=== PATIENT | female | born 1990 | race Caucasian/White ===

== ENCOUNTER 2023-09-14 11:05 | Inpatient (IN) | payer BC, SELFPAY ==
[2023-09-14] VITALS (47 sets, daily range): BP systolic 91–131; BP diastolic 56–86; PULSE 60–108; TEMP 36.6–36.9
[2023-09-14 11:46] LABS: Bilirubin Urine NEGATIVE (NEGATIVE); Blood Urine SMALL (NEGATIVE); Clarity Urine CLEAR (CLEAR); Color Urine LT. YELLOW (YELLOW); Glucose Urine UA NEGATIVE (NEGATIVE); Ketones Urine NEGATIVE (NEGATIVE); Leukocyte Esterase Urine SMALL (NEGATIVE); Nitrite Urine NEGATIVE (NEGATIVE); Protein Urine NEGATIVE (NEG/TRACE); Specific Gravity Urine <=1.005 (1.005-1.025); Urobilinogen Urine 0.2 EU/dL (0.2-1.0); pH Urine 6.5 (5.0-9.0)
[2023-09-14 11:54] LABS: Urine Microscopic Indicated YES
[2023-09-14 12:01] LABS: Amnisure POSITIVE (NEGATIVE)
[2023-09-14 12:13] LABS: Bacteria Urine TRACE #/HPF (NONE SEEN); Cast Seen? NONE SEEN #/LPF (NONE SEEN); Crystals Seen? None Seen #/HPF (None Seen); Mucus Urine NONE SEEN (NONE SEEN); RBC Urine 0-2 #/HPF (0-2); Squamous Epithelial Cell Urine MODERATE #/LPF (NONE/RARE); Urine Culture Indicated YES
[2023-09-14] MEDS: LACTATED RINGER'S SOLUTION 1,000 ML 125 ML IV (13:02)
[2023-09-14] MEDS: CLINDAMYCIN PHOSPHATE/D5W 900 MG/50 ML PIGGYBACK 100 MG IV ×2 (13:04→18:19)
[2023-09-14 13:10] LABS: Hematocrit 35.5 % (36.0-48.0); Hemoglobin 12.1 g/dL (12.0-16.0); Mean Corpuscular HGB Conc 34.1 g/dL (29.9-35.2); Mean Corpuscular Hemoglobin 29.2 pg (26.7-34.0); Mean Corpuscular Volume 85.7 fL (81.0-99.0); Mean Platelet Volume 10.4 fL (9.5-13.5); Platelet Count 302 10^3/uL (150-450); Red Blood Count 4.14 10^6/uL (4.20-5.40); Red Cell Distribution Width 13.9 % (11.0-15.0); White Blood Count 10.4 10^3/uL (4.0-11.0)
[2023-09-14 13:28] LABS: Amphetamine Screen Urine NEGATIVE (NEGATIVE); Barbiturates Screen Urine NEGATIVE (NEGATIVE); Benzodiazepines Screen Urine NEGATIVE (NEGATIVE); Buprenorphine Screen Urine NEGATIVE (NEGATIVE); Cannabinoid Screen Urine NEGATIVE (NEGATIVE); Cocaine Screen Urine NEGATIVE (NEGATIVE); Methadone Screen Urine NEGATIVE (NEGATIVE); Methamphetamines Screen Urine NEGATIVE (NEGATIVE); Opiate Screen Urine NEGATIVE (NEGATIVE); Oxycodone Screen Urine NEGATIVE (NEGATIVE); Phencyclidine Screen Urine NEGATIVE (NEGATIVE); Tricyclic Antidepressant Urine NEGATIVE (NEGATIVE)
[2023-09-14] MEDS: OXYTOCIN/0.9 % SODIUM CHLORIDE 10 UNITS/500 ML PLAST..BAG 6 UNIT IV (14:12)
--- NOTE | 2023-09-14 18:15 | PM.OBHP ---
OB - H&P: HPI History of Present Illness Chief complaint: LAB : 3 Para: 2 Gestational age based on last menstrual period: 39.5 Comments: history of Factor V History of Present Dating criteria: LMP confirmed by 1st trimester US care: good care Ultrasounds: normal 1st trimester US and normal mid trimester US complications comment: factor V Medical complications OB: none Labs Blood type: B (+) positive Rubella: immune RPR/VDLR: nonreactive GBS status: positive Narrative: allergy to PCN, treatment for GBS clindamycin Review of Systems ROS Status of ROS: 10 or more systems reviewed and unremarkable except as noted in history and below Meds Home Medications and Allergies Allergies Allergy/AdvReac Type Severity Reaction Status Date / Time PCN Allergy Mild Rash Uncoded 09/14/23 12:21 Exam Constitutional Vital Signs, click to edit/add: Last Vital Signs Temp 97.8 F 09/14/23 16:00 Pulse 72 09/14/23 18:13 Resp 16 09/14/23 16:00 BP 111/64 09/14/23 18:13 O2 Del Method Room Air 09/14/23 13:40 Documenting provider has reviewed patient's vital signs: yes Common normals: no apparent distress and oriented x3 General appearance: cooperative and comfortable Orientation/consciousness: Yes awake, Yes oriented to person, Yes oriented to place and Yes oriented to time HENMT Common normals: normocephalic Eye Common normals: EOMs intact bilaterally Neck & C-Spine Common normals: full ROM Lymph Lymphatic: no lymphadenopathy noted Chest Common normals: inspection of chest normal Respiratory Common normals: normal respiratory effort Effort & inspection: able to speak in complete sentences Auscultation: clear to auscultation bilaterally Cardio Common normals: regular rate and regular rhythm Rate: regular rate Rhythm: regular rhythm GI Common normals: Normal to inspection, nondistended, normoactive bowel sounds present Inspection: normal to inspection Auscultation: normoactive bowel sounds Palpation: soft Percussion: normal to percussion Common normals: no CVA tenderness Back & Pelvis Common normals: no CVA tenderness Extremity Common normals: normal to inspection and full ROM Neuro Common normals: oriented x3 Sensorium/orientation: awake, alert, oriented to person, oriented to place and oriented to time Psych Common normals: mental status grossly normal, thought process normal and cooperative Attitude: calm Speech: normal speech Thought process: normal thought process Results Labs Labs: Short CBC 09/14/23 Range/Units 12:50 WBC 10.4 (4.0-11.0) 10^3/uL Hgb 12.1 (12.0-16.0) g/dL Hct 35.5 L (36.0-48.0) % Plt Count 302 (150-450) 10^3/uL Urine 09/14/23 Range/Units 11:30 Urine Color Lt. yellow (YELLOW) Urine Clarity Clear (CLEAR) Urine pH 6.5 (5.0-9.0) Ur Specific [place] <=1.005 A (1.005-1.025) Urine Protein Negative (NEG/TRACE) mg/dL Urine Glucose (UA) Negative (NEGATIVE) mg/dL OB - A/P Assessment and Plan (1) Term : Urinary Catheter Management Urinary Catheter Management Urethral: Cath placed during this visit: no Urethral indwelling: Yes Reason for continuing: prolonged immobilization
[2023-09-14] MEDS: ROPIVACAINE HCL/PF 400 MG/200 ML PREMIX 6 MG EPIDURAL (18:18)
[2023-09-14] MEDS: OXYTOCIN/0.9 % SODIUM CHLORIDE 20 UNITS/1,000 ML PLAST..BAG 125 UNIT IV (20:19)
--- NOTE | 2023-09-14 21:00 | PM.OBPRCVD ---
Procedure Induction method: none Delivery augmentation: pitocin Delivery monitor: external FHT and external uterine Route of delivery: Episiotomy Description: none L&D Laceration Description: perineal - 1st degree and vaginal - 1st degree Delivery repair: Vicryl Estimated blood loss (mL): 300 Anesthesia type: Epidural Disposition: same day Infant Delivery date: 09/14/23 Gender: female presentation: vertex Placental delivery description: Spontaneous cord description: 3 Vessels heart rate - 1 minute: 100 bpm or Greater respiratory effort - 1 minute: Spontaneous/Strong Cry muscle tone - 1 minute: Active Movement reflex response - 1 minute: Prompt Response color - 1 minute: Bluish Hands or Feet total score - 1 minute: 9 heart rate - 5 minute: 100 bpm or Greater respiratory effort - 5 minute: Spontaneous/Strong Cry muscle tone - 5 minute: Active Movement reflex response - 5 minute: Prompt Response color - 5 minute: Bluish Hands or Feet total score - 5 minute: 9
[2023-09-14] MEDS: IBUPROFEN 400 MG TABLET 800 MG PO (21:15)
[2023-09-15 05:33] LABS: Basophils Percent Auto 0.3 % (0.2-2.0); Eosinophils Percent Auto 0.3 % (0.9-7.0); Hematocrit 31.9 % (36.0-48.0); Hemoglobin 10.8 g/dL (12.0-16.0); Immature Granulocytes Abs Auto 0.05 10^3/uL (0.00-0.03); Immature Granulocytes Pct Auto 0.4 % (0.0-0.5); Lymphocytes Absolute Auto 2.2 10^3/uL (1.2-3.8); Lymphocytes Percent Auto 17.1 % (20.5-60.0); Mean Corpuscular HGB Conc 33.9 g/dL (29.9-35.2); Mean Corpuscular Hemoglobin 29.5 pg (26.7-34.0); Mean Corpuscular Volume 87.2 fL (81.0-99.0); Monocytes Absolute Auto 0.9 10^3/uL (0.3-0.8); Neutrophils Absolute Auto 9.7 10^3/uL (1.4-6.5); Neutrophils Percent Auto 74.9 % (43.0-75.0); Platelet Count 219 10^3/uL (150-450); Red Blood Count 3.66 10^6/uL (4.20-5.40); Red Cell Distribution Width 13.9 % (11.0-15.0); White Blood Count 12.9 10^3/uL (4.0-11.0)
--- NOTE | 2023-09-15 07:48 | P.OBPN_ITS ---
OB - PN: Subj Subjective Patient comments: no complaints and pain well controlled status: doing well Exam Constitutional Vital Signs, click to edit/add: Last Vital Signs Temp 98.0 F 09/14/23 21:00 Pulse 65 09/14/23 22:30 Resp 16 09/14/23 22:30 BP 112/66 09/14/23 22:30 O2 Del Method Room Air 09/14/23 22:30 Documenting provider has reviewed patient's vital signs: yes Common normals: no apparent distress Respiratory Common normals: normal respiratory effort and clear to auscultation bilaterally Cardio Common normals: regular rate and regular rhythm GI Common normals: Normal to inspection, nondistended, normoactive bowel sounds present Extremity Common normals: no clubbing, cyanosis or edema and no calf tenderness Results Labs Labs: Short CBC 09/14/23 09/15/23 Range/Units 12:50 05:25 WBC 10.4 12.9 H (4.0-11.0) 10^3/uL Hgb 12.1 10.8 L (12.0-16.0) g/dL Hct 35.5 L 31.9 L (36.0-48.0) % Plt Count 302 219 (150-450) 10^3/uL Urine 09/14/23 Range/Units 11:30 Urine Color Lt. yellow (YELLOW) Urine Clarity Clear (CLEAR) Urine pH 6.5 (5.0-9.0) Ur Specific [place] <=1.005 A (1.005-1.025) Urine Protein Negative (NEG/TRACE) mg/dL Urine Glucose (UA) Negative (NEGATIVE) mg/dL Urinary Catheter Management Urinary Catheter Management Urethral: Cath placed during this visit: no Urethral indwelling: Yes OB - PN: A/P Assessment and Plan (1) Term : Plan - Vaginal Delivery day: 1 Plan: routine care, discharge home and follow up 6 weeks Time Spent with Patient Time: Total time spent is greater than 50% in coordination of care (as documented) at patient's floor/unit and/or counseling patient: Total time spent with greater than 50% in coordination of care (as documented) at patient's floor/unit and/or counseling patient: less than 15 minutes
[2023-09-15 08:12] VITALS: BP 109/71; PULSE 75
[2023-09-15] MEDS: ENOXAPARIN SODIUM 40 MG/0.4 ML SYRINGE SUBQ (08:17)
[2023-09-15] MEDS: DOCUSATE SODIUM 100 MG CAPSULE PO ×2 (08:17→21:40)
--- NOTE | 2023-09-15 08:20 | PC.NURSE ---
0820 Pt given demonstration and education on lovenox administration.
[2023-09-15] MEDS: IBUPROFEN 400 MG TABLET 800 MG PO ×3 (08:37→21:36)
[2023-09-15 16:30] VITALS: PULSE 71; TEMP 36.4
[2023-09-15 16:38] VITALS: BP 118/78; PULSE 71
[2023-09-15 21:43] VITALS: BP 110/65; PULSE 67
[2023-09-15 21:44] VITALS: TEMP 36.1
== END 2023-09-15 22:05 | disposition home or self-care (01) | DRG 806 ==
LOC: HEMC 11:12 → FBC 11:22
PROVIDERS: Admitting Provider Midwife; PCP Family Medicine; Visit Provider Midwife
DX: O99.12 Other diseases of the blood and blood-forming organs and certain disorders involving the immune mechanism complicating childbirth (principal); D68.2 Hereditary deficiency of other clotting factors; Z37.0 Single live birth; O99.824 Streptococcus B carrier state complicating childbirth; O70.0 First degree perineal laceration during delivery; Z3A.39 39 weeks gestation of pregnancy; Z86.16 Personal history of COVID-19; Z85.820 Personal history of malignant melanoma of skin
CPT/HCPCS: 36415; 51702; 59025; 59050; 59410; 80307; 81001; 84112; 85025; 85027; 86850; 86900; 86901; 87086; 87150; 87186; 96365; 96366; 96367; 96372; 96376

== ENCOUNTER 2023-09-16 08:37 | Outpatient (OUT) | payer BC, SELFPAY ==
[2023-09-16 13:58] VITALS: BP 114/79; PULSE 80; TEMP 36.6; O2SAT 98
== END 2023-09-16 14:11 | disposition home or self-care (01) ==
LOC: FBCO 08:38
PROVIDERS: PCP Family Medicine; Visit Provider Midwife
DX: Z39.2 Encounter for routine postpartum follow-up (principal)

== ENCOUNTER 2024-08-31 14:20 | Outpatient (OUT) | payer BC, SELFPAY ==
--- NOTE | 2024-08-31 14:54 | P.GSHP_ITS ---
History of Present Illness History of Present Illness Chief complaint: IUD Migration Narrative: Patient presents for presurgical testing. The patient states she had an IUD placed in November 2023. She states she was never able to locate the strings and felt that the IUD was not in place. She states she has had intermittent abdominal pain. She denies nausea, vomiting, fever, or any other complaints. Review of Systems ROS Narrative REVIEW OF SYSTEMS: Negative except as stated in HPI, ten or more systems reviewed. Constitutional: No fever, chills, weakness ENT: No sore throat or epistaxis Cardiovascular: No edema, chest pain, palpitations, or activity intolerance Respiratory: No shortness of breath, cough, or wheezing Musculoskeletal: No joint pain or swelling Gastrointestinal: No constipation, diarrhea, or vomiting Genitourinary: No dysuria or hematuria Neurological: No numbness, tingling, weakness, or headache Psychiatric: No mood changes PFSH PFS Medical History (Updated 08/31/24 @ 14:39 by Viry Chavez NP) Melanoma ?C43.9 - Malignant melanoma of skin, unspecified (ICD-10) Anxiety ?F41.9 - Anxiety disorder, unspecified (ICD-10) Migraine ?G43.909 - Migraine, unspecified, not intractable, without status migrainosus (ICD-10) IUD migration ?T83.32XA - Displacement of intrauterine contraceptive device, initial encounter (ICD-10) hypertension ?O16.5 - Unspecified maternal hypertension, complicating the puerperium (ICD- 10) 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 (ICD-10) Surgical History (Updated 08/31/24 @ 14:39 by Viry Chavez NP) H/O local excision of skin lesion ?Z98.890 - Other specified postprocedural states (ICD-10) History of wisdom tooth extraction ?K08.409 - Partial loss of teeth, unspecified cause, unspecified class (ICD- 10) Family History (Updated 08/31/24 @ 14:39 by Viry Chavez NP) Other Factor V deficiency Family history of breast cancer Family history of cancer Family history of diabetes mellitus Family history of hypertension Family history of myocardial infarction Family history of stroke Social History (Updated 08/31/24 @ 14:32 by Viry Chavez NP) Within the past year, how often did you have a drink containing alcohol: 2-3 times a week Smoking status: Never smoker Non-prescribed substance use: denies use 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 Highest level of school completed/degree received: Bachelor's degree Meds Home Medications and Allergies Home Medications ?Medication ?Instructions ?Recorded ?Confirmed ?Type escitalopram oxalate 10 mg tablet 10 mg PO DAILY 08/31/24 08/31/24 History Allergies Allergy/AdvReac Type Severity Reaction Status Date / Time Penicillins Allergy Unknown Verified 08/31/24 14:30 Exam Narrative Exam Narrative: Constitutional: Awake, alert, comfortable, well-appearing, nontoxic, interactive, vital signs as charted Head: Normocephalic, atraumatic Neck: Supple, normal appearance, normal range of motion, no meningeal signs, no lymphadenopathy Respiratory: No respiratory distress, breath sounds clear Cardiovascular: Regular rate and rhythm, strong and regular heart tones Abdomen: Nontender, normal bowel sounds, soft, no CVA tenderness Musculoskeletal: Normal gait, no swelling or edema Skin: No rashes or induration, no lesions, only visible skin inspected Neuro: No neurological deficits, normal sensation Psychiatric: Oriented ?3, normal affect Assessment and Plan Assessment and Plan (1) IUD migration: Plan Diagnostic laparoscopy, possible MARIYA, possible FOE, possible BSO, D&C, hysteroscopy, possible MyoSure scheduled with Dr. Gibson September 01, 2024.
== END 2024-08-31 14:21 | disposition home or self-care (01) ==
LOC: PST 14:21
PROVIDERS: PCP Family Medicine; Visit Provider Obstetrics & Gynecology
DX: Z01.818 Encounter for other preprocedural examination (principal); T83.32XA Displacement of intrauterine contraceptive device, initial encounter
CPT/HCPCS: G0463

== ENCOUNTER 2024-09-01 09:52 | Day surgery (SDC) | payer BC, SELFPAY ==
[2024-08-31 14:52] VITALS: BP 128/84; PULSE 75; TEMP 36.4; O2SAT 100; BMI 23.0
[2024-09-01] VITALS (11 sets, daily range): BP systolic 111–128; BP diastolic 74–84; PULSE 69–102; TEMP 36.2–36.8; O2SAT 93–100; BMI 23.0
--- OUTSIDE RECORDS SUMMARY | 2024-09-01 09:59 | XMS_ITS | CCD ---
Author Organization [facility] Inform ion [facility] Care Team Providers Care [employer] Name Role Phone DARRYL DE LA ROSA Unavailable Unavailable RENZO SHIN Attending Unavailable RENZO SHIN Admitting Unavailable LOVE QUINTERO Consulting Unavailable RENZO SHIN Consulting Unavailable RENZO SHIN Consulting Unavailable RENZO SHIN Attending Unavailable RENZO SHIN [facility]available RENZO SHIN Consulting Unavailable RENZO SHIN Attending Unavailable RENZO SHIN Admitting Unavailable RENZO SHIN Admitting Unavailable RENZO SHIN Attending Unavailable FELICITAS MARTINES V Consulting Unavailable [facility]ZO SHIN [facility] Admitting Unavailable RENZO SHIN Consulting Unavailable RENZO SHIN Attending Unavailable RENZO SHIN Admitting Unavailable RENZO SHIN Attending Unavailable RENZO SHIN [facility]ZO SHIN Attending Unavailable RENZO SHIN Consulting Unavailable RENZO SHIN Admitting Unavailable CAMRON [facility] Care Unavailable RENZO SHIN Admitting Unavailable RENZO SHIN Attending Unavailable RENZO SHIN Consulting Unavailable [facility] Primary Care Unavailable RENZO SHIN Consulting Unavailable RENZO SHIN Attending Unavailable RENZO SHIN Ad[facility] Un[facility] SHIN DAVISON Referring Unavailable DEMI DANIELS Primary Care Unavailable Delmsi Lorenzo MD Primary Care Provider Delmis Lorenzo MD Unavailable SHIN DAVISON Attending Unavailable SHIN DAVISON Attending Unavailable SHIN DAVISON Attending Unavailable SHIN DAVISON Attending Unavailable SHIN DAVISON Attending Unavailable DELMIS LORENZO Attending Unavailable SHIN DAVISON Attending Unavailable SHIN DAVISON Attending Unavailable SHIN DAVISON L Attending Unavailable CHARLA, SHIN L Attending Unavailable CHARLA, SHIN L Attending Unavailable CHARLA, SHIN L Attending Unavailable GONZALES DELMIS F Attending Unavailable GONZALES, DELMIS F Attending Unavailable GONZALES, DELMIS F Attending Unavailable GONZALES, DELMIS Nieto Attending Unavailable Allergies Allergy Classification Reported Allergen(s) Allergy Type Date of Onset Reaction(s) Facility (1 source) Penicillin Drug Allergy [facility] Repository (9 sources) Penicillins; Translations: [PENICILLINS] Propensity to adverse reactions to drug (disorder) 8 Rash [facility] Repository Medications Current Medications Medication Drug Class(es) Dates Sig (Normalized) Sig (Original) onabotulinumtoxina 100 unt injection (2 sources) Acetylcholine Release Inhibitor Start: End: onabotulinumtoxinA (Botox) injection 34 Units Start: 08-17-2024 End: 08-17-2024 34 Units, Intradermal, Once, On Norah 08/17/24 at 1715, For 1 dose, Charging context for this clinic-administered medication: Fee-Editable/Self Pay escitalopram 10 mg oral tablet (7 sources) Serotonin Reuptake Inhibitor Start: 05-31-2024 End: 11-27-2024 take 1 tablet by mouth once daily escitalopram (Lexapro) 10 MG tablet Indications: Mood changes TAKE 1 TABLET (10 MG) BY MOUTH DAILY. 90 tablet 1 05/31/2024 11/27/2024 Active Start: 01-31-2024 End: 04-30-2024 take 1 tablet by mouth once daily escitalopram (Lexapro) 10 MG tablet Indications: Mood changes Take 1 tablet (10 mg) by mouth Daily 30 tablet 5 01/31/2024 04/30/2024 Active levonorgestrel 0.780672 mg/hr intrauterine system (8 sources) Progestin, Progestin-containing Intrauterine Device Levonorgestrel (Keysha tta, 52 MG,) 20.1 MCG/DAY intrauterine device by Intrauterine route Active Problems Active Problems Problem Classification Problem Date Documented Date Episodic/Chronic Contraceptive and procreative management (2 sources) Intrauterine contraceptive device in situ; Translations: [Encounter for routine checking of intrauterine contraceptive device] 08-30-2024 Episodic Diabetes mellitus without complication (4 sources) Other abnormal glucose; Translations: [OTHER ABNORMAL GLUCOSE] Onset: 05-07-2020 Episodic Immunizations and screening for infectious disease (4 sources) Contact with and (suspected) exposure to other viral communicable diseases; Translations: [Encounter for screening for infections with a predominantly sexual mode of transmission] Onset: 02-17-2020 Episodic Menstrual disorders (4 sources) Secondary amenorrhea; Translations: [SECONDARY AMENORRHEA] Onset: 01-15-2020 Chronic Mood disorders (2 sources) Disturbance in mood; Translations: [Emotional lability] 01-31-2024 Episodic Other complications of (1 source) Supervision of high risk , unspecified, unspecified trimester; Translations: [Supervision of high risk , unspecified, unspecified trimester] Onset: 06-08-2023 Episodic Other and delivery including normal (8 sources) Encounter for supervision of normal , unspecified, second trimester; Translations: [Encounter for supervision of normal , unspecified, third trimester] Onset: 03-25-2020 Episodic Other screening for suspected conditions (not mental disorders or infectious disease) (5 sources) Encounter for screening for malignant neoplasm of cervix; Translations: [Encounter for other screening follow-up] Onset: 02-12-2020 Episodic Other screening for suspected conditions (not mental disorders or infectious disease) (1 source) Encounter for screening for Streptococcus B; Translations: [ENC SCR STREPTOCOCCUS B] Onset: 07-05-2020 Other skin disorders (2 sources) Rhytide of forehead; Translations: [Other specified disorders of the skin and subcutaneous tissue] 04-06-2024 Episodic Residual codes; unclassified (4 sources) 23 weeks gestation of ; Translations: [23 WEEKS GESTATION OF ] Onset: 05-01-2020 Residual codes; unclassified (1 source) 20 weeks gestation of ; Translations: [20 WEEKS GESTATION OF ] Onset: 03-28-2020 Unclassified (1 source) BX / BX() Onset: 02-22-2018 Unclassified (1 source) COVID-19; Translations: [COVID-19] Onset: 04-21-2020 Unclassified (7 sources) Patient on antidepressant monitoring plan Onset: 01-31-2024 01-31-2024 Unclassified (7 sources) Baseline PHQ-9 Onset: 01-31-2024 01-31-2024 Past or Other Problems Problem Classification Problem Date Documented Da te Episodic/Chronic Other ear and sense organ disorders (8 sources) Sudden idiopathic hearing loss; Translations: [Sudden idiopathic hearing loss, left ear] Onset: 06-04-2023 06-04-2023 Episodic Unclassified (1 source) BX; Translations: [BX] Onset: 02-22-2018 Results Test Name Value Interpretation Reference Range Facility CHLAMYDIA/GONOCOCCUS LING ( AB/URINE/PAPon 07-06-2020 Chlamydia trachomatis, LING Negative Normal Negative [facility] Comment on above: Performed By: #### Celina EUBANKS #### [facility] [address] [place] [id number] Rory Tosha Neisseria gonorrhoeae, LING Negative Normal Negative [facility] Comment on above: Performed By: #### Celina EUBANKS #### [facility] [address] [place], [place] [id number] Rory Tosha GROUP B STREP CULTUREon 06-17 S. agalactiae Ag Ql (Unsp spec) Culture Observations: Negative for Group B Streptococcus Normal [facility] Comment on above: Performed By: #### G BSCX #### [facility] [address] [place] [address] Rory Tosha GTT 3 HR PREGon 05-07-2020 Glucose [Mass/Vol] 138 mg/dL Normal [facility] Comment on above: Performed By: #### C BC #### [facility] [address] [place] [address] Rory Tosha Glucose [Mass/Vol] 102 mg/dL Normal [facility] Comment on above: Performed By: #### C BC #### [facility] [address] [place] [address] Rory Tosha Glucose [Mass/Vol] 80 mg/dL Normal 74-106 [facility] Comment on above: Performed By: #### C BC #### [facility] [address] [place] [address] Rory Tosha Glucose [Mass/Vol] 132 mg/dL Normal [facility] Comment on above: Performed By: #### C BC #### [facility] [address] [place] [address] Rory Tosha CBC AUTO DIFFon 05-01-2020 Basophils (Bld) [#/Vol] 0.0 103/ul Normal 0.0-0.1 [facility] Comment on above: Performed By: #### C BC #### [facility] [address] [place] [address] Rory Tosha Basophils/100 WBC (Bld) 0.4 % Normal 0.2-2.0 [facility] Comment on above: Performed By: #### C BC #### [facility] [address] [place] [address] Rory Tosha Eosinophils (Bld) [#/Vol] 0.1 103/ul Normal 0.0-0.7 [facility] Comment on above: Performed By: #### C BC #### [facility] [address] [place] [address] Rory Tosha Eosinophils/100 WBC (Bld) 0.6 % Critically low 0.9-7.0 [facility] Comment on above: Performed By: #### C BC #### [facility] [address] [place] [address] Rory Tosha Erythrocyte distribution width (RBC) [Ratio] 13.2 % Normal 11.0-15.0 [facility] Comment on above: Performed By: #### C BC #### [facility] [address] [place] [address] Rory Tosha Hematocrit (Bld) [Volume fraction] 35.7 % Critically low 36.0-48.0 [facility] Comment on above: Performed By: #### C BC #### [facility] [address] [place] [address] Rory Tosha Hemoglobin (Bld) [Mass/Vol] 12.2 g/dL Normal 12.0-16.0 [facility] Comment on above: Performed By: #### C BC #### [facility] [address] [place] [address] Rory Tosha IG # 0.06 10e3/ul Critically high 0.00-0.03 [facility] Comment on above: Performed By: #### C BC #### [facility] [address] [id number] Rory Tosha IG % 0.7 % Critically high 0.0-0.5 [facility] Comment on above: Performed By: #### C BC #### [facility] [address] [place], [place] [id number] Rory Tosha Lymphocytes (Bld) [#/Vol] 1.6 103/ul Normal 1.2-3.8 [facility] Comment on above: Performed By: #### C BC #### [facility] [address] [place], [place] [id number] Rory Tosha Lymphocytes/100 WBC (Bld) 19.5 % Critically low 20.5-60.0 [facility] Comment on above: Performed By: #### C BC #### [facility] [address] [place], [place] [id number] Rory Tosha MANUAL DIFF REQ NO Normal [facility] Comment on above: Performed By: #### C BC #### [facility] [address] [place], [place] [id number] Rory Tosha MCH (RBC) [Entitic mass] 30.1 pg Normal 26.7-34.0 [facility] Comment on above: Performed By: #### C BC #### [facility] [address] [place], [place] [id number] Rory Tosha MCHC (RBC) [Mass/Vol] 34.2 g/dL Normal 29.9-35.2 [facility] Comment on above: Performed By: #### C BC #### [facility] [address] [place], [place] [id number] Rory Tosha MCV (RBC) [Entitic vol] 88.1 fL Normal 81.0-99.0 [facility] Comment on above: Performed By: #### C BC #### [facility] [address] [place], [place] [id number] Rory Tosha Monocytes (Bld) [#/Vol] 0.4 103/ul Normal 0.3-0.8 [facility] Comment on above: Performed By: #### C BC #### [facility] [address] [place], [place] [address] Rory Tosha Monocytes/100 WBC (Bld) 4.8 % Normal 1.7-12.0 [facility] Comment on above: Performed By: #### C BC #### [facility] [address] [place], [place] [address] Rory Tosha Neutrophils (Bld) [#/Vol] 6.1 103/ul Normal 1.4-6.5 [facility] Comment on above: Performed By: #### C BC #### [facility] [address] [place] [address] Rory Tosha Neutrophils/100 WBC (Bld) 74.0 % Normal 43.0-75.0 [facility] Comment on above: Performed By: #### C BC #### [facility] [address] [place] [address] Rory Tosha Platelet mean volume (Bld) [Entitic vol] 9.2 fL Critically low 9.5-13.5 [facility] Comment on above: Performed By: #### C BC #### [facility] [address] [place] [address] Rory Tosha Platelets (Bld) [#/Vol] 285 103/ul Normal 150-450 [facility] Comment on above: Performed By: #### C BC #### [facility] [address] [place] [address] Rory Tosha RBC (Bld) [#/Vol] 4.05 106/ul Critically low 4.20-5.40 [facility] Comment on above: Performed By: #### C BC #### [facility] [address] [place] [address] Rory Tosha WBC (Bld) [#/Vol] 8.2 103/ul Normal 4.0-11.0 [facility] Comment on above: Performed By: #### C BC #### [facility] [address] [place] [address] Rory Tosha GLUCOSE - 1HRon 05-01-2020 Glucose [Mass/Vol] 158 mg/dL Critically high 74-106 [facility] Comment on above: Performed By: #### G LU1HR #### [facility] [address] [id number] Rory Givens Covid-19 PCR ([facility])on 03-19 Covid-19 DETECTED NOT DETECTED [facility] Comment on above: Result Comment: This test is not yet approved or cleared by the [place] FDA. When there are no FDA-approved or cleared tests available, and other criteria are met, FDA can make tests available under an emergency access mechanism called an Emergency Use Authorization (EUA). The EUA for this test is supported by the [place] of Health and Human Service's (HHS's) declaration that circumstances exist to justify the emergency use of in vitro diagnostics for the detection and/or diagnosis of the virus that causes COVID-19. This EUA will remain in effect (meaning this test can be used) for the duration of the COVID-19 declaration justifying emergency of IVDs, unless it is terminated or revoked by FDA (after which the test may no longer be used). This test is not yet approved or cleared by the [place] FDA. When there are no FDA-approved or cleared tests available, and other criteria are met, FDA can make tests available under an emergency access mechanism called an Emergency Use Authorization (EUA). The EUA for this test is supported by the [place] of Health and Human Service's (HHS's) declaration that circumstances exist to justify the emergency use of in vitro diagnostics for the detection and/or diagnosis of the virus that causes COVID-19. This EUA will remain in effect (meaning this test can be used) for the duration of the COVID-19 declaration justifying emergency of IVDs, unless it is terminated or revoked by FDA (after which the test may no longer be used). Previously reported as: NOT DETECTED On 04/16/2020 00:20 By LBS Performed By: #### V CHA #### [facility] [address] [id number] Rory Givens EUA Statement SEE BELOW Normal [facility] Comment on above: Result Comment: This test is not yet approved or cleared by the [place] FDA. When there are no FDA-approved or cleared tests available, and other criteria are met, FDA can make tests available under an emergency access mechanism called an Emergency Use Authorization (EUA). The EUA for this test is supported by the [employer] of Health and Human Service?s (HHS?s) declaration that circumstances exist to justify the emergency use of in vitro diagnostics for the detection and/or diagnosis of the virus that causes COVID-19. This EUA will remain in effect (meaning this test can be used) for the duration of the COVID-19 declaration justifying emergency of IVDs, unless it is terminated or revoked by FDA (after which the test may no longer be used). When diagnostic testing is negative, the possibility of a false negative should be considered in the context of a patients recent exposures and the presence of clinical signs and symptoms consistent with SARS-CoV-2. Performed By: #### V CHA #### [facility] [address] [place] [address] Roryolivier Nealen US PREG ANATOMY SINGLEon US PREG ANATOMY SINGLE EXAMINATION: US PREG ANATOMY SINGLE HISTORY: Gestation period, 20 weeks COMPARISON: No relevant comparison available. TECHNIQUE: Transabdominal sonographic examination was performed for obstetrical and evaluation. FINDINGS: Number: 1 Heart Rate: 150.1 bpm H.B. /min Amniotic Fluid Volume: Subjectively normal Placental Location: Posterior, no previa Cervix Length: 4 cm , closed ANATOMY: Normal Structures -cerebellum, choroid plexus, cisterna magna, lateral cerebral ventricles, orbits, midline falx, hard palate, four-chamber heart, RVOT, LVOT, stomach, kidneys, bladder, umbilical cord insertion into abdomen, three-vessel cord, cervical spine, thoracic spine, lumbar spine, sacral spine, right upper extremity, left upper extremity, right lower extremity, left lower extremity. SUBOPTIMALLY SEEN: None ABNORMALITIES: None BIOMETRY: BPD: 4.5 cm 19 weeks 5 days HC: 18.0 cm 20 weeks 3 days AC: 15.8 cm 20 weeks 6 days FL: 3.4 cm 20 weeks 4 days EFW:369.8 grams (43rd percentile) FL/AC: 21.4 FL/BPD: 74.6 HC/AC: 1.1 GESTATIONAL AGE: Age by EDC: 20 weeks 5 days JOON by EDC: 08/07/2020 Age by current US: 20 weeks 3 days JOON by current US: 08/09/2020 IMPRESSION: 1. Single live intrauterine with growth detailed above. *Reference: [facility] Practice Guideline for the performance of Obstetric Ultrasound Examinations, February 14, 2007. Electronically authenticated by: LOVE QUINTERO Date: 2020-03-26 07:17 Normal [facility] AFP TETRA PROFILE (MATERNAL) on 02-22-2020 AFP MoM 0.53 Normal [facility] Comment on above: Performed By: #### A FPTET #### [facility] [address] [id number] Rory Tosha AFP Value 18.7 ng/mL Normal [facility] Comment on above: Performed By: #### A FPTET #### [facility] [address] [address] Rory Tosha Comment Comment Normal [facility] Comment on above: Result Comment: Fidelia Cornell, Ph.D., [facility] Director . References: Available Upon Request. . Multiples Of Median Cutoffs Abbreviation Definitions For AFP Elevations IDD- Insulin Dep Diabetes Gunn 2.5 Black 2.8 OSBR- Open Spina Bifida IDD 2.0 Twins 4.5 Risk DSR Cutoff 1:270 DSR- Down Syndrome Risk T18 Cutoff 1:100 T18- Trisomy 18 . Down Syndrome and Trisomy 18 screening are considered Investigational . For further inquiries contact [employer] at [phone]. Performed By: #### A FPTET #### [facility] [address] [id number] Rory Tosha MARTHA MoM 0.72 Normal [facility] Comment on above: Performed By: #### A FPTET #### [facility] [address] [id number] Rory Tosha MARTHA Value 133.56 pg/mL Normal [facility] Comment on above: Performed By: #### A FPTET #### [facility] [address] [id number] Rory Tosha DSR (By Age) 1 IN 656 Normal [facility] Comment on above: Performed By: #### A FPTET #### [facility] [address] [id number] Rory Tosha DSR (Second Trimester) 1 [place] [address] Normal [facility] Comment on above: Performed By: #### A FPTET #### [facility] [address] [place] [address] Rory Givens Gest. Age on Collection Date 15.7 WEEKS Normal [facility] Comment on above: Performed By: #### A FPTET #### [facility] [address] [place] [address] Rory Givens Gestat. Age Based On LMP Normal [facility] Comment on above: Performed By: #### A FPTET #### [facility] [address] [place] [address] Rory Givens hCG MoM 0.44 Normal [facility] Comment on above: Performed By: #### A FPTET #### [facility] [address] [place] [address] [place] [address] m[IU]/mL Normal [facility] Comment on above: Performed By: #### A FPTET #### [facility] [address] [place] [address] Rory Givens Insulin Dep Diabetes No Normal [facility] Comment on above: Performed By: #### A FPTET #### [facility] [address] [place] [address] Rory Givens Interpretation Comment Normal [facility] Comment on above: Result Comment: Inte rpretation: Screen Negative This result is screen negative for OSB, Down Syndrome and Trisomy 18. The AFP MoM and patient specific risks calculated are based on the gestational age and the clinical information provided. This test can identify up to 80% of open neural tube defects. Closed neural tube defects and some open defects may not be detected by this test. The combination of maternal age, AFP, hCG, uE3, and MARTHA identifies 75-80% of Down Syndrome. The combination of maternal age, AFP, hCG and uE3 identifies 60% of Trisomy 18 pregnancies. The [employer] recommends amniocentesis be offered to women age 35 and older. Recalculations are not recommended when gestational dating by LMP and ultrasound are within 10 days. Performed By: #### A FPTET #### [facility] [address] [address] Rory Tosha [age] Normal [facility] Comment on above: Performed By: #### A FPTET #### [facility] [address] [address] Rory Tosha Multiple Gestation No Normal [facility] Comment on above: Performed By: #### A FPTET #### [facility] [address] [address] Rory T[place]ha OSBR [place] 1 [place] [address] Normal [facility] Comment on above: Performed By: #### A FPTET #### [facility] [address] [address] Rory Tosha PDF . Normal [facility] Comment on above: Performed By: #### A FPTET #### [facility] [address] [place] [address] Rory Tosha Race Normal [facility] Comment on above: Performed By: #### A FPTET #### [facility] [address] [place] [address] Rory Tosha Results Report Normal [facility] Comment on above: Performed By: #### A FPTET #### [facility] [address] [place] [address] Rory Tosha T18 (By Age) 1:2556 Normal [facility] Comment on above: Performed By: #### A FPTET #### [facility] [address] [address] Rory Tosha T18 Risk Not increased Normal [facility] Comment on above: Performed By: #### A FPTET #### [facility] [address] [place] [address] Rory Tosha Test Results: Negative [facility] Comment on above: Performed By: #### A FPTET #### [facility] [address] [place] [address] Rory Tosha uE3 MoM 0.86 Normal [facility] Comment on above: Performed By: #### A FPTET #### [facility] [address] [place] [address] Rory Givens uE3 Value 0.81 ng/mL Normal [facility] Comment on above: Performed By: #### A FPTET #### [facility] [address] [place] [address] Rory Givens PAP W CT/NG,HR HPV RFX 16 AN D 18on 02-15-2020 Chlamydia, Nuc. Acid Amp Negative Normal Negative [facility] Comment on above: Result Comment: Perf ormed at: =G Performed By: #### P APHR4 #### [facility] [address] [place] [address] Rory Givens DIAGNOSIS: Comment Normal [facility] Comment on above: Result Comment: NEGA TIVE FOR INTRAEPITHELIAL LESION OR MALIGNANCY. Performed at: WB Performed By: #### P APHR4 #### [facility] [address] [place] [address] Rory Givens Gonococcus, Nuc. Acid Amp Negative Normal Negative [facility] Comment on above: Result Comment: Perf ormed at: =G Performed By: #### P APHR4 #### [facility] [address] [place] [address] Rory Givens HPV, high-risk Negative Normal Negative [facility] Comment on above: Result Comment: This nucleic acid amplification high-risk HPV test detects thirteen high-risk types (16,18,31,33,35,39,45,51,52,56,58,59,68) without differentiation. Performed at: =G Performed By: #### P APHR4 #### [facility] [address] [place] [address] Rory Givens Methodology: Comment Normal [facility] Comment on above: Result Comment: This liquid based ThinPrep(R) pap test was screened with the use of an image guided system. Performed at: WB Performed By: #### P APHR4 #### [facility] [address] [place] [address] Rory Givens Note: Comment Normal [facility] Comment on above: Result Comment: The Pap smear is a screening test designed to aid in the detection of premalignant and malignant conditions of the uterine cervix. It is not a diagnostic procedure and should not be used as the sole means of detecting cervical cancer. Both false-positive and false-negative reports do occur. . Performed at: WB Performed By: #### P APHR4 #### [facility] [address] [address] Rory Tosha Performed by: Comment Normal [facility] Comment on above: Result Comment: Melisa Currie, Eyeglass Assembler (ASCP) Performed at: WB Performed By: #### P APHR4 #### [facility] [address] [address] Roryolivier Givens Specimen adequacy: Comment Normal [facility] Comment on above: Result Comment: Sati sfactory for evaluation. No endocervical component is identified. Performed at: WB Performed By: #### P APHR4 #### [facility] [address] [place] [address] Rory Tosha . . Normal [facility] Comment on above: Result Comment: Perf ormed at: WB Performed By: #### P APHR4 #### [facility] [address] [place] [address] Rory Tosha US PREG <14 WKSon 01-15-2020 US PREG <14 WKS EXAMINATION: US PREG <14 WKS HISTORY: Secondary physiologic amenorrhea COMPARISON: No relevant comparison available. FINDINGS: Transabdominal images GA GSD: 5.26 cm, 11 weeks 0 days GA MSD: 4.74 cm, 10 weeks 3 days GA CRL: 4.6 cm, 11 weeks 4 days Yolk sac: 0.325 cm Heart rate: 162 BPM Cervix: Closed, 3.7 cm Gestational age: 10 weeks 5 days Gestational JOON: 08/07/2020 Ultrasound age: 11 weeks 4 days Ultrasound JOON: 08/01/2020 IMPRESSION: Viable intrauterine gestation of 11 weeks 4 days Electronically authenticated by: FELICITAS MARTINES Date: 2020-01-15 10:05 Normal [facility] HEP B SURFACE ANTIGEN SCREEN on 01-10-2020 HBsAg Screen Negative Normal Negative [facility] Comment on above: Performed By: #### H BSANS #### [facility] [address] [place] [address] Rory Givens HEPATITIS C VIRUS AB W/ REFL EX QUANTon 01-10-2020 HCV AB <0.1 Normal 0.0-0.9 [facility] Comment on above: Performed By: #### Celina EUBANKS #### [facility] [address] [place] [address] Rory Givens Interpretation: Comment Normal [facility] Comment on above: Result Comment: Nega tive Not infected with HCV, unless recent infection is suspected or other evidence exists to indicate HCV infection. Performed By: #### Celina EUBANKS #### [facility] [address] [place] [address] Roryolivier Nealen HGB(ELECTP) FRACTION PROFILE on 01-10-2020 Hemoglobin (Bld) [Mass/Vol] 97.8 % Normal 96.4-98.8 [facility] Comment on above: Performed By: #### H MARIKA #### [facility] [address] [place] [address] Rory Tosha Hgb A2 2.2 % Normal 1.8-3.2 [facility] Comment on above: Performed By: #### H GBELE #### [facility] [address] [place] [address] Rory Tosha Hgb C 0.0 % Normal 0.0 [facility] Comment on above: Performed By: #### H GBELE #### [facility] [address] [place] [address] Rory Tosha Hgb F 0.0 % Normal 0.0-2.0 [facility] Comment on above: Performed By: #### H GBELE #### [facility] [address] [place] [address] Rory Tosha Hgb S 0.0 % Normal 0.0 [facility] Comment on above: Performed By: #### H GBELE #### [facility] [address] [place] [address] Rory Tosha Hgb Solubility Negative Normal Negative [facility] Comment on above: Performed By: #### H GBELE #### [facility] [address] [place] [address] Rory Givens Hgb Variant Normal [facility] Comment on above: Performed By: #### H MARIKA #### [facility] [address] [place] [address] Rory Givens Interpretation Comment Normal [facility] Comment on above: Result Comment: Norm al adult hemoglobin present. Performed By: #### H GBPATRICE #### [facility] [address] [place] [address] Rory Givens HIV 1 AND 2 WITH REFLEXon HIV Screen 4th Generation wRfx Non Reactive Normal Non Reactive [facility] Comment on above: Performed By: #### H IV12 #### [facility] [address] [place] [address] Rory Givens RPR QUANTon 01-10-2020 Rapid Plasma Reagin, Quant Non Reactive Normal NonRea<1:1 [facility] Comment on above: Performed By: #### Celina EUBANKS #### [facility] [address] [place] [address] Rory Givens RUBELLA AB IGGon 01-10-2020 Rubella Antibodies, IgG 1.49 index Normal Immune >0.99 [facility] Comment on above: Result Comment: Non- immune <0.90 Equivocal 0.90 - 0.99 Immune >0.99 Performed By: #### Celina EUBANKS #### [facility] [address] [place] [address] Rory Givens VARICELLA IGG ABon 0 Varicella Zoster IgG 816 index Normal Immune >165 [facility] Comment on above: Result Comment: Nega tive <135 Equivocal 135 - 165 Positive >165 A positive result generally indicates exposure to the pathogen or administration of specific immunoglobulins, but it is not indication of active infection or stage of disease. Performed By: #### Celina EUBANKS #### [facility] [address] [place] [address] Rory Givens CBC AUTO DIFFon 2020 Basophils (Bld) [#/Vol] 0.1 103/ul Normal 0.0-0.1 [facility] Comment on above: Performed By: #### C BC #### [facility] [address] [id number] Rory Tosha Basophils/100 WBC (Bld) 0.5 % Normal 0.2-2.0 [facility] Comment on above: Performed By: #### C BC #### [facility] [address] [place], [place] [id number] Rory Tosha Eosinophils (Bld) [#/Vol] 0.1 103/ul Normal 0.0-0.7 [facility] Comment on above: Performed By: #### C BC #### [facility] [address] [place], [place] [id number] Rory Tosha Eosinophils/100 WBC (Bld) 0.7 % Critically low 0.9-7.0 [facility] Comment on above: Performed By: #### C BC #### [facility] [address] [place] [address] Rory Tosha Erythrocyte distribution width (RBC) [Ratio] 12.1 % Normal 11.0-15.0 [facility] Comment on above: Performed By: #### C BC #### [facility] [address] [place] [address] Rory Tosha Hematocrit (Bld) [Volume fraction] 36.2 % Normal 36.0-48.0 [facility] Comment on above: Performed By: #### C BC #### [facility] [address] [place], [place] [id number] Rory Tosha Hemoglobin (Bld) [Mass/Vol] 12.9 g/dL Normal 12.0-16.0 [facility] Comment on above: Performed By: #### C BC #### [facility] [address] [place] [address] Rory Tosha IG # 0.03 10e3/ul Normal 0.00-0.03 [facility] Comment on above: Performed By: #### C BC #### [facility] [address] [place], [place] [id number] Rory Tosha IG % 0.3 % Normal 0.0-0.5 [facility] Comment on above: Performed By: #### C BC #### [facility] [address] [id number] Rory Tosha Lymphocytes (Bld) [#/Vol] 2.4 103/ul Normal 1.2-3.8 [facility] Comment on above: Performed By: #### C BC #### [facility] [address] [place], [place] [id number] Rory Tosha Lymphocytes/100 WBC (Bld) 23.1 % Normal 20.5-60.0 [facility] Comment on above: Performed By: #### C BC #### [facility] [address] [place], [place] [id number] Rory Tosha MANUAL DIFF REQ NO Normal [facility] Comment on above: Performed By: #### C BC #### [facility] [address] [place], [place] [phone] Rory Tosha MCH (RBC) [Entitic mass] 30.0 pg Normal 26.7-34.0 [facility] Comment on above: Performed By: #### C BC #### [facility] [address] [place] [address] Rory Tosha MCHC (RBC) [Mass/Vol] 35.6 g/dL Critically high 29.9-35.2 [facility] Comment on above: Performed By: #### C BC #### [facility] [address] [place], [place] [id number] Rory Tosha MCV (RBC) [Entitic vol] 84.2 fL Normal 81.0-99.0 [facility] Comment on above: Performed By: #### C BC #### [facility] [address] [place], [place] [id number] Rory Tosha Monocytes (Bld) [#/Vol] 0.5 103/ul Normal 0.3-0.8 [facility] Comment on above: Performed By: #### C BC #### [facility] [address] [place], [place] [id number] Rory Tosha Monocytes/100 WBC (Bld) 4.9 % Normal 1.7-12.0 [facility] Comment on above: Performed By: #### C BC #### [facility] [address] [place], [place] [address] Rory Tosha Neutrophils (Bld) [#/Vol] 7.4 103/ul Critically high 1.4-6.5 [facility] Comment on above: Performed By: #### C BC #### [facility] [address] [place] [address] Rory Tosha Neutrophils/100 WBC (Bld) 70.5 % Normal 43.0-75.0 [facility] Comment on above: Performed By: #### C BC #### [facility] [address] [place] [address] Rory Tosha Platelet mean volume (Bld) [Entitic vol] 9.3 fL Critically low 9.5-13.5 [facility] Comment on above: Performed By: #### C BC #### [facility] [address] [place] [address] Rory Tohsa Platelets (Bld) [#/Vol] 367 103/ul Normal 150-450 [facility] Comment on above: Performed By: #### C BC #### [facility] [address] [place] [address] Rory Tosha RBC (Bld) [#/Vol] 4.30 106/ul Normal 4.20-5.40 [facility] Comment on above: Performed By: #### C BC #### [facility] [address] [place] [address] Rory Tosha WBC (Bld) [#/Vol] 10.4 103/ul Normal 4.0-11.0 [facility] Comment on above: Performed By: #### C BC #### [facility] [address] [place] [address] Rory Tosha CULTURE URINEon 2020 CULTURE URINE Culture Observations : NO GROWTH Normal [facility] Comment on above: Performed By: #### Celina EUBANKS #### [facility] [address] [place] [address] Rory Tosha DRUG SCREEN RAPID (URINE)on 2020 AMP Negative Normal NEGATIVE [facility] Comment on above: Performed By: #### C BC #### [facility] [address] [place] [address] Rory Tosha BAR Negative Normal NEGATIVE [facility] Comment on above: Performed By: #### C BC #### [facility] [address] [place] [address] Rory Tosha BUP Negative Normal NEGATIVE [facility] Comment on above: Performed By: #### C BC #### [facility] [address] [place] [address] Rory Tosha BZO Negative Normal NEGATIVE [facility] Comment on above: Performed By: #### C BC #### [facility] [address] [place] [address] Rory Tosha SIM Negative Normal NEGATIVE [facility] Comment on above: Performed By: #### C BC #### [facility] [address] [place] [address] Rory Tosha CUT-OFFS SEE BELOW Normal [facility] Comment on above: Result Comment: AMP (Amphetamine): 500ng/mL, BAR (Barbituates): 200 ng/mL, BZO (Benzodiazepines): 150 ng/mL, BUP (Buprenorphine): 10 ng/mL, SIM (Cocaine): 150 ng/mL, mAMP (Methamphetamine): 500 ng/mL, MTD (Methadone): 200 ng/mL, OPI (Opiates): 100 ng/mL or 2000 ng/mL, OXY (Oxycodone): 100 ng/mL, PCP (Phencyclidine): 25 ng/mL, PPX (Propoxyphene): 300 ng/mL, THC (Cannabinoids): 50 ng/mL, TCA (Trycyclic Antidepressants): 300 ng/mL Performed By: #### C BC #### [facility] [address] [place] [address] Rory Tosha DRUG CUT HEADER DRUG CLASS TEST SYST EM CUT-OFF CONCENTRATIONS ARE FOLLOWS: Normal [facility] Comment on above: Performed By: #### C BC #### [facility] [address] [place] [address] Rory Tosha mAMP Negative Normal NEGATIVE [facility] Comment on above: Performed By: #### C BC #### [facility] [address] [address] Rory Tosha MTD Negative Normal NEGATIVE [facility] Comment on above: Performed By: #### C BC #### [facility] [address] [address] Rory Tosha OPI Negative Normal NEGATIVE [facility] Comment on above: Performed By: #### C BC #### [facility] [address] [place] [address] Rory Tosha OXY Negative Normal NEGATIVE [facility] Comment on above: Performed By: #### C BC #### [facility] [address] [place] [address] Rory Tosha PCP Negative Normal NEGATIVE [facility] Comment on above: Performed By: #### C BC #### [facility] [address] [place] [address] Rory Tosha PPX Negative Normal NEGATIVE [facility] Comment on above: Performed By: #### C BC #### [facility] [address] [place] [address] Rory Tosha TCA Negative Normal NEGATIVE [facility] Comment on above: Performed By: #### C BC #### [facility] [address] [place] [address] Rory Tosha THC Negative Normal NEGATIVE [facility] Comment on above: Performed By: #### C BC #### [facility] [address] [place] [address] Rory Tosha GLYCOHEMOGLOBIN A1Con 2019 Glucose [Mass/Vol] 94 mg/dL Normal [facility] Comment on above: Performed By: #### V CHA #### [facility] [address] [place] [address] Royr Tosha HbA1c (Bld) [Mass fraction] 4.9 % Normal <=6.0 [facility] Comment on above: Performed By: #### V ANNEL #### [facility] [address] [place] [address] Rory Tosha PREG QUANT HCGon 2020 HCG QUANT 10718.00 mIU/mL Normal [facility] Comment on above: Performed By: #### C BC #### [facility] [address] [place], [place] [phone] Rory Tosha HCG RANGE SEE BELOW Normal [facility] Comment on above: Result Comment: 5-50 0-1 WEEK 40-300 1-2 WEEKS 100-1,000 2-3 WEEKS 500-6,000 3-4 WEEKS 5,000-200,000 1-2 MONTHS 10,000-100,000 2-3 MONTHS 3,000-50,000 2ND TRIMESTER 1,000-50,000 3RD TRIMESTER Performed By: #### C BC #### [facility] [address] [place] [address] Rory Tosha TYPE AND SCREENon 2020 TYPE AND SCREEN Negative Normal [facility] Comment on above: Performed By: #### V CHA #### [facility] [address] [place] [address] Rory Tosha UA RANDOM W/MICROSCOPICon Bacteria LM.HPF (Urine sed) [#/Area] TRACE Normal NONE SEEN [facility] Comment on above: Performed By: #### C BC #### [facility] [address] [place] [address] Rory Tosha Bilirubin [Mass/Vol] Negative Normal NEGATIVE [facility] Comment on above: Performed By: #### C BC #### [facility] [address] [place] [address] Rory Tosha BLOOD Negative Normal NEGATIVE [facility] Comment on above: Performed By: #### C BC #### [facility] [address] [place] [address] Rory Tosha CAST NONE SEEN Normal NONE SEEN [facility] Comment on above: Performed By: #### C BC #### [facility] [address] [place], [place] [phone] Rory Tosha Clarity (U) CLEAR Normal [facility] Comment on above: Performed By: #### C BC #### [facility] [address] [place] [address] Rory Tosha Color (U) LT. YELLOW Normal YELLOW [facility] Comment on above: Performed By: #### C BC #### [facility] [address] [place], [place] [phone] Rory Tosha Crystals LM Nom (Urine sed) NONE SEEN Normal NONE SEEN [facility] Comment on above: Performed By: #### C BC #### [facility] [address] [place], [place] [phone] Rory Tosha Epithelial cells LM.HPF (Urine sed) [#/Area] RARE Normal [facility] Comment on above: Performed By: #### C BC #### [facility] [address] [place], [place] [phone] Rory Tosha Glucose [Mass/Vol] 100 mg/dl Normal NEGATIVE [facility] Comment on above: Performed By: #### C BC #### [facility] [address] [place], [place] [address] Rory Tosha Ketones Ql (U) Negative Normal NEGATIVE [facility] Comment on above: Performed By: #### C BC #### [facility] [address] [place], [place] [address] Rory Tosha MUCOUS NONE SEEN Normal NONE SEEN [facility] Comment on above: Performed By: #### C BC #### [facility] [address] [place], [place] [address] Rory Tosha Nitrite Ql (U) Negative Normal NEGATIVE [facility] Comment on above: Performed By: #### C BC #### [facility] [address] [place], [place] [address] Rory Tosha pH (Bld) 6.5 Normal 5-9 [facility] Comment on above: Performed By: #### C BC #### [facility] [address] [place] [address] Rory Tosha Protein [Mass/Vol] Negative Normal [facility] Comment on above: Performed By: #### C BC #### [facility] [address] [place], [place] [id number] Rory Tosha RBC (Bld) [#/Vol] 0-2 Normal 0-2 [facility] Comment on above: Performed By: #### C BC #### [facility] [address] [place], [place] [phone] Rory Tosha SPEC GRAVITY 1.015 Normal 1.005-<=1.025 [facility] Comment on above: Performed By: #### C BC #### [facility] [address] [place], [place] [address] Rory Givens Urobilinogen Qn (U) 0.2 EU/dl Normal [facility] Comment on above: Performed By: #### C BC #### [facility] [address] [place], [place] [address] Rory Givens WBC (Bld) [#/Vol] 0-2 Normal NONE SEEN [facility] Comment on above: Performed By: #### C BC #### [facility] [address] [place], [place] [address] Rory Givens WBC (Bld) [#/Vol] Negative Normal NEGATIVE [facility] Comment on above: Performed By: #### C BC #### [facility] [address] [place] [address] Rory Givens Surgical Pathologyon 018 Surgical Pathology (NOTE)[id number] Y LABORATORIESCONSULTING PATHOLOGISTS CORPORATIONANATOMIC [id number] [place] [phone] Fax: SURGICAL PATHOLOGY CONSULTATIONPatient Name: Daryl BROTHERS Rec: [id number] Number: [id number]: 02/21/2018Received: 02/22/2018Reported: 02/23/2018 15:49-- Diagnosis --SKIN, RIGHT SUPERIOR UPPER BACK, EXCISION: - 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 - MARGINS APPEAR NEGATIVE FOR INVOLVEMENT.Timbo Acosta M.D.Electronically Signed [employer]/02/23/2018Michelle wang InformationPre-op Diagnosis: COMPOUND NEVUS WITH SPITZ AND CAROL ANN, HX MELANOMAJUNE 2018, [facility], [id number], DX: COMPOUND NEVUSWITH FEATURES OF SPITZ AND CAROL ANN ( SPARK NEVUS), NOT EXCISED. MYRIADMYPATH MELANOMA SCORE: -8.8, BENIGN.Operative Findings: RIGHT SUPERIOR UPPER BACK STITCH AT 12:00Operation Performed: EXCISIONSource of Specimen1: JAR #1- RIGHT SUPERIOR UPPER BACK- STITCH AT 12:00Gross Description TANIA BOWSER, RIGHT SUPERIOR UPPER BACK, STITCH AT 12 O'CLOCK A 4.2x 2.5 x 1.0 (depth) cm oriented triangular portion of simpson skin with asuture at one tip designating 12 o'clock. The 3 o'clock half is inkedblue and 9 o'clock half black. On the skin surface is a 2.6 x 1.4 cmmottled brown-simpson lesion that is 0.4 cm from the nearest 3 o'clockmargin. At the periphery of the lesion there is a 0.5 cm simpson-whitescar. Sectioning reveals grossly unremarkable cut surfaces. Cassettesummary: A-G specimen entirely serially submitted from 12-6 with the6 o'clock margin en face. asMicroscopic DescriptionSkin to the subcutaneous fat shows a scar and healing wound withlymphocytic inflammation and increased single melanocytes along thebasal layer with areas of nest formation and recurrent nevus changes. Adjacent to the scar there are residual nests of melanocytes at thedermal epidermal junction and increased single melanocytes along thebasal layer. Focal nests are present in the dermis and showmaturation. The junctional nests extend well beyond the dermalcomponent as a shoulder, but peripheral and deep margins appear freeof involvement. Normal [facility] Comment on above: Performed By: #### P PPVDP ####[id number] [place], [place] [id number] Vital Signs Date Time Vital Sign Value Performing Clinician Facility 08-30-2024 14:05-0400 Body mass index (BMI) [Ratio] 23.17 kg/m2 [facility] Work Phone: [facility] 08-30-2024 14:05-0400 Body weight 61.24 kg Shin [facility] Work Phone: [facility] 08-30-2024 14:05-0400 Diastolic blood pressure 80 mm[Hg] [facility] Work Phone: [facility] 08-30-2024 14:05-0400 Systolic blood pressure 118 mm[Hg] Shin Floro CNM Work Phone: [facility] 01-31-2024 13:[id number] Body height 162.6 cm Delmis Lorenzo MD Work Phone: [facility] 01-31-2024 13:22-0400 Body mass index (BMI) [Ratio] 23.72 kg/m2 Delmis Lorenzo MD Work Phone: [facility] 01-31-2024 [id number] Body weight 62.69 kg Delmis Lorenzo MD Work Phone: [facility] 01-31-2024 13:22-0400 Diastolic blood pressure 70 mm[Hg] Delmis Lorenzo MD Work Phone: [facility] 01-31-2024 13:22-0400 Heart rate 87 /min Delmis Lorenzo MD Work Phone: [facility] 01-31-2024 13:22-0400 Respiratory rate 18 /min Delmis Lorenzo MD Work Phone: [facility] 01-31-2024 13:22-0400 SaO2% (BldA) [Mass fraction] 100 % Delmis Lorenzo MD Work Phone: [facility] 01-31-2024 13:22-0400 Systolic blood pressure 110 mm[Hg] Delmis Lorenzo MD Work Phone: [facility] 02-22-2020 03:06-0400 Body weight 58.968 kg RENZO SHIN [facility] Comment on above: Performed By: #### AFPTET #### [facility] [address] [place] [address] Rory Givens Encounters Encounter Date Encounter Type Care Provider Facility Start: 08-30-2024 End: 08-30-2024 Bamboo flowsheet Shin Davison CNM Work Phone: [facility] Start: 08-30-2024 End: 08-30-2024 Bamboo flowsheet Shin Davison CNM Work Phone: [facility] Start: 08-30-2024 End: 08-30-2024 Office outpatient visit 15 minutes Shin L Floro CNM Work Phone: [facility] Comment on above: IUD check up Start: 08-17-2024 End: 08-17-2024 ambulatory DELMIS LORENZO Not Available Start: 08-17-2024 End: 08-17-2024 Patient encounter procedure Delmis Lorenzo MD Work Phone: [facility] Comment on above: Forehead wrinkles (P rimary Dx) Start: 04-06-2024 End: 04-06-2024 Postop follow up visit related to original px Delmis Lorenzo MD Work Phone: [facility] Comment on above: Forehead wrinkles (P rimary Dx) Start: 04-06-2024 End: 04-06-2024 ambulatory DELMIS LORENZO Not Available Start: 01-31-2024 End: 01-31-2024 Bamboo flowsheet Delmis Lorenzo MD Work Phone: [facility] Start: 01-31-2024 End: 01-31-2024 Bamboo flowsheet Delmis Lorenzo MD Work Phone: [facility] Start: 01-31-2024 End: 01-31-2024 Initial preventive medicine new pt age 18-39yrs Delmis Lorenzo MD Work Phone: [facility] Comment on above: Routine general medi silvia examination at a health care facility (Primary Dx); Mood changes Start: 01-31-2024 End: 01-31-2024 Patient encounter status Delmis Lorenzo MD Work Phone: [facility] Work Phone: Start: 01-31-2024 End: 01-31-2024 ambulatory DELMIS LORENZO Not Available Start: 12-29-2023 End: 12-29-2023 ambulatory DELMIS LORENZO Not Available Start: 12-27-2023 End: 12-27-2023 ambulatory SHIN L FLORO Not Available Start: 11-15-2023 End: 11-15-2023 ambulatory SHIN L FLORO Not Available Start: 10-27-2023 End: 10-27-2023 ambulatory SHIN L FLORO Not Available Start: 10-20-2023 End: 10-20-2023 ambulatory SHIN L FLORO Not Available Start: 10-13-2023 End: 10-13-2023 ambulatory SHIN L FLORO Not Available Start: 10-04-2023 End: 10-04-2023 ambulatory SHIN L FLORO Not Available Start: 09-28-2023 End: 09-28-2023 ambulatory DELMIS LORENZO Not Available Start: 09-27-2023 End: 09-27-2023 ambulatory SHIN L FLORO Not Available Start: 09-14-2023 End: 09-14-2023 ambulatory SHIN L FLORO Not Available Start: 09-08-2023 End: 09-08-2023 ambulatory SHIN L FLORO Not Available Start: 09-01-2023 End: 09-01-2023 ambulatory SHIN L FLORO Not Available Start: 08-25-2023 End: 08-25-2023 ambulatory SHIN L FLORO Not Available Start: 06-08-2023 End: 06-09-2023 ambulatory SHIN FLORO [facility] Start: 07-04-2020 End: 07-04-2020 Patient encounter procedure RENZO SHIN Facility:[facility] Start: 05-07-2020 End: 05-08-2020 Patient encounter procedure RENZO SHIN Facility:[facility] Start: 05-01-2020 End: 05-02-2020 Patient encounter procedure RENZO SHIN Facility:[facility] Start: 04-15-2020 End: 04-16-2020 Patient encounter procedure RENZO SHIN Facility:[facility] Start: 03-25-2020 End: 03-26-2020 Patient encounter procedure RENZO SHIN Facility:[facility] Start: 02-19-2020 End: 02-20-2020 Patient encounter procedure RENZO SHIN Facility:[facility] Start: 02-12-2020 End: 02-12-2020 Patient encounter procedure RENZO SHIN Facility:[facility] Start: 01-15-2020 End: 01-16-2020 Patient encounter procedure RENZO SHIN Facility:[facility] Start: 2020 End: 01-10-2020 Patient encounter procedure ANTONIETA LYON Facility:[facility] Start: 02-22-2018 End: 02-22-2018 Patient encounter DARRYL DE LA ROSA [facility] Plan of Treatment Date Care Activity Detail Author Start: 01-15-2025 Influenza vaccination Influenz a Vaccine (Season Ended) [facility] Start: 08-30-2024 End: 08-30-2024 Professional / ancillary services management 08/30/2024 3:30 PM EDT Ancillary Procedure [facility] [address] [place] [address] IUD check up [facility] Comment on above: IUD check up Start: 08-30-2024 End: 08-30-2024 Patient encounter procedure [facility] Comment on above: Arrived Start: 08-30-2024 End: 08-30-2025 US Pelvis transvaginal US pelvis transvaginal Imaging Routine IUD check up Expected: 08/30/2024, Expires: 08/30/2025 [facility] Work Phone: Comment on above: Expected: 08/30/2024 , Expires: 08/30/2025 Start: 03-17-2024 Influenza vaccination Influenza Vacc ine (#1) [facility] Comment on above: Postponed from 01/15 (Patient Refused) Start: 01-31-2024 End: 01-30-2025 CBC W Auto Differential panel - Blood CBC and differential Lab Routine Mood changes Expected: 01/31/2024 (Approximate), Expires: 01/30/2025 [facility] Comment on above: Expected: 01/31/2024 (Approximate), Expires: 01/30/2025 Start: 01-31-2024 End: 01-30-2025 Comprehensive metabolic 2000 panel - Serum or Plasma Comprehensive metabolic panel Lab Routine Mood changes Expected: 01/31/2024, Expires: 01/30/2025 [facility] Comment on above: Expected: 01/31/2024 , Expires: 01/30/2025 Start: 01-31-2024 End: 01-30-2025 TSH W/REFLEX TO FT4 TSH W/REFLEX TO FT4 Lab Routine Mood changes Expected: 01/31/2024 (Approximate), Expires: 01/30/2025 [facility] Work Phone: Comment on above: Expected: 01/31/2024 (Approximate), Expires: 01/30/2025 Start: 01-31-2024 End: 01-31-2024 Patient encounter procedure 01/31/2024 1:20 PM EDT Office Visit [facility] [address] [place] [address] Delmis Lorenzo MD [address] [place], [place] [id number] Arrived [facility] Comment on above: Arrived Start: 01-16-2024 Influenza vaccination Influenza Vacc ine (#1) [facility] Start: 01-10-2020 Screening for malign ant neoplasm of cervix [facility] Start: 2011 Screening for malign ant neoplasm of cervix Pap Smear [facility] Immunizations Immunization Date Immunization Notes Care Provider Fa cility 07-19-2023 tetanus toxoid, redu norma diphtheria toxoid, and acellular pertussis vaccine, adsorbed Delmis Lorenzo MD Work Phone: [facility] 05-14-2023 influenza, injectabl e, quadrivalent, preservative free Delmis Lorenzo MD Work Phone: [facility] 05-14-2023 influenza virus vacc ine, unspecified formulation Delmis Lorenzo MD Work Phone: [facility] Payers Date Payer Category Payer [facility] [id number] 2021 Unknown BCBS BCBS [id number] 2021-Present [phone] [place] [address] [id number] 2021 Unknown [id number] Private Health Insurance [id number] 1990 Unknown [id number] 2.16.840.1.964856.3.579.2. 175 1990 Unknown [id number] 2.16.840.1.447839.3.579.2. 593 1990 Unknown [id number] 2.16.840.1.903944.3.579.2. 593 1990 Unknown [id number] 2.16.840.1.450408.3.579.2. 593 1990 Unknown [id number] 2.16.840.1.171334.3.579.2. 593 1990 Unknown [id number] 2.16.840.1.458914.3.579.2. 593 1990 Unknown [id number] 2.16.840.1.191643.3.579.2. 593 1990 Unknown [id number] 2.16.840.1.064943.3.579.2. 593 1990 Unknown [id number] 2.16.840.1.362905.3.579.2. 593 1990 Unknown [id number] 2.16.840.1.543256.3.579.2. 593 1990 Unknown [id number] 2.16.840.1.620218.3.579.2. 1286 1990 Unknown [id number] 2.16.840.1.589437.3.579.2. 1259 1990 Unknown [id number] 2.16.840.1.387431.3.579.2. 1259 1990 Unknown [id number] 2.16.840.1.706843.3.579.2. 1259 1990 Unknown [id number] 2.16.840.1.460668.3.579.2. 9 1990 Unknown [id number] 2.16.840.1.304144.3.579.2. 1259 1990 Unknown [id number] 2.16.840.1.836058.3.579.2. 1259 1990 Unknown [id number] 2.16.840.1.778669.3.579.2. 1258 1990 Unknown [id number] 2.16.840.1.592185.3.579.2. 1258 1990 Unknown [id number] 2.16.840.1.367468.3.579.2. 1258 1990 Unknown [id number] 2.16.840.1.221729.3.579.2. 1258 1990 Unknown [id number] 2.16.840.1.830066.3.579.2. 1258 1990 Unknown [id number] 2.16.840.1.234612.3.579.2. 1258 1990 Unknown [id number] 2.16.840.1.780106.3.579.2. 1258 1990 Unknown [id number] 2.16.840.1.734600.3.579.2. 1258 1990 Unknown [id number] 2.16.840.1.231358.3.579.2. 1258 1990 Unknown [id number] 2.16.840.1.636397.3.579.2. 9 1959 Unknown [id number] Social History Date Type Detail Facility Start: 02-15-2023 Tobacco smoking status [facility] Never sm oked tobacco [facility] Start: 02-15-2023 Tobacco use and exposure Smoke less tobacco non-user [facility] Start: 04-06-2024 End: 08-30-2024 Alcoholic beverage intake Ex-drinker (finding) [facility] Start: 11-22-2022 End: 12-24-2023 History of Social function [facility] Start: 11-22-2022 End: 12-24-2023 Humiliation, Afraid, Rape, and Kick questionnaire [HARK] [facility] Within the last year , have you been afraid of your partner or ex-partner? No [facility] Are you now , , , , never or living with a partner? [facility] How often to you hav e a drink containing alcohol? 2-3 time sa week [facility] How many standard dr inks containing alcohol do you have on a typical day? 3 or 4 [facility] How often do you hav e 6 or more drinks on 1 occasion? Monthly [facility] How hard is it for y ou to pay for the very basics like food, housing, medical care, and heating Not hard at all [facility] Do you feel stress - tense, restless, nervous, or anxious, or unable to sleep at night because your mind is troubled all the time - these days [OSQ] Rather much [facility] (I/We) worried wheth er (my/our) food would run out before (I/we) got money to buy more. Never true [facility] The thought of miky rosenberg myself has occurred to me Never [facility] Start: 01-26-2023 Alcohol Comment Alcohol: 3 or 4 drinks on a typical day / 2 to 4 times a month. Caffeine: 1-2 cups/day [facility] Start: 1990 Sex assigned at Not on file [facility] Goals Date Patient Goal Desired Activity /State Personal health goal History of Present illness Narrative 08-30-2024 Shin Davison CNM - 08/30/2024 2:00 PM EDT Note Date & Type Note Facility 08-30-2024 History of Presen t illness Narrative PROBLEM VISIT Tania Brothers is 34 y.o. a patient of [facility] Here for to make sure IUD is in the Last pap: 12/27/23 Last mammogram: No LMP recorded. History: Past Medical History: Diagnosis Date Congenital nevus COVID-19 Factor V deficiency (CMS/HCC) Fracture 1994 st wrist/hand level-left Fracture of parietal bone (CMS/HCC) 1990 GERD (gastroesophageal reflux disease) History of depression HL (hearing loss) 05/24/2023 Malignant melanoma of leg (CMS/HCC) Oral contraceptive pill surveillance Preeclampsia in period 08/19/2020 Past Surgical History: Procedure Laterality Date PAP SMEAR 2020 SKIN CANCER EXCISION 10/2017 melanoma excision, leg, [place] Family History Problem Relation Name Age of Onset Asthma Mother Shanelle Wen Depression Mother Shanelle Wen Stroke Mother Shanelle Wen Hyperlipidemia Father Star Wen Hypertension Father Star Wen No Known Problems Sister 2 sisters, healthy No Known Problems Brother Cancer Maternal Grandfather Blood and bone cancer Asthma Paternal Grandfather Faisal Wen Prostate cancer Paternal Grandfather Faisal Wen Hearing loss Paternal Grandfather Faisal Wen No Known Problems Daughter Cancer Maternal Grandmother Avril Orta Melanoma Neg Hx @[email or web address]@ Allergies: Allergies Allergen Reactions Penicillins Rash Unknown as child Medications: Current Outpatient Medications on File Prior to Visit Medication Sig Dispense Refill escitalopram (Lexapro) 10 MG tablet TAKE 1 TABLET (10 MG) BY MOUTH DAILY. 90 tablet 1 Levonorgestrel (Liletta, 52 MG,) 20.1 MCG/DAY intrauterine device by Intrauterine route No current facility-administered medications on file prior to visit. There were no vitals filed for this visit. HPI: Pt states that she got the liletta put in November of 2023. She states that she was hoping it would make her periods better but they have been really heavy lasting 6-7 days. She states that she her periods are regular and come every month. She states that she changes her pad/tampon about every 2-3 hours. She would like to make sure her IUD is in the correct position. ROS: Review of Systems Physical exam: Physical Exam Genitourinary: Comments: Speculum exam performed, large amount of thick, cervical mucous noted. IUD strings not visualized Assessment and Plan: There are no diagnoses linked to this encounter. IUD strings not visualized, US ordered to assess for placement. Patient states her periods are very heavy like normal. 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 No follow-ups on file. There are no Patient Instructions on file for this visit. Talia Morton MA,08/30/2024 2:10 PM documented in this encounter [facility] History of Present illness Narrative 08-17-2024 Delmis Lorenzo MD - 08/17/2024 11:40 AM EDT Note Date & Type Note Facility 08-17-2024 History of Presen t illness Narrative Images from the original note were not included. Tania Brothers is a 34 y.o. female presents with chief complaint of HPI: HPI Botox for wrinkle forehead and crows feet Good results after last visit SUBJECTIVE: MEDICATIONS: Current Outpatient Medications Medication Instructions escitalopram (LEXAPRO) 10 mg, Oral, Daily Levonorgestrel (Liletta, 52 MG,) 20.1 MCG/DAY intrauterine device Intrauterine I have reviewed and reconciled the history and medication list with the patient today. REVIEW OF SYMPTOMS: Review of Systems OBJECTIVE: Visit Vitals OB Status Having periods Smoking Status Never Physical Exam 18 forehead and 16 total to crows feet ASSESSMENT AND PLAN: Assessment/Plan Problem List Items Addressed This Visit None Problem List Items Addressed This Visit None Visit Diagnoses Forehead wrinkles - Primary Total 34 units as above documented in this encounter [facility] History of Present illness Narrative 04-06-2024 Delmis Lorenzo MD - 04/06/2024 1:20 PM EST Note Date & Type Note Facility 04-06-2024 History of Presen t illness Narrative Images from the original note were not included. Tania Brothers is a 34 y.o. female presents with chief complaint of HPI: HPI Botox for wrinkle forehead and crows feet Good results after last visit SUBJECTIVE: MEDICATIONS: Current Outpatient Medications Medication Instructions escitalopram (LEXAPRO) 10 mg, Oral, Daily Levonorgestrel (Liletta, 52 MG,) 20.1 MCG/DAY intrauterine device Intrauterine I have reviewed and reconciled the history and medication list with the patient today. REVIEW OF SYMPTOMS: Review of Systems OBJECTIVE: Visit Vitals OB Status Having periods Smoking Status Never Physical Exam 18 forehead and 16 total to crows feet ASSESSMENT AND PLAN: Assessment/Plan Problem List Items Addressed This Visit None Visit Diagnoses Forehead wrinkles - Primary Problem List Items Addressed This Visit None Total 34 units as above documented in this encounter [facility] History of Present illness Narrative 01-31-2024 Delmis Lorenzo MD - 01/31/2024 1:20 PM EDT Note Date & Type Note Facility 01-31-2024 History of Presen t illness Narrative Tania Brothers is a 34 y.o. female presents with chief complaint of Annual Exam HPI: HPI Having more axiety recently Feeling more anxious and stressed. Worried that it could be related to hormone [address] Works parttime from home SUBJECTIVE: MEDICATIONS: Current Outpatient Medications Medication Instructions Levonorgestrel (Liletta, 52 MG,) 20.1 MCG/DAY intrauterine device Intrauterine ALLERGIES: Allergies Allergen Reactions Penicillins Rash Unknown as child SURGICAL HISTORY: Past Surgical History: Procedure Laterality Date PAP SMEAR 2020 SKIN CANCER EXCISION 10/2017 melanoma excision, leg, [place] FAMILY HISTORY: Family History Problem Relation Name Age of Onset Asthma Mother Shanelle Wen Depression Mother Shanelle Wen Stroke Mother Shanelle Wen Hyperlipidemia Father Star Wen Hypertension Father Star Wen No Known Problems Sister 2 sisters, healthy No Known Problems Brother Cancer Maternal Grandfather Blood and bone cancer Asthma Paternal Grandfather Faisal Wen Prostate cancer Paternal Grandfather Faisal Wen Hearing loss Paternal Grandfather Faisal Wen No Known Problems Daughter Cancer Maternal Grandmother Avril Orta Melanoma Neg Hx SOCIAL HISTORY: Social History Tobacco Use Smoking status: Never Smokeless tobacco: Never Vaping Use Vaping status: Never Used Substance Use Topics Alcohol use: Not Currently Comment: Alcohol: 3 or 4 drinks on a typical day / 2 to 4 times a month. Caffeine: 1-2 cups/day Drug use: Never Depression: Not at risk (01/31/2024) PHQ-2 PHQ-2 Score: 0 REVIEW OF SYMPTOMS: Review of Systems Respiratory: Negative. Cardiovascular: Negative. OBJECTIVE: Visit Vitals BP 110/70 (BP Location: Left arm, Patient Position: Sitting, BP Cuff Size: Adult) Pulse 87 Resp 18 Ht 5' 4 Wt 138 lb 3.2 oz SpO2 100% BMI 23.72 kg/m OB Status Having periods Smoking Status Never BSA 1.68 m Physical Exam Constitutional: Appearance: Normal appearance. She is normal weight. Musculoskeletal: Cervical back: Normal range of motion and neck supple. Skin: General: Skin is warm and dry. Neurological: General: No focal deficit present. Mental Status: She is alert and oriented to person, place, and time. Mental status is at baseline. Psychiatric: Mood and Affect: Mood normal. Behavior: Behavior normal. Thought Content: Thought content normal. Judgment: Judgment normal. ASSESSMENT AND PLAN: Assessment/Plan Problem List Items Addressed This Visit None Visit Diagnoses Routine general medical examination at a health care facility - Primary Mood changes Relevant Medications escitalopram (Lexapro) 10 MG tablet Other Relevant Orders TSH W/REFLEX TO FT4 Comprehensive metabolic panel CBC and differential Discussed healthy diet and regular exercise, reviewed stress management Discussed consideration of counseling documented in this encounter [facility] Evaluation note Note Date & Type Note Facility Evaluation note Diagnosis Forehead wrinkles- Primary Other specified hypertrophic and atrophic condition of skin documented in this encounter [facility] Evaluation note Note Date & Type Note Facility Evaluation note Diagnosis Routine general medical examination at a health care facility- Primary Mood changes Unspecified episodic mood disorder documented in this encounter [facility] Evaluation note Note Date & Type Note Facility Evaluation note Diagnosis Forehead wrinkles- Primary Other specified hypertrophic and atrophic condition of skin documented in this encounter [facility] Evaluation note Note Date & Type Note Facility Evaluation note Diagnosis IUD check up IUD check up documented in this encounter [facility] Summary Purpose Family History No Family History Records FoundNo Family History Records FoundNo Family History Records FoundNo Family History Records Found Advance Directives No Advanced Directives Records FoundNo Advanced Directives Records FoundNo Advanced Directives Records FoundNo Advanced Directives Records Found Additional Source Comments INFORMATION SOURCE (unrecogn ized section and content) DATE CREATED AUTHOR 03/22/2018 [facility] DATE CREATED AUTHOR AUTHOR'S ORGANIZ ATION 07/08/2020 [facility] DATE CREATED AUTHOR AUTHOR'S ORGANIZ ATION 06/11/[address] [facility] DATE CREATED AUTHOR AUTHOR'S ORGANIZ ATION 08/20/2024 [facility] EPIC Care Teams (unrecognized sec tion and content) [employer] Relationship Specialty Start Date End Date Delmis Lorenzo MD [address] [place] [address] PCP - General Family Medicine 11/21/22 Delmis Lorenzo MD [address] [place] [address] PCP - [employer] 07/16/23 [employer] Relationship Specialty Start Date End Date Delmis Lorenzo MD [address] [place] [address] PCP - General Family Medicine 11/21/22 Delmis Lorenzo MD [address] [facility] [place] [address] PCP - [employer] 07/16/23 [employer] Relationship Specialty Start Date End Date Delmis Lorenzo MD [address] [facility] [place] [address] PCP - General Family Medicine 11/21/22 Delmis Lorenzo MD [address] [facility] [place] [address] PCP - [employer] 07/16/23 [employer] Relationship Specialty Start Date End Date Delmis Lorenzo MD [address] [facility] [place] [address] PCP - General Family Medicine 11/21/22 Delmis Lorenzo MD [address] [facility] [place] [address] PCP - [employer] 07/16/23 [employer] Relationship Specialty Start Date End Date Delmis Lorenzo MD [address] [facility] [place] [address] PCP - General Family Medicine 11/21/22 Delmis Lorenzo MD [address] [facility] [place] [address] VENKATA Hahn 07/16/23 Reason for Visit (unrecogniz ed section and content) Reason Comments Annual Exam Reason Comments Menstrual Problem FOR RECORDS PERTAINING TO PATIENTS WHO ARE OR HAVE BEEN ENROLLED IN A CHEMICAL DEPENDENCY/SUBSTANCEABUSE PROGRAM, SOME INFORMATION MAY BE OMITTED. This clinical summary was aggregated from multiple sources. Caution should be exercised in using it in the provision of clinical care. This summary normalizes information from multiple sources, and as a consequence, information in this document may materially change the coding, format and clinical context of patient data. In addition, data may be omitted in some cases. CLINICAL DECISIONS SHOULD BE BASED ON THE PRIMARY CLINICAL RECORDS. [facility] [employer] [facility]. provides no warranty or guarantee of the accuracy or completeness of information in this document.
[2024-09-01 10:02] LABS: Basophils Absolute Auto 0.1 10^3/uL (0.0-0.1); Basophils Percent Auto 0.8 % (0.2-2.0); Eosinophils Percent Auto 0.7 % (0.9-7.0); Hematocrit 38.6 % (36.0-48.0); Hemoglobin 13.2 g/dL (12.0-16.0); Immature Granulocytes Abs Auto 0.01 10^3/uL (0.00-0.03); Immature Granulocytes Pct Auto 0.2 % (0.0-0.5); Lymphocytes Absolute Auto 3.6 10^3/uL (1.2-3.8); Lymphocytes Percent Auto 59.8 % (20.5-60.0); Mean Corpuscular HGB Conc 34.2 g/dL (29.9-35.2); Mean Corpuscular Hemoglobin 29.3 pg (26.7-34.0); Mean Corpuscular Volume 85.6 fL (81.0-99.0); Mean Platelet Volume 8.5 fL (9.5-13.5); Monocytes Absolute Auto 0.5 10^3/uL (0.3-0.8); Monocytes Percent Auto 8.3 % (1.7-12.0); Neutrophils Absolute Auto 1.8 10^3/uL (1.4-6.5); Neutrophils Percent Auto 30.2 % (43.0-75.0); Platelet Count 298 10^3/uL (150-450); Red Blood Count 4.51 10^6/uL (4.20-5.40); Red Cell Distribution Width 13.8 % (11.0-15.0)
[2024-09-01 10:27] LABS: HCG Quantitative <1 mIU/mL
[2024-09-01] MEDS: LACTATED RINGER'S SOLUTION 1,000 ML 50 ML IV ×2 (10:45→13:06)
--- NOTE | 2024-09-01 13:19 | PM.ONB ---
Brief Operative Note Date of procedure: 09/01/24 Pre-op diagnosis general: migrated iud Post-op diagnosis: same as pre-op Procedure: NAME OF PROCEDURE: [ D&c hysteroscopy, diagnostic laparoscopy with removal of iud] PROCEDURE: The patient was taken back to the Operating Room where she was prepped and draped in normal sterile fashion after being placed under general anesthesia without difficulty. She was also placed in the dorsal lithotomy position. A weighted speculum was placed in the patient?s vagina. The anterior lip of the cervix was identified and grasped with a single tooth tenaculum. The patient?s uterus was then sounded roughly to [? 8] cm. The patient was then gently dilated using Hegar dilators. The hysteroscope was passed through the patient?s cervix into the uterus. Both ostia were identified. fluffy appearing endometrium. No gross evidence of malignancy, no gross evidence of polyps or fibroids. Iud was not seen The hysteroscope was then removed from the uterus. The single tooth tenaculum was then removed from the patient's anterior lip of the cervix where excellent hemostasis was noted. All instruments were removed from the patient?s vagina. A sponge stick was placed into the patient's vagina. Attention was turned to the patient's abdomen, where a small umbilical incision was made. The fascia was tented using Georgina clamps and the fascia was entered sharply. Confirmation of intraabdominal placement of the 10 mm port was confirmed under direct visualization using a laparoscope. The patient's abdomen was then insufflated using CO2 gas with approximately 4 liters. A second port was placed left laterally, this was done under direct visualization with a 5 mm port. Survey of the patient's abdomen demonstrated normal liver and gallbladder. Survey of the patient's pelvic anatomy demonstrated normal appearing rt and lt ovary and tubes as well as normal appearing uterus. No endometrial implants could be noted, no evidence of any pelvic disease was seen, normal appearing pelvic cavity. The iud was seen imbedded within the omentum and was removed using the grasper. All instruments were removed from the patient's abdomen. The patient's abdomen was deinsufflated of CO2 gas. The patient tolerated the procedure well. Sponge stick was removed from the patient's vagina. The patient's infraumbilical fascia was closed using #0 Vicryl on a GI needle. The patient's skin was closed laterally and infraumbilically using 4-0 Vicryl. The patient tolerated the procedure well. Sponge, lap and needle counts were correct x 2. The patient was taken to Recovery Room in stable condition. Anesthesia: JL Surgeon: Akhil Gibson Hairspring Adjuster: Talia Call Estimated blood loss (mL): 5 Pathology: none sent Condition: stable Disposition: PACU Urinary Catheter Management Urinary Catheter Management Urethral: Cath placed during this visit: no
[2024-09-01] MEDS: HYDROCODONE/ACET 5-325 MG TABLET 1 TAB PO (13:47)
== END 2024-09-01 15:00 | disposition home or self-care (01) ==
PROVIDERS: PCP Family Medicine; Visit Provider Obstetrics & Gynecology
PROC: (CPT 00840; principal; 2024-09-01 11:10)
DX: T83.32XA Displacement of intrauterine contraceptive device, initial encounter (principal); R10.9 Unspecified abdominal pain
CPT/HCPCS: 00840; 00952; 49329; 58558; 36415; 84702; 85025; J1100; J1885; J2250; J2405; J2704; J3010

== ENCOUNTER 2025-01-30 10:19 | Outpatient (OUT) | payer BC, SELFPAY ==
--- OUTSIDE RECORDS SUMMARY | 2025-01-30 10:28 | XMS_ITS | CCD ---
Author Organization [facility] CliniSys[facility] Care Team Providers Care Board Worker Name Role Phone DARRYL DE LA ROSA Unavailable Unavailable RENZO SHIN Attending Unavailable RENZO SHIN Admitting Unavailable LOVE QUINTERO Consulting Unavailable RENZO SHIN Consulting Unavailable RENZO SHIN Consulting Unavailable RENZO SHIN Attending Unavailable RENZO SHIN Ad[facility]IN Consulting Unavailable RENZO SHIN Attending Unavailable RENZO SHIN Admitting Unavailable RENZO SHIN Admitting Unavailable RENZO SHIN Attending Unavailable FELICITAS MARTINES V Consulting Unavailable RENZO SHIN Consulting [facility] Unavailable RENZO SHIN Admitting Unavailable RENZO SHIN Consulting Unavailable RENZO SHIN Attending Unavailable RENZO SHIN Admitting Unavailable RENZO SHIN Attending Unavailable RENZO SHIN Consulting [facility] Unavailable RENZO SHIN Attending Unavailable RENZO SHIN Consulting Unavailable RENZO SHIN Admitting [facility]available [facility] Unavailable RENZO SHIN Admitting Unavailable RENZO SHIN Attending Unavailable RENZO SHIN Consulting [facility] RENZO SHIN Consulting Unavailable RENZO SHIN Attending Unavailable RENZO SHIN Admitting Unavailable [facility] Unavailable SHIN DAVISON Referring Unavailable DEMI DANIELS Primary Care Unavailable Delmis Lorenzo MD Primary Care Provider Delmis Lorenzo MD Unavailable DELMIS LORENZO Attending Unavailable SHIN DAVISON Attending Unavailable SHIN DAVISON Referring Unavailable SHIN DAVISON Referring Unavailable GLO OROPEZA Attending Unavailable SHIN DAVISON Attending Unavailable DELMIS LORENZO Attending Unavailable DELMIS LORENZO Attending Unavailable DELMIS LORENZO Attending Unavailable Allergies Allergy Classification Reported Allergen(s) Allergy Type Date of Onset Reaction(s) Facility (1 source) Penicillin Drug Allergy [facility] Repository (16 sources) Penicillins; Translations: [PENICILLINS] Propensity to adverse reactions to drug (disorder) 8 Rash [facility] Repository Medications Current Medications Medication Drug Class(es) Dates Sig (Normalized) Sig (Original) onabotulinumtoxina 100 unt injection (5 sources) Acetylcholine Release Inhibitor Start: onabotulinumtoxinA (Botox) injection 34 Units Start: 08-17-2024 End: 08-17-2024 onabotulinumtoxinA (Botox) i njection 34 Units Start: 08-17-2024 End: 08-17-2024 34 Units, Intradermal, Once, On Norah 08/17/24 at 1715, For 1 dose, Charging context for this clinic-administered medication: Fee-Editable/Self Pay escitalopram 10 mg oral tablet (14 sources) Serotonin Reuptake Inhibitor Start: 05-31-2024 End: 11-27-2024 take 1 tablet by mouth once daily escitalopram (Lexapro) 10 MG tablet Indications: Mood changes TAKE 1 TABLET (10 MG) BY MOUTH DAILY. 90 tablet 1 11/27/2024 Active Start: 01-31-2024 End: 04-30-2024 take 1 tablet by mouth once daily escitalopram (Lexapro) 10 MG tablet Indications: Mood changes Take 1 tablet (10 mg) by mouth Daily 30 tablet 5 01/31/2024 04/30/2024 Active Completed/Discontinued Medications Medication Drug Class(es) Dates Sig (Normalized) Sig (Original) levonorgestrel 0.965499 mg/hr intrauterine system (12 sources) Progestin, Progestin-containi ng Intrauterine Device End: 09-11-2024 Levonorgestrel (Liletta, 52 MG,) 20.1 MCG/DAY intrauterine device by Intrauterine route 09/11/2024 Discontinued Problems Active Problems Problem Classification Problem Date [...] of transmission] Onset: 02-17-2020 Episodic Menstrual disorders (6 sources) Secondary amenorrhea; Translations: [Menorrhagia] Onset: 01-15-2020 01-30-2025 Chronic Mood disorders (2 sources) Disturbance in mood; Translations: [Emotional lability] 01-31-2024 Episodic Other aftercare (2 sources) Surgical follow-up; Translations: [Encounter for follow-up examination after completed treatment for conditions other than malignant neoplasm] 09-11-2024 Episodic Other complications of (1 source) Supervision of high risk , unspecified, unspecified trimester; Translations: [Supervision of high risk , unspecified, unspecified trimester] Onset: 06-08-2023 Episodic Other endocrine disorders (2 sources) Polycystic ovary syndrome; Translations: [Polycystic ovarian syndrome] 01-30-2025 Chronic Other and delivery including normal (8 sources) [...] source) COVID-19; Translations: [COVID-19] Onset: 04-21-2020 Unclassified (14 sources) Patient on antidepressant monitoring plan Onset: 01-31-2024 01-31-2024 Unclassified (14 sources) Baseline PHQ-9 Onset: 01-31-2024 01-31-2024 Past or Other Problems Problem Classification Problem Date Documented Da te Episodic/Chronic Other ear and sense organ disorders (15 sources) Sudden idiopathic hearing loss; Translations: [Sudden idiopathic hearing loss, left ear] Onset: 06-04-2023 06-04-2023 Episodic Unclassified (1 source) BX; Translations: [BX] Onset: 02-22-2018 Results Test Name Value Interpretation Reference Range Facility Urinalysis macro (dipstick) panel (U)on 09-11-2024 Bilirubin, UA Negative Negative - 4(70) +++ mg/dL [facility] Blood, UA Negative Negative - 50 Rudy/mcL [facility] Clarity, UA Clear [facility] Color, UA Yellow [facility] Glucose, UA Negative Negative - 2000(110) ++++ mg/dL [facility] Interpretation and review of laboratory results Normal [facility] Ketones, UA Negative Negative - 160(16) ++++ mg/dL [facility] Leukocytes, UA Negative Negative - 500+++ Juan/mcL [facility] Nitrite, UA Negative Negative - Positive [facility] pH, UA 7 5 - 9 [facility] Protein, UA Negative Negative - 2000(20) ++++ mg/dL [facility] Spec Grav, UA 1.015 1 - 1.03 [facility] Urobilinogen, UA 0.2 0.2 - 12 mg/dL [facility] ALL CBC WITH AUTO DIFFon BASOPHILS ABSOLUTE AUTO 0.1 [facility] Basophils/100 WBC (Bld) 0.8 % 0.2 - 2.0 % [facility] Eosinophils/100 WBC (Bld) 0.7 % Low 0.9 - 7.0 % [facility] Erythrocyte distribution width (RBC) [Ratio] 13.8 % 11.0 - 15.0 % [facility] Hematocrit (Bld) [Volume fraction] 38.6 % 36.0 - 48.0 % [facility] Hemoglobin (Bld) [Mass/Vol] 13.2 g/dL 12.0 - 16.0 g/dL [facility] IMMATURE GRANULOCYTES ABS AUTO 0.01 [facility] Immature granulocytes/100 WBC (Bld) 0.2 % 0.0 - 0.5 % [facility] Interpretation and review of laboratory results Abnormal [facility] LYMPHOCYTES ABSOLUTE AUTO 3.6 [facility] Lymphocytes/100 WBC (Bld) 59.8 % 20.5 - 60.0 % [facility] MCH (RBC) [Entitic mass] 29.3 pg 26.7 - 34.0 pg [facility] MCHC (RBC) [Mass/Vol] 34.2 g/dL 29.9 - 35.2 g/dL [facility] MCV (RBC) [Entitic vol] 85.6 fL 81.0 - 99.0 fL [facility] MONOCYTES ABSOLUTE AUTO 0.5 [facility] Monocytes/100 WBC (Bld) 8.3 % 1.7 - 12.0 % [facility] NEUTROPHILS ABSOLUTE AUTO 1.8 [facility] Neutrophils/100 WBC (Bld) 30.2 % Low 43.0 - 75.0 % [facility] Platelet mean volume (Bld) [Entitic vol] 8.5 fL Low 9.5 - 13.5 fL [facility] 0 [facility] TB PLT 298 [facility] RBC 4.51 [facility] WBC 6 [facility] US PELVIS TRANSVAGINALon US PELVIS TRANSVAGINAL TITLE OF EXAM: US PELVIS TRANSVAGINAL REASON FOR EXAM: IUD check TECHNIQUE: Grayscale, color, and spectral Doppler ultrasound evaluation of the pelvis. COMPARISON: Pelvic radiographs 08/30/2024 FINDINGS: Measurements: Uterus: 9.1 x 6.0 x 4.2 cm Endometrial thickness: 1.2 cm Right ovary: 3.2 x 2.5 x 2.0 cm Left ovary: 4.8 x 3.2 x 2.2 cm The uterus is anteverted. There are no fibroids. The endometrial stripe is normal in thickness for secretory phase. There are a couple of tiny hyperechoic lesions along the outer margins of the endometrium measuring 0.4 cm and 0.6 cm. No intrauterine contraceptive device. The right ovary demonstrates physiologic follicles and normal low resistance arterial inflow and present venous flow on color and pulsed Doppler. The left ovary demonstrates physiologic follicles and normal low resistance arterial inflow and present venous flow on color and pulsed Doppler. Mixed cystic and solid lesion measures 2.8 x 2.8 x 1.7 cm with solid components fairly hypoechoic. No appreciable free fluid in the pelvis. No concerning adnexal mass visualized. IMPRESSION: 1. No intrauterine contraceptive device. 2. There are a couple of hyperechoic lesions along the outer margins of the endometrium, possibly blood products or focal endometrial hyperplasia. 3. Mixed cystic and solid left ovarian lesion, 2.8 cm, possibly an involuting follicle or complex cyst, though cystic ovarian neoplasm is not excluded. Recommend follow-up ultrasound in approximately 3 months at a different phase of the patient's menstrual cycle. DICTATED ON: 08/30/2024 2:23 PM This report has been electronically signed and approved by the interpreting radiologist. Normal Not Available XR PELVIS 1-2 VIEWSon 2024 XR PELVIS 1-2 VIEWS TITLE OF EXAM: XR PE LVIS 1-2 VIEWS REASON FOR EXAM: IUD placement, unable to visualize IUD on US. TECHNIQUE: Single radiograph of the pelvis COMPARISONS: Pelvic ultrasound 08/30/2024 FINDINGS: There is an IUD type contraceptive device inverted, projecting at the upper pelvis overlying the sacrum, not a typical radiographic position. Suspected to be external to the uterus. No fracture. Anatomic alignment of the femoroacetabular joints, sacroiliac joints, and symphysis pubis. No abnormal bowel dilation. IMPRESSION: ID type contraceptive device as described, in a typical radiographic position. Suspected to be external to the uterus. DICTATED ON: 08/30/2024 2:21 PM This report has been electronically signed and approved by the interpreting radiologist. Normal Not Available Comment on above: Order Comment: Unabl e to visualize strings on IUD and US tech unable to determine if the image contains the IUD difficult scan CHLAMYDIA/GONOCOCCUS LING ( AB/URINE/PAPon 07-06-2020 Chlamydia trachomatis, LING Negative Normal Negative [facility] Comment on above: Performed By: #### V CHA #### [facility] [address] [place], [place] [address] Rory Givens Neisseria gonorrhoeae, LING Negative Normal Negative [facility] Comment on above: Performed By: #### V CHA #### [facility] [address] [place], [place] [address] Rory Tosha GROUP B STREP CULTUREon 06-17 S. agalactiae Ag Ql (Unsp spec) Culture Observations: Negative for Group B Streptococcus Normal [facility] Comment on above: Performed By: #### G BSCX #### [facility] [address] [place] [address] Rory Tosha GTT 3 HR PREGon 05-07-2020 Glucose [Mass/Vol] 138 mg/dL Normal [facility] Comment on above: Performed By: #### C BC #### [facility] [address] [place] [address] Rory Tosha Glucose [Mass/Vol] 102 mg/dL Normal [facility] Comment on above: Performed By: #### C BC #### [facility] [address] [place] [address] Rory Tosha Glucose [Mass/Vol] 80 mg/dL Normal 74-106 [facility] Comment on above: Performed By: #### C BC #### [facility] [address] [place] [address] Rory Tosha Glucose [Mass/Vol] 132 mg/dL Normal [facility] Comment on above: Performed By: #### C BC #### [facility] [address] [place] [address] Rory Tosha CBC AUTO DIFFon 05-01-2020 Basophils (Bld) [#/Vol] 0.0 103/ul Normal 0.0-0.1 [facility] Comment on above: Performed By: #### C BC #### [facility] [address] [place] [address] Rory Tosha Basophils/100 WBC (Bld) 0.4 % Normal 0.2-2.0 [facility] Comment on above: Performed By: #### C BC #### [facility] [address] [place], [place] [id number] Rory Tosha Eosinophils (Bld) [#/Vol] 0.1 103/ul Normal 0.0-0.7 [facility] Comment on above: Performed By: #### C BC #### [facility] [address] [id number] Rory Tosha Eosinophils/100 WBC (Bld) 0.6 % Critically low 0.9-7.0 [facility] Comment on above: Performed By: #### C BC #### [facility] [address] [place], [place] [id number] Rory Tosha Erythrocyte distribution width (RBC) [Ratio] 13.2 % Normal 11.0-15.0 [facility] Comment on above: Performed By: #### C BC #### [facility] [address] [place], [place] [id number] Rory Tosha Hematocrit (Bld) [Volume fraction] 35.7 % Critically low 36.0-48.0 [facility] Comment on above: Performed By: #### C BC #### [facility] [address] [place], [place] [id number] Rory Tosha Hemoglobin (Bld) [Mass/Vol] 12.2 g/dL Normal 12.0-16.0 [facility] Comment on above: Performed By: #### C BC #### [facility] [address] [place], [place] [address] Rory Tosha IG # 0.06 10e3/ul Critically high 0.00-0.03 [facility] Comment on above: Performed By: #### C BC #### [facility] [address] [place], [place] [id number] Rory Tosha IG % 0.7 % Critically high 0.0-0.5 [facility] Comment on above: Performed By: #### C BC #### [facility] [address] [place], [place] [id number] Rory Tosha Lymphocytes (Bld) [#/Vol] 1.6 103/ul Normal 1.2-3.8 [facility] Comment on above: Performed By: #### C BC #### [facility] [address] [place], [place] [address] Rory Tosha Lymphocytes/100 WBC (Bld) 19.5 % Critically low 20.5-60.0 [facility] Comment on above: Performed By: #### C BC #### [facility] [address] [id number] Rory Givens MANUAL DIFF REQ NO Normal [facility] Comment on above: Performed By: #### C BC #### [facility] [address] [id number] Roryolivier Givens MCH (RBC) [Entitic mass] 30.1 pg Normal 26.7-34.0 [facility] Comment on above: Performed By: #### C BC #### [facility] [address] [id number] Roryolivier Givens MCHC (RBC) [Mass/Vol] 34.2 g/dL Normal 29.9-35.2 [facility] Comment on above: Performed By: #### C BC #### [facility] [address] [place], [place] [id number] Roryolivier Givens MCV (RBC) [Entitic vol] 88.1 fL Normal 81.0-99.0 [facility] Comment on above: Performed By: #### C BC #### [facility] [address] [place], [place] [address] Rory Tosha Monocytes (Bld) [#/Vol] 0.4 103/ul Normal 0.3-0.8 [facility] Comment on above: Performed By: #### C BC #### [facility] [address] [place], [place] [address] Rory Tosha Monocytes/100 WBC (Bld) 4.8 % Normal 1.7-12.0 [facility] Comment on above: Performed By: #### C BC #### [facility] [address] [place], [place] [address] Rory Tosha Neutrophils (Bld) [#/Vol] 6.1 103/ul Normal 1.4-6.5 [facility] Comment on above: Performed By: #### C BC #### [facility] [address] [place], [place] [address] Rory Tosha Neutrophils/100 WBC (Bld) 74.0 % Normal 43.0-75.0 [facility] Comment on above: Performed By: #### C BC #### [facility] [address] [place], [place] [address] Rory Givens Platelet mean volume (Bld) [Entitic vol] 9.2 fL Critically low 9.5-13.5 [facility] Comment on above: Performed By: #### C BC #### [facility] [address] [place], [place] [address] Rory Givens Platelets (Bld) [#/Vol] 285 103/ul Normal 150-450 [facility] Comment on above: Performed By: #### C BC #### [facility] [address] [place] [address] Rory Givens RBC (Bld) [#/Vol] 4.05 106/ul Critically low 4.20-5.40 [facility] Comment on above: Performed By: #### C BC #### [facility] [address] [place] [address] Rory Givens WBC (Bld) [#/Vol] 8.2 103/ul Normal 4.0-11.0 [facility] Comment on above: Performed By: #### C BC #### [facility] [address] [place], [place] [address] Rory Givens GLUCOSE - 1HRon 05-01-2020 Glucose [Mass/Vol] 158 mg/dL Critically high 74-106 [facility] Comment on above: Performed By: #### G LU1HR #### [facility] [address] [place] [address] Rory Givens [facility] 03-19 Covid-19 DETECTED NOT DETECTED [facility] Comment on above: Result Comment: This test is not yet approved or cleared by the [place] FDA. When there are no FDA-approved or cleared tests available, and other criteria are met, FDA can make tests available under an emergency access mechanism called an Emergency Use Authorization (EUA). The EUA for this test is supported by the [place] of Health and Human Service's (HHS's) declaration [...] for this test is supported by the [place] of Health and Human Service's (HHS's) declaration [...] 04/16/2020 00:20 By LBS Performed By: #### Celina EUBANKS #### [facility] [address] [place] [address] Rory Givens EUA Statement SEE BELOW Normal [facility] Comment on above: Result Comment: This test is not yet approved or cleared by the [place] FDA. When there are no FDA-approved or cleared tests available, and other criteria are met, FDA can make tests available under an emergency access mechanism called an Emergency Use Authorization (EUA). The EUA for this test is supported by the [place] of Health and Human Service?s (HHS?s) declaration [...] symptoms consistent with SARS-CoV-2. Performed By: #### Celina EUBANKS #### [facility] [address] [place] [address] Rory Givens PREG ANATOMY SINGLEon US PREG ANATOMY SINGLE [...] LOVE QUINTERO Date: 2020-03-26 07:17 Normal [facility] AFP TETRA PROFILE (MATERNAL) on 02-22-2020 AFP MoM 0.53 Normal [facility] Comment on above: Performed By: #### A FPTET #### [facility] [address] [place] [address] Rory Givens AFP Value 18.7 ng/mL Normal [facility] Comment on above: Performed By: #### A FPTET #### [facility] [address] [place] [address] Rory Givens Comment Comment Normal [facility] Comment on above: Result Comment: Fidelia Cornell, Ph.D., [facility] Director . References: Available Upon Request. . Multiples Of Median Cutoffs Abbreviation Definitions For AFP Elevations IDD- Insulin Dep Diabetes Gunn 2.5 Black 2.8 OSBR- Open Spina Bifida IDD 2.0 Twins 4.5 Risk DSR Cutoff 1:270 DSR- Down Syndrome Risk T18 Cutoff 1:100 T18- Trisomy 18 . Down Syndrome and Trisomy 18 screening are considered Investigational . For further inquiries contact [employer] at [phone]. Performed By: #### A FPTET #### [facility] [address] [place] [address] Rory Tosha MARTHA MoM 0.72 Normal [facility] Comment on above: Performed By: #### A FPTET #### [facility] [address] [place] [address] Rory Tosha MARTHA Value 133.56 pg/mL Normal [facility] Comment on above: Performed By: #### A FPTET #### [facility] [address] [place] [address] Rory Tosha DSR (By Age) 1 [place] 656 Normal [facility] Comment on above: Performed By: #### A FPTET #### [facility] [address] [place] [address] Rory Tosha DSR (Second Trimester) 1 [place] [address] Normal [facility] Comment on above: Performed By: #### A FPTET #### [facility] [address] [place] [address] Rory Tosha Gest. Age on Collection Date 15.7 WEEKS Normal [facility] Comment on above: Performed By: #### A FPTET #### [facility] [address] [place] [address] Rory Tosha Gestat. Age Based On LMP [facility] Comment on above: Performed By: #### A FPTET #### [facility] [address] [place] [address] Rory Tosha hCG MoM 0.44 Normal [facility] Comment on above: Performed By: #### A FPTET #### [facility] [address] [place] [address] [place] [address] m[IU]/mL Normal [facility] Comment on above: Performed By: #### A FPTET #### [facility] [address] [place] [address] Rory Givens Insulin Dep Diabetes No Normal [facility] Comment on above: Performed By: #### A FPTET #### [facility] [address] [place] [address] Rory Tosha Interpretation Comment Normal [facility] Comment on above: Result Comment: Inte rpretation: [...] identifies 60% of Trisomy 18 pregnancies. The [employer] recommends amniocentesis be offered to women age 35 and older. Recalculations are not recommended when gestational dating by LMP and ultrasound are within 10 days. Performed By: #### A FPTET #### [facility] [address] [place] [address] Rory Givens [age] Normal [facility] Comment on above: Performed By: #### A FPTET #### [facility] [address] [place] [address] Rory Givens Multiple Gestation No Normal [facility] Comment on above: Performed By: #### A FPTET #### [facility] [address] [place] [address] Roryolivier Givens OS[place] 1 [place] [address] Normal [facility] Comment on above: Performed By: #### A FPTET #### [facility] [address] [place] [address] Roryolivier Givens PDF . Normal [facility] Comment on above: Performed By: #### A FPTET #### [facility] [address] [place] [address] Rory Tosha Race Normal [facility] Comment on above: Performed By: #### A FPTET #### [facility] [address] [place] [address] Roryolivier Givens Results Report Normal [facility] Comment on above: Performed By: #### A FPTET #### [facility] [address] [place] [address] Roryolivier Nealen T18 (By Age) 1:2556 Normal [facility] Comment on above: Performed By: #### A FPTET #### [facility] [address] [place] [address] Roryolivier Givens T18 Risk Not increased Normal [facility] Comment on above: Performed By: #### A FPTET #### [facility] [address] [place] [address] Roryolivier Givens Test Results: Negative Normal [facility] Comment on above: Performed By: #### A FPTET #### [facility] [address] [place] [address] Roryolivier Nealen uE3 MoM 0.86 Normal [facility] Comment on above: Performed By: #### A FPTET #### [facility] [address] [place] [address] Rory Tosha uE3 Value 0.81 ng/mL Normal [facility] Comment on above: Performed By: #### A FPTET #### [facility] [address] [place] [address] [address]ory Tos[address] W CT/NG,HR HPV RFX 16 AN D 18on 02-15-2020 Chlamydia, Nuc. Acid Amp Negative Normal Negative [facility] Comment on above: Result Comment: Perf ormed at: =G Performed By: #### P APHR4 #### [facility] [address] [place] [address] Rory Givens DIAGNOSIS: Comment Normal [facility] Comment on above: Result Comment: NEGA TIVE FOR INTRAEPITHELIAL LESION OR MALIGNANCY. Performed at: WB Performed By: #### P APHR4 #### [facility] [address] [address] Rory Givens Gonococcus, Nuc. Acid Amp Negative Normal Negative [facility] Comment on above: Result Comment: Perf ormed at: =G Performed By: #### P APHR4 #### [facility] [address] [address] Rory Givens HPV, high-risk Negative Normal Negative [facility] Comment on above: Result Comment: This nucleic acid amplification high-risk HPV test detects thirteen high-risk types (16,18,31,33,35,39,45,51,52,56,58,59,68) without differentiation. Performed at: =G Performed By: #### P APHR4 #### [facility] [address] [address] Rory Givens Methodology: Comment Normal [facility] Comment on above: Result Comment: This liquid based ThinPrep(R) pap test was screened with the use of an image guided system. Performed at: WB Performed By: #### P APHR4 #### [facility] [address] [place] [address] Rory Givens Note: Comment Normal [facility] Comment on above: Result Comment: The Pap smear is a screening test designed to aid in the detection of premalignant and malignant conditions of the uterine cervix. It is not a diagnostic procedure and should not be used as the sole means of detecting cervical cancer. Both false-positive and false-negative reports do occur. . Performed at: WB Performed By: #### P APHR4 #### [facility] [address] [address] Rory Givens Performed by: Comment Normal [facility] Comment on above: Result Comment: Melisa Currie, Housekeeping Associate (ASCP) Performed at: WB Performed By: #### P APHR4 #### [facility] [address] [address] Rory Givens Specimen adequacy: Comment Normal [facility] Comment on above: Result Comment: Sati sfactory for evaluation. No endocervical component is identified. Performed at: WB Performed By: #### P APHR4 #### [facility] [address] [place] [address] Rory Givens . . Normal [facility] Comment on above: Result Comment: Perf ormed at: WB Performed By: #### P APHR4 #### [facility] [address] [place] [address] Rory Givens US PREG <14 WKSon 01-15-2020 US PREG [...] by: FELICITAS MARTINES Date: 2020-01-15 10:05 Normal [facility] HEP B SURFACE ANTIGEN SCREEN on 01-10-2020 HBsAg Screen Negative Normal Negative [facility] Comment on above: Performed By: #### H BSANS #### [facility] [address] [place] [address] Rory Givens HEPATITIS C VIRUS AB W/ REFL EX QUANTon 01-10-2020 HCV AB <0.1 Normal 0.0-0.9 [facility] Comment on above: Performed By: #### V CHA #### [facility] [address] [place] [address] Rory Givens Interpretation: Comment Normal [facility] Comment on above: Result Comment: Nega tive Not infected with HCV, unless recent infection is suspected or other evidence exists to indicate HCV infection. Performed By: #### V CHA #### [facility] [address] [place] [address] Rory Givens HGB(ELECTP) FRACTION PROFILE on 01-10-2020 Hemoglobin (Bld) [Mass/Vol] 97.8 % Normal 96.4-98.8 [facility] Comment on above: Performed By: #### H GBELE #### [facility] [address] [place] [address] Roryolivier Givens Hgb A2 2.2 % Normal 1.8-3.2 [facility] Comment on above: Performed By: #### H GBELE #### [facility] [address] [place] [address] Rory Tosha Hgb C 0.0 % Normal 0.0 [facility] Comment on above: Performed By: #### H GBELE #### [facility] [address] [place] [address] Rory Tosha Hgb F 0.0 % Normal 0.0-2.0 [facility] Comment on above: Performed By: #### H GBELE #### [facility] [address] [place] [address] Roryolivier Givens Hgb S 0.0 % Normal 0.0 [facility] Comment on above: Performed By: #### H GBELE #### [facility] [address] [place] [address] Rory Tosha Hgb Solubility Negative Normal Negative [facility] Comment on above: Performed By: #### H GBELE #### [facility] [address] [place] [address] Roryolivier Givens Hgb Variant Normal [facility] Comment on above: Performed By: #### H GBELE #### [facility] [address] [place] [address] Rory Tosha Interpretation Comment Normal [facility] Comment on above: Result Comment: Norm al adult hemoglobin present. Performed By: #### H GBELE #### [facility] [address] [place] [address] Rory Tosha HIV 1 AND 2 WITH REFLEXon HIV Screen 4th Generation wRfx Non Reactive Normal Non Reactive [facility] Comment on above: Performed By: #### H IV12 #### [facility] [address] [place] [address] Rory Givens RPR QUANTon 01-10-2020 Rapid Plasma Reagin, Quant Non Reactive Normal NonRea<1:1 [facility] Comment on above: Performed By: #### Celina EUBANKS #### [facility] [address] [place], [place] [id number] Rory Givens RUBELLA AB IGGon 01-10-2020 Rubella Antibodies, IgG 1.49 index Normal Immune >0.99 [facility] Comment on above: Result Comment: Non- immune <0.90 Equivocal 0.90 - 0.99 Immune >0.99 Performed By: #### Celina EUBANKS #### [facility] [address] [place] [address] Rory Givens VARICELLA IGG ABon 0 Varicella Zoster IgG 816 index Normal Immune >165 [facility] Comment on above: Result Comment: Nega tive <135 Equivocal 135 - 165 Positive >165 A positive result generally indicates exposure to the pathogen or administration of specific immunoglobulins, but it is not indication of active infection or stage of disease. Performed By: #### Celina EUBANKS #### [facility] [address] [place] [address] Rory Givens CBC AUTO DIFFon 2020 Basophils (Bld) [#/Vol] 0.1 103/ul Normal 0.0-0.1 [facility] Comment on above: Performed By: #### C BC #### [facility] [address] [place] [address] Rory Tosha Basophils/100 WBC (Bld) 0.5 % Normal 0.2-2.0 [facility] Comment on above: Performed By: #### C BC #### [facility] [address] [place] [address] Rory Tosha Eosinophils (Bld) [#/Vol] 0.1 103/ul Normal 0.0-0.7 [facility] Comment on above: Performed By: #### C BC #### [facility] [address] [place], [place] [address] Rory Tosha Eosinophils/100 WBC (Bld) 0.7 % Critically low 0.9-7.0 [facility] Comment on above: Performed By: #### C BC #### [facility] [address] [place] [address] Rory Tosha Erythrocyte distribution width (RBC) [Ratio] 12.1 % Normal 11.0-15.0 [facility] Comment on above: Performed By: #### C BC #### [facility] [address] [place], [place] [address] Rory Tosha Hematocrit (Bld) [Volume fraction] 36.2 % Normal 36.0-48.0 [facility] Comment on above: Performed By: #### C BC #### [facility] [address] [place] [address] Rory Tosha Hemoglobin (Bld) [Mass/Vol] 12.9 g/dL Normal 12.0-16.0 [facility] Comment on above: Performed By: #### C BC #### [facility] [address] [place] [address] Rory Tosha IG # 0.03 10e3/ul Normal 0.00-0.03 [facility] Comment on above: Performed By: #### C BC #### [facility] [address] [place] [address] Rory Tosha IG % 0.3 % Normal 0.0-0.5 [facility] Comment on above: Performed By: #### C BC #### [facility] [address] [place] [address] Rory Tosha Lymphocytes (Bld) [#/Vol] 2.4 103/ul Normal 1.2-3.8 [facility] Comment on above: Performed By: #### C BC #### [facility] [address] [place], [place] [address] Rory Tosha Lymphocytes/100 WBC (Bld) 23.1 % Normal 20.5-60.0 [facility] Comment on above: Performed By: #### C BC #### [facility] [address] [place], [place] [address] Rory Tosha MANUAL DIFF REQ NO Normal [facility] Comment on above: Performed By: #### C BC #### [facility] [address] [place], [place] [address] Roryolivier Nealen MCH (RBC) [Entitic mass] 30.0 pg Normal 26.7-34.0 [facility] Comment on above: Performed By: #### C BC #### [facility] [address] [place] [address] Roryolivier Givens MCHC (RBC) [Mass/Vol] 35.6 g/dL Critically high 29.9-35.2 [facility] Comment on above: Performed By: #### C BC #### [facility] [address] [place] [address] Rory Tosha MCV (RBC) [Entitic vol] 84.2 fL Normal 81.0-99.0 [facility] Comment on above: Performed By: #### C BC #### [facility] [address] [place], [place] [address] Rory Tosha Monocytes (Bld) [#/Vol] 0.5 103/ul Normal 0.3-0.8 [facility] Comment on above: Performed By: #### C BC #### [facility] [address] [place] [address] Rory Tosha Monocytes/100 WBC (Bld) 4.9 % Normal 1.7-12.0 [facility] Comment on above: Performed By: #### C BC #### [facility] [address] [place] [address] Rory Tosha Neutrophils (Bld) [#/Vol] 7.4 103/ul Critically high 1.4-6.5 [facility] Comment on above: Performed By: #### C BC #### [facility] [address] [place] [address] Rory Tosha Neutrophils/100 WBC (Bld) 70.5 % Normal 43.0-75.0 [facility] Comment on above: Performed By: #### C BC #### [facility] [address] [place] [address] Rory Tosha Platelet mean volume (Bld) [Entitic vol] 9.3 fL Critically low 9.5-13.5 [facility] Comment on above: Performed By: #### C BC #### [facility] [address] [place], [place] [address] Rroy Tosha Platelets (Bld) [#/Vol] 367 103/ul Normal 150-450 [facility] Comment on above: Performed By: #### C BC #### [facility] [address] [place] [address] Rory Tosha RBC (Bld) [#/Vol] 4.30 106/ul Normal 4.20-5.40 [facility] Comment on above: Performed By: #### C BC #### [facility] [address] [place] [address] Rory Tosha WBC (Bld) [#/Vol] 10.4 103/ul Normal 4.0-11.0 [facility] Comment on above: Performed By: #### C BC #### [facility] [address] [place], [place] [address] Rory Tosha CULTURE URINEon 2020 CULTURE URINE Culture Observations : NO GROWTH Normal [facility] Comment on above: Performed By: #### V CHA #### [facility] [address] [place], [place] [address] Rory Tosha DRUG SCREEN RAPID (URINE)on 2020 AMP Negative Normal NEGATIVE [facility] Comment on above: Performed By: #### C BC #### [facility] [address] [place] [address] Rory Tosha BAR Negative Normal NEGATIVE [facility] Comment on above: Performed By: #### C BC #### [facility] [address] [place] [address] Rory Tosha BUP Negative Normal NEGATIVE [facility] Comment on above: Performed By: #### C BC #### [facility] [address] [place] [address] Rory Tosha BZO Negative Normal NEGATIVE [facility] Comment on above: Performed By: #### C BC #### [facility] [address] [place] [address] Rory Tosha SIM Negative Normal NEGATIVE [facility] Comment on above: Performed By: #### C BC #### [facility] [address] [place] [address] Rory Tosha CUT-OFFS SEE BELOW Normal [facility] Comment on above: Result Comment: [...] ng/mL Performed By: #### C BC #### [facility] [address] [place] [address] DRUG CUT HEADER DRUG CLASS TEST SYST EM CUT-OFF CONCENTRATIONS ARE FOLLOWS: Normal [facility] Comment on above: Performed By: #### C BC #### [facility] [address] [place] [address] Rory Tosha mAMP Negative Normal NEGATIVE [facility] Comment on above: Performed By: #### C BC #### [facility] [address] [place] [address] Rory Tosha MTD Negative Normal NEGATIVE [facility] Comment on above: Performed By: #### C BC #### [facility] [address] [place] [address] Rory Tosha OPI Negative Normal NEGATIVE [facility] Comment on above: Performed By: #### C BC #### [facility] [address] [place] [address] Rory Tosha OXY Negative Normal NEGATIVE [facility] Comment on above: Performed By: #### C BC #### [facility] [address] [place] [address] Rory Tosha PCP Negative Normal NEGATIVE [facility] Comment on above: Performed By: #### C BC #### [facility] [address] [place] [address] Rory Givens PPX Negative Normal NEGATIVE [facility] Comment on above: Performed By: #### C BC #### [facility] [address] [place], [place] [address] Rory Tosha TCA Negative Normal NEGATIVE [facility] Comment on above: Performed By: #### C BC #### [facility] [address] [place] [address] Rory Tosha THC Negative Normal NEGATIVE [facility] Comment on above: Performed By: #### C BC #### [facility] [address] [place] [address] Roryolivier Givens GLYCOHEMOGLOBIN A1Con 2019 Glucose [Mass/Vol] 94 mg/dL Normal [facility] Comment on above: Performed By: #### V CHA #### [facility] [address] [place] [address] Roryolivier Givens HbA1c (Bld) [Mass fraction] 4.9 % Normal <=6.0 [facility] Comment on above: Performed By: #### V CHA #### [facility] [address] [place] [address] Roryolivier Nealen PREG QUANT HCGon 2020 HCG QUANT 98832.00 mIU/mL Normal [facility] Comment on above: Performed By: #### C BC #### [facility] [address] [place] [address] Roryolivier Givens HCG RANGE SEE BELOW Normal [facility] Comment on above: Result Comment: 5-50 0-1 WEEK 40-300 1-2 WEEKS 100-1,000 2-3 WEEKS 500-6,000 3-4 WEEKS 5,000-200,000 1-2 MONTHS 10,000-100,000 2-3 MONTHS 3,000-50,000 2ND TRIMESTER 1,000-50,000 3RD TRIMESTER Performed By: #### C BC #### [facility] [address] [place] [address] Rory Tosha TYPE AND SCREENon 2020 TYPE AND SCREEN Negative Normal [facility] Comment on above: Performed By: #### V CHA #### [facility] [address] [place] [address] Rory Tosha UA RANDOM W/MICROSCOPICon Bacteria LM.HPF (Urine sed) [#/Area] TRACE Normal NONE SEEN [facility] Comment on above: Performed By: #### C BC #### [facility] [address] [place] [address] Rory Tosha Bilirubin [Mass/Vol] Negative Normal NEGATIVE [facility] Comment on above: Performed By: #### C BC #### [facility] [address] [place] [address] Rory Tosha BLOOD Negative Normal NEGATIVE [facility] Comment on above: Performed By: #### C BC #### [facility] [address] [place] [address] Rory Tosha CAST NONE SEEN Normal NONE SEEN [facility] Comment on above: Performed By: #### C BC #### [facility] [address] [place] [address] Rory Tosha Clarity (U) CLEAR Normal [facility] Comment on above: Performed By: #### C BC #### [facility] [address] [place] [address] Rory Tosha Color (U) LT. YELLOW Normal YELLOW [facility] Comment on above: Performed By: #### C BC #### [facility] [address] [place] [address] Rory Tosha Crystals LM Nom (Urine sed) NONE SEEN Normal NONE SEEN [facility] Comment on above: Performed By: #### C BC #### [facility] [address] [place] [address] Rory Tosha Epithelial cells LM.HPF (Urine sed) [#/Area] RARE Normal [facility] Comment on above: Performed By: #### C BC #### [facility] [address] [place] [address] Rory Tosha Glucose [Mass/Vol] 100 mg/dl Normal NEGATIVE [facility] Comment on above: Performed By: #### C BC #### [facility] [address] [place], [place] [address] Rory Tosha Ketones Ql (U) Negative Normal NEGATIVE [facility] Comment on above: Performed By: #### C BC #### [facility] [address] [place] [address] Rory Tosha MUCOUS NONE SEEN Normal NONE SEEN [facility] Comment on above: Performed By: #### C BC #### [facility] [address] [place], [place] [address] Rory Tosha Nitrite Ql (U) Negative Normal NEGATIVE [facility] Comment on above: Performed By: #### C BC #### [facility] [address] [place], [place] [address] Rory Tosha pH (Bld) 6.5 Normal 5-9 [facility] Comment on above: Performed By: #### C BC #### [facility] [address] [place], [place] [address] Rory Tosha Protein [Mass/Vol] Negative Normal [facility] Comment on above: Performed By: #### C BC #### [facility] [address] [place], [place] [address] Rory Tosha RBC (Bld) [#/Vol] 0-2 Normal 0-2 [facility] Comment on above: Performed By: #### C BC #### [facility] [address] [place], [place] [address] Rory Tosha SPEC GRAVITY 1.015 Normal 1.005-<=1.02 5 [facility] Comment on above: Performed By: #### C BC #### [facility] [address] [place], [place] [address] Rory Tosha Urobilinogen Qn (U) 0.2 EU/dl Normal [facility] Comment on above: Performed By: #### C BC #### [facility] [address] [place], [place] [address] Rory Tosha WBC (Bld) [#/Vol] 0-2 Normal NONE SEEN [facility] Comment on above: Performed By: #### C BC #### [facility] [address] [place], [place] [address] Rory Tosha WBC (Bld) [#/Vol] Negative Normal NEGATIVE [facility] Comment on above: Performed By: #### C #### [facility] [address] [place], [place] [address] Rory Givens Surgical Pathologyon 018 Surgical Pathology (NOTE)[id number] Y LABORATORIESCONSULTING PATHOLOGISTS CORPORATIONANATOMIC [id number] [place] [address]. 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 - MARGINS APPEAR NEGATIVE FOR INVOLVEMENT.Timbo Acosta M.D.Electronically Signed [employer]/02/23/2018Clinic al InformationPre-op Diagnosis: COMPOUND NEVUS WITH SPITZ AND CAROL ANN, HX MELANOMAJUNE 2018, [facility], [id number], DX: COMPOUND NEVUSWITH FEATURES OF SPITZ AND [...] Cassettesummary: A-G specimen entirely serially submitted from 04-21 with the6 o'clock margin en face. asMicroscopic [...] and deep margins appear freeof involvement. Normal [facility] Comment on above: Performed By: #### P PPVDP ####[facility] [id number] [place], [place] [id number] Vital Signs Date Time Vital Sign Value Performing Clinician Facility 01-30-2025 09:14-0400 Body mass index (BMI) [Ratio] 23.34 kg/m2 Akhil Arthur DO Work Phone: [facility] 01-30-2025 09:14-0400 Body weight 61.69 kg Akhil Arthur DO Work Phone: [facility] 01-30-2025 09:14-0400 Diastolic blood pressure 70 mm[Hg] Akhil Arthur DO Work Phone: [facility] 01-30-2025 09:14-0400 Systolic blood pressure 110 mm[Hg] Akhil Arthur DO Work Phone: [facility] 09-11-2024 14:04-0400 Body mass index (BMI) [Ratio] 22.9 kg/m2 Glo Oropeza [facility] [employer] Work Phone: [facility] 09-11-2024 14:04-0400 Body weight 60.51 kg Glo Oropeza [facility] [employer] Work Phone: [facility] 09-11-2024 14:04-0400 Diastolic blood pressure 70 mm[Hg] Glo Oropeza [facility] [employer] WORK[employer] Work Phone: [facility] 09-11-2024 14:04-0400 Systolic blood pressure 120 mm[Hg] Glo Johnna [facility] SOC[employer] WORKER Work Phone: [facility] 08-30-2024 14:05-0400 Body mass index (BMI) [Ratio] 23.17 kg/m2 Shin Davison CNM Work Phone: [facility] 08-30-2024 14:05-0400 Body weight 61.24 kg Shin Davison CNM Work Phone: [facility] 08-30-2024 14:05-0400 Diastolic blood pressure 80 mm[Hg] Shin Davison CNM Work Phone: [facility] 08-30-2024 14:05-0400 Systolic blood pressure 118 mm[Hg] Shin Davison CNM Work Phone: [facility] 01-31-2024 13:22-0400 Body height 162.6 cm Delmis Lorenzo MD Work Phone: [facility] 01-31-2024 13:22-0400 Body mass index (BMI) [Ratio] 23.72 kg/m2 Delmis Lorenzo MD Work Phone: [facility] 01-31-2024 13:22-0400 Body weight 62.69 kg Delmis Lorenzo MD Work Phone: [facility] 01-31-2024 13:22-0400 Diastolic blood pressure 70 mm[Hg] Delmis Lorenzo MD Work Phone: [facility] 01-31-2024 13:22-0400 Heart rate 87 /min Delmis Lorenzo MD Work Phone: [facility] 01-31-2024 13:22-0400 Respiratory rate 18 /min Delmis Lorenzo MD Work Phone: [facility] 01-31-2024 13:22-0400 SaO2% (BldA) [Mass fraction] 100 % Delmis Lorenzo MD Work Phone: [facility] 01-31-2024 13:22-0400 Systolic blood pressure 110 mm[Hg] Delmis Lorenzo MD Work Phone: [facility] 02-22-2020 03:06-0400 Body weight 58.968 kg RENZO KIP [facility] Comment on above: Performed By: #### AFPTET #### [facility] [address] [place], [place] [address] Rory Givens Encounters Encounter Date Encounter Type Care Provider Facility Start: 01-30-2025 End: 01-30-2025 Bamboo flowsheet Akhil Arthur DO Work Phone: [facility] Start: 01-30-2025 End: 01-30-2025 Bamboo flowsheet Akhil Arthur DO Work Phone: [facility] Start: 01-30-2025 End: 01-30-2025 Office outpatient visit 15 minutes Akhil Arthur DO Work Phone: [facility] Comment on above: Menorrhagia with reg ular cycle; PCOS (polycystic ovarian syndrome) Start: 09-11-2024 End: 09-11-2024 Bamboo flowsheet Glo Oropeza HOSPITAL SOCIAL WORKER Work Phone: [facility] Start: 09-11-2024 End: 09-11-2024 Bamboo flowsheet Glo Johnna HOSPITAL SOCIAL WORKER Work Phone: [facility] Start: 09-11-2024 End: 09-11-2024 Postop follow up visit related to original px Glo Oropeza HOSPITAL SOCIAL WORKER Work Phone: [facility] Comment on above: Postoperative examin ation Start: 09-11-2024 End: 09-11-2024 ambulatory GLO JOHNNA Not Available Start: 09-01-2024 End: 09-01-2024 Clinisync Result Encounter Generic External Data Provider [facility] Unsolicited Start: 09-01-2024 End: 09-01-2024 Clinisync Result Encounter Generic External Data Provider [facility] External Department Unsolicited Start: 08-30-2024 End: 08-30-2024 ambulatory SHIN L CHARLA Not Available Start: 08-30-2024 End: 08-30-2024 Bamboo flowsheet Shin L Glendao CNM Work Phone: [facility] Start: 08-30-2024 End: 08-30-2024 Bamboo flowsheet Shin Davison CNM Work Phone: [facility] Start: 08-30-2024 End: 08-30-2024 Office outpatient visit 15 minutes Shin Davison CNM Work Phone: [facility] Comment on above: IUD check up Start: 08-30-2024 End: 08-30-2024 ambulatory SHIN DAVISON Not Available Start: 08-17-2024 End: 08-17-2024 ambulatory DELMIS LORENZO [...] Available Start: 12-27-2023 End: 12-27-2023 ambulatory SHIN DAVISON Not Available Start: 06-08-2023 End: 06-09-2023 ambulatory SHIN DAVISON [facility] Start: 07-04-2020 End: 07-04-2020 Patient encounter procedure [...] 2020 End: 01-10-2020 Patient encounter procedure ANTONIETA CAMRON Facility:[facility] Start: 02-22-2018 End: 02-22-2018 Patient encounter DARRYL DE LA ROSA [facility] Procedures Date Procedure Procedure Detail Performing Clinician Start: 09-11-2024 Urnls dip stick/tabl et rgnt non-auto w/o micrscp Glo Oropeza NP Work Phone: Start: 09-01-2024 ALL CBC WITH AUTO DIFF Akhil Gibson DO Work Phone: Plan of Treatment Date Care Activity Detail Author Start: 01-30-2025 End: 01-30-2026 DHEA DHEA Lab Routine Menorrhagia with regular cycle PCOS (polycystic ovarian syndrome) Expected: 01/30/2025 (Approximate), Expires: 01/30/2026 [facility] Comment on above: Expected: 01/30/2025 (Approximate), Expires: 01/30/2026 Start: 01-30-2025 End: 01-30-2025 Patient encounter procedure 01/30/2025 9:10 AM EDT Office Visit [facility] [address] [place] [id number] Akhil Gibson DO [address] [place], [facility] Arrived [facility] Comment on above: Arrived Start: 01-15-2025 Influenza vaccination [facility] Start: 09-11-2024 End: 09-11-2024 Patient encounter procedure 09/11/2024 1:50 PM EDT Office Visit [facility] [address] [place] [address] Glo Oropeza, HOSPITAL SOCIAL WORKER [address] [place] [address] Arrived [facility] Comment on above: Arrived Start: 08-30-2024 End: 08-30-2024 Professional / ancillary services management 08/30/2024 3:30 PM EDT Ancillary Procedure [facility] [address] [facility] [address] [place] [address] IUD check up [facility] Comment on above: IUD check up Start: 08-30-2024 End: 08-30-2024 Patient encounter procedure [facility] Comment on above: Arrived Start: 08-30-2024 End: 08-30-2025 US Pelvis transvaginal US pelvis transvaginal Imaging Routine IUD check up Expected: 08/30/2024, Expires: 08/30/2025 [facility] Work Phone: Comment on above: Expected: 08/30/2024 , Expires: 08/30/2025 Start: 03-17-2024 Influenza vaccination Influenza Vacc ine (#1) [facility] Comment on above: Postponed from 01/15 (Patient Refused) Start: 01-31-2024 End: 01-30-2025 CBC W Auto Differential panel - Blood CBC and differential Lab Routine Mood changes Expected: 01/31/2024 (Approximate), Expires: 01/30/2025 [facility] Comment on above: Expected: 01/31/2024 (Approximate), Expires: 01/30/2025 Start: 01-31-2024 End: 01-30-2025 Comprehensive metabolic 2000 panel - Serum or Plasma Comprehensive metabolic panel Lab Routine Mood changes Expected: 01/31/2024, Expires: 01/30/2025 [facility] Comment on above: Expected: 01/31/2024 , Expires: 01/30/2025 Start: 01-31-2024 End: 01-30-2025 TSH W/REFLEX TO FT4 TSH W/REFLEX TO FT4 Lab Routine Mood changes Expected: 01/31/2024 (Approximate), Expires: 01/30/2025 [facility] Work Phone: Comment on above: Expected: 01/31/2024 (Approximate), Expires: 01/30/2025 Start: 01-31-2024 End: 01-31-2024 Patient encounter procedure 01/31/2024 1:20 PM EDT Office Visit [facility] [address] [place] [address] Delmis Lorenzo MD [address] [place], [place] [id number] [facility] Start: 01-16-2024 Influenza vaccination Influenza Vacc ine (#1) [facility] Start: 01-10-2020 Screening for malign ant neoplasm of cervix [facility] Start: 2011 Screening for malign ant neoplasm of cervix Pap Smear [facility] Start: 1991 Skin Cancer Screening Skin Cancer Sc reening [facility] CBC W Auto Different ial panel - Blood CBC and differential Lab Routine Menorrhagia with regular cycle PCOS (polycystic ovarian syndrome) Ordered: 01/30/2025 [facility] Comment on above: Ordered: 01/30/2025 DHEA-sulfate DHEA-sulfate Lab Routine Menorrhagia with regular cycle PCOS (polycystic ovarian syndrome) Ordered: 01/30/2025 [facility] Comment on above: Ordered: 01/30/2025 Follicle stimulating hormone Follicle stimulating hormone Lab Routine Menorrhagia with regular cycle PCOS (polycystic ovarian syndrome) Ordered: 01/30/2025 [facility] Comment on above: Ordered: 01/30/2025 hCG, quantitative, hCG, quantitative, Lab Routine Menorrhagia with regular cycle PCOS (polycystic ovarian syndrome) Ordered: 01/30/2025 [facility] Work Phone: Comment on above: Ordered: 01/30/2025 Hemoglobin A1c/Hemoglobin.total in Blood Hemoglobin A1c Lab Routine Menorrhagia with regular cycle Ordered: 01/30/2025 [facility] Comment on above: Ordered: 01/30/2025 Luteinizing hormone Luteinizing hormone Lab Routine Menorrhagia with regular cycle PCOS (polycystic ovarian syndrome) Ordered: 01/30/2025 [facility] Comment on above: Ordered: 01/30/2025 Thyrotropin [Units/volume] in Serum or Plasma TSH Lab Routine Menorrhagia with regular cycle PCOS (polycystic ovarian syndrome) Ordered: 01/30/2025 [facility] Comment on above: Ordered: 01/30/2025 Thyroxine (T4) free [Mass/volume] in Serum or Plasma T4, free Lab Routine Menorrhagia with regular cycle PCOS (polycystic ovarian syndrome) Ordered: 01/30/2025 [facility] Comment on above: Ordered: 01/30/2025 Immunizations Immunization Date Immunization Notes Care Provider Fa cili 07-19-2023 tetanus toxoid, redu norma diphtheria toxoid, and acellular pertussis vaccine, adsorbed Delmis Lorenzo MD Work Phone: [facility] 05-14-2023 influenza, injectabl e, quadrivalent, preservative free Delmis Lorenzo MD Work Phone: [facility] 05-14-2023 influenza virus vacc ine, unspecified formulation Delmis Lorenzo MD Work Phone: [facility] Payers Date Payer Category Payer [facility] [id number] 2021 Unknown BCBS BCBS xxxxxx [id number] 2021-Present [phone] [address] [place] [address] [id number] 2021 Unknown [id number] 2014 Private Health Insurance [id number] 1990 Unknown [id number] 2.16.840.1.330009.3.579.2. 175 1990 Unknown [id number] 2.16.840.1.522054.3.579.2. 593 1990 Unknown [id number] 2.16.840.1.129556.3.579.2. 593 1990 Unknown [id number] 2.16.840.1.548158.3.579.2. 593 1990 Unknown [id number] 2.16.840.1.474077.3.579.2. 593 1990 Unknown [id number] 2.16.840.1.917400.3.579.2. 593 1990 Unknown [id number] 2.16.840.1.847073.3.579.2. 593 1990 Unknown [id number] 2.16.840.1.529784.3.579.2. 593 1990 Unknown [id number] 2.16.840.1.331467.3.579.2. 593 1990 Unknown [id number] 2.16.840.1.970656.3.579.2. 593 1990 Unknown [id number] 2.16.840.1.210537.3.579.2. 1286 1990 Unknown [id number] 2.16.840.1.639546.3.579.2. 1259 1990 Unknown [id number] 2.16.840.1.257043.3.579.2. 1259 1990 Unknown [id number] 2.16.840.1.441773.3.579.2. 9 1990 Unknown [id number] 2.16.840.1.648055.3.579.2. 1258 1990 Unknown [id number] 2.16.840.1.473482.3.579.2. 1258 1990 Unknown [id number] 2.16.840.1.758719.3.579.2. 1258 1990 Unknown [id number] 2.16.840.1.978738.3.579.2. 1258 1990 Unknown [id number] 2.16.840.1.684527.3.579.2. 1258 1990 Unknown [id number] 2.16.840.1.256086.3.579.2. 1259 1959 Unknown [id number] Social History Date Type Detail Facility Start: 02-15-2023 Tobacco smoking status [facility] Never sm oked tobacco [facility] Start: 02-15-2023 Tobacco use and exposure Smoke less tobacco non-user [facility] Start: 04-06-2024 End: 01-30-2025 Alcoholic beverage intake Ex-drinker (finding) [facility] [...] Goal Desired Activity /State Personal health goal Clinical Notes 01-31-2024 to 01-30-2025 Tosha Mcdonough LPN - 01/30/2025 9:10 AM EDTGlo Oropeza NP - 09/11/2024 1:50 PM EDTShin Davison CNM - 08/30/2024 2:00 PM EDMariia Lorenzo MD - 08/17/2024 11:40 AM EDT Note Date & Type Note Facility 01-30-2025 History of Presen t illness Narrative Reason for Appointment: Patient ID: Tania Brothers is a 35 y.o. female who presents for Menorrhagia Patient presents today for Acute Visit. and Consult appointment. 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 06/04/2023 Resolved Ambulatory Problems Diagnosis Date Noted No Resolved Ambulatory Problems Past Medical History: Diagnosis Date Congenital nevus COVID-19 Factor V deficiency ([facility]) Fracture 1994 Fracture of parietal bone ([facility]) 1990 GERD (gastroesophageal reflux disease) History of depression HL (hearing loss) 05/24/2023 Malignant melanoma of leg ([facility]) Oral contraceptive pill surveillance Preeclampsia in period ([facility]) 08/19/2020 HISTORY PAST MEDICAL HISTORY SOCIAL HISTORY Past Medical History: Diagnosis Date Congenital nevus COVID-19 Factor V deficiency (HCC) Fracture 1994 st wrist/hand level-left Fracture of parietal bone ([facility]) 1990 GERD (gastroesophageal reflux disease) History of depression HL (hearing loss) 05/24/2023 Malignant melanoma of leg ([facility]) Oral contraceptive pill surveillance Preeclampsia in period ([facility]) 08/19/2020 Social History Tobacco Use Smoking status: Never Smokeless tobacco: Never Vaping Use Vaping status: Never Used Substance Use Topics Alcohol use: Not Currently Comment: Alcohol: 3 or 4 drinks on a typical day / 2 to 4 times a month. Caffeine: 1-2 cups/day Drug use: Never FAMILY HISTORY Family History Problem Relation Name Age of [...] Maternal Grandmother Avril Orta Melanoma Neg Hx SURGICAL HISTORY Past Surgical History: Procedure Laterality Date DILATION AND CURETTAGE OF UTERUS 09/01/2024 HYSTEROSCOPY 09/01/2024 LAPAROSCOPY DIAGNOSTIC / BIOPSY / ASPIRATION / LYSIS 09/01/2024 with IUD removal PAP SMEAR 2020 SKIN CANCER EXCISION 10/2017 melanoma excision, leg, [facility] REVIEW OF SYSTEMS Review of Systems: Review of Systems Constitutional: Negative. HENT: Negative. Eyes: Negative. Respiratory: Negative. Cardiovascular: Negative. Gastrointestinal: Negative. Genitourinary: Positive for menstrual problem. Musculoskeletal: Negative. Skin: Negative. Neurological: Negative. All other systems reviewed and are negative. Hematological: Negative. Endocrine: Negative. Allergic/Immunologic: Negative. OBJECTIVE Objective: Physical Exam Constitutional: Appearance: Normal appearance. She is well-developed. Cardiovascular: Rate and Rhythm: Normal rate and regular rhythm. Pulmonary: Effort: Pulmonary effort is normal. Breath sounds: Normal breath sounds. Abdominal: General: Bowel sounds are normal. There is no distension. Palpations: Abdomen is soft. Tenderness: There is no abdominal tenderness. There is no guarding or rebound. Musculoskeletal: General: No swelling. Normal range of motion. Right lower leg: No edema. Left lower leg: No edema. Neurological: Mental Status: She is alert and oriented to person, place, and time. Skin: General: Skin is warm and dry. Psychiatric: Mood and Affect: Mood normal. Behavior: Behavior normal. Vitals and nursing note reviewed. Exam conducted with a jack machine operator present. Vitals: Estimated body mass index is 23.34 kg/m as calculated from the following: Height as of 24: 5' 4 . Weight as of this encounter: 136 lb. BP: 110/70 Patient's last menstrual period was 01/20/2025. ASSESSMENT & PLAN ICD-10-CM 1. Menorrhagia with regular cycle N92.0 Pt presents to discuss endometrial ablation. Pt having 5-7 day heavy periods. Pt given labs to have obtinaed., Pt partner having vasectomy. Pt to be scheduled for endometrial ablation. Pt to return for preop/embx and another appt for annual. Documented by Tosha Mcdonough LPN on behalf of: Akhil Gibson DO documented in this encounter [facility] 09-11-2024 History of Presen t illness Narrative Reason for Appointment: Patient ID: Tania Brothers is a 34 y.o. female who presents for Post-op Visit Patient presents today for 1 Week Post Op Follow Up appointment. 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 06/04/2023 Resolved Ambulatory Problems Diagnosis Date Noted No Resolved Ambulatory Problems Past Medical History: Diagnosis Date Congenital nevus COVID-19 Factor V deficiency (CMS/HCC) Fracture 1994 Fracture of parietal bone (CMS/HCC) 1990 GERD (gastroesophageal reflux disease) History of depression HL (hearing loss) 05/24/2023 Malignant melanoma of leg (CMS/HCC) Oral contraceptive pill surveillance Preeclampsia in period 08/19/2020 HISTORY PAST MEDICAL HISTORY SOCIAL HISTORY Past Medical History: Diagnosis Date Congenital nevus COVID-19 Factor V deficiency (CMS/HCC) Fracture 1994 st wrist/hand level-left Fracture of parietal bone (CMS/HCC) 1990 GERD (gastroesophageal reflux disease) History of depression HL (hearing loss) 05/24/2023 Malignant melanoma of leg (CMS/HCC) Oral contraceptive pill surveillance Preeclampsia in period 08/19/2020 Social History Tobacco Use Smoking status: Never Smokeless tobacco: Never Vaping Use Vaping status: Never Used Substance Use Topics Alcohol use: Not Currently Comment: Alcohol: 3 or 4 drinks on a typical day / 2 to 4 times a month. Caffeine: 1-2 cups/day Drug use: Never FAMILY HISTORY Family History Problem Relation Name Age of [...] Maternal Grandmother Avril Orta Melanoma Neg Hx SURGICAL HISTORY Past Surgical History: Procedure Laterality Date DILATION AND CURETTAGE OF UTERUS 09/01/2024 HYSTEROSCOPY 09/01/2024 LAPAROSCOPY DIAGNOSTIC / BIOPSY / ASPIRATION / LYSIS 09/01/2024 with IUD removal PAP SMEAR 2020 SKIN CANCER EXCISION 10/2017 [facility] REVIEW OF SYSTEMS Review of Systems: Review of Systems Constitutional: Negative. HENT: Negative. Eyes: Negative. Respiratory: Negative. Cardiovascular: Negative. Gastrointestinal: Negative. Genitourinary: Negative. Musculoskeletal: Negative. Skin: Negative. Neurological: Negative. All other systems reviewed and are negative. Hematological: Negative. Endocrine: Negative. Allergic/Immunologic: Negative. OBJECTIVE Objective: Physical Exam Constitutional: Appearance: Normal appearance. She is well-developed. Cardiovascular: Rate and Rhythm: Normal rate and regular rhythm. Pulmonary: Effort: Pulmonary effort is normal. Breath sounds: Normal breath sounds. Abdominal: General: Bowel sounds are normal. There is no distension. Palpations: Abdomen is soft. Tenderness: There is no abdominal tenderness. There is no guarding or rebound. Musculoskeletal: General: No swelling. Normal range of motion. Right lower leg: No edema. Left lower leg: No edema. Neurological: Mental Status: She is alert and oriented to person, place, and time. Skin: General: Skin is warm and dry. Psychiatric: Mood and Affect: Mood normal. Behavior: Behavior normal. Vitals and nursing note reviewed. Exam conducted with a jack machine operator present. Vitals: Estimated body mass index is 22.9 kg/m as calculated from the following: Height as of 01/31/24: 5' 4 . Weight as of this encounter: 133 lb 6.4 oz. BP: 120/70 Patient's last menstrual period was 09/01/2024. ASSESSMENT & PLAN ICD-10-CM 1. Postoperative examination Z09 POCT urinalysis dipstick manually resulted Patient present postop D&C hysteroscopy, diagnostic lab and IUD removal. She reports no significant complaints of pain. She desires endometrial ablation in the near future and is going to discuss this with her further. Incisional site has healed with mild ecchymosis no drainage or discharge and no surrounding erythema. She will schedule when ready to move forward with endometrial ablation Documented by Glo Oropeza NP on behalf of: Glo Oropeza NP documented in this encounter [facility] 08-30-2024 History of Presen t illness Narrative PROBLEM VISIT Tania Brothers is 34 y.o. a patient of [facility] Here for to make sure IUD is in the Last pap: 12/27/23 Last mammogram: No LMP recorded. History: Past Medical History: Diagnosis Date Congenital nevus COVID-19 Factor V deficiency ([facility]/HCC) Fracture 1994 st wrist/hand level-left Fracture of parietal bone ([facility]) 1990 GERD (gastroesophageal reflux disease) History of depression HL (hearing loss) 05/24/2023 Malignant melanoma of leg ([facility]/HCC) Oral contraceptive pill surveillance Preeclampsia in period 08/19/2020 Past Surgical History: Procedure Laterality Date PAP SMEAR 2020 SKIN CANCER EXCISION 10/2017 [facility] Family History Problem Relation Name Age of Onset Asthma Mother Shanelle Wne Depression Mother Shanelle Laurenkins Stroke Mother Shanelle Laurenkins Hyperlipidemia Father Star Behzad Hypertension Father Star Wen No Known Problems [...] 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 No follow-ups on file. There are no Patient Instructions on file for this visit. Talia Morton MA,08/30/2024 2:10 PM documented in this encounter [facility] 08-17-2024 History of Presen t illness Narrative [...] units as above documented in this encounter [facility] 04-06-2024 History of Presen t illness Narrative [...] units as above documented in this encounter [facility] 01-31-2024 History of Presen t illness Narrative [...] consideration of counseling documented in this encounter [facility] Evaluation note Diagnosis Forehead wrinkles- Primary Other specified hypertrophic and atrophic condition of skin [facility] Diagnosis Routine general medical examination at a health care facility- Primary Mood changes Unspecified episodic mood disorder [facility] Diagnosis Forehead wrinkles- Primary Other specified hypertrophic and atrophic condition of skin [facility] Diagnosis IUD check up IUD check up documented [facility] Diagnosis Postoperative examination Follow-up examination, following unspecified surgery [facility] Diagnosis Menorrhagia with regular cycle PCOS (polycystic ovarian syndrome) Polycystic ovaries documented in this encounter [facility] Summary Purpose Family History No Family History Records FoundNo Family History Records FoundNo Family History Records FoundNo Family History Records Found Advance Directives No Advanced Directives Records FoundNo Advanced Directives Records FoundNo Advanced Directives Records FoundNo Advanced Directives Records Found Additional Source Comments INFORMATION SOURCE (unrecogn ized section and content) DATE CREATED AUTHOR 03/22/[address] [facility] DATE CREATED AUTHOR AUTHOR'S ORGANIZ ATION 07/08/2020 [facility] DATE CREATED AUTHOR AUTHOR'S ORGANIZ ATION 06/11/2023 [facility] DATE CREATED AUTHOR AUTHOR'S ORGANIZ ATION 12/23/2024 [facility] dical Specialists EPIC Care Teams (unrecognized sec tion and content) Board Worker Relationship Specialty Start Date End Date Delmis Lorenzo MD [address] [place] [address] PCP - General Family Medicine 11/21/22 Delmis Lorenzo MD [address] [facility] [place] [address] PCP - [place] [employer] 07/16/23 Board Worker Relationship Specialty Start Date End Date Delmis Lorenzo MD [address] [facility] [place] [address] PCP - General Family Medicine 11/21/22 Delmis Lorenzo MD [address] [facility] [place] [address] PCP - [place] [employer] 07/16/23 Board Worker Relationship Specialty Start Date End Date Delmis Lorenzo MD [address] [place] [address] PCP - General Family Medicine 11/21/22 Delmis Lorenzo MD [address] [place] [address] PCP - [place] [employer] 07/16/23 Board Worker Relationship Specialty Start Date End Date Delmis Lorenzo MD [address] [place] [address] PCP - General Family Medicine 11/21/22 Delmis Lorenzo MD [address] [place] [address] PCP - [place] [employer] 07/16/23 Board Worker Relationship Specialty Start Date End Date Delmis Lorenzo MD [address] [place] [address] PCP - General Family Medicine 11/21/22 Delmis Lorenzo MD [address] [place] [address] PCP - [place] [employer] 07/16/23 Board Worker Relationship Specialty Start Date End Date Delmis Lorenzo MD [address] [place] [address] PCP - General Family Medicine 11/21/22 Delmis Lorenzo MD [address] [place] [address] PCP - [place] [employer] 07/16/23 Board Worker Relationship Specialty Start Date End Date Delmis Lorenzo MD [address] [facility] [place], [place] [id number] PCP - General Family Medicine 11/21/22 Delmis Lorenzo MD [address] [facility] [place], [place] [id number] PCP - [place] [employer] 07/16/23 Board Worker Relationship Specialty Start Date End Date Delmis Lorenzo MD [address] [facility] [place], [place] [id number] PCP - General Family Medicine 11/21/22 Delmis Lorenzo MD [address] [facility] [place], [place] [id number] PCP - [place] [employer] 07/16/23 Reason for Visit (unrecogniz ed section and content) Reason Comments Annual Exam Reason Comments Menstrual Problem Reason Comments Post-op Visit Reason Comments Menorrhagia FOR RECORDS PERTAINING TO PATIENTS WHO ARE [...] BE BASED ON THE PRIMARY CLINICAL RECORDS. [employer] [facility]. provides no warranty or guarantee of the accuracy or completeness of information in this document.
[2025-01-30 10:49] LABS: Hematocrit 37.8 % (36.0-48.0); Hemoglobin 12.9 g/dL (12.0-16.0); Immature Granulocytes Abs Auto 0.01 10^3/uL (0.00-0.03); Immature Granulocytes Pct Auto 0.2 % (0.0-0.5); Lymphocytes Absolute Auto 2.1 10^3/uL (1.2-3.8); Mean Corpuscular HGB Conc 34.1 g/dL (29.9-35.2); Mean Corpuscular Hemoglobin 29.5 pg (26.7-34.0); Mean Corpuscular Volume 86.3 fL (81.0-99.0); Platelet Count 302 10^3/uL (150-450); Red Blood Count 4.38 10^6/uL (4.20-5.40); White Blood Count 5.7 10^3/uL (4.0-11.0)
[2025-01-30 11:36] LABS: Thyroid Stimulating Hormone 1.672 uIU/mL (0.358-3.740)
[2025-01-31 04:07] LABS: FSH 3.5 mIU/mL (.)
[2025-02-04 13:07] LABS: DHEA, Serum 132 ng/dL (31-701)
== END 2025-01-30 10:20 | disposition home or self-care (01) ==
PROVIDERS: PCP Family Medicine; Visit Provider Obstetrics & Gynecology
DX: N92.0 Excessive and frequent menstruation with regular cycle (principal); E28.2 Polycystic ovarian syndrome
CPT/HCPCS: 36415; 82626; 82627; 83001; 83002; 83036; 84439; 84443; 84702; 85025

== ENCOUNTER 2025-02-27 13:38 | Outpatient (REF) | payer BC, SELFPAY ==
--- OUTSIDE RECORDS SUMMARY | 2025-03-02 13:41 | XMS_ITS | CCD ---
Author Organization [facility] CliniSynm Care Team Providers Care [place] Member Name Role Phone DARRYL DE LA ROSA Unavailable Unavailable RENZO SHIN Attending Unavailable RENZO SHIN Admitting Unavailable LOVE QUINTERO Consulting Unavailable RENZO SHIN Consulting Unavailable RENZO SHIN Consulting Unavailable RENZO SHIN Attending Unavailable RENZO SHIN Admitting [facility] Consulting Unavailable RENZO SHIN Attending Unavailable RENZO SHIN Admitting Unavailable RENZO SHIN Admitting Unavailable RENZO SHIN Attending Unavailable FELICITAS MARTINES V Consulting Unavailable RENZO SHIN Consulting [facility] Un[facility]IN Admitting Unavailable RENZO SHIN Consulting Unavailable RENZO SHIN Attending Unavailable RENZO SHIN Admitting Unavailable RENZO SHIN Attending Unavailable RENZO SHIN Consulting [facility]available [facility] Unavailable RENZO SHIN Attending Unavailable RENZO SHIN Consulting Unavailable RENZO SHIN Admitting Unavailable [facility] R[facility]ZO SHIN Admitting Unavailable RENZO SHIN Attending Unavailable RENZO SHIN Consulting Unavailable [facility] RENZO SHIN Consulting Unavailable RENZO SHIN Attending Unavailable RENZO SHIN Admitting Unavailable [facility] Un[facility] SHIN DAVISON Referring Unavailable DEMI DANIELS Primary Care Unavailable Delmis Lorenzo MD Primary Care Provider [phone] Delmis Lorenzo MD Unavailable DELMIS LORENZO Attending Unavailable SHIN DAVISON Attending Unavailable SHIN DAVISON Referring Unavailable SHIN DAVISON Referring Unavailable GLO OROPEZA Attending Unavailable WINNIE GIBSON Attending Unavailable DELMIS LORENZO Attending Unavailable WINNIE GIBSON Attending Unavailable Winnie Gibson DO Attending Provider Allergies Allergy Classification Reported Allergen(s) Allergy Type Date of Onset Reaction(s) Facility (1 source) Penicillin Drug Allergy [facility] Repository (18 sources) Penicillins; Translations: [PENICILLINS] Propensity to adverse reactions to drug (disorder) 8 Rash [facility] Repository Medications Current Medications Medication Drug Class(es) Dates Sig (Normalized) Sig (Original) acetaminophen 325 mg / HYDROcodone bitartrate 5 mg oral tablet (1 source) Opioid Agonist Start: 8 take 2 tablets by mouth every four to six hours as needed for pain onabotulinumtoxina 100 unt injection (7 sources) Acetylcholine Release Inhibitor Start: onabotulinumtoxinA (Botox) injection 34 Units Start: 08-17-2024 End: 08-17-2024 onabotulinumtoxinA (Botox) i njection 34 Units Start: 08-17-2024 End: 08-17-2024 34 Units, Intradermal, Once, On [facility] 08/17/24 at 1715, For 1 dose, Charging context for this clinic-administered medication: Fee-Editable/Self Pay escitalopram 10 mg oral tablet (16 sources) Serotonin Reuptake Inhibitor Start: 05-31-2024 End: [...] Class(es) Dates Sig (Normalized) Sig (Original) levonorgestrel 0.078673 mg/hr intrauterine system (12 sources) Progestin, Progestin-containi [...] of transmission] Onset: 02-17-2020 Episodic Menstrual disorders (7 sources) Secondary amenorrhea; Translations: [Menorrhagia] Onset: 01-15-2020 [...] Translations: [Polycystic ovarian syndrome] 01-30-2025 Chronic Other female genital disorders (1 source) Abnormal uterine bleeding; Translations: [Abnormal uterine and vaginal bleeding, unspecified] 02-27-2025 Chronic Other female genital disorders (1 source) Pain in female pelvis; Translations: [Pelvic pain in female] 02-27-2025 Episodic Other and delivery including normal (8 [...] source) COVID-19; Translations: [COVID-19] Onset: 04-21-2020 Unclassified (16 sources) Patient on antidepressant monitoring plan Onset: 01-31-2024 01-31-2024 Unclassified (16 sources) Baseline PHQ-9 Onset: 01-31-2024 01-31-2024 Past or Other Problems Problem Classification Problem Date Documented Da te Episodic/Chronic Other ear and sense organ disorders (17 sources) Sudden idiopathic hearing loss; Translations: [Sudden idiopathic hearing loss, left ear] Onset: 06-04-2023 06-04-2023 Episodic Unclassified (1 source) BX; Translations: [BX] Onset: 02-22-2018 Results Test Name Value Interpretation Reference Range Facility HCG ( test) Ql (U)o n 02-27-2025 Interpretation and review of laboratory results Abnormal [facility] Preg Test, Ur Negative Negative [facility] ALL CBC WITH AUTO DIFFon BASOPHILS ABSOLUTE AUTO 0 [facility] Basophils/100 WBC (Bld) 0.7 % 0.2 - 2.0 % [facility] Eosinophils/100 WBC (Bld) 1.2 % 0.9 - 7.0 % [facility] Erythrocyte distribution width (RBC) [Ratio] 12.2 % 11.0 - 15.0 % [facility] Hematocrit (Bld) [Volume fraction] 37.8 % 36.0 - 48.0 % [facility] Hemoglobin (Bld) [Mass/Vol] 12.9 g/dL 12.0 - 16.0 g/dL [facility] IMMATURE GRANULOCYTES ABS AUTO 0.01 [facility] Immature granulocytes/100 WBC (Bld) 0.2 % 0.0 - 0.5 % [facility] Interpretation and review of laboratory results Abnormal [facility] LYMPHOCYTES ABSOLUTE AUTO 2.1 [facility] Lymphocytes/100 WBC (Bld) 36.7 % 20.5 - 60.0 % [facility] MCH (RBC) [Entitic mass] 29.5 pg 26.7 - 34.0 pg [facility] MCHC (RBC) [Mass/Vol] 34.1 g/dL 29.9 - 35.2 g/dL [facility] MCV (RBC) [Entitic vol] 86.3 fL 81.0 - 99.0 fL [facility] MONOCYTES ABSOLUTE AUTO 0.4 [facility] Monocytes/100 WBC (Bld) 6.3 % 1.7 - 12.0 % [facility] NEUTROPHILS ABSOLUTE AUTO 3.1 [facility] Neutrophils/100 WBC (Bld) 54.9 % 43.0 - 75.0 % [facility] Platelet mean volume (Bld) [Entitic vol] 9.2 fL Low 9.5 - 13.5 fL [facility] TBH EO # 0.1 [facility] PLT 302 [facility] RBC 4.38 [facility] WBC 5.7 [facility] Urinalysis macro (dipstick) panel (U)on 09-11-2024 Bilirubin, UA Negative Negative - 4(70) +++ mg/dL [facility] Blood, UA Negative Negative - 50 Rudy/mcL [facility] Clarity, UA Clear [facility] Color, UA Yellow [facility] Glucose, UA Negative Negative - 2000(110) ++++ mg/dL [facility] Interpretation and review of laboratory results Normal [facility] Ketones, UA Negative Negative - 160(16) ++++ mg/dL [facility] Leukocytes, UA Negative Negative - 500+++ Juan/mcL [facility] Nitrite, UA Negative Negative - Positive [facility] pH, UA 7 5 - 9 [facility] Protein, UA Negative Negative - 2000(20) ++++ mg/dL [facility] Spec Grav, UA 1.015 1 - 1.03 [facility] Urobilinogen, UA 0.2 0.2 - 12 mg/dL [facility] ALL CBC WITH AUTO DIFFon BASOPHILS ABSOLUTE AUTO 0.1 [facility] Basophils/100 WBC (Bld) 0.8 % 0.2 - 2.0 % [facility] Eosinophils/100 WBC (Bld) 0.7 % Low 0.9 - 7.0 % [facility] Erythrocyte distribution width (RBC) [Ratio] 13.8 % 11.0 - 15.0 % [facility] Hematocrit (Bld) [Volume fraction] 38.6 % 36.0 - 48.0 % [facility] Hemoglobin (Bld) [Mass/Vol] 13.2 g/dL 12.0 - 16.0 g/dL [facility] IMMATURE GRANULOCYTES ABS AUTO 0.01 [facility] Immature granulocytes/100 WBC (Bld) 0.2 % 0.0 - 0.5 % [facility] Interpretation and review of laboratory results Abnormal [facility] LYMPHOCYTES ABSOLUTE AUTO 3.6 [facility] Lymphocytes/100 WBC (Bld) 59.8 % 20.5 - 60.0 % [facility] MCH (RBC) [Entitic mass] 29.3 pg 26.7 - 34.0 pg [facility] MCHC (RBC) [Mass/Vol] 34.2 g/dL 29.9 - 35.2 g/dL [facility] MCV (RBC) [Entitic vol] 85.6 fL 81.0 - 99.0 fL [facility] MONOCYTES ABSOLUTE AUTO 0.5 [facility] Monocytes/100 WBC (Bld) 8.3 % 1.7 - 12.0 % [facility] NEUTROPHILS ABSOLUTE AUTO 1.8 [facility] Neutrophils/100 WBC (Bld) 30.2 % Low 43.0 - 75.0 % [facility] Platelet mean volume (Bld) [Entitic vol] 8.5 fL Low 9.5 - 13.5 [facility] TB PLT 298 [facility] RBC 4.51 [facility] WBC 6 [facility] US PELVIS TRANSVAGINALon US PELVIS TRANSVAGINAL TITLE [...] contains the IUD difficult scan CHLAMYDIA/GONOCOCCUS LING (SW AB/URINE/PAPon 07-06-2020 Chlamydia trachomatis, LING Negative Normal Negative [facility] Comment on above: Performed By: #### V ARCEL #### [facility] [address] [place] [address] Rory Tosha Neisseria gonorrhoeae, LING Negative Normal Negative [facility] Comment on above: Performed By: #### Celina EUBANKS #### [facility] [address] [place], [place] [id number] Rory Tosha GROUP B STREP CULTUREon 06-17 S. agalactiae Ag Ql (Unsp spec) Culture Observations: Negative for Group B Streptococcus Normal [facility] Comment on above: Performed By: #### G BSCX #### [facility] [address] [place] [address] Rory Tosha GTT 3 HR PREGon 05-07-2020 Glucose [Mass/Vol] 138 mg/dL Normal [facility] Comment on above: Performed By: #### C BC #### [facility] [address] [place] [address] Rory Tosha Glucose [Mass/Vol] 102 mg/dL Normal [facility] Comment on above: Performed By: #### C BC #### [facility] [address] [place] [address] Rory Tosha Glucose [Mass/Vol] 80 mg/dL Normal 74-106 [facility] Comment on above: Performed By: #### C BC #### [facility] [address] [place] [address] Rory Tosha Glucose [Mass/Vol] 132 mg/dL Normal [facility] Comment on above: Performed By: #### C BC #### [facility] [address] [place] [address] Rory Tosha CBC AUTO DIFFon 05-01-2020 Basophils (Bld) [#/Vol] 0.0 103/ul Normal 0.0-0.[address] [facility] Comment on above: Performed By: #### C BC #### [facility] [address] [place], [place] [id number] Rory Tosha Basophils/100 WBC (Bld) 0.4 % Normal 0.2-2.[address] [facility] Comment on above: Performed By: #### C BC #### [facility] [address], [place] [address] Rory Tosha Eosinophils (Bld) [#/Vol] 0.1 103/ul Normal 0.0-0.7 [facility] Comment on above: Performed By: #### C BC #### [facility] [address], [place] [address] Rory Tosha Eosinophils/100 WBC (Bld) 0.6 % Critically low 0.9-7.[address] [facility] Comment on above: Performed By: #### C BC #### [facility] [address] [place] [id number] Rory Tosha Erythrocyte distribution width (RBC) [Ratio] 13.2 % Normal 11.0-15.[address] [facility] Comment on above: Performed By: #### C BC #### [facility] [address] [place], [place] [id number] Rory Tosha Hematocrit (Bld) [Volume fraction] 35.7 % Critically low 36.0-48.[address] [facility] Comment on above: Performed By: #### C BC #### [facility] [address] [id number] Rory Tosha Hemoglobin (Bld) [Mass/Vol] 12.2 g/dL Normal 12.0-16.[address] [facility] Comment on above: Performed By: #### C BC #### [facility] [address] [place], [place] [id number] Rory Tosha IG # 0.06 10e3/ul Critically high 0.00-0.03 [facility] Comment on above: Performed By: #### C BC #### [facility] [address] [id number] Rory Tosha IG % 0.7 % Critically high 0.0-0.5 [facility] Comment on above: Performed By: #### C BC #### [facility] [address] [id number] Rory Tosha Lymphocytes (Bld) [#/Vol] 1.6 103/ul Normal 1.2-3.8 [facility] Comment on above: Performed By: #### C BC #### [facility] [address], [place] [address] Rory Tosha Lymphocytes/100 WBC (Bld) 19.5 % Critically low 20.5-60.[address] [facility] Comment on above: Performed By: #### C BC #### [facility] [address] [place] [address] Rory Tosha MANUAL DIFF REQ NO Normal [facility] Comment on above: Performed By: #### C BC #### [facility] [address], [place] [address] Rory Tosha MCH (RBC) [Entitic mass] 30.1 pg Normal 26.7-34.0 [facility] Comment on above: Performed By: #### C BC #### [facility] [address] [place] [address] Rory Tosha MCHC (RBC) [Mass/Vol] 34.2 g/dL Normal 29.9-35.2 [facility] Comment on above: Performed By: #### C BC #### [facility] [address] [place] [address] Rory Tosha MCV (RBC) [Entitic vol] 88.1 fL Normal 81.0-99.[address] [facility] Comment on above: Performed By: #### C BC #### [facility] [address] [place] [address] Rory Tosha Monocytes (Bld) [#/Vol] 0.4 103/ul Normal 0.3-0.8 [facility] Comment on above: Performed By: #### C BC #### [facility] [address] [place] [address] Rory Tosha Monocytes/100 WBC (Bld) 4.8 % Normal 1.7-12.0 [facility] Comment on above: Performed By: #### C BC #### [facility] [address] [place] [address] Rory Tosha Neutrophils (Bld) [#/Vol] 6.1 103/ul Normal 1.4-6.5 [facility] Comment on above: Performed By: #### C BC #### [facility] [address], [place] [address] Rory Givens Neutrophils/100 WBC (Bld) 74.0 % Normal 43.0-75.[address] [facility] Comment on above: Performed By: #### C BC #### [facility] [address], [place] [address] Rory Givens Platelet mean volume (Bld) [Entitic vol] 9.2 fL Critically low 9.5-13.[address] [facility] Comment on above: Performed By: #### C BC #### [facility] [address], [place] [address] Rory Givens Platelets (Bld) [#/Vol] 285 103/ul Normal 150-[address] [facility] Comment on above: Performed By: #### C BC #### [facility] [address] [place], [place] [address] Rory Givens RBC (Bld) [#/Vol] 4.05 106/ul Critically low 4.20-5.40 [facility] Comment on above: Performed By: #### C BC #### [facility] [address] [place] [address] Rory Givens WBC (Bld) [#/Vol] 8.2 103/ul Normal 4.0-11.0 [facility] Comment on above: Performed By: #### C BC #### [facility] [address] [place], [place] [address] Rory Givens GLUCOSE - 1HRon 05-01-2020 Glucose [Mass/Vol] 158 mg/dL Critically high 74-106 [facility] Comment on above: Performed By: #### G LU1HR #### [facility] [address] [place] [address] Rory Givens Covid-19 PCR (CVDTBH)on 03-19 Covid-19 DETECTED NOT DETECTED [facility] Comment on above: Result Comment: This test is not yet approved or cleared by the [place] FDA. When there are no FDA-approved or cleared tests available, and other criteria are met, FDA can make tests available under an emergency access mechanism called an Emergency Use Authorization (EUA). The EUA for this test is supported by the [place] of Health and Human Service's (HHS's) declaration [...] for this test is supported by the [employer] of Health and Human Service's (HHS's) declaration [...] LBS Performed By: #### V CHA #### [facility] [address] [place] [address] Rory Givens EUA Statement SEE BELOW Normal [facility] Comment on above: Result Comment: This test is not yet approved or cleared by the [place] FDA. When there are no FDA-approved or cleared tests available, and other criteria are met, FDA can make tests available under an emergency access mechanism called an Emergency Use Authorization (EUA). The EUA for this test is supported by the [place] of Health and Human Service?s (HHS?s) declaration [...] SARS-CoV-2. Performed By: #### V CHA #### [facility] [address], [place] [address] Rory Givens US PREG ANATOMY SINGLEon US PREG ANATOMY [...] LOVE QUINTERO Date: 2020-03-26 07:17 Normal [facility] AFP TETRA PROFILE (MATERNAL) on 02-22-2020 AFP MoM 0.53 Normal [facility] Comment on above: Performed By: #### A FPTET #### [facility] [address] [place] [address] Rory Tosha AFP Value 18.7 ng/mL Normal [facility] Comment on above: Performed By: #### A FPTET #### [facility] [address] [place] [phone] Rory Tosha Comment Comment Normal [facility] Comment on above: Result Comment: Fidelia Cornell, Ph.D., [facility] Director . References: Available Upon Request. . Multiples Of Median Cutoffs Abbreviation Definitions For AFP Elevations IDD- Insulin Dep Diabetes Gunn 2.5 Black 2.8 OSBR- Open Spina Bifida IDD 2.0 Twins 4.5 Risk DSR Cutoff 1:270 DSR- Down Syndrome Risk T18 Cutoff 1:100 T18- Trisomy 18 . Down Syndrome and Trisomy 18 screening are considered Investigational . For further inquiries contact [employer] [facility] at [phone]. Performed By: #### A FPTET #### [facility] [address] [place] [address] Rory Tosha MARTHA MoM 0.72 [facility] Comment on above: Performed By: #### A FPTET #### [facility] [address] [place] [address] Rory Tosha MARTHA Value 133.56 pg/mL Normal [facility] Comment on above: Performed By: #### A FPTET #### [facility] [address] [place], [place] [id number] Rory Tosha DSR (By Age) 1 IN 656 Normal [facility] Comment on above: Performed By: #### A FPTET #### [facility] [address] [place], [place] [address] Rory Tosha DSR (Second Trimester) 1 [place] [address] [facility] Comment on above: Performed By: #### A FPTET #### [facility] [address] [place], [place] [address] Rory Tosha Gest. Age on Collection Date 15.7 WEEKS Normal [facility] Comment on above: Performed By: #### A FPTET #### [facility] [address] [place], [place] [address] Rory Tosha Gestat. Age Based On LMP Normal [facility] Comment on above: Performed By: #### A FPTET #### [facility] [address] [place] [address] Rory Givens hCG MoM 0.[address] [facility] Comment on above: Performed By: #### A FPTET #### [facility] [address] [place] [address] [place] [address] m[IU]/mL Normal [facility] Comment on above: Performed By: #### A FPTET #### [facility] [address] [place] [address] Rory Givens Insulin Dep Diabetes No Normal [facility] Comment on above: Performed By: #### A FPTET #### [facility] [address] [place] [address] Rory Givens Interpretation Comment Normal [facility] Comment on above: Result Comment: Inte rpretation: [...] identifies 60% of Trisomy 18 pregnancies. The [employer] recommends amniocentesis be offered to women age 35 and older. Recalculations are not recommended when gestational dating by LMP and ultrasound are within 10 days. Performed By: #### A FPTET #### [facility] [address] [phone] Rory Givens [age] Normal [facility] Comment on above: Performed By: #### A FPTET #### [facility] [address] [id number] Rory Givens Multiple Gestation No Normal [facility] Comment on above: Performed By: #### A FPTET #### [facility] [address] [place] [address] Roryolivier Givens OSBR [place] 1 [place] [address] Normal [facility] Comment on above: Performed By: #### A FPTET #### [facility] [address] [phone] Rory Tosha PDF . Normal [facility] Comment on above: Performed By: #### A FPTET #### [facility] [address] [place] [address] Rory Tosha Race Normal [facility] Comment on above: Performed By: #### A FPTET #### [facility] [address] [place] [address] Roryolivier Givens Results Report [facility] Comment on above: Performed By: #### A FPTET #### [facility] [address] [place] [address] Rory Tosha T18 (By Age) 1:[address] [facility] Comment on above: Performed By: #### A FPTET #### [facility] [address] [place] [address] Rory Tosha T18 Risk Not increased Normal [facility] Comment on above: Performed By: #### A FPTET #### [facility] [address] [place] [address] Roryolivier Givens Test Results: Negative [facility] Comment on above: Performed By: #### A FPTET #### [facility] [address] [place] [address] Rory Tosha uE3 MoM 0.[address] [facility] Comment on above: Performed By: #### A FPTET #### [facility] [address] [place] [address] Rory Tosha uE3 Value 0.81 ng/mL Normal [facility] Comment on above: Performed By: #### A FPTET #### [facility] [address] [place] [address] [address]ory Tosha [address] W CT/NG,HR HPV RFX 16 AN D 18on 02-15-2020 Chlamydia, Nuc. Acid Amp Negative Normal Negative [facility] Comment on above: Result Comment: Perf ormed at: =G Performed By: #### P APHR4 #### [facility] [address] [place] [address] Rory Nealen DIAGNOSIS: Comment Normal [facility] Comment on above: Result Comment: NEGA TIVE FOR INTRAEPITHELIAL LESION OR MALIGNANCY. Performed at: WB Performed By: #### P APHR4 #### [facility] [address] [place] [address] Rory Givens Gonococcus, Nuc. Acid Amp Negative Normal Negative [facility] Comment on above: Result Comment: Perf ormed at: =G Performed By: #### P APHR4 #### [facility] [address] [place] [address] Rory Givens HPV, high-risk Negative Normal Negative [facility] Comment on above: Result Comment: This nucleic acid amplification high-risk HPV test detects thirteen high-risk types (16,18,31,33,35,39,45,51,52,56,58,59,68) without differentiation. Performed at: =G Performed By: #### P APHR4 #### [facility] [address] [place] [address] Rory Givens Methodology: Comment Normal [facility] Comment on above: Result Comment: This liquid based ThinPrep(R) pap test was screened with the use of an image guided system. Performed at: WB Performed By: #### P APHR4 #### [facility] [address] [place] [address] Rory Givens Note: Comment Normal [facility] Comment on above: Result Comment: The [...] WB Performed By: #### P APHR4 #### [facility] [address] [place] [address] Rory Givens Performed by: Comment Normal [facility] Comment on above: Result Comment: Melisa Currie, Cement Mason (ASCP) Performed at: WB Performed By: #### P APHR4 #### [facility] [address] [place] [address] Rory Givens Specimen adequacy: Comment Normal [facility] Comment on above: Result Comment: Sati sfactory for evaluation. No endocervical component is identified. Performed at: WB Performed By: #### P APHR4 #### [facility] [address] [place] [address] Rory Givens . . Normal [facility] Comment on above: Result Comment: Perf ormed at: WB Performed By: #### P APHR4 #### [facility] [address] [place] [address] Rory Givens US PREG <14 WKSon 01-15-2020 [...] by: FELICITAS MARTINES Date: 2020-01-15 10:[address] [facility] HEP B SURFACE ANTIGEN SCREEN on 01-10-2020 HBsAg Screen Negative Normal Negative [facility] Comment on above: Performed By: #### H BSANS #### [facility] [address] [place] [address] Rory Givens HEPATITIS C VIRUS AB W/ REFL EX QUANTon 01-10-2020 HCV AB <0.1 Normal 0.0-0.[address] [facility] Comment on above: Performed By: #### V ARCEL #### [facility] [address] [place] [address] Rory Givens Interpretation: Comment Normal [facility] Comment on above: Result Comment: Nega tive Not infected with HCV, unless recent infection is suspected or other evidence exists to indicate HCV infection. Performed By: #### V CHA #### [facility] [address] [place] [address] Rory Tosha HGB(ELECTP) FRACTION PROFILE on 01-10-2020 Hemoglobin (Bld) [Mass/Vol] 97.8 % Normal 96.4-98.[address] [facility] Comment on above: Performed By: #### H GBELE #### [facility] [address] [place] [address] Rory Tosha Hgb A2 2.2 % Normal 1.8-3.[address] [facility] Comment on above: Performed By: #### H GBELE #### [facility] [address] [place] [address] Rory Tosha Hgb C 0.0 % Normal 0.[address] [facility] Comment on above: Performed By: #### H GBELE #### [facility] [address] [place] [address] Rory Tosha Hgb F 0.0 % Normal 0.0-2.0 [facility] Comment on above: Performed By: #### H GBELE #### [facility] [address] [place] [address] Rory Tosha Hgb S 0.0 % Normal 0.[address] [facility] Comment on above: Performed By: #### H GBELE #### [facility] [address] [place] [address] Rory Tosha Hgb Solubility Negative Normal Negative [facility] Comment on above: Performed By: #### H GBELE #### [facility] [address] [place] [address] Rory Tosha Hgb Variant Normal [facility] Comment on above: Performed By: #### H GBELE #### [facility] [address] [place] [address] Rory Tosha Interpretation Comment Normal [facility] Comment on above: Result Comment: Norm al adult hemoglobin present. Performed By: #### H GBELE #### [facility] [address] [place] [address] Rory Givens HIV 1 AND 2 WITH REFLEXon HIV Screen 4th Generation wRfx Non Reactive Normal Non Reactive [facility] Comment on above: Performed By: #### H IV12 #### [facility] [address] [place] [address] Rory Givens RPR QUANTon 01-10-2020 Rapid Plasma Reagin, Quant Non Reactive Normal NonRea<1:1 [facility] Comment on above: Performed By: #### Celina EUBANKS #### [facility] [address] [place], [place] [id number] Rory Givens RUBELLA AB IGGon 01-10-2020 Rubella Antibodies, IgG 1.49 index Normal Immune >0.[address] [facility] Comment on above: Result Comment: Non- immune <0.90 Equivocal 0.90 - 0.99 Immune >0.99 Performed By: #### Celina EUBANKS #### [facility] [address] [place], [place] [id number] Rory Givens VARICELLA IGG ABon 0 Varicella Zoster IgG 816 index Normal Immune >165 [facility] Comment on above: Result Comment: Nega tive <135 Equivocal 135 - 165 Positive >165 A positive result generally indicates exposure to the pathogen or administration of specific immunoglobulins, but it is not indication of active infection or stage of disease. Performed By: #### Celina EUBANKS #### [facility] [address] [place], [place] [id number] Rory Givens CBC AUTO DIFFon 2020 Basophils (Bld) [#/Vol] 0.1 103/ul Normal 0.0-0.[address] [facility] Comment on above: Performed By: #### C BC #### [facility] [address] [place], [place] [id number] Rory Givens Basophils/100 WBC (Bld) 0.5 % Normal 0.2-2.[address] [facility] Comment on above: Performed By: #### C BC #### [facility] [address] [place], [place] [id number] Rory Tosha Eosinophils (Bld) [#/Vol] 0.1 103/ul Normal 0.0-0.[address] [facility] Comment on above: Performed By: #### C BC #### [facility] [address] [place], [place] [id number] Rory Tosha Eosinophils/100 WBC (Bld) 0.7 % Critically low 0.9-7.[address] [facility] Comment on above: Performed By: #### C BC #### [facility] [address] [place], [place] [id number] Rory Tosha Erythrocyte distribution width (RBC) [Ratio] 12.1 % Normal 11.0-15.[address] [facility] Comment on above: Performed By: #### C BC #### [facility] [address] [place] [address] Rory Tosha Hematocrit (Bld) [Volume fraction] 36.2 % Normal 36.0-48.[address] [facility] Comment on above: Performed By: #### C BC #### [facility] [address] [place] [address] Rory Tosha Hemoglobin (Bld) [Mass/Vol] 12.9 g/dL Normal 12.0-16.0 [facility] Comment on above: Performed By: #### C BC #### [facility] [address] [place], [place] [id number] Rory Tosha IG # 0.03 10e3/ul Normal 0.00-0.[address] [facility] Comment on above: Performed By: #### C BC #### [facility] [address] [place] [address] Rory Tosha IG % 0.3 % Normal 0.0-0.[address] [facility] Comment on above: Performed By: #### C BC #### [facility] [address] [place], [place] [id number] Rory Tosha Lymphocytes (Bld) [#/Vol] 2.4 103/ul Normal 1.2-3.8 [facility] Comment on above: Performed By: #### C BC #### [facility] [address] [place], [place] [address] Rory Tosha Lymphocytes/100 WBC (Bld) 23.1 % Normal 20.5-60.0 [facility] Comment on above: Performed By: #### C BC #### [facility] [address], [place] [address] Rory Tosha MANUAL DIFF REQ NO Normal [facility] Comment on above: Performed By: #### C BC #### [facility] [address], [place] [address] Rory Tosha MCH (RBC) [Entitic mass] 30.0 pg Normal 26.7-34.[address] [facility] Comment on above: Performed By: #### C BC #### [facility] [address], [place] [address] Rory Tosha MCHC (RBC) [Mass/Vol] 35.6 g/dL Critically high 29.9-35.[address] [facility] Comment on above: Performed By: #### C BC #### [facility] [address] [place], [place] [id number] Rory Tosha MCV (RBC) [Entitic vol] 84.2 fL Normal 81.0-99.[address] [facility] Comment on above: Performed By: #### C BC #### [facility] [address] [place], [place] [address] Rory Tosha Monocytes (Bld) [#/Vol] 0.5 103/ul Normal 0.3-0.[address] [facility] Comment on above: Performed By: #### C BC #### [facility] [address] [place], [place] [address] Rory Tosha Monocytes/100 WBC (Bld) 4.9 % Normal 1.7-12.[address] [facility] Comment on above: Performed By: #### C BC #### [facility] [address], [place] [address] Rory Tosha Neutrophils (Bld) [#/Vol] 7.4 103/ul Critically high 1.4-6.[address] [facility] Comment on above: Performed By: #### C BC #### [facility] [address] [place] [id number] Rory Tosha Neutrophils/100 WBC (Bld) 70.5 % Normal 43.0-75.[address] [facility] Comment on above: Performed By: #### C BC #### [facility] [address] [place], [place] [address] Rory Givens Platelet mean volume (Bld) [Entitic vol] 9.3 fL Critically low 9.5-13.[address] [facility] Comment on above: Performed By: #### C BC #### [facility] [address] [place], [place] [address] Roryolivier Givens Platelets (Bld) [#/Vol] 367 103/ul Normal 150-450 [facility] Comment on above: Performed By: #### C BC #### [facility] [address] [place] [address] Roryolivier Nealen RBC (Bld) [#/Vol] 4.30 106/ul Normal 4.20-5.40 [facility] Comment on above: Performed By: #### C BC #### [facility] [address] [place] [address] Roryolivier Givens WBC (Bld) [#/Vol] 10.4 103/ul Normal 4.0-11.0 [facility] Comment on above: Performed By: #### C BC #### [facility] [address] [place], [place] [address] Rory Givens CULTURE URINEon 2020 CULTURE URINE Culture Observations : NO GROWTH Normal [facility] Comment on above: Performed By: #### V CHA #### [facility] [address] [place], [place] [id number] Rory Givens DRUG SCREEN RAPID (URINE)on 2020 AMP Negative Normal NEGATIVE [facility] Comment on above: Performed By: #### C BC #### [facility] [address] [place], [place] [address] Orry Tosha BAR Negative Normal NEGATIVE [facility] Comment on above: Performed By: #### C BC #### [facility] [address] [place] [address] Rory Tosha BUP Negative Normal NEGATIVE [facility] Comment on above: Performed By: #### C BC #### [facility] [address] [place] [address] Rory Tosha BZO Negative Normal NEGATIVE [facility] Comment on above: Performed By: #### C BC #### [facility] [address] [place] [address] Rory Tosha SIM Negative Normal NEGATIVE [facility] Comment on above: Performed By: #### C BC #### [facility] [address] [place] [address] Rory Tosha CUT-OFFS SEE BELOW Normal [facility] Comment on above: Result Comment: AMP (Amphetamine): [...] ng/mL Performed By: #### C BC #### [facility] [address] [place] [address] Rory Tosha DRUG CUT HEADER DRUG CLASS TEST SYST EM CUT-OFF CONCENTRATIONS ARE FOLLOWS: Normal [facility] Comment on above: Performed By: #### C BC #### [facility] [address] [place] [address] Rory Tosha mAMP Negative Normal NEGATIVE [facility] Comment on above: Performed By: #### C BC #### [facility] [address] [place] [address] Rory Tosha MTD Negative Normal NEGATIVE [facility] Comment on above: Performed By: #### C BC #### [facility] [address] [place] [address] Rory Tosha OPI Negative Normal NEGATIVE [facility] Comment on above: Performed By: #### C BC #### [facility] [address] [place] [address] Rory Tosha OXY Negative Normal NEGATIVE [facility] Comment on above: Performed By: #### C BC #### [facility] [address] [place] [address] Rory Givens PCP Negative Normal NEGATIVE [facility] Comment on above: Performed By: #### C BC #### [facility] [address] [place] [address] Rory Givens PPX Negative Normal NEGATIVE [facility] Comment on above: Performed By: #### C BC #### [facility] [address] [place] [address] Rory Givens TCA Negative Normal NEGATIVE [facility] Comment on above: Performed By: #### C BC #### [facility] [address] [place] [address] Rory Givens THC Negative Normal NEGATIVE [facility] Comment on above: Performed By: #### C BC #### [facility] [address] [place] [address] Rory Givens GLYCOHEMOGLOBIN A1Con 2019 Glucose [Mass/Vol] 94 mg/dL Normal [facility] Comment on above: Performed By: #### V CHA #### [facility] [address] [place] [address] Rory Givens HbA1c (Bld) [Mass fraction] 4.9 % Normal <=6.[address] [facility] Comment on above: Performed By: #### Celina EUBANKS #### [facility] [address] [place] [address] Rory Givens PREG QUANT HCGon 2020 HCG QUANT 12300.00 mIU/mL Normal [facility] Comment on above: Performed By: #### C BC #### [facility] [address] [place] [address] Rory Givens HCG RANGE SEE BELOW Normal [facility] Comment on above: Result Comment: 5-50 0-1 WEEK 40-300 1-2 WEEKS 100-1,000 2-3 WEEKS 500-6,000 3-4 WEEKS 5,000-200,000 1-2 MONTHS 10,000-100,000 2-3 MONTHS 3,000-50,000 2ND TRIMESTER 1,000-50,000 3RD TRIMESTER Performed By: #### C BC #### [facility] [address] [place] [address] Rory Tosha TYPE AND SCREENon 2020 TYPE AND SCREEN Negative Normal [facility] Comment on above: Performed By: #### V CHA #### [facility] [address] [place], [place] [address] Rory Tosha UA RANDOM W/MICROSCOPICon Bacteria LM.HPF (Urine sed) [#/Area] TRACE Normal NONE SEEN [facility] Comment on above: Performed By: #### C BC #### [facility] [address] [place] [address] Rory Tosha Bilirubin [Mass/Vol] Negative Normal NEGATIVE [facility] Comment on above: Performed By: #### C BC #### [facility] [address] [place] [address] Rory Tosha BLOOD Negative Normal NEGATIVE [facility] Comment on above: Performed By: #### C BC #### [facility] [address] [place] [address] Rory Tosha CAST NONE SEEN Normal NONE SEEN [facility] Comment on above: Performed By: #### C BC #### [facility] [address] [place] [address] Rory Tosha Clarity (U) CLEAR Normal [facility] Comment on above: Performed By: #### C BC #### [facility] [address] [place] [address] Rory Tosha Color (U) LT. YELLOW Normal YELLOW [facility] Comment on above: Performed By: #### C BC #### [facility] [address] [place] [address] Rory Tosha Crystals LM Nom (Urine sed) NONE SEEN Normal NONE SEEN [facility] Comment on above: Performed By: #### C BC #### [facility] [address] [place] [address] Rory Tosha Epithelial cells LM.HPF (Urine sed) [#/Area] RARE Normal [facility] Comment on above: Performed By: #### C BC #### [facility] [address] [place] [id number] Rory Tosha Glucose [Mass/Vol] 100 mg/dl Normal NEGATIVE [facility] Comment on above: Performed By: #### C BC #### [facility] [address] [place], [place] [address] Rory Tosha Ketones Ql (U) Negative Normal NEGATIVE [facility] Comment on above: Performed By: #### C BC #### [facility] [address] [place], [place] [address] Rory Tosha MUCOUS NONE SEEN Normal NONE SEEN [facility] Comment on above: Performed By: #### C BC #### [facility] [address] [place], [place] [address] Rory Tosha Nitrite Ql (U) Negative Normal NEGATIVE [facility] Comment on above: Performed By: #### C BC #### [facility] [address] [place] [address] Rory Tosha pH (Bld) 6.5 Normal 5-[address] [facility] Comment on above: Performed By: #### C BC #### [facility] [address] [place], [place] [address] Rory Tosha Protein [Mass/Vol] Negative Normal [facility] Comment on above: Performed By: #### C BC #### [facility] [address] [place], [place] [address] Rory Tosha RBC (Bld) [#/Vol] 0-2 Normal 0-2 [facility] Comment on above: Performed By: #### C BC #### [facility] [address] [place], [place] [address] Rory Tosha SPEC GRAVITY 1.015 Normal 1.005-<=1.[address] [facility] Comment on above: Performed By: #### C BC #### [facility] [address] [place], [place] [address] Rory Tosha Urobilinogen Qn (U) 0.2 EU/dl Normal [facility] Comment on above: Performed By: #### C BC #### [facility] [address], [place] [address] Rory Givens WBC (Bld) [#/Vol] 0-2 Normal NONE SEEN [facility] Comment on above: Performed By: #### C BC #### [facility] [address], [place] [address] Rory Givens WBC (Bld) [#/Vol] Negative Normal NEGATIVE [facility] Comment on above: Performed By: #### C BC #### [facility] [address], [place] [address] Rory Givens Surgical Pathologyon 018 Surgical Pathology (NOTE)[id number] Y LABORATORIESCONSULTING PATHOLOGISTS [facility] [id number] [place] [address] [phone] Fax: SURGICAL PATHOLOGY CONSULTATIONPatient Name: Daryl BROTHERS Rec: [id number] Number: [id number]: 02/21/2018Received: 02/22/2018Reported: 02/23/2018 15:49-- Diagnosis --SKIN, RIGHT SUPERIOR UPPER BACK, EXCISION: - 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 - MARGINS APPEAR NEGATIVE FOR INVOLVEMENT.Timbo Acosta M.D.Electronically Signed Out02/23/2018Clinic al InformationPre-op Diagnosis: COMPOUND NEVUS WITH SPITZ AND CAROL ANN, HX MELANOMAJUNE 2018, [facility], [id number], DX: COMPOUND NEVUSWITH FEATURES OF SPITZ AND [...] and deep margins appear freeof involvement. Normal [facility] Comment on above: Performed By: #### P PPVDP ####[place] [place], [place] [id number] Vital Signs Date Time Vital Sign Value Performing Clinician Facility 02-27-2025 10:53-0400 Body mass index (BMI) [Ratio] 23.17 kg/m2 [facility] Work Phone: [facility] 02-27-2025 10:53-0400 Body weight 61.24 kg [facility] Work Phone: [facility] 02-27-2025 10:53-0400 Diastolic blood pressure 72 mm[Hg] LetsCram DO Work Phone: [facility] 02-27-2025 10:53-0400 Systolic blood pressure 112 mm[Hg] [facility] Work Phone: [facility] 01-30-2025 09:14-0400 Body mass index (BMI) [Ratio] 23.34 kg/m2 [facility] Work Phone: [facility] 01-30-2025 09:14-0400 Body weight 61.69 kg [facility] Work Phone: [facility] 01-30-2025 09:14-0400 Diastolic blood pressure 70 mm[Hg] Winnie Arthur DO Work Phone: [facility] 01-30-2025 09:14-0400 Systolic blood pressure 110 mm[Hg] Winnie Arthur DO Work Phone: [facility] 09-11-2024 14:04-0400 Body mass index (BMI) [Ratio] 22.9 kg/m2 Glo Johnna [employer] Work Phone: [facility] 09-11-2024 14:04-0400 Body weight 60.51 kg Glo Johnna [employer] Work Phone: [facility] 09-11-2024 14:04-0400 Diastolic blood pressure 70 mm[Hg] Glo Johnna READING INSTRUCTOR Work Phone: [facility] 09-11-2024 14:04-0400 Systolic blood pressure 120 mm[Hg] Glo Johnna READING INSTRU[employer] Work Phone: [facility] 08-30-2024 14:05-0400 Body mass index (BMI) [Ratio] 23.17 kg/m2 Shin Glendao CNM Work Phone: [facility] 08-30-2024 14:05-0400 Body weight 61.24 kg Shin Floro CNM Work Phone: [facility] 08-30-2024 14:05-0400 Diastolic blood pressure 80 mm[Hg] Shin Floro CNM Work Phone: [facility] 08-30-2024 14:05-0400 Systolic blood pressure 118 mm[Hg] Shin Floro CNM Work Phone: [facility] 01-31-2024 13:22-0400 Body height 162.6 cm Delmis Lorenzo MD Work Phone: [facility] 01-31-2024 13:22-0400 Body mass index (BMI) [Ratio] 23.72 kg/m2 Delmis Lorenzo MD Work Phone: [facility] 01-31-2024 [id number] Body weight 62.69 kg Delmis Lorenzo MD Work Phone: [facility] 01-31-2024 13:22-0400 Diastolic blood pressure 70 mm[Hg] Delmis Lorenzo MD Work Phone: [facility] 01-31-2024 13:22-0400 Heart rate 87 /min Delmis Lorenzo MD Work Phone: [facility] 01-31-2024 13:22-0400 Respiratory rate 18 /min Delmis Lorenzo MD Work Phone: [facility] 01-31-2024 13:22-0400 SaO2% (BldA) [Mass fraction] 100 % Delmis Lroenzo MD Work Phone: [facility] 01-31-2024 13:22-0400 Systolic blood pressure 110 mm[Hg] Delmis Lorenzo MD Work Phone: [facility] 02-22-2020 03:06-0400 Body weight 58.968 kg RENZO SHIN [facility] Comment on above: Performed By: #### AFPTET #### [facility] [address] [place] [address] Rory Nealen Encounters Encounter Date Encounter Type Care Provider Facility Start: 02-27-2025 End: 02-27-2025 Departed Referred Winnie Gibson -Lab [facility] Work Phone: Start: 02-27-2025 End: 02-27-2025 Patient encounter procedure Winnie Arthur DO Work Phone: [facility] Comment on above: Pre-op examination; Menorrhagia with regular cycle; Abnormal uterine bleeding (AUB); Pelvic pain in female Start: 02-27-2025 End: 02-27-2025 Preprocedural examination done Winnie Dysono DO Work Phone: [facility] Start: 02-27-2025 End: 02-27-2025 ambulatory WINNIE ARTHUR Not Available Start: 01-30-2025 End: 01-30-2025 Bamboo flowsheet Winnie Arthur DO Work Phone: [facility] Start: 01-30-2025 End: 01-30-2025 Bamboo flowsheet Winnie Arthur DO Work Phone: [facility] Start: 01-30-2025 End: 01-30-2025 Clinisync Result Encounter Generic External Data Provider [facility] Unsolicited Start: 01-30-2025 End: 01-30-2025 Office outpatient visit 15 minutes Winnie Arthur DO Work Phone: [facility] Comment on above: Menorrhagia with reg ular cycle; PCOS (polycystic ovarian syndrome) Start: 01-30-2025 End: 01-30-2025 ambulatory WINNIE ARTHUR Not Available Start: 09-11-2024 End: 09-11-2024 Bamboo flowsheet Glo Johnna READING INSTRUCTOR Work Phone: [facility] Start: 09-11-2024 End: 09-11-2024 Bamboo flowsheet Glo Johnna READING INSTRUCTOR Work Phone: [facility] Start: 09-11-2024 End: 09-11-2024 Postop follow up visit related to original px Glo Johnna READING INSTRUCTOR Work Phone: [facility] Comment on above: Postoperative examin ation Start: 09-11-2024 End: 09-11-2024 ambulatory GLO JOHNNA Not Available Start: 09-01-2024 End: 09-01-2024 Clinisync Result Encounter Generic External Data Provider [facility] Unsolicited Start: 09-01-2024 End: 09-01-2024 Clinisync Result Encounter Generic External Data Provider [facility] Unsolicited Start: 08-30-2024 End: 08-30-2024 ambulatory SHIN L FLORO Not Available Start: 08-30-2024 End: 08-30-2024 Bamboo flowsheet Shin L Floro CNM Work Phone: [facility] Start: [...] Work Phone: [facility] Work Phone: Start: 06-08-2023 End: 06-09-2023 [facility] Start: 07-04-2020 End: 07-04-2020 Patient encounter procedure [...] 02-22-2018 Patient encounter DARRYL DE LA ROSA [facility] Procedures Date Procedure Procedure Detail Performing Clinician Start: 02-27-2025 Urine test visual color cmprsn meths Winnie Arthur DO Work Phone: Start: 01-30-2025 ALL CBC WITH AUTO DIFF Winnie Arthur DO Work Phone: Start: 09-11-2024 Urnls dip stick/tabl et rgnt non-auto w/o micrscp Glo Oropeza READING INSTRUCTOR Work Phone: Start: 09-01-2024 ALL CBC WITH AUTO DIFF Winnie Arthur DO Work Phone: Start: 12-27-2023 Microscopic observat ion [Identifier] in Cervix by Cyto stain Winnie Arthur DO Work Phone: Plan of Treatment Date Care Activity Detail Author Start: 12-26-2026 Screening for malign ant neoplasm of cervix [facility] Start: 03-05-2025 End: 03-05-2025 Patient encounter procedure 03/05/2025 1:50 PM EDT Procedure Visit SALINA HERNANDEZ [address] [place] [phone] Winnie Gibson, DO [address] [place], [place] [id number] [facility] Start: 02-27-2025 End: 02-27-2025 Patient encounter procedure 02/27/2025 10:30 AM EDT Procedure Visit SALINA HERNANDEZ [address] [place] [phone] Winnie Gibson, DO [address] [place] [address] [facility] Start: 01-30-2025 End: 01-30-2026 DHEA DHEA Lab Routine Menorrhagia with regular cycle PCOS (polycystic ovarian syndrome) Expected: 01/30/2025 (Approximate), Expires: 01/30/2026 [facility] Comment on above: Expected: 01/30/2025 (Approximate), Expires: 01/30/2026 Start: 01-30-2025 End: 01-30-2025 Patient encounter procedure 01/30/2025 9:10 AM EDT Office Visit SALINA HERNANDEZ [address] [place] [address] Winnie Gibson, DO [address] [place] [address] Arrived [facility] Comment on above: Arrived Start: 01-15-2025 Influenza vaccination [facility] Start: 09-11-2024 End: 09-11-2024 Patient encounter procedure 09/11/2024 1:50 PM EDT Office Visit [facility] [address] [facility] [place] [phone] Glo Oropeza, READING INSTRUCTOR [address] [place] [phone] Arrived [facility] Comment on above: Arrived Start: 08-30-2024 End: 08-30-2024 Professional / ancillary services management 08/30/2024 3:30 PM EDT Ancillary Procedure [facility] [address] [place] [address] IUD check up [facility] Comment on above: IUD check up Start: 08-30-2024 End: 08-30-2024 Patient encounter procedure [facility] Comment on above: Arrived Start: 08-30-2024 End: 08-30-2025 US Pelvis transvaginal US pelvis transvaginal Imaging Routine IUD check up Expected: 08/30/2024, Expires: 08/30/2025 [facility] Work Phone: Comment on above: Expected: 08/30/2024 , Expires: 08/30/2025 Start: 03-17-2024 Influenza vaccination Influenza Vacc ine (#1) [facility] Comment on above: Postponed from 01/15 (Patient Refused) Start: 01-31-2024 End: 01-30-2025 CBC W Auto Differential panel - Blood CBC and differential Lab Routine Mood changes Expected: 01/31/2024 (Approximate), Expires: 01/30/2025 [facility] Comment on above: Expected: 01/31/2024 (Approximate), Expires: 01/30/2025 Start: 01-31-2024 End: 01-30-2025 Comprehensive metabolic 2000 panel - Serum or Plasma Comprehensive metabolic panel Lab Routine Mood changes Expected: 01/31/2024, Expires: 01/30/2025 [facility] Comment on above: Expected: 01/31/2024 , Expires: 01/30/2025 Start: 01-31-2024 End: 01-30-2025 TSH W/REFLEX TO FT4 TSH W/REFLEX TO FT4 Lab Routine Mood changes Expected: 01/31/2024 (Approximate), Expires: 01/30/2025 [facility] Work Phone: Comment on above: Expected: 01/31/2024 (Approximate), Expires: 01/30/2025 Start: 01-31-2024 End: 01-31-2024 Patient encounter procedure 01/31/2024 1:20 PM EDT Office Visit [facility] CARMEN BALDERAS [address] [place] [phone] Delmis Lorenzo MD [address] [place] [address] Arrived [facility] Comment on above: Arrived Start: 01-16-2024 Influenza vaccination Influenza Vacc ine (#1) [facility] Start: 01-10-2020 Screening for malign ant neoplasm of cervix [facility] Start: 2011 Screening for malign ant neoplasm of cervix Pap Smear [facility] Start: 1991 Skin Cancer Screening Skin Cancer [facility] CBC W Auto Different ial panel - Blood CBC and differential Lab Routine Menorrhagia with regular cycle PCOS (polycystic ovarian syndrome) Ordered: 01/30/2025 [facility] Comment on above: Ordered: 01/30/2025 DHEA-sulfate DHEA-sulfate Lab Routine Menorrhagia with regular cycle PCOS (polycystic ovarian syndrome) Ordered: 01/30/2025 [facility] Comment on above: Ordered: 01/30/2025 Endometrial biopsy Endometrial b iopsy Procedures Routine Menorrhagia with regular cycle Ordered: 02/27/2025 [facility] Work Phone: Comment on above: Ordered: 02/27/2025 Follicle stimulating hormone Follicle stimulating hormone Lab Routine Menorrhagia with regular cycle PCOS (polycystic ovarian syndrome) Ordered: 01/30/2025 [facility] Comment on above: Ordered: 01/30/2025 hCG, quantitative, hCG, quantitative, Lab Routine Menorrhagia with regular cycle PCOS (polycystic ovarian syndrome) Ordered: 01/30/2025 [facility] Work Phone: Comment on above: Ordered: 01/30/2025 Hemoglobin A1c/Hemoglobin.total in Blood Hemoglobin A1c Lab Routine Menorrhagia with regular cycle Ordered: 01/30/2025 [facility] Comment on above: Ordered: 01/30/2025 Luteinizing hormone Luteinizing hormone Lab Routine Menorrhagia with regular cycle PCOS (polycystic ovarian syndrome) Ordered: 01/30/2025 [facility] Comment on above: Ordered: 01/30/2025 Thyrotropin [Units/volume] in Serum or Plasma TSH Lab Routine Menorrhagia with regular cycle PCOS (polycystic ovarian syndrome) Ordered: 01/30/2025 [facility] Comment on above: Ordered: 01/30/2025 Thyroxine (T4) free [Mass/volume] in Serum or Plasma T4, free Lab Routine Menorrhagia with regular cycle PCOS (polycystic ovarian syndrome) Ordered: 01/30/2025 [facility] Comment on above: Ordered: 01/30/2025 Immunizations Immunization Date Immunization Notes Care Provider Fa cility 07-19-2023 tetanus toxoid, redu norma diphtheria toxoid, and acellular pertussis vaccine, adsorbed Delmis Lorenzo MD Work Phone: [facility] 05-14-2023 influenza, injectabl e, quadrivalent, preservative free Delmis Lorenzo MD Work Phone: [facility] 05-14-2023 influenza virus vacc ine, unspecified formulation Delmis Lorenzo MD Work Phone: [facility] Payers Date Payer Category Payer [facility] [id number] 2021 Unknown BCBS BCBS [id number] 2021-Present [phone] [address] [place] [address] [id number] 2021 Unknown [id number] 2014 Private Health Insurance [id number] 1990 Unknown [id number] 2.16.840.1.197155.3.579.2 .175 1990 Unknown [id number] 2.16.840.1.582724.3.579.2 .593 1990 Unknown [id number] 2.16.840.1.158707.3.579.2 .593 1990 Unknown [id number] 2.16.840.1.866185.3.579.2 .593 1990 Unknown [id number] 2.16.840.1.885935.3.579.2 .593 1990 Unknown [id number] 2.16.840.1.140401.3.579.2 .593 1990 Unknown [id number] 2.16.840.1.130854.3.579.2 .593 1990 Unknown [id number] 2.16.840.1.352103.3.579.2 .593 1990 Unknown [id number] 2.16.840.1.321774.3.579.2 .593 1990 Unknown [id number] 2.16.840.1.454188.3.579.2 .593 1990 Unknown [id number] 2.16.840.1.620202.3.579.2 .1286 1990 Unknown [id number] 2.16.840.1.707710.3.579.2 .1259 1990 Unknown [id number] 2.16.840.1.886981.3.579.2 .9 1990 Unknown [id number] 2.16.840.1.200872.3.579.2 .1259 1990 Unknown [id number] 2.16.840.1.304023.3.579.2 .1259 1990 Unknown [id number] 2.16.840.1.546095.3.579.2 .1259 1990 Unknown [id number] 2.16.840.1.820615.3.579.2 .1259 1990 Unknown [id number] 2.16.840.1.599292.3.579.2 .1259 1990 Unknown [id number] 2.16.840.1.335487.3.579.2 .1259 1959 Unknown [id number] Private Health Insurance [employer] [id number] Social History Date Type Detail Facility [facility]: [facility] Start: 02-15-2023 Tobacco use and exposure Smoke less tobacco non-user [facility] Start: 04-06-2024 End: 02-27-2025 Alcoholic beverage intake Ex-drinker (finding) [facility] Start: 11-22-2022 End: 12-24-2023 History of Social function [facility] Start: 11-22-2022 End: 12-24-2023 Humiliation, Afraid, Rape, [...] drinks on 1 occasion? Monthly [facility] Start: 07-29-2022 How hard is it for y ou to pay for the very basics like food, housing, medical care, and heating Not hard at all [facility] Do you feel stress - tense, restless, nervous, or anxious, or unable to sleep at night because your mind is troubled all the time - these days [OSQ] Rather much [facility] (I/We) worried shaquille er (my/our) food would run out before [...] at Not on file [facility] Tobacco smoking stat [facility] Unknown if ever smoked [facility] Work Phone: Sex Female (finding) [facility] Start: 1990 Sex Assigned At Female F [facility] Goals Date Patient Goal Desired Activity /State Personal health goal Clinical Notes 01-31-2024 to 02-27-2025 Tosha Mcdonough, DIFFERENTIAL SPECIALIST - 02/27/2025 10:30 AM EDTÁngelprabhu Ceasar, DIFFERENTIAL SPECIALIST - 01/30/2025 9:10 AM EDKhalida Oropeza, JT - 09/11/2024 1:50 PM EDTValebarbara Davison CNM - 08/30/2024 2:00 PM EDT Note Date & Type Note Facility 02-27-2025 History of Presen t illness Narrative Reason for Appointment: Patient ID: Tania Brothers is a 35 y.o. female who presents for Menorrhagia (Pt present today for an Embx visit. ) Patient presents today for Pre Op/Endometrial Biopsy appointment. Patient is scheduled to undergo Endometrial Ablation with Mallory on 03/30/[address] Gibson at [facility]. 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) Fracture 1994 Fracture of parietal bone ([facility] 1990 GERD (gastroesophageal reflux disease) History of depression HL (hearing loss) 05/24/2023 Malignant melanoma of leg ([facility]) Oral contraceptive pill surveillance Preeclampsia in period ([facility]) 08/19/2020 HISTORY PAST MEDICAL HISTORY SOCIAL HISTORY Medical History[2] Social History Tobacco Use Smoking status: Never Smokeless tobacco: Never Vaping Use Vaping status: Never Used Substance Use Topics Alcohol use: Not Currently Comment: Alcohol: 3 or 4 drinks on a typical day / 2 to 4 times a month. Caffeine: 1-2 cups/day Drug use: Never FAMILY HISTORY Family History Problem Relation Name Age of Onset Asthma Mother Shanelle Wen Depression Mother Shanelle Wne Stroke Mother Shanelle Wen Hyperlipidemia Father Star Behzad Hypertension Father Star Behzad No Known Problems Sister 2 sisters, healthy [...] SKIN CANCER EXCISION 10/2017 [facility] RE[facility] OF SYSTEMS Review of Systems: Review of Systems Constitutional: Negative. HENT: Negative. Eyes: Negative. Respiratory: Negative. Cardiovascular: Negative. Gastrointestinal: Negative. Genitourinary: Positive for menstrual problem and pelvic pain. Musculoskeletal: Negative. Skin: Negative. Neurological: Negative. All other systems reviewed and are negative. Hematological: Negative. Endocrine: Negative. Allergic/Immunologic: Negative. OBJECTIVE Objective: Physical Exam Constitutional: Appearance: Normal appearance. She is well-developed. Genitourinary: Vulva normal. Cardiovascular: Rate and Rhythm: Normal rate and [...] nursing note reviewed. Exam conducted with a dining room busser present. Vitals: Estimated body mass index is 23.17 kg/m as calculated from the following: Height as of 01/31/24: 5' 4 . Weight as of this encounter: 135 lb. BP: 112/72 Patient's last menstrual period was 01/20/2025. ASSESSMENT & PLAN ICD-10-CM 1. Pre-op examination Z01.818 2. Menorrhagia with regular cycle N92.0 Endometrial biopsy POCT , urine manually resulted 3. Abnormal uterine bleeding (AUB) N93.9 4. Pelvic pain in female R10.20 EMBX: Patient was placed in dorsal lithotomy position with feet in stirrups. A sterile speculum was placed into the vagina and the cervix was visualized. The cervix was grasped with a single tooth tenaculum. The endometrial pipette was placed through the cervix into the uterus, endometrial curettage was performed and sampling was obtained, endometrial curettings were placed in formalin, and single tooth tenaculum was removed. Excellent hemostasis was assured. All instruments were removed from vagina. Pre Op: Patient is doing well but has complaints of menorrhagia and AUB. I have discussed conservative management vs. surgical management with the patient in detail and patient desires surgical management at this time. Patient will undergo Endometrial Ablation with Mallory on 03/30/25. Surgical consents were signed, mmc was reviewed, and patient is to proceed to [facility] OR. Follow Up: Patient is to follow up between 1-2 weeks post operative to assess proper healing and recovery from procedure. Documented by Tosha Mcdonough LPN on behalf of: Winnie Gibson DO [1] Allergies Allergen Reactions Penicillins Rash Unknown as child [2] Past Medical History: Diagnosis Date Congenital nevus COVID-19 Factor V deficiency (HCC) Fracture 1994 st wrist/hand level-left Fracture of parietal bone (CMS-HCC) 1990 GERD (gastroesophageal reflux disease) History of depression HL (hearing loss) 05/24/2023 Malignant melanoma of leg ([facility]) Oral contraceptive pill surveillance Preeclampsia in period ([facility]) 08/19/2020 documented in this encounter [facility] 01-30-2025 History of Presen t illness Narrative [...] COVID-19 Factor V deficiency (HCC) Fracture 1994 Fracture of parietal bone ([facility]) 1990 GERD (gastroesophageal reflux disease) History of depression HL (hearing loss) 05/24/2023 Malignant melanoma of leg (HCC) Oral contraceptive pill surveillance Preeclampsia in period ([facility]) 08/19/2020 HISTORY PAST MEDICAL HISTORY SOCIAL HISTORY Past Medical History: Diagnosis Date Congenital nevus COVID-19 Factor V deficiency (HCC) Fracture 1994 st wrist/hand level-left Fracture of parietal bone ([facility]) 1990 GERD (gastroesophageal reflux disease) History of depression HL (hearing loss) 05/24/2023 Malignant melanoma of leg (HCC) Oral contraceptive pill surveillance Preeclampsia in period ([facility]) 08/19/2020 Social History Tobacco Use Smoking status: [...] Faisal Wen Prostate cancer Paternal Grandfather Faisal Laurenkins Hearing loss Paternal Grandfather Faisal Wen No Known Problems Daughter Cancer Maternal Grandmother Avril Orta Melanoma Neg Hx SURGICAL HISTORY Past Surgical History: Procedure Laterality Date DILATION AND CURETTAGE OF UTERUS 09/01/2024 HYSTEROSCOPY 09/01/2024 LAPAROSCOPY DIAGNOSTIC / BIOPSY / ASPIRATION / LYSIS 09/01/2024 with IUD removal PAP SMEAR 2020 SKIN CANCER EXCISION 10/2017 melanoma excision, leg, [place] REVIEW OF SYSTEMS Review of Systems: Review [...] nursing note reviewed. Exam conducted with a dining room busser present. Vitals: Estimated body mass index is [...] by Tosha Mcdonough LPN on behalf of: Winnie Gibson DO documented in this encounter [facility] 09-11-2024 History of Presen t illness Narrative [...] SKIN CANCER EXCISION 10/2017 melanoma excision, leg, [facility] REVIEW OF SYSTEMS Review of Systems: [...] nursing note reviewed. Exam conducted with a dining room busser present. Vitals: Estimated body mass index is [...] Glo Oropeza NP documented in this encounter [facility] 08-30-2024 History of Presen t illness Narrative PROBLEM VISIT Tania Brothers is 34 y.o. a patient of [facility] [employer] Here for to make sure IUD is [...] SKIN CANCER EXCISION 10/2017 melanoma excision, leg, [facility] Family History Problem Relation Name Age of Onset Asthma Mother Shanelle Wen Depression Mother Shanelle Wen Stroke Mother Shanelle Wen Hyperlipidemia Father Star Wen Hypertension Father Star Wen No Known Problems Sister 2 sisters, healthy No Known Problems Brother Cancer Maternal Grandfather Blood and bone cancer Asthma Paternal Grandfather Faisal Wen Prostate cancer Paternal Grandfather Faisal Wen Hearing loss Paternal Grandfather Faisal Wne No Known Problems Daughter Cancer Maternal Grandmother [...] got the IUD 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 No follow-ups on file. There are no Patient Instructions on file for this visit. Talia Morton MA,08/30/2024 2:10 PM documented in this encounter [facility] 08-17-2024 History of Presen t illness Narrative [...] units as above documented in this encounter [facility] 04-06-2024 History of Presen t illness Narrative [...] units as above documented in this encounter [facility] 01-31-2024 History of Presen t illness Narrative [...] No Known Problems Daughter Cancer Maternal Grandmother Avrilissa Orta Melanoma Neg Hx SOCIAL HISTORY: Social [...] consideration of counseling documented in this encounter [facility] Evaluation note Diagnosis Forehead wrinkles- Primary Other specified hypertrophic and atrophic condition of skin documented in this encounter [facility] Healthcare[facility]* Diagnosis Routine general medical examination at a health care facility- Primary Mood changes Unspecified episodic mood disorder documented in this encounter [facility] HealthcareEvaluation note* Diagnosis Forehead wrinkles- Primary Other specified hypertrophic and atrophic condition of skin documented in this encounter [facility] Healthcare[facility]* Diagnosis IUD check up IUD check up documented in this encounter [facility] Healthcare[facility]* Diagnosis Postoperative examination Follow-up examination, following unspecified surgery documented in this encounter [facility] HealthcareEvaluation note* Diagnosis Menorrhagia with regular cycle PCOS (polycystic ovarian syndrome) Polycystic ovaries documented in this encounter [facility] HealthcareEvaluation note* Diagnosis Pre-op examination Menorrhagia with regular cycle Abnormal uterine bleeding (AUB) Pelvic pain in female Unspecified symptom associated with female genital organs documented in this encounter [facility] HealthcareEvaluation noteNo assessment information availableC[facility] Work Phone: Reason for referral (narrative)No reason for referral information availableC[facility] Work Phone: Summary Purpose Family History No Family History Records FoundNo Family History Records FoundNo Family History Records FoundNo Family History Records Found Advance Directives Advance Directive Response Recorded Date/ Time Advance Directives No October 29 1:45pm Additional Source Comments INFORMATION SOURCE (unrecogn ized section and content) DATE CREATED AUTHOR 03/22/2018 [facility] DATE CREATED AUTHOR AUTHOR'S ORGANIZ ATION 07/08/2020 [facility] DATE CREATED AUTHOR AUTHOR'S ORGANIZ ATION 06/11/2023 [facility] DATE CREATED AUTHOR AUTHOR'S ORGANIZ ATION 02/28/2025 [facility] dical Specialists EPIC Care Teams (unrecognized sec tion and content) Tribal Council Member Relationship Specialty Start Date End Date Delmis Lorenzo MD [address] [place] [address] PCP - General Family Medicine 11/21/22 Delmis Lorenzo MD [address] [place] [address] PCP - [place] [employer] 07/16/23 Tribal [employer] Member Relationship Specialty Start Date End Date Delmis Lorenzo MD [address] [place] [address] PCP - General Family Medicine 11/21/22 Delmis Lorenzo MD [address] [place] [address] PCP - [place] [employer] 07/16/23 Tribal [employer] Member Relationship Specialty Start Date End Date Delmis Lorenzo MD [address] [place] [address] PCP - General Family Medicine 11/21/22 Delmis Lorenzo MD [address] [place] [address] PCP - [place] [employer] 07/16/23 Tribal [employer] Member Relationship Specialty Start Date End Date Delmis Lorenzo MD [address] [place] [address] PCP - General Family Medicine 11/21/22 Delmis Lorenzo MD [address] [place] [address] PCP - [place] [employer] 07/16/23 Tribal [employer] Member Relationship Specialty Start Date End Date Delmis Lorenzo MD [address] [place] [address] PCP - General Family Medicine 11/21/22 Delmis Lorenzo MD [address] [place] [address] PCP - [place] [employer] 07/16/23 Tribal [employer] Member Relationship Specialty Start Date End Date Delmis Lorenzo MD [address] [place] [address] PCP - General Family Medicine 11/21/22 Delmis Lorenzo MD [address] [place] [address] PCP - [place] [employer] 07/16/23 Tribal [employer] Member Relationship Specialty Start Date End Date Delmis Lorenzo MD [address] [facility] [place] [address] PCP - General Family Medicine 11/21/22 Delmis Lorenzo MD [address] [place] [address] PCP - [place] [employer] 07/16/23 Tribal [employer] Member Relationship Specialty Start Date End Date Delmis Lorenzo MD [address] [facility] [address] [place] [address] PCP - General Family Medicine 11/21/22 Delmis Lorenzo MD [address] [place] [address] PCP - [place] [employer] 07/16/23 Tribal Council Member Relationship Specialty Start Date End Date Delmis Lorenzo MD [address] [place] [address] PCP - General Family Medicine 11/21/22 Delmis Lorenzo MD [address] [place] [address] PCP - [place] [employer] 07/16/23 Team Status: Inactive Member Role Status Dates Winnie Gibson DO Attending Provider Active Start : February 27, 2025 End: February 27, 2025 Reason for Visit (unrecogniz ed section and content) Reason Comments Annual Exam Reason Comments Menstrual Problem Reason Comments Post-op Visit Reason Comments Menorrhagia Reason Comments Menorrhagia Pt present today for an Embx visit. Goals (unrecognized section and content) Goals may be documented in a n alternate section FOR RECORDS PERTAINING TO PATIENTS WHO ARE [...] BE BASED ON THE PRIMARY CLINICAL RECORDS. [facility] [employer] provides no warranty or guarantee of the accuracy or completeness of information in this document.
== END 2025-02-27 13:39 | disposition home or self-care (01) ==
LOC: LAB 13:38
PROVIDERS: PCP Family Medicine; Visit Provider Obstetrics & Gynecology
DX: N92.0 Excessive and frequent menstruation with regular cycle (principal)
CPT/HCPCS: 88305

== ENCOUNTER 2025-03-05 19:46 | Outpatient (REF) | payer BC, SELFPAY ==
--- OUTSIDE RECORDS SUMMARY | 2025-03-05 19:49 | XMS_ITS | CCD ---
Author Organization [facility] Care Team Providers Care Transmission Superintendent Name Role Phone DARRYL DE LA ROSA Unavailable Unavailable RENZO SHIN Attending Unavailable RENZO SHIN Admitting Unavailable LOVE QUINTERO Consulting Unavailable RENZO SHIN Consulting Unavailable RENZO SHIN Consulting Unavailable RENZO SHIN Attending Unavailable RENZO SHIN Admitting [facility]IN Consulting Unavailable RENZO SHIN Attending Unavailable RENZO SHIN Admitting Unavailable RENZO SHIN Admitting Unavailable RENZO SHIN Attending Unavailable FELICITAS MARTINES V Consulting Unavailable RENZO SHIN Consulting [facility]IN Admitting Unavailable RENZO SHIN Consulting Unavailable RENZO SHIN Attending Unavailable RENZO SHIN Admitting Unavailable RENZO SHIN Attending Unavailable RENZO SHIN Consulting [facility] Un[facility] RENZO SHIN Attending Unavailable RENZO SHIN Consulting Unavailable RENZO SHIN Admitting [facility] RENZO SHIN Admitting Unavailable RENZO SHIN Attending Unavailable RENZO SHIN Consulting [facility] RENZO SHIN Consulting Unavailable RENZO SHIN Attending Unavailable RENZO SHIN Admitting [facility] SHIN DAVISON Referring Unavailable DEMI DANIELS Primary Care Unavailable Delmis Lorenzo MD Primary Care Provider [phone] Delmis Lorenzo MD Unavailable DELMIS LORENZO Attending Unavailable SHIN DAVISON Attending Unavailable SHIN DAVISON Referring Unavailable SHIN DAVISON Referring Unavailable OLEG OROPEZA Attending Unavailable AKHIL GIBSON Attending Unavailable DELMIS LORENZO Attending Unavailable AKHIL GIBSON Attending Unavailable Akhil Gibson DO Attending Provider Akhil Gibson Admitting Unavailable Akhil Gibson Attending Unavailable Allergies Allergy Classification Reported Allergen(s) Allergy Type Date of Onset Reaction(s) Facility (1 source) Penicillin Drug Allergy [facility] Repository (20 sources) Penicillins; Translations: [PENICILLINS] Propensity to adverse reactions to drug (disorder) 8 Rash [facility] Repository Medications Current Medications Medication Drug Class(es) Dates Sig (Normalized) Sig (Original) acetaminophen 325 mg / HYDROcodone bitartrate 5 mg oral tablet (1 source) Opioid Agonist Start: 8 take 2 tablets by mouth every four to six hours as needed for pain onabotulinumtoxina 100 unt injection (9 sources) Acetylcholine Release Inhibitor Start: onabotulinumtoxinA (Botox) injection 34 Units Start: 08-17-2024 End: 08-17-2024 onabotulinumtoxinA (Botox) i njection 34 Units Start: 08-17-2024 End: 08-17-2024 34 Units, Intradermal, Once, On [facility] 08/17/24 at 1715, For 1 dose, Charging context for this clinic-administered medication: Fee-Editable/Self Pay escitalopram 10 mg oral tablet (18 sources) Serotonin Reuptake Inhibitor Start: 05-31-2024 End: [...] Class(es) Dates Sig (Normalized) Sig (Original) levonorgestrel 0.139411 mg/hr intrauterine system (12 sources) Progestin, Progestin-containi [...] of transmission] Onset: 02-17-2020 Episodic Menstrual disorders (9 sources) Secondary amenorrhea; Translations: [Menorrhagia] Onset: 01-15-2020 [...] syndrome] 01-30-2025 Chronic Other female genital disorders (2 sources) Abnormal uterine bleeding; Translations: [Abnormal uterine and vaginal bleeding, unspecified] 02-27-2025 Chronic Other female genital disorders (2 sources) Pain in female pelvis; Translations: [Pelvic pain [...] source) COVID-19; Translations: [COVID-19] Onset: 04-21-2020 Unclassified (18 sources) Patient on antidepressant monitoring plan Onset: 01-31-2024 01-31-2024 Unclassified (18 sources) Baseline PHQ-9 Onset: 01-31-2024 01-31-2024 Past or Other Problems Problem Classification Problem Date Documented Da te Episodic/Chronic Other ear and sense organ disorders (19 sources) Sudden idiopathic hearing loss; Translations: [Sudden idiopathic hearing loss, left ear] Onset: 06-04-2023 06-04-2023 Episodic Unclassified (1 source) BX; Translations: [BX] Onset: 02-22-2018 Results Test Name Value Interpretation Reference Range Facility HCG ( test) Ql (U)o n 02-27-2025 Interpretation and review of laboratory results Abnormal [facility] Healthcare Preg Test, Ur Negative Negative [facility] [place] 02-27-2025 L ----- Specimen: [id number] Received: 03/01/25 Status: MARY ALICE Dempsey Num: [id number] Spec Type: Surgical Subm Dr: Akhil Gibson Tissues: A Endometrium - Biopsy (EMBX) Procedures: HE/2, Gross/Micro L4 Age/ Patient Sex Location Account Attending Physician Tania Brothers 35/F SIMONE [id number] Akhil Gibson SPEC NUM: [id number] RECD: 03/01/25 STATUS: MARY ALICE DEMPSEY NUM: [id number] KRISTA: 02/27/25- SUBM DR: Akhil Gibson ENTERED: 03/01/[address] [facility] [address]: Monika,Lab SPEC TYPE: Surgical DEPT: JG MUIR ENTERED BY: [id number] RECV BY: [id number] ORDERED: HE/2, Gross/Micro L4 ORDERED: HE/2, Gross/Micro L4 Pathological Diagnosis Endometrium, biopsy: - Proliferative phase endometrium. - No evidence of hyperplasia or malignancy identified. Clinical Information Menorrhagia. Gross Description Received in formalin labeled with the patient's name, date of , and endometrium biopsy is a pale mendez mucoid material, admixed with simpson-pink, focally erythematous, delicate tissue fragments, 2.2 x 1.5 x 0.3 cm in aggregate. The specimen is filtered and entirely submitted in a single cassette. (1, erik, [id number]) Microscopic Description Microscopic examination is performed. CPT Codes 48282 Specimen: [id number] Received: 03/01/25 Status: MARY ALICE Dempsey Num: [id number] Spec Type: Surgical Subm Dr: Akhil Gibson Tissues: A Endometrium - Biopsy (EMBX) Procedures: HE/Isabel, Gross/Micro L4 Patient: Tania Brothers [id number] (Continued) Signed (signature on file) Aristeo Mendez MD 03/02/25 4705 Normal [facility] ALL CBC WITH AUTO DIFFon BASOPHILS ABSOLUTE AUTO 0 [facility] Basophils/100 WBC (Bld) 0.7 % 0.2 - 2.0 % [facility] Eosinophils/100 WBC (Bld) 1.2 % 0.9 - 7.0 % [facility] Erythrocyte distribution width (RBC) [Ratio] 12.2 % 11.0 - 15.0 % [facility] Hematocrit (Bld) [Volume fraction] 37.8 % 36.0 - 48.0 % [facility] Hemoglobin (Bld) [Mass/Vol] 12.9 g/dL 12.0 - 16.0 g/dL [facility] IMMATURE GRANULOCYTES ABS AUTO 0.01 [facility] Immature granulocytes/100 WBC (Bld) 0.2 % 0.0 - 0.5 % [facility] Interpretation and review of laboratory results Abnormal [facility] LYMPHOCYTES ABSOLUTE AUTO 2.1 [facility] Lymphocytes/100 WBC (Bld) 36.7 % 20.5 - 60.0 % [facility] MCH (RBC) [Entitic mass] 29.5 pg 26.7 - 34.0 pg [facility] MCHC (RBC) [Mass/Vol] 34.1 g/dL 29.9 - 35.2 g/dL [facility] MCV (RBC) [Entitic vol] 86.3 fL 81.0 - 99.0 fL [facility] MONOCYTES ABSOLUTE AUTO 0.4 [facility] Monocytes/100 WBC (Bld) 6.3 % 1.7 - 12.0 % [facility] NEUTROPHILS ABSOLUTE AUTO 3.1 [facility] Neutrophils/100 WBC (Bld) 54.9 % 43.0 - 75.0 % [facility] Platelet mean volume (Bld) [Entitic vol] 9.2 fL Low 9.5 - 13.5 fL [facility] TBH EO # 0.1 [facility] TB PLT 302 [facility] RBC 4.38 [facility] TB WBC 5.7 [facility] Urinalysis macro (dipstick) panel (U)on 09-11-2024 Bilirubin, UA Negative Negative - 4(70) +++ mg/dL [facility] Blood, UA Negative Negative - 50 Rudy/mcL [facility] Clarity, UA Clear [facility] Color, UA Yellow [facility] Glucose, UA Negative Negative - 1999(110) ++++ mg/dL [facility] Interpretation and review of laboratory results Normal [facility] Ketones, UA Negative Negative - 160(16) ++++ mg/dL [facility] Leukocytes, UA Negative Negative - 500+++ Juan/mcL [facility] Nitrite, UA Negative Negative - Positive [facility] pH, UA 7 5 - 9 [facility] Protein, UA Negative Negative - 1999(20) ++++ mg/dL [facility] Spec Grav, UA 1.015 1 - 1.03 [facility] Urobilinogen, UA 0.2 0.2 - 12 mg/dL [facility] ALL CBC WITH AUTO DIFFon BASOPHILS ABSOLUTE AUTO 0.1 [facility] Basophils/100 WBC (Bld) 0.8 % 0.2 - 2.0 % [facility] Eosinophils/100 WBC (Bld) 0.7 % Low 0.9 - 7.0 % [facility] Erythrocyte distribution width (RBC) [Ratio] 13.8 % 11.0 - 15.0 % [facility] Hematocrit (Bld) [Volume fraction] 38.6 % 36.0 - 48.0 % [facility] Hemoglobin (Bld) [Mass/Vol] 13.2 g/dL 12.0 - 16.0 g/dL [facility] IMMATURE GRANULOCYTES ABS AUTO 0.01 [facility] Immature granulocytes/100 WBC (Bld) 0.2 % 0.0 - 0.5 % [facility] Interpretation and review of laboratory results Abnormal [facility] LYMPHOCYTES ABSOLUTE AUTO 3.6 [facility] Lymphocytes/100 WBC (Bld) 59.8 % 20.5 - 60.0 % [facility] MCH (RBC) [Entitic mass] 29.3 pg 26.7 - 34.0 pg [facility] MCHC (RBC) [Mass/Vol] 34.2 g/dL 29.9 - 35.2 g/dL [facility] MCV (RBC) [Entitic vol] 85.6 fL 81.0 - 99.0 fL [facility] MONOCYTES ABSOLUTE AUTO 0.5 [facility] Monocytes/100 WBC (Bld) 8.3 % 1.7 - 12.0 % [facility] NEUTROPHILS ABSOLUTE AUTO 1.8 [facility] Neutrophils/100 WBC (Bld) 30.2 % Low 43.0 - 75.0 % [facility] Platelet mean volume (Bld) [Entitic vol] 8.5 fL Low 9.5 - 13.5 fL [facility] EO # 0 [facility] PLT 298 [facility] RBC 4.51 [facility] WBC 6 [facility] US PELVIS TRANSVAGINALon US PELVIS TRANSVAGINAL TITLE [...] 07-06-2020 Chlamydia trachomatis, LING Negative Normal Negative [facility] [place] [facility] Comment on above: Performed By: #### V ARCEL #### [facility] [address] [place] [address] Rory Tosha Neisseria gonorrhoeae, LING Negative Normal Negative [facility] [place] [facility] Comment on above: Performed By: #### V CHA #### [facility] [address] [place], [place] [id number] Rory Tosha GROUP B STREP CULTUREon 06-17 S. agalactiae Ag Ql (Unsp spec) Culture Observations: Negative for Group B Streptococcus Normal [facility] [place] [facility] Comment on above: Performed By: #### G BSCX #### [facility] [address] [place] [address] Rory Tosha GTT 3 HR PREGon 05-07-2020 Glucose [Mass/Vol] 138 mg/dL Normal [facility] Comment on above: Performed By: #### C BC #### [facility] [address] [place] [address] Rory Tosha Glucose [Mass/Vol] 102 mg/dL Normal [facility] Comment on above: Performed By: #### C BC #### [facility] [address] [place] [address] Rory Tosha Glucose [Mass/Vol] 80 mg/dL Normal 74-106 [facility] Comment on above: Performed By: #### C BC #### [facility] [address] [place], [place] [address] Rory Tosha Glucose [Mass/Vol] 132 mg/dL Normal [facility] Comment on above: Performed By: #### C BC #### [facility] [address] [place] [id number] Rory Tosha CBC AUTO DIFFon 05-01-2020 Basophils (Bld) [#/Vol] 0.0 103/ul Normal 0.0-0.1 [facility] [place] [facility] Comment on above: Performed By: #### C BC #### [facility] [address] [place], [place] [address] Rory Tosha Basophils/100 WBC (Bld) 0.4 % Normal 0.2-2.0 [facility] [place] [facility] Comment on above: Performed By: #### C BC #### [facility] [address] [place], [place] [id number] Rory Tosha Eosinophils (Bld) [#/Vol] 0.1 103/ul Normal 0.0-0.7 [facility] [place] [facility] Comment on above: Performed By: #### C BC #### [facility] [address] [place], [place] [id number] Rory Tosha Eosinophils/100 WBC (Bld) 0.6 % Critically low 0.9-7.0 [facility] [place] [facility] Comment on above: Performed By: #### C BC #### [facility] [address] [place], [place] [id number] Rory Tosha Erythrocyte distribution width (RBC) [Ratio] 13.2 % Normal 11.0-15.0 [facility] [place] [facility] Comment on above: Performed By: #### C BC #### [facility] [address] [place], [place] [address] Rory Tosha Hematocrit (Bld) [Volume fraction] 35.7 % Critically low 36.0-48.0 [facility] [place] [facility] Comment on above: Performed By: #### C BC #### [facility] [address] [place], [place] [id number] Rory Tosha Hemoglobin (Bld) [Mass/Vol] 12.2 g/dL Normal 12.0-16.0 [facility] [place] [facility] Comment on above: Performed By: #### C BC #### [facility] [address] [place], [place] [address] Rory Tosha IG # 0.06 10e3/ul Critically high 0.00-0.03 [facility] Comment on above: Performed By: #### C BC #### [facility] [address] [place], [place] [address] Rory Tosha IG % 0.7 % Critically high 0.0-0.5 [facility] Comment on above: Performed By: #### C BC #### [facility] [address] [place], [place] [address] Rory Tosha Lymphocytes (Bld) [#/Vol] 1.6 103/ul Normal 1.2-3.8 [facility] [place] [facility] Comment on above: Performed By: #### C BC #### [facility] [address] [place], [place] [address] Rory Tosha Lymphocytes/100 WBC (Bld) 19.5 % Critically low 20.5-60.0 [facility] [place] [facility] Comment on above: Performed By: #### C BC #### [facility] [address] [place], [place] [address] Rory Tosha MANUAL DIFF REQ NO Normal [facility] Comment on above: Performed By: #### C BC #### [facility] [address] [place], [place] [address] Rory Tosha MCH (RBC) [Entitic mass] 30.1 pg Normal 26.7-34.0 [facility] [place] [facility] Comment on above: Performed By: #### C BC #### [facility] [address] [place] [address] Rory Tosha MCHC (RBC) [Mass/Vol] 34.2 g/dL Normal 29.9-35.2 [facility] Comment on above: Performed By: #### C BC #### [facility] [address] [place], [place] [address] Rory Tosha MCV (RBC) [Entitic vol] 88.1 fL Normal 81.0-99.0 [facility] Comment on above: Performed By: #### C BC #### [facility] [address] [place], [place] [address] Rory Tosha Monocytes (Bld) [#/Vol] 0.4 103/ul Normal 0.3-0.8 [facility] [place] [facility] Comment on above: Performed By: #### C BC #### [facility] [address] [place], [place] [address] Rory Tosha Monocytes/100 WBC (Bld) 4.8 % Normal 1.7-12.0 [facility] [place] [facility] Comment on above: Performed By: #### C BC #### [facility] [address] [place], [place] [address] Rory Tosha Neutrophils (Bld) [#/Vol] 6.1 103/ul Normal 1.4-6.5 [facility] [place] [facility] Comment on above: Performed By: #### C BC #### [facility] [address] [place], [place] [address] Rory Tosha Neutrophils/100 WBC (Bld) 74.0 % Normal 43.0-75.0 [facility] [place] [facility] Comment on above: Performed By: #### C BC #### [facility] [address] [place], [place] [address] Rory Tosha Platelet mean volume (Bld) [Entitic vol] 9.2 fL Critically low 9.5-13.5 [facility] [place] [facility] Comment on above: Performed By: #### C BC #### [facility] [address] [place], [place] [address] Rory Tosha Platelets (Bld) [#/Vol] 285 103/ul Normal 150-450 [facility] Comment on above: Performed By: #### C BC #### [facility] [address] [place], [place] [address] Rory Tosha RBC (Bld) [#/Vol] 4.05 106/ul Critically low 4.20-5.40 Th [facility] Comment on above: Performed By: #### C BC #### [facility] [address] [place], [place] [address] Rory Tosha WBC (Bld) [#/Vol] 8.2 103/ul Normal 4.0-11.0 [facility] Comment on above: Performed By: #### C BC #### [facility] [address] [place], [place] [address] Rory Givens GLUCOSE - 1HRon 05-01-2020 Glucose [Mass/Vol] 158 mg/dL Critically high 74-106 [facility] Comment on above: Performed By: #### G LU1HR #### [facility] [address] [place], [place] [address] Rory Givens Covid-19 PCR (CVDTBH)on 03-19 Covid-19 DETECTED NOT DETECTED [facility] Comment on above: Result Comment: This test is not yet approved or cleared by the [place] FDA. When there are no FDA-approved or cleared tests available, and other criteria are met, FDA can make tests available under an emergency access mechanism called an Emergency Use Authorization (EUA). The EUA for this test is supported by the [place] of Health and Human Service's (HHS's) declaration [...] for this test is supported by the Tare Worker of Health and Human Service's (HHS's) declaration [...] LBS Performed By: #### V CHA #### [facility] [address] [place], [place] [address] Rory Givens EUA Statement SEE BELOW Normal [facility] Comment on above: Result Comment: This test is not yet approved or cleared by the [place] FDA. When there are no FDA-approved or cleared tests available, and other criteria are met, FDA can make tests available under an emergency access mechanism called an Emergency Use Authorization (EUA). The EUA for this test is supported by the [place] of Health and Human Service?s (HHS?s) declaration [...] SARS-CoV-2. Performed By: #### V CHA #### [facility] [address] [place], [place] [address] Rory Givens PREG ANATOMY SINGLEon US PREG [...] LOVE QUINTERO Date: 2020-03-26 07:17 Normal [facility] AFP TETRA PROFILE (MATERNAL) on 02-22-2020 AFP MoM 0.53 Normal [facility] [place] [facility] Comment on above: Performed By: #### A FPTET #### [facility] [address] [place], [place] [address] Rory Tosha AFP Value 18.7 ng/mL Normal [facility] [place] [facility] Comment on above: Performed By: #### A FPTET #### [facility] [address] [place], [place] [address] Rory Tosha Comment Comment Normal [facility] [place] [facility] Comment on above: Result Comment: Fidelia Cornell, Ph.D., [facility] Director . References: Available Upon Request. . Multiples Of Median Cutoffs Abbreviation Definitions For AFP Elevations IDD- Insulin Dep Diabetes Gunn 2.5 Black 2.8 OSBR- Open Spina Bifida IDD 2.0 Twins 4.5 Risk DSR Cutoff 1:270 DSR- Down Syndrome Risk T18 Cutoff 1:100 T18- Trisomy 18 . Down Syndrome and Trisomy 18 screening are considered Investigational . For further inquiries contact [employer] at [phone]. Performed By: #### A FPTET #### [facility] [address] [place], [place] [address] Rory Tosha MARTHA MoM 0.72 Normal [facility] [place] [facility] Comment on above: Performed By: #### A FPTET #### [facility] [address] [place], [place] [address] Rory Tosha MARTHA Value 133.56 pg/mL Normal [facility] [place] [facility] Comment on above: Performed By: #### A FPTET #### [facility] [address] [place] [address] Rory Tosha DSR (By Age) 1 [place] 656 Normal [facility] Comment on above: Performed By: #### A FPTET #### [facility] [address] [place] [address] Rory Tosha DSR (Second Trimester) 1 [place] [address] Normal [facility] [place] [facility] Comment on above: Performed By: #### A FPTET #### [facility] [address] [place] [address] Rory Tosha Gest. Age on Collection Date 15.7 WEEKS Normal [facility] [place] [facility] Comment on above: Performed By: #### A FPTET #### [facility] [address] [place] [address] Rory Tosha Gestat. Age Based On LMP Normal [facility] [place] [facility] Comment on above: Performed By: #### A FPTET #### [facility] [address] [place] [address] Rory Tosha hCG MoM 0.44 Normal [facility] [place] [facility] Comment on above: Performed By: #### A FPTET #### [facility] [address] [place] [address] [place] [address] m[IU]/mL Normal [facility] Comment on above: Performed By: #### A FPTET #### [facility] [address] [place] [address] Rory Tosha Insulin Dep Diabetes No Normal [facility] [place] [facility] Comment on above: Performed By: #### A FPTET #### [facility] [address] [place] [address] Rory Tosha Interpretation Comment Normal [facility] Comment on above: Result Comment: [...] identifies 60% of Trisomy 18 pregnancies. The [employer] recommends amniocentesis be offered to women age 35 and older. Recalculations are not recommended when gestational dating by LMP and ultrasound are within 10 days. Performed By: #### A FPTET #### [facility] [address] [place] [address] Roryolivier Nealen [age] Normal [facility] Comment on above: Performed By: #### A FPTET #### [facility] [address] [place] [address] Roryolivier Givens Multiple Gestation No Normal [facility] Comment on above: Performed By: #### A FPTET #### [facility] [address] [place] [address] Rory Tosha OS[place] 1 [place] [address] Normal [facility] Comment on above: Performed By: #### A FPTET #### [facility] [address] [place] [address] Rory Tosha PDF . Normal [facility] [place] [facility] Comment on above: Performed By: #### A FPTET #### [facility] [address] [place] [address] Rory Tosha Race Normal [facility] [place] [facility] Comment on above: Performed By: #### A FPTET #### [facility] [address] [place] [address] Royr Tosha Results Report Normal [facility] [place] [facility] Comment on above: Performed By: #### A FPTET #### [facility] [address] [place] [address] Rory Tosha T18 (By Age) 1:2556 Normal [facility] [place] [facility] Comment on above: Performed By: #### A FPTET #### [facility] [address] [place] [address] Rory Tosha T18 Risk Not increased Normal [facility] Comment on above: Performed By: #### A FPTET #### [facility] [address] [place] [address] Rory Givens Test Results: Negative Normal [facility] Comment on above: Performed By: #### A FPTET #### [facility] [facility] [address] [address] Rory Givens uE3 MoM 0.86 Normal [facility] [place] [facility] Comment on above: Performed By: #### A FPTET #### [facility] [address] [address] Rory Givens uE3 Value 0.81 ng/mL Normal [facility] [place] [facility] Comment on above: Performed By: #### A FPTET #### [facility] [address] [place] [address] Rory Givens PAP W CT/NG,HR HPV RFX 16 AN D 18on 02-15-2020 Chlamydia, Nuc. Acid Amp Negative Normal Negative [facility] [place] [facility] Comment on above: Result Comment: Perf ormed at: =G Performed By: #### P APHR4 #### [facility] [address] [place] [address] Rory Givens DIAGNOSIS: Comment Normal [facility] [place] [facility] Comment on above: Result Comment: NEGA TIVE FOR INTRAEPITHELIAL LESION OR MALIGNANCY. Performed at: WB Performed By: #### P APHR4 #### [facility] [address] [place] [address] Rory Givens Gonococcus, Nuc. Acid Amp Negative Normal Negative [facility] [place] [facility] Comment on above: Result Comment: Perf ormed at: =G Performed By: #### P APHR4 #### [facility] [address] [place] [address] Rory Givens HPV, high-risk Negative Normal Negative [facility] Comment on above: Result Comment: This nucleic acid amplification high-risk HPV test detects thirteen high-risk types (16,18,31,33,35,39,45,51,52,56,58,59,68) without differentiation. Performed at: =G Performed By: #### P APHR4 #### [facility] [address] [place] [address] Rory Nealen Methodology: Comment Normal [facility] [place] [facility] Comment on above: Result Comment: This liquid based ThinPrep(R) pap test was screened with the use of an image guided system. Performed at: WB Performed By: #### P APHR4 #### [facility] [address] [place] [address] Rory Givens Note: Comment Normal [facility] [place] [facility] Comment on above: Result Comment: The [...] WB Performed By: #### P APHR4 #### [facility] [address] [place] [address] Rory Givens Performed by: Comment Normal [facility] Comment on above: Result Comment: Melisa Currie, Watchstander (ASCP) Performed at: WB Performed By: #### P APHR4 #### [facility] [address] [place] [address] Rory Givens Specimen adequacy: Comment Normal [facility] Comment on above: Result Comment: Sati sfactory for evaluation. No endocervical component is identified. Performed at: WB Performed By: #### P APHR4 #### [facility] [address] [place] [address] Rory Givens . . Normal [facility] [place] [facility] Comment on above: Result Comment: Perf ormed at: WB Performed By: #### P APHR4 #### [facility] [address] [place] [address] Rory Givens US PREG <14 WKSon 01-15-2020 [...] FELICITAS MARTINES Date: 2020-01-15 10:05 Normal [facility] HEP B SURFACE ANTIGEN SCREEN on 01-10-2020 HBsAg Screen Negative Normal Negative [facility] Comment on above: Performed By: #### H BETITO #### [facility] [address] [place] [address] Rory Givens HEPATITIS C VIRUS AB W/ REFL EX QUANTon 01-10-2020 HCV AB <0.1 Normal 0.0-0.9 [facility] Comment on above: Performed By: #### Celina EUBANKS #### [facility] [address] [place] [address] Roryolivier Nealen Interpretation: Comment Normal [facility] Comment on above: Result Comment: Nega tive Not infected with HCV, unless recent infection is suspected or other evidence exists to indicate HCV infection. Performed By: #### Celina EUBANKS #### [facility] [address] [place] [address] Rory Tosha HGB(ELECTP) FRACTION PROFILE on 01-10-2020 Hemoglobin (Bld) [Mass/Vol] 97.8 % Normal 96.4-98.8 [facility] [place] [facility] Comment on above: Performed By: #### H MARIKA #### [facility] [address] [place] [address] Rory Tosha Hgb A2 2.2 % Normal 1.8-3.2 [facility] Comment on above: Performed By: #### H GBELE #### [facility] [address] [place] [address] Rory Tosha Hgb C 0.0 % Normal 0.0 [facility] Comment on above: Performed By: #### H GBPATRICE #### [facility] [address] [place] [address] Rory Tosha Hgb F 0.0 % Normal 0.0-2.0 [facility] Comment on above: Performed By: #### H MARIKA #### [facility] [address] [place] [address] Rory Givens Hgb S 0.0 % Normal 0.0 [facility] [place] [facility] Comment on above: Performed By: #### H GBELE #### [facility] [address] [place] [address] Rory Givens Hgb Solubility Negative Normal Negative [facility] Comment on above: Performed By: #### H GBELE #### [facility] [address] [place] [address] Rory Givens Hgb Variant Normal [facility] Comment on above: Performed By: #### H GBELE #### [facility] [address] [place] [address] Rory Givens Interpretation Comment Normal [facility] Comment on above: Result Comment: Norm al adult hemoglobin present. Performed By: #### H GBELE #### [facility] [address] [place] [address] Rory Givens HIV 1 AND 2 WITH REFLEXon HIV Screen 4th Generation wRfx Non Reactive Normal Non Reactive [facility] Comment on above: Performed By: #### H IV12 #### [facility] [address] [place] [address] Rory Givens RPR QUANTon 01-10-2020 Rapid Plasma Reagin, Quant Non Reactive Normal NonRea<1:1 [facility] [place] [facility] Comment on above: Performed By: #### Celina EUBANKS #### [facility] [address] [place] [address] Rory Givens RUBELLA AB IGGon 01-10-2020 Rubella Antibodies, IgG 1.49 index Normal Immune >0.99 [facility] [place] [facility] Comment on above: Result Comment: Non- immune <0.90 Equivocal 0.90 - 0.99 Immune >0.99 Performed By: #### Celina EUBANKS #### [facility] [address] [place] [address] Rory Givens VARICELLA IGG ABon 0 Varicella Zoster IgG 816 index Normal Immune >165 [facility] Comment on above: Result Comment: Nega tive <135 Equivocal 135 - 165 Positive >165 A positive result generally indicates exposure to the pathogen or administration of specific immunoglobulins, but it is not indication of active infection or stage of disease. Performed By: #### V CHA #### [facility] [address] [place], [place] [id number] Rory Tosha CBC AUTO DIFFon 2020 Basophils (Bld) [#/Vol] 0.1 103/ul Normal 0.0-0.1 [facility] [place] [facility] Comment on above: Performed By: #### C BC #### [facility] [address] [place], [place] [address] Rory Tosha Basophils/100 WBC (Bld) 0.5 % Normal 0.2-2.0 [facility] Comment on above: Performed By: #### C BC #### [facility] [address] [place] [address] Rory Tosha Eosinophils (Bld) [#/Vol] 0.1 103/ul Normal 0.0-0.7 [facility] [place] [facility] Comment on above: Performed By: #### C BC #### [facility] [address] [place] [address] Rory Tosha Eosinophils/100 WBC (Bld) 0.7 % Critically low 0.9-7.0 [facility] [place] [facility] Comment on above: Performed By: #### C BC #### [facility] [address] [place] [address] Rory Tosha Erythrocyte distribution width (RBC) [Ratio] 12.1 % Normal 11.0-15.0 [facility] [place] [facility] Comment on above: Performed By: #### C BC #### [facility] [address] [place] [address] Rory Tosha Hematocrit (Bld) [Volume fraction] 36.2 % Normal 36.0-48.0 [facility] Comment on above: Performed By: #### C BC #### [facility] [address] [place], [place] [address] Rory Tosha Hemoglobin (Bld) [Mass/Vol] 12.9 g/dL Normal 12.0-16.0 [facility] [place] [facility] Comment on above: Performed By: #### C BC #### [facility] [address] [place] [address] Rory Tosha IG # 0.03 10e3/ul Normal 0.00-0.03 [facility] [place] [facility] Comment on above: Performed By: #### C BC #### [facility] [address] [place], [place] [address] Rory Tosha IG % 0.3 % Normal 0.0-0.5 [facility] [place] [facility] Comment on above: Performed By: #### C BC #### [facility] [address] [place] [address] Rory Tosha Lymphocytes (Bld) [#/Vol] 2.4 103/ul Normal 1.2-3.8 [facility] [place] [facility] Comment on above: Performed By: #### C BC #### [facility] [address] [place] [address] Rory Tosha Lymphocytes/100 WBC (Bld) 23.1 % Normal 20.5-60.0 [facility] [place] [facility] Comment on above: Performed By: #### C BC #### [facility] [address] [place] [address] Rory Tosha MANUAL DIFF REQ NO Normal [facility] Comment on above: Performed By: #### C BC #### [facility] [address] [place], [place] [address] Rory Tosha MCH (RBC) [Entitic mass] 30.0 pg Normal 26.7-34.0 [facility] [place] [facility] Comment on above: Performed By: #### C BC #### [facility] [address] [place] [address] Rory Tosha MCHC (RBC) [Mass/Vol] 35.6 g/dL Critically high 29.9-35.2 [facility] [place] [facility] Comment on above: Performed By: #### C BC #### [facility] [address] [place], [place] [address] Rory Tosha MCV (RBC) [Entitic vol] 84.2 fL Normal 81.0-99.0 [facility] [place] [facility] Comment on above: Performed By: #### C BC #### [facility] [address] [place], [place] [address] Rory Tosha Monocytes (Bld) [#/Vol] 0.5 103/ul Normal 0.3-0.8 [facility] [place] [facility] Comment on above: Performed By: #### C BC #### [facility] [address] [place], [place] [address] Rory Tosha Monocytes/100 WBC (Bld) 4.9 % Normal 1.7-12.0 [facility] [place] [facility] Comment on above: Performed By: #### C BC #### [facility] [address] [place], [place] [address] Rory Tosha Neutrophils (Bld) [#/Vol] 7.4 103/ul Critically high 1.4-6.5 [facility] [place] [facility] Comment on above: Performed By: #### C BC #### [facility] [address] [place] [address] Rory Tosha Neutrophils/100 WBC (Bld) 70.5 % Normal 43.0-75.0 [facility] [place] [facility] Comment on above: Performed By: #### C BC #### [facility] [address] [place] [address] Rory Tosha Platelet mean volume (Bld) [Entitic vol] 9.3 fL Critically low 9.5-13.5 [facility] [place] [facility] Comment on above: Performed By: #### C BC #### [facility] [address] [place], [place] [address] Rory Tosha Platelets (Bld) [#/Vol] 367 103/ul Normal 150-450 [facility] Comment on above: Performed By: #### C BC #### [facility] [address] [place], [place] [address] Rory Tosha RBC (Bld) [#/Vol] 4.30 106/ul Normal 4.20-5.40 [facility] Comment on above: Performed By: #### C BC #### [facility] [address] [place], [place] [address] Rory Tosha WBC (Bld) [#/Vol] 10.4 103/ul Normal 4.0-11.0 [facility] Comment on above: Performed By: #### C BC #### [facility] [address] [place], [place] [address] Rory Givens CULTURE URINEon 2020 CULTURE URINE Culture Observations : NO GROWTH Normal [facility] Comment on above: Performed By: #### V ANNEL #### [facility] [address] [place] [address] Rory Givens DRUG SCREEN RAPID (URINE)on 2020 AMP Negative Normal NEGATIVE [facility] [place] [facility] Comment on above: Performed By: #### C BC #### [facility] [address] [place] [address] Rory Tosha BAR Negative Normal NEGATIVE [facility] Comment on above: Performed By: #### C BC #### [facility] [address] [place] [address] Rory Tosha BUP Negative Normal NEGATIVE [facility] [place] [facility] Comment on above: Performed By: #### C BC #### [facility] [address] [place] [address] Rory Tosha BZO Negative Normal NEGATIVE [facility] Comment on above: Performed By: #### C BC #### [facility] [address] [place] [address] Rory Givens SIM Negative Normal NEGATIVE [facility] Comment on above: Performed By: #### C BC #### [facility] [address] [place] [address] Rory Givens CUT-OFFS SEE BELOW Normal [facility] Comment on above: Result Comment: AMP [...] ng/mL Performed By: #### C BC #### [facility] [address] [address] Rory Tosha DRUG CUT HEADER DRUG CLASS TEST SYST EM CUT-OFF CONCENTRATIONS ARE FOLLOWS: Normal [facility] [place] [facility] Comment on above: Performed By: #### C BC #### [facility] [address] [place] [address] Rory Tosha mAMP Negative Normal NEGATIVE [facility] Comment on above: Performed By: #### C BC #### [facility] [address] [address] Rory Tosha MTD Negative Normal NEGATIVE [facility] [place] [facility] Comment on above: Performed By: #### C BC #### [facility] [address] [place] [address] Rory Tosha OPI Negative Normal NEGATIVE [facility] [place] [facility] Comment on above: Performed By: #### C BC #### [facility] [address] [place] [address] Rory Tosha OXY Negative Normal NEGATIVE [facility] [place] [facility] Comment on above: Performed By: #### C BC #### [facility] [address] [place] [address] Rory Tosha PCP Negative Normal NEGATIVE [facility] [place] [facility] Comment on above: Performed By: #### C BC #### [facility] [address] [place] [address] Rory Tosha PPX Negative Normal NEGATIVE [facility] [place] [facility] Comment on above: Performed By: #### C BC #### [facility] [address] [place] [address] Rory Tosha TCA Negative Normal NEGATIVE [facility] [place] [facility] Comment on above: Performed By: #### C BC #### [facility] [address] [place] [address] Rory Tosha THC Negative Normal NEGATIVE [facility] [place] [facility] Comment on above: Performed By: #### C BC #### [facility] [address] [place] [address] Rory Tosha GLYCOHEMOGLOBIN A1Con 2019 Glucose [Mass/Vol] 94 mg/dL Normal [facility] Comment on above: Performed By: #### Celina EUBANKS #### [facility] [address] [place], [place] [address] Rory Tosha HbA1c (Bld) [Mass fraction] 4.9 % Normal <=6.0 [facility] Comment on above: Performed By: #### Celina EUBANKS #### [facility] [address] [place], [place] [address] Rory Tosha PREG QUANT HCGon 2020 HCG QUANT 22242.00 mIU/mL Normal [facility] Comment on above: Performed By: #### C BC #### [facility] [address] [place] [address] Rory Tosha HCG RANGE SEE BELOW Normal [facility] Comment on above: Result Comment: 5-50 0-1 WEEK 40-300 1-2 WEEKS 100-1,000 2-3 WEEKS 500-6,000 3-4 WEEKS 5,000-200,000 1-2 MONTHS 10,000-100,000 2-3 MONTHS 3,000-50,000 2ND TRIMESTER 1,000-50,000 3RD TRIMESTER Performed By: #### C BC #### [facility] [address] [place] [address] Rory Tosha TYPE AND SCREENon 2020 TYPE AND SCREEN Negative Normal [facility] Comment on above: Performed By: #### Celina EUBANKS #### [facility] [address] [place], [place] [address] Rory Tosha UA RANDOM W/MICROSCOPICon Bacteria LM.HPF (Urine sed) [#/Area] TRACE Normal NONE SEEN [facility] Comment on above: Performed By: #### C BC #### [facility] [address] [place] [address] Rory Tosha Bilirubin [Mass/Vol] Negative Normal NEGATIVE [facility] Comment on above: Performed By: #### C BC #### [facility] [address] [place] [address] Rory Tosha BLOOD Negative Normal NEGATIVE [facility] Comment on above: Performed By: #### C BC #### [facility] [address] [place], [place] [address] Rory Tosha CAST NONE SEEN Normal NONE SEEN [facility] Comment on above: Performed By: #### C BC #### [facility] [address] [place] [address] Rory Tosha Clarity (U) CLEAR Normal [facility] [place] [facility] Comment on above: Performed By: #### C BC #### [facility] [address] [place] [address] Rory Tosha Color (U) LT. YELLOW Normal YELLOW [facility] Comment on above: Performed By: #### C BC #### [facility] [address] [place] [address] Rory Tosha Crystals LM Nom (Urine sed) NONE SEEN Normal NONE SEEN [facility] [place] [facility] Comment on above: Performed By: #### C BC #### [facility] [address] [place] [address] Rory Tosha Epithelial cells LM.HPF (Urine sed) [#/Area] RARE Normal [facility] Comment on above: Performed By: #### C BC #### [facility] [address] [place] [address] Rory Tosha Glucose [Mass/Vol] 100 mg/dl Normal NEGATIVE [facility] Comment on above: Performed By: #### C BC #### [facility] [address] [place] [address] Rory Tosha Ketones Ql (U) Negative Normal NEGATIVE [facility] Comment on above: Performed By: #### C BC #### [facility] [address] [place] [address] Rory Tosha MUCOUS NONE SEEN Normal NONE SEEN [facility] [place] [facility] Comment on above: Performed By: #### C BC #### [facility] [address] [place] [address] Rory Tosha Nitrite Ql (U) Negative Normal NEGATIVE [facility] Comment on above: Performed By: #### C BC #### [facility] [address] [place] [address] Rory Tosha pH (Bld) 6.5 Normal 5-9 [facility] [place] [facility] Comment on above: Performed By: #### C BC #### [facility] [address] [place] [address] Rory Tosha Protein [Mass/Vol] Negative Normal [facility] Comment on above: Performed By: #### C BC #### [facility] [address], [place] [address] Rory Givens RBC (Bld) [#/Vol] 0-2 Normal 0-2 [facility] Comment on above: Performed By: #### C BC #### [facility] [address], [place] [address] Rory Givens SPEC GRAVITY 1.015 Normal 1.005-<=1.02 5 [facility] [place] [facility] Comment on above: Performed By: #### C BC #### [facility] [address], [place] [address] Rory Givens Urobilinogen Qn (U) 0.2 EU/dl Normal [facility] Comment on above: Performed By: #### C BC #### [facility] [address] [place] [address] Rory Tosha WBC (Bld) [#/Vol] 0-2 Normal NONE SEEN [facility] Comment on above: Performed By: #### C BC #### [facility] [address], [place] [address] Roryolivier Givens WBC (Bld) [#/Vol] Negative Normal NEGATIVE [facility] Comment on above: Performed By: #### C BC #### [facility] [address], [place] [address] Rory Givens Surgical Pathologyon [facility] Surgical Pathology (NOTE)[id number] Y LABORATORIESCONSULTING PATHOLOGISTS CORPORATIONANATOMIC [id number] [place] [phone] Fax: SURGICAL PATHOLOGY CONSULTATIONPatient Name: Daryl BROTHERS Rec: [id number] Number: [id number]: 02/21/2018Received: 02/22/2018Reported: 02/23/2018 15:49-- Diagnosis --SKIN, RIGHT SUPERIOR UPPER BACK, EXCISION: - 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 - MARGINS APPEAR NEGATIVE FOR INVOLVEMENT.Timbo Acosta M.D.Electronically Signed Out02/23/2018[place] InformationPre-op Diagnosis: COMPOUND NEVUS WITH SPITZ AND CAROL ANN, HX MELANOMAJUNE 2018, [facility], [id number], DX: COMPOUND NEVUSWITH FEATURES OF SPITZ AND [...] and deep margins appear freeof involvement. [facility] Comment on above: Performed By: #### P PPVDP ####[facility] Rehabilitation[facility] [id number] [place] [address] Vital Signs Date Time Vital Sign Value Performing Clinician Facility 03-05-2025 14:02-0400 Body mass index (BMI) [Ratio] 23.19 kg/m2 Akhil Gibson DO Work Phone: [facility] 03-05-2025 14:02-0400 Body weight 61.29 kg Akhil Arthur DO Work Phone: [facility] 03-05-2025 14:02-0400 Diastolic blood pressure 60 mm[Hg] Akhil Arthur DO Work Phone: [facility] 03-05-2025 14:02-0400 Systolic blood pressure 110 mm[Hg] Akhil Arthur DO Work Phone: [facility] 02-27-2025 10:53-0400 Body mass index (BMI) [Ratio] 23.17 kg/m2 Akhil Arthur DO Work Phone: [facility] 02-27-2025 10:53-0400 Body weight 61.24 kg Akhil Arthur DO Work Phone: [facility] 02-27-2025 10:53-0400 Diastolic blood pressure 72 mm[Hg] Akhil Arthur DO Work Phone: [facility] 02-27-2025 10:53-0400 Systolic blood pressure 112 mm[Hg] Akhil Arthur DO Work Phone: [facility] 01-30-2025 09:14-0400 Body mass index (BMI) [Ratio] 23.34 kg/m2 Akhil Arthur DO Work Phone: [facility] 01-30-2025 09:14-0400 Body weight 61.69 kg Akhil Arthur DO Work Phone: [facility] 01-30-2025 09:14-0400 Diastolic blood pressure 70 mm[Hg] Akhil Arthur DO Work Phone: [facility] 01-30-2025 09:14-0400 Systolic blood pressure 110 mm[Hg] Akhil Arthur DO Work Phone: [facility] 09-11-2024 14:04-0400 Body mass index (BMI) [Ratio] 22.9 kg/m2 Oleg Oropeza NP Work Phone: [facility] 09-11-2024 14:04-0400 Body weight 60.51 kg Oleg Johnna PROJECTION ENGINEER Work Phone: [facility] 09-11-2024 14:04-0400 Diastolic blood pressure 70 mm[Hg] Oleg Johnna PROJECTION ENGINEER Work Phone: [facility] 09-11-2024 14:04-0400 Systolic blood pressure 120 mm[Hg] Oleg Johnna PROJECTION ENGINEER Work Phone: [facility] 08-30-2024 14:05-0400 Body mass index (BMI) [Ratio] 23.17 kg/m2 Shin Doshio CNM Work Phone: [facility] 08-30-2024 14:05-0400 Body weight 61.24 kg Shin Davison CNM Work Phone: [facility] 08-30-2024 14:05-0400 Diastolic blood pressure 80 mm[Hg] Shin Doshio CNM Work Phone: [facility] 08-30-2024 14:05-0400 Systolic blood pressure 118 mm[Hg] Shin Doshio CNM Work Phone: [facility] 01-31-2024 13:22-0400 Body height 162.6 cm Delmis Lorenzo MD Work Phone: [facility] 01-31-2024 13:22-0400 Body mass index (BMI) [Ratio] 23.72 kg/m2 Delmis Lorenzo MD Work Phone: [facility] 01-31-2024 13:22-0400 Body weight 62.69 kg Delmis Lorenzo MD Work Phone: [facility] 01-31-2024 13:22-0400 Diastolic blood pressure 70 mm[Hg] Delmis Lorenzo MD Work Phone: [facility] 01-31-2024 13:22-0400 Heart rate 87 /min Delmis Lorenzo MD Work Phone: [facility] 01-31-2024 13:22-0400 Respiratory rate 18 /min Delmis Lorenzo MD Work Phone: [facility] 01-31-2024 13:22-0400 SaO2% (BldA) [Mass fraction] 100 % Delmis Lorenzo MD Work Phone: [facility] 01-31-2024 13:22-0400 Systolic blood pressure 110 mm[Hg] Delmis Lorenzo MD Work Phone: [facility] 02-22-2020 03:06-0400 Body weight 58.968 kg RENZO KIP [facility] Comment on above: Performed By: #### AFPTET #### [facility] [address] [address] Rory Givens Encounters Encounter Date Encounter Type Care Provider Facility Start: 03-05-2025 End: 03-05-2025 Bamboo flowsheet Akhil Arthur [employer] Work Phone: [facility] Monika OBIVONNEN Start: 03-05-2025 End: 03-05-2025 Bamboo flowsheet Akhil Arthur DO Work Phone: [facility] [employer] [facility] Start: 03-05-2025 End: 03-05-2025 Patient encounter procedure Akhil Arthur [employer] Work Phone: [facility] [employer] Work Phone: Start: 03-05-2025 End: 03-05-2025 Periodic preventive med est patient 18-39 yrs Akhil Arthur DO Work Phone: [facility] Monika OBGUERA Comment on above: Well woman exam with routine gynecological exam; Menorrhagia with regular cycle; Abnormal uterine bleeding (AUB); Pelvic pain in female Start: 02-27-2025 End: 02-27-2025 Departed Referred [facility] [employer] Work Phone: Start: 02-27-2025 End: 02-27-2025 Patient encounter procedure Akhil Arthur DO Work Phone: [facility] Monikareji HERNANDEZ Comment on above: Pre-op examination; Menorrhagia with regular cycle; Abnormal uterine bleeding (AUB); Pelvic pain in female Start: 02-27-2025 End: 02-27-2025 Preprocedural examination done Akhil Arthur DO Work Phone: [facility] Start: 02-27-2025 End: 02-27-2025 ambulatory AKHIL ARTHUR Not Available Start: 01-30-2025 End: 01-30-2025 Bamboo flowsheet Akhil Arthur DO Work Phone: [facility] HER[facility] Start: 01-30-2025 End: 01-30-2025 Bamboo flowsheet Akhil Arthur DO Work Phone: [facility] OBIVONNEN Start: 01-30-2025 End: 01-30-2025 Clinisync Result Encounter Generic External Data Provider [facility] Unsolicited Start: 01-30-2025 End: 01-30-2025 Office outpatient visit 15 minutes Akhil Arthur DO Work Phone: [facility] HERNANDEZ Comment on above: Menorrhagia with reg ular cycle; PCOS (polycystic ovarian syndrome) Start: 01-30-2025 End: 01-30-2025 ambulatory AKHIL ARTHUR Not Available Start: 09-11-2024 End: 09-11-2024 Bamboo flowsheet Oleg Oropeza PROJECTION ENGINEER Work Phone: [facility] Start: 09-11-2024 End: 09-11-2024 Bamboo flowsheet Oleg Oropeza PROJECTION ENGINEER Work Phone: [facility] Start: 09-11-2024 End: 09-11-2024 Postop follow up visit related to original px Oleg Oropeza PROJECTION ENGINEER Work Phone: [facility] Comment on above: Postoperative examin ation Start: 09-11-2024 End: 09-11-2024 ambulatory OLEG OROPEZA Not Available Start: 09-01-2024 End: 09-01-2024 Clinisync [...] up Start: 08-30-2024 End: 08-30-2024 ambulatory SHIN L FLORO Not Available Start: 08-17-2024 End: 08-17-2024 ambulatory [...] Not Available Start: 01-31-2024 End: 01-31-2024 Bamboo flowssigrid Lorenzo MD Work Phone: [facility] Start: 01-31-2024 End: 01-31-2024 Bamboo flowssigrid Lorenzo MD Work Phone: [facility] Start: 01-31-2024 End: 01-31-2024 Initial preventive medicine new pt age 18-39yrs Delmis Lorenzo MD Work Phone: [facility] Comment on above: Routine general medi silvia examination at a health care facility (Primary Dx); Mood changes Start: 01-31-2024 End: 01-31-2024 Patient encounter status Delmis Lorenzo MD Work Phone: [facility] Work Phone: Start: 06-08-2023 End: 06-09-2023 [facility] Start: 07-04-2020 End: 07-04-2020 Patient encounter [...] 02-22-2018 [facility] encounter [facility] Procedures Date Procedure Procedure Detail Performing Clinician Start: 02-27-2025 Urine test visual color cmprsn meths Akhil Arthur DO Work Phone: Start: 01-30-2025 ALL CBC WITH AUTO DIFF Akhil Arthur DO Work Phone: Start: 09-11-2024 Urnls dip stick/tabl et rgnt non-auto w/o micrscp Oleg Oropeza NP Work Phone: Start: 09-01-2024 ALL CBC WITH AUTO DIFF Akhil Arthur DO Work Phone: Start: 12-27-2023 Microscopic observat ion [Identifier] in Cervix by Cyto stain Akhil Gibson DO Work Phone: Plan of Treatment Date Care Activity Detail Author Start: 12-26-2026 Screening for malign ant neoplasm of cervix [facility] Start: 03-13-2025 End: 03-13-2025 Patient encounter procedure 03/13/2025 8:40 AM EDT Procedure Visit [facility] [address] [place] [id number] Delmis Lorenzo MD [address] [facility], [place] [id number] [facility] Start: 03-05-2025 End: 03-05-2025 Patient encounter procedure SALINA HERNANDEZ Comment on above: Arrived Start: 02-27-2025 End: 02-27-2025 Patient encounter procedure 02/27/2025 10:30 AM EDT Procedure Visit SALINA HERNANDEZ [address] [place] [id number] Akhil Gibson, DO [address] [place], [place] [id number] SALINA HERNANDEZ Start: 01-30-2025 End: 01-30-2026 DHEA DHEA Lab Routine Menorrhagia with regular cycle PCOS (polycystic ovarian syndrome) Expected: 01/30/2025 (Approximate), Expires: 01/30/2026 [facility] Comment on above: Expected: 01/30/2025 (Approximate), Expires: 01/30/2026 Start: 01-30-2025 End: 01-30-2025 Patient encounter procedure 01/30/2025 9:10 AM EDT Office Visit SALINA HERNANDEZ [address] [place] [id number] Akhil Gibson, DO [address] [place] [address] Arrived [facility] Comment on above: Arrived Start: 01-15-2025 Influenza vaccination [facility] Start: 09-11-2024 End: 09-11-2024 Patient encounter procedure 09/11/2024 1:50 PM EDT Office Visit [facility] [address] [place] [address] Oleg Oropeza, PROJECTION ENGINEER [address] [place] [address] Arrived [facility] Comment on above: Arrived Start: 08-30-2024 End: 08-30-2024 Professional / ancillary services management 08/30/2024 3:30 PM EDT Ancillary Procedure [facility] [address] [place] [address] IUD check up [facility] Comment on above: IUD check up Start: 08-30-2024 End: 08-30-2024 Patient encounter procedure [facility] Comment on above: Arrived Start: 08-30-2024 End: 08-30-2025 US Pelvis transvaginal US pelvis transvaginal Imaging Routine IUD check up Expected: 08/30/2024, Expires: 08/30/2025 [facility] Work Phone: Comment on above: Expected: 08/30/2024 , Expires: 08/30/2025 Start: 03-17-2024 Influenza vaccination Influenza Vacc ine (#1) [facility] Comment on above: Postponed from 01/15 (Patient Refused) Start: 01-31-2024 End: 01-30-2025 CBC W Auto Differential panel - Blood CBC and differential Lab Routine Mood changes Expected: 01/31/2024 (Approximate), Expires: 01/30/2025 [facility] Comment on above: Expected: 01/31/2024 (Approximate), Expires: 01/30/2025 Start: 01-31-2024 End: 01-30-2025 Comprehensive metabolic 2000 panel - Serum or Plasma Comprehensive metabolic panel Lab Routine Mood changes Expected: 01/31/2024, Expires: 01/30/2025 [facility] Comment on above: Expected: 01/31/2024 , Expires: 01/30/2025 Start: 01-31-2024 End: 01-30-2025 TSH W/REFLEX TO FT4 TSH W/REFLEX TO FT4 Lab Routine Mood changes Expected: 01/31/2024 (Approximate), Expires: 01/30/2025 [facility] Work Phone: Comment on above: Expected: 01/31/2024 (Approximate), Expires: 01/30/2025 Start: 01-31-2024 End: 01-31-2024 Patient encounter procedure 01/31/2024 1:20 PM EDT Office Visit [facility]NY[facility] BALDERAS [address] [place] [address] Delmis Lorenzo MD [address] [place], [place] [phone] [facility] Comment on above: Arrived Start: 01-16-2024 Influenza vaccination Influenza Vacc ine (#1) [facility] Start: 01-10-2020 Screening for malign ant neoplasm of cervix [facility] Start: 2011 Screening for malign ant neoplasm of cervix Pap Smear [facility] Start: 1991 Skin Cancer Screening Skin Cancer Sc reening [facility] CBC W Auto Different ial panel - Blood CBC and differential Lab Routine Menorrhagia with regular cycle PCOS (polycystic ovarian syndrome) Ordered: 01/30/2025 [facility] Comment on above: Ordered: 01/30/2025 Cytology Cervical or vaginal smear or scraping study Pap Smear Pathology and Cytology Routine Well woman exam with routine gynecological exam Ordered: 03/05/2025 [facility] Work Phone: Comment on above: Ordered: 03/05/2025 DHEA-sulfate DHEA-sulfate Lab Routine Menorrhagia with regular cycle PCOS (polycystic ovarian syndrome) Ordered: 01/30/2025 [facility] Comment on above: Ordered: 01/30/2025 Endometrial biopsy Endometrial b iopsy Procedures Routine Menorrhagia with regular cycle Ordered: 02/27/2025 [facility] Work Phone: Comment on above: Ordered: 02/27/2025 Follicle stimulating hormone Follicle stimulating hormone Lab Routine Menorrhagia with regular cycle PCOS (polycystic ovarian syndrome) Ordered: 01/30/2025 [facility] Comment on above: Ordered: 01/30/2025 hCG, quantitative, hCG, quantitative, Lab Routine Menorrhagia with regular cycle PCOS (polycystic ovarian syndrome) Ordered: 01/30/2025 [facility] Work Phone: Comment on above: Ordered: 01/30/2025 Hemoglobin A1c/Hemoglobin.total in Blood Hemoglobin A1c Lab Routine Menorrhagia with regular cycle Ordered: 01/30/2025 [facility] Comment on above: Ordered: 01/30/2025 Human papilloma viru s DNA [Presence] in Unspecified specimen by Probe with amplification HPV DNA probe, amplified Microbiology Routine Well woman exam with routine gynecological exam Ordered: 03/05/2025 [facility] Comment on above: Ordered: 03/05/2025 Luteinizing hormone Luteinizing hormone Lab Routine Menorrhagia with regular cycle PCOS (polycystic ovarian syndrome) Ordered: 01/30/2025 [facility] Comment on above: Ordered: 01/30/2025 Thyrotropin [Units/volume] in Serum or Plasma TSH Lab Routine Menorrhagia with regular cycle PCOS (polycystic ovarian syndrome) Ordered: 01/30/2025 [facility] Comment on above: Ordered: 01/30/2025 Thyroxine (T4) free [Mass/volume] in Serum or Plasma T4, free Lab Routine Menorrhagia with regular cycle PCOS (polycystic ovarian syndrome) Ordered: 01/30/2025 [facility] Comment on above: Ordered: 01/30/2025 Immunizations Immunization Date Immunization Notes Care Provider Fa cili 07-19-2023 tetanus toxoid, redu norma diphtheria toxoid, and acellular pertussis vaccine, adsorbed Delmis Lorenzo MD Work Phone: [facility] 05-14-2023 influenza, injectabl e, quadrivalent, preservative free Delmis Lorenzo MD Work Phone: [facility] 05-14-2023 influenza virus vacc ine, unspecified formulation Delmis Lorenzo MD Work Phone: [facility] Payers Date Payer Category Payer Private Health Insurance [id number] 2025 Self-pay 2021 Blue [employer] Blue Shield [id number] 2021 Unknown BCBS BCBS [id number] 2021-Present [phone] [address] [place] [address] [id number] 2021 Unknown [id number] 2014 Private Health Insurance [id number] 1990 Unknown [id number] 2.16.840.1.856179.3.579.2. 175 1990 Unknown [id number] 2.16.840.1.387241.3.579.2. 593 1990 Unknown [id number] 2.16.840.1.988585.3.579.2. 593 1990 Unknown [id number] 2.16.840.1.864688.3.579.2. 593 1990 Unknown [id number] 2.16.840.1.465582.3.579.2. 593 1990 Unknown [id number] 2.16.840.1.680317.3.579.2. 593 1990 Unknown [id number] 2.16.840.1.235879.3.579.2. 593 1990 Unknown [id number] 2.16.840.1.964171.3.579.2. 593 1990 Unknown [id number] 2.16.840.1.671101.3.579.2. 593 1990 Unknown [id number] 2.16.840.1.207790.3.579.2. 593 1990 Unknown [id number] 2.16.840.1.573105.3.579.2. 1286 1990 Unknown [id number] 2.16.840.1.141796.3.579.2. 9 1990 Unknown [id number] 2.16.840.1.920835.3.579.2. 9 1990 Unknown [id number] 2.16.840.1.846955.3.579.2. 1258 1990 Unknown [id number] 2.16.840.1.101638.3.579.2. 1258 1990 Unknown [id number] 2.16.840.1.813268.3.579.2. 1258 1990 Unknown [id number] 2.16.840.1.026751.3.579.2. 1258 1990 Unknown [id number] 2.16.840.1.653392.3.579.2. 1258 1990 Unknown [id number] 2.16.840.1.695457.3.579.2. 1259 1959 Unknown [id number] Unknown [id number] 2.16.840.1.801769.3.579.2. 531 Social History Date Type Detail Facility Start: 02-15-2023 Tobacco smoking stat [facility] Never smoked tobacco [facility] Start: 02-15-2023 Tobacco use and exposure Smoke less tobacco non-user [facility] Start: 04-06-2024 End: 03-05-2025 Alcoholic beverage intake [facility]drinker (finding) [facility] [...] [OSQ] Rather much [facility] (I/We) worried wherenata er (my/our) food would run out before [...] file [facility] if [facility] Work Phone: Sex Female (finding) [facility] Start: 1990 Sex Assigned At Female [facility] Goals Date Patient Goal Desired Activity /State Personal health goal Clinical Notes 01-31-2024 to 03-05-2025 Oleg Oropeza NP - 03/05/2025 1:50 PM Brice Mcdonough LPN - 02/27/2025 10:30 AM Brice Mcdonough LPN - 01/30/2025 9:10 AM Wilmer Oropeza NP - 09/11/2024 1:50 PM EDT Note Date & Type Note Facility 03-05-2025 History of Presen t illness Narrative Reason for Appointment: Patient ID: Tania Brothers is a 35 y.o. female who presents for Well Women Visit and Pre-op Visit Patient presents today for Annual Exam. and Pre Op appointment. Patient is scheduled to undergo Endometrial Ablation with Mallory on 03/30/[address] Gibson at [facility]. MEDICATIONS Current Outpatient Medications Medication [...] (HCC) Fracture 1994 Fracture of parietal bone ([facility]) 1990 GERD (gastroesophageal reflux disease) History of depression HL (hearing loss) 05/24/2023 Malignant melanoma of leg ([facility]) Oral contraceptive pill surveillance Preeclampsia in period ([facility]) 08/19/2020 HISTORY PAST MEDICAL HISTORY SOCIAL [...] nursing note reviewed. Exam conducted with a concrete mixer present. Vitals: Estimated body mass index is 23.19 kg/m as calculated from the following: Height [...] reviewed, and patient is to proceed to [facility] OR. Follow Up: Patient is to follow up between 1-2 weeks post operative to assess proper healing and recovery from procedure. Orders Placed This Encounter Procedures HPV DNA probe, amplified Documented by Shanelle Márquez LPN on behalf of: Oleg Oropeza, MSN, VOCATIONAL SERVICES SPECIALIST-BC [1] Allergies Allergen Reactions Penicillins Rash Unknown as child [2] Past Medical History: Diagnosis Date Congenital nevus COVID-19 Factor V deficiency (HCC) Fracture 1994 st wrist/hand level-left Fracture of parietal bone ([facility]) 1990 GERD (gastroesophageal reflux disease) History of depression HL (hearing loss) 05/24/2023 Malignant melanoma of leg (HCC) Oral contraceptive pill surveillance Preeclampsia in period ([facility]) 08/19/2020 [3] Family History Problem Relation Name Age of Onset Asthma Mother Shanelle Wen Depression Mother Shanelle Laurenkins Stroke Mother Shanelle Wen Hyperlipidemia Father Star Wen Hypertension Father Star Wen No Known Problems Sister 2 sisters, healthy No Known Problems Brother Cancer Maternal Grandfather Blood and bone cancer Asthma Paternal Grandfather Faisal Wen Prostate cancer Paternal Grandfather Faisal Wen Hearing loss Paternal Grandfather Faisal Behzad No Known Problems Daughter Cancer Maternal Grandmother Avril Orta Melanoma Neg Hx [4] Past Surgical History: Procedure Laterality Date DILATION AND CURETTAGE OF UTERUS 09/01/2024 HYSTEROSCOPY 09/01/2024 LAPAROSCOPY DIAGNOSTIC / BIOPSY / ASPIRATION / LYSIS 09/01/2024 with IUD removal PAP SMEAR 2020 SKIN CANCER EXCISION 10/2017 melanoma excision, leg, [place] documented in this encounter [facility] 02-27-2025 History of Presen t illness Narrative Reason for Appointment: Patient ID: Tania Brothers is a 35 y.o. female who presents for Menorrhagia (Pt present today for an Embx visit. ) Patient presents today for Pre Op/Endometrial Biopsy appointment. Patient is scheduled to undergo Endometrial Ablation with Mallory on 03/30/[address] Gibson at [facility]. MEDICATIONS Current Outpatient Medications Medication [...] (HCC) Fracture 1994 Fracture of parietal bone ([facility]) 1990 GERD (gastroesophageal reflux disease) History of depression HL (hearing loss) 05/24/2023 Malignant melanoma of leg (HCC) Oral contraceptive pill surveillance Preeclampsia in period ([facility]) 08/19/2020 HISTORY PAST MEDICAL HISTORY SOCIAL [...] nursing note reviewed. Exam conducted with a concrete mixer present. Vitals: Estimated body mass index is [...] reviewed, and patient is to proceed to [facility] OR. Follow Up: Patient is to follow up between 1-2 weeks post operative to assess proper healing and recovery from procedure. Documented by Tosha Mcdonough LPN on behalf of: Akhil Gibson DO [1] Allergies Allergen Reactions Penicillins Rash Unknown as child [2] Past Medical History: Diagnosis Date Congenital nevus COVID-19 Factor V deficiency (HCC) Fracture 1994 st wrist/hand level-left Fracture of parietal bone ([facility]) 1990 GERD (gastroesophageal reflux disease) History of depression HL (hearing loss) 05/24/2023 Malignant melanoma of leg (HCC) Oral contraceptive pill surveillance Preeclampsia in period ([facility]) 08/19/2020 documented in this encounter [facility] 01-30-2025 History of Presen t illness Narrative [...] (HCC) Fracture 1994 Fracture of parietal bone ([facility]) 1990 GERD (gastroesophageal reflux disease) History of depression HL (hearing loss) 05/24/2023 Malignant melanoma of leg (HCC) Oral contraceptive pill surveillance Preeclampsia in period ([facility]) 08/19/2020 HISTORY PAST MEDICAL HISTORY SOCIAL HISTORY Past Medical History: Diagnosis Date Congenital nevus COVID-19 Factor V deficiency (HCC) Fracture 1995 st wrist/hand level-left Fracture of parietal bone ([facility]) 1990 GERD (gastroesophageal reflux disease) History of depression HL (hearing loss) 05/24/2023 Malignant melanoma of leg (HCC) Oral contraceptive pill surveillance Preeclampsia in period ([facility]) 08/19/2020 Social History Tobacco Use Smoking [...] SKIN CANCER EXCISION 10[facility]2017 [facility] Review of Systems: [...] nursing note reviewed. Exam conducted with a concrete mixer present. Vitals: Estimated body mass index is [...] Akhil Gibson DO documented in this encounter [facility] 09-11-2024 History of Presen t illness Narrative [...] (hearing loss) 05/24/2023 Malignant melanoma of leg ([facility]) Oral contraceptive pill surveillance Preeclampsia in period [...] SKIN CANCER EXCISION 10/2017 melanoma excision, leg, [facility] REVIEW OF SYSTEMS Review of Systems: [...] nursing note reviewed. Exam conducted with a concrete mixer present. Vitals: Estimated body mass index is [...] move forward with endometrial ablation Documented by Oleg Oropeza NP on behalf of: Oleg Oropeza NP documented in this encounter [facility] 08-30-2024 History of Presen t illness Narrative PROBLEM VISIT Tania Brothers is 34 y.o. 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 No follow-ups on file. There are no Patient Instructions on file for this visit. Talia Morton MA,08/30/2024 2:10 PM documented in this encounter [facility] 08-17-2024 History of Presen t illness Narrative [...] units as above documented in this encounter [facility] 04-06-2024 History of Presen t illness Narrative Images from the original note were not included. aTnia Brothers is a 34 y.o. female presents [...] units as above documented in this encounter [facility] 01-31-2024 History of Presen t illness Narrative [...] condition of skin documented in this encounter [facility]* Diagnosis Routine general medical examination at a health care facility- Primary Mood changes Unspecified episodic mood disorder documented in this encounter [facility]* Diagnosis Forehead wrinkles- Primary Other specified hypertrophic and atrophic condition of skin documented in this encounter [facility]* Diagnosis IUD check up IUD check up documented in this encounter [facility]* Diagnosis Postoperative examination Follow-up examination, following unspecified surgery documented in this encounter [facility]* Diagnosis Menorrhagia with regular cycle PCOS (polycystic ovarian syndrome) Polycystic ovaries documented in this encounter [facility]* Diagnosis Pre-op examination Menorrhagia with regular cycle Abnormal uterine bleeding (AUB) Pelvic pain in female Unspecified symptom associated with female genital organs documented in this encounter [facility] HealthcareEvaluation noteNo assessment information availableMer[facility] [employer] Work Phone: Evaluation note* Diagnosis Well woman exam with routine gynecological exam Routine gynecological examination Menorrhagia with regular cycle Abnormal uterine bleeding (AUB) Pelvic pain in female Unspecified symptom associated with female genital organs [facility] (narrative)No reason for referral information availableMer[facility] [employer] Work Phone: Summary Purpose Family History No Family History Records FoundNo Family History Records FoundNo Family History Records FoundNo Family History Records FoundNo Family History Records Found Advance Directives Advance Directive Response Recorded Date/ Time Advance Directives No October 29 1:45pm Additional Source Comments INFORMATION SOURCE (unrecogn ized section and content) DATE CREATED AUTHOR 03/22/2018 [facility] [facility] DATE CREATED AUTHOR AUTHOR'S ORGANIZ ATION 07/08/2020 [facility] DATE CREATED AUTHOR AUTHOR'S ORGANIZ ATION 06/11/2023 [facility] DATE CREATED AUTHOR AUTHOR'S ORGANIZ ATION 02/28/2025 [facility] EPIC DATE CREATED AUTHOR AUTHOR'S ORGANIZ ATION 03/04/2025 [facility] Care Teams (unrecognized sec tion and content) Transmission Superintendent Relationship Specialty Start Date End Date Delmis Lorenzo MD [address] [place] [address] PCP - General Family Medicine 11/21/22 Delmis Lorenzo MD [address] [place] [address] PCP - [place] [employer] 07/16/23 Transmission Superintendent Relationship Specialty Start Date End Date Delmis Lorenzo MD [address] [place] [address] PCP - General Family Medicine 11/21/22 Delmis Lorenzo MD [address] [facility] [place] [address] PCP - [place] [employer] 07/16/23 Transmission Superintendent Relationship Specialty Start Date End Date Delmis Lorenzo MD [address] [facility] [place] [address] PCP - General Family Medicine 11/21/22 Delmis Lorenzo MD [address] [facility] [place] [address] PCP - [place] [employer] 07/16/23 Transmission Superintendent Relationship Specialty Start Date End Date Delmis Lorenzo MD [address] [facility] [place] [address] PCP - General Family Medicine 11/21/22 Delmis Lorenzo MD [address] [place] [address] PCP - [place] [employer] 07/16/23 Transmission Superintendent Relationship Specialty Start Date End Date Delmis Lorenzo MD [address] [place] [address] PCP - General Family Medicine 11/21/22 Delmis Lorenzo MD [address] [place] [place] [address] PCP - [place] [employer] 07/16/23 Transmission Superintendent Relationship Specialty Start Date End Date Delmis Lorenzo MD [address] [facility] [place] [address] PCP - General Family Medicine 11/21/22 Delmis Lorenzo MD [address] [place] [address] PCP - [place] [employer] 07/16/23 Transmission Superintendent Relationship Specialty Start Date End Date Delmis Lorenzo MD [address] [facility] [place] [address] PCP - General Family Medicine 11/21/22 Delmis Lorenzo MD [address] [place] [facility] [place] [address] PCP - [place] [employer] 07/16/23 Transmission Superintendent Relationship Specialty Start Date End Date Delmis Lorenzo MD [address] [facility] [place] [address] PCP - General Family Medicine 11/21/22 Delmis Lorenzo MD [address] [place] [address] PCP - [place] [employer] 07/16/23 Transmission Superintendent Relationship Specialty Start Date End Date Delmis Lorenzo MD [address] [place] [address] PCP - General Family Medicine 11/21/22 Delmis Lorenzo MD [address] [facility] [place] [address] PCP - Radha Hahn 07/16/23 Team Status: Inactive Member Role Status Dates Akhil Gibson DO Attending Provider Active Start : February 27, 2025 End: February 27, 2025 Transmission Superintendent Relationship Specialty Start Date End Date Delmis Lorenzo MD [address] [facility] [place] [address] PCP - General Family Medicine 11/21/22 Dlemis Lorenzo MD [address] [facility] [place] [address] PCP - [place] [employer] 07/16/23 Reason for Visit (unrecogniz ed section and content) Reason Comments Annual Exam Reason Comments Menstrual Problem Reason Comments Post-op Visit Reason Comments Menorrhagia Reason Comments Menorrhagia Pt present today for an Embx visit. Reason Comments Well Women Visit Pre-op Visit Goals (unrecognized section and content) Goals may [...] BE BASED ON THE PRIMARY CLINICAL RECORDS. [employer] provides no warranty or guarantee of the accuracy or completeness of information in this document.
== END 2025-03-05 19:47 | disposition home or self-care (01) ==
LOC: LAB 19:46
PROVIDERS: PCP Family Medicine; Visit Provider Obstetrics & Gynecology
DX: Z01.419 Encounter for gynecological examination (general) (routine) without abnormal findings (principal)
CPT/HCPCS: 87624; 88175

== ENCOUNTER 2025-03-16 09:54 | Outpatient (OUT) | payer BC, SELFPAY ==
--- OUTSIDE RECORDS SUMMARY | 2025-03-05 13:50 | XMS_ITS | Encounter Summary ---
Author Organization [facility] Address [address] [place] [address] Care Team Providers Care Promotions Assistant Sales Marketing Name Role Phone Delmis Lorenzo MD Primary Care Provider [phone] Delmis Lorenzo MD Unavailable Reason for Visit * ReasonCommentsWell Women VisitPre-op Visit Encounter Details DateTypeDepartmentCare Team (Latest Contact Info)Kftemwlxfsf85/20/2025 1:50 PM EDTProcedure Visit [facility] [address] [id number] Akhil Gibson DO [address] [place], [place] [id number] Well woman exam with routine gynecological exam; Menorrhagia with regular cycle; Abnormal uterine bleeding (AUB); Pelvic pain in female Social History Tobacco UseTypesPacks/DayYears UsedDateSmoking Tobacco: NeverSmokeless Tobacco: NeverAlcohol UseStandard Drinks/WeekCommentsNot Currently0 (1 standard drink = 0.6 oz pure alcohol)Alcohol: 3 or 4 drinks on a typical day / 2 to 4 times a month. Caffeine: 1-2 cups/dayHumiliation, Afraid, Rape, and Kick questionnaire AnswerDate RecordedWithin the last year, have you been afraid of your partner or ex-partner?No11/22/2022Within the last year, have you been humiliated or emotionally abused in other ways by your partner or ex-partner?No11/22/2022 Within the last year, have you been kicked, hit, slapped, or otherwise physically hurt by your partner or ex-partner?No11/22/2022Within the last year, have you been raped or forced to have any kind of sexual activity by your part ner or ex-partner?No11/22/2022Social Connection and Isolation PanelAnswerDate RecordedIn a typical week, how many times do you talk on the phone with family, friends, or neighbors?More than three times a week12/24/2023How often do you get together with friends or relatives?Three times a week12/24/2023How often do you attend religion or latter-day services?More than 4 times per year12/24/2023o you belong to any clubs or organizations such as religion groups, unions, fraternal or athletic groups, or school groups?No12/24/2023How often do you attend meetings of the clubs or organizations you belong to?1 to 4 times per year12/24/2023re you , , , , never , or living with a partner?Zoaiqdj2912/24/2023UDIT-CAnswerDate RecordedQ1: How often do you have a drink containing alcohol?2-3 times a week12/24/2023Q2: How many drinks containing alcohol do you have on a typical day when you are drinking?3 or 4 12/24/2023Q3: How often do you have six or more drinks on one occasion?Monthly 12/24/2023Overall Financial Resource Strain (CARDIA)AnswerDate RecordedHow hard is it for you to pay for the very basics like food, housing, medical care, and heating?Not hard at all12/24/2023HQ-2AnswerDate RecordedPatient Health Questionnaire-2 Usnnr969[facility] [place] of Occupational Health - Occupational Stress QuestionnaireAnswerDate RecordedDo you feel stress - tense, restless, nervous, or anxious, or unable to sleep at night because yourmind is troubled all the time - these days?Rather much12/24/2023Exercise Vital Sign AnswerDate RecordedOn average, how many days per week do you engage in moderate to strenuous exercise (like a brisk walk)?4 days12/24/2023On average, how many minutes do you engage in exercise at this level?30 min12/24/2023Hunger Vital SignAnswerDate RecordedWithin the past 12 months, you worried that your food would run out before you got the money to buymore.Never true12/24/2023Within the past 12 months, the food you bought just didn't last and you didn't have money to get more.Never true12/24/2023RAPARE - TransportationAnswerDate RecordedIn the past 12 months, has lack of transportation kept you from medical appointments or from getting medications?No12/24/2023In the past 12 months, has lack of transportation kept you from meetings, work, or from getting things needed for daily living?No12/24/2023Housing Stability Vital SignAnswerDate RecordedIn the last 12 months, was there a time when you were not able to pay the mortgage or rent on time?No11/22/2022In the last 12 months, how many places have you lived?In the last 12 months, was there a time when you did not have a steady place to sleep or slept in [facility] (including now)?No 11/22/2022Edinburgh Depression ScaleAnswerDate RecordedEdinburgh Depression Scale [id number] thought of harming myself has occurred to me.Never10/28/2023Housing Stability Vital SignAnswerDate RecordedIn the last 12 months, was there a time when you were not able to pay the mortgage or rent on time?No12/24/2023In the past 12 months, how many times have you moved where you were living?t any time in the past 12 months, were you homeless or living in a penitentiary (including now)?No12/24/2023CommentsNo Sex and Gender InformationValueDate RecordedSex Assigned at BirthNot on file Legal CpdAiunjs26/15/2023 7:41 PM EDTGender IdentityNot on fileSexual OrientationNot on filedocumented as of this encounter Last Filed Vital Signs Vital SignReadingTime TakenCommentsBlood Vmmecbbf488/6010/ 2:02 PM EDT Pulse--Temperature--Respiratory Rate--Oxygen Saturation--Inhaled Oxygen Concentration--Nvczwr93.3 kg (135 lb 1.9 oz)03/05/2025 2:02 PM EDTHeight--Body Mass Index23.19001/31/2024 1:22 PM EDTdocumented in this encounter Progress Notes * Glo Oropeza NP - 03/05/2025 1:50 PM EDT Reason for Appointment: Patient ID: Carolina Tavarez is a 35 y.o. female who presents for Well Women Visit and Pre-op Visit Patient presents today for Annual Exam. and Pre Op appointment. Patient is scheduled to undergo Endometrial Ablation with Mallory on 03/30/[address] Gibson at [facility]. 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) Fracture 1994 Fracture of parietal bone ([facility]) 1990 GERD (gastroesophageal reflux disease) History of depression HL (hearing loss) 05/24/2023 Malignant melanoma of leg ([facility]) Oral contraceptive pill surveillance Preeclampsia in period ([facility]) 08/19/2020 HISTORY PAST MEDICAL HISTORY SOCIAL HISTORY Medical History[2] Social History Tobacco Use Smoking status: Never Smokeless tobacco: Never Vaping Use Vaping status: Never Used Substance Use Topics Alcohol use: Not Currently Comment: Alcohol: 3 or 4 drinks on a typical day / 2 to 4 times a month. Caffeine: 1-2 cups/day Drug use: Never FAMILY HISTORY Family History[3] SURGICAL HISTORY Surgical History[4] REVIEW OF SYSTEMS Review of Systems: Review of Systems Constitutional: Negative. HENT: Negative. Eyes: Negative. Respiratory: Negative. Cardiovascular: Negative. Gastrointestinal: Negative. Genitourinary: Positive for menstrual problem and vaginal bleeding. Musculoskeletal: Negative. Skin: Negative. Neurological: Negative. All other systems reviewed and are negative. Hematological: Negative. Endocrine: Negative. Allergic/Immunologic: Negative. OBJECTIVE Objective: Physical Exam Constitutional: Appearance: Normal appearance. She is well-developed. Genitourinary: Vulva normal. Breasts: Breasts are soft. Right: Normal. Left: Normal. Cardiovascular: Rate and Rhythm: Normal rate and [...] nursing note reviewed. Exam conducted with a communication spec present. Vitals: Estimated body mass index is 23.19 kg/m?? as calculated from the following: Height as of 01/31/24: 5' 4 . Weight as of this encounter: 135 lb 1.9 oz. BP: 110/60 Patient's last menstrual period was 02/16/2025. Assessment/Plan ICD-10-CM 1. Well woman exam with routine gynecological exam Z01.419 Pap Smear HPV DNA probe, amplified 2. Menorrhagia with regular cycle N92.0 3. Abnormal uterine bleeding (AUB) N93.9 4. Pelvic pain in female R10.20 Annual: Patient presents today for an annual exam. Patient states she is doing well and has no complaints. Pap was obtained without difficulty. Pre Op: Patient is doing well but has complaints of irregular/ heavy cycles. I have discussed conservative management vs. surgical management with the patient in detail and patient desires surgical management at this time. Patient will undergo Endometrial Ablation with Mallory on 03/30/2025. Surgical consents were signed, mmc was reviewed, and patient is to proceed to [facility] OR. Follow Up: Patient is to follow up between 1-2 weeks post operative to assess proper healing and recovery fromprocedure. Orders Placed This Encounter Procedures HPV DNA probe, amplified Documented by Shanelle Márquez LPN on behalf of: Glo Oropeza, MSN, SENIOR [employer] DEVELOPER-BC [1] Allergies Allergen Reactions Penicillins Rash Unknown as child [2] Past Medical History: Diagnosis Date Congenital nevus COVID-19 Factor V deficiency (HCC) Fracture 1994 st wrist/hand level-left Fracture of parietal bone ([facility]) 1990 GERD (gastroesophageal reflux disease) History of depression HL (hearing loss) 05/24/2023 Malignant melanoma of leg (HCC) Oral contraceptive pill surveillance Preeclampsia in period ([facility]) 08/19/2020 [3] Family History Problem Relation Name Age of Onset Asthma Mother Shanelle Wen Depression Mother Shanelle Wen Stroke Mother Shanelle Wen Hyperlipidemia Father Star Wen Hypertension Father Star Wen No Known Problems Sister 2 sisters, healthy No Known Problems Brother Cancer Maternal Grandfather Blood and bone cancer Asthma Paternal Grandfather Faisal Behzad Prostate cancer Paternal Grandfather Faisal Behzad Hearing loss Paternal Grandfather Faisal Laurenkins No Known Problems Daughter Cancer Maternal Grandmother Avril Orta Melanoma Neg Hx [4] Past Surgical History: Procedure Laterality Date DILATION AND CURETTAGE OF UTERUS 09/01/2024 HYSTEROSCOPY 09/01/2024 LAPAROSCOPY DIAGNOSTIC / BIOPSY / ASPIRATION / LYSIS 09/01/2024 with IUD removal PAP SMEAR 2020 SKIN CANCER EXCISION 10/2017 melanoma excision, leg, [place] documented in this encounter Plan of Treatment NameTypePriorityAssociated DiagnosesOrder SchedulePap SmearPathology and CytologyRoutine Well woman exam with routine gynecological exam Ordered: 03/05/2025HPV DNA probe, amplifiedMicrobiologyRoutine Well woman exam with routine gynecological exam Ordered: 03/05/2025documented as of this encounter Goals GoalPatient Goal TypeAssociated ProblemsRecent ProgressPatient-Stated?Author Help patient manage antidepressant medication Care PlanPatient on antidepressant monitoring Delmis Ramirez MD Baseline PHQ-9 Care PlanBaseline PHQ-9Delmis Nieves, MDdocumented as of this encounter Visit Diagnoses Diagnosis Well woman exam with routine gynecological exam Routine gynecological examination Menorrhagia with regular cycle Abnormal uterine bleeding (AUB) Pelvic pain in female Unspecified symptom associated with female genital organs documented in this encounter Additional Health Concerns Active ProblemsNoted DateDiagnosed DatePatient on antidepressant monitoring plan 01/31/2024aseline [id number] as of this encounter Care Teams Team MemberRelationshipSpecialtyStart DateEnd Date Delmis Lorenzo MD [address], [place] [id number] [facility] Delmis Lorenzo MD [address], [place] [id number] PCP - Radha Hahn07/16/23documented as of this encounter
--- OUTSIDE RECORDS SUMMARY | 2025-03-13 08:40 | XMS_ITS | Encounter Summary ---
Author Organization [facility] Address [address] [facility] [place] [address] Care Team Providers Care Superintendent [employer] Name Role Phone Delmis Lorenzo MD Primary Care Provider [phone] Delmis Lorenzo MD Unavailable Encounter Details DateTypeDepartmentCare Team (Latest Contact Info)Yvdyxlkbosu03/28/2025 8:40 AM EDTProcedure Visit SALINA Amezcua [facility] [address] [facility] [address] [facility] [place] [address] Delmis Lorenzo MD [address] [facility] [place] [address] Wrinkles (Primary Dx) Social History Tobacco UseTypesPacks/DayYears UsedDateSmoking Tobacco: NeverSmokeless [...] times a week12/24/2023How often do you attend zoroastrianism or amish services?More than 4 times per year12/24/2023o you belong to any clubs or organizations such as zoroastrianism groups, unions, fraternal or athletic groups, or school groups?No12/24/2023How often do you attend meetings of the clubs or organizations you belong to?1 to 4 times per year12/24/2023re you , , , , never , or living with a partner?Tiknvkx4412/24/2023UDIT-CAnswerDate RecordedQ1: How often do you have a [...] heating?Not hard at all12/24/2023HQ-2AnswerDate RecordedPatient Health Questionnaire-2 [id number] [place] of Occupational Health - Occupational Stress QuestionnaireAnswerDate [...] steady place to sleep or slept in [facility] (including now)?No 11/22/2022Edinburgh Depression ScaleAnswerDate RecordedEdinburgh Depression Scale [id number] thought of harming myself has occurred to me.Never10/28/2023Housing Stability Vital SignAnswerDate RecordedIn the last 12 months, was there a time when you were not able to pay the mortgage or rent on time?No12/24/2023In the past 12 months, how many times have you moved where you were living?t any time in the past 12 months, were you homeless or living in a fci (including now)?No12/24/2023CommentsNo Sex and Gender InformationValueDate RecordedSex Assigned at BirthNot on file Legal TkbCrznvc38/15/2023 7:41 PM EDTGender IdentityNot on fileSexual OrientationNot on filedocumented as of this encounter Progress Notes * Delmis Lorenzo MD - 03/13/2025 8:40 AM EDT Subjective ?Quick Links Last Note in Specialty Snapshot Edit RFV/CC Edit Screenings Current Meds Patient ID: Carolina Tavarez is a 35 y.o. female who presents for No chief complaint on file.. HPI History of Present Illness ?Quick Review Review Full History Meds - Current Medications[1] --- PMH - Congenital nevus COVID-19 Factor V deficiency (HCC) Fracture Fracture of parietal bone (CMS-HCC) GERD (gastroesophageal reflux disease) History of depression HL (hearing loss) Malignant melanoma of leg (HCC) Oral contraceptive pill surveillance Preeclampsia in period ([facility]) Objective ?Quick Links Add Vitals Timeline (Adult) Labs Imaging Results Review Trend Vitals ?? Avoid pulling in long tables of results. Comment on relevant results to support your medical decision making. LMP 02/16/2025 Physical Exam Physical Exam ?Quick Links Full Problem List Assessment & Plan Wrinkles 34 units of botox 16 to glabellar 10 to forehead and 8 to crows feet PROCEDURE Procedure: Botox injection in forehead and alakanuk's feet - Procedural Discussion: Discussed the Botox injection for forehead and alakan[place]'s feet, including benefits such as reducing wrinkles and improving appearance. Risks include potential bruising, swelling,and temporary discomfort. Alternative options were not discussed. Consent was implied. - Medication: Botox - Technique: Injection of Botox into the forehead and alakanuk's feet areas. Assessment & Plan [1] escitalopram (Lexapro) 10 MG tablet onabotulinumtoxinA (Botox) injection 34 Units documented in this encounter Plan of Treatment Not on file documented as of this encounter Goals GoalPatient Goal TypeAssociated ProblemsRecent ProgressPatient-Stated?Author Help patient manage antidepressant medication Care PlanPatient on antidepressant monitoring Delmis Ramirez MD Baseline PHQ-9 Care PlanBaseline PHQ-9Delmis Nieves MDdocumented as of this encounter Visit Diagnoses Diagnosis Wrinkles- Primary documented in this encounter Administered Medications Medication OrderMAR ActionAction DateDoseRateSite onabotulinumtoxinA (Botox) injection 34 Units 34 Units, Intradermal, Once, On Wed03/13/25 at 1300, For 1 dose, Charging context for this clinic-administered medication: Fee-Editable/Self Pay Indications:WwwtedkdKklok51/ 2:21 PM EDT34 Unitsdocumented in this encounter Additional Health Concerns Active ProblemsNoted DateDiagnosed DatePatient on antidepressant monitoring plan 4Baseline PHQ-904documented as of this encounter Care Teams Team MemberRelationshipSpecialtyStart DateEnd Date Delmis Lorenzo MD [address] [place], [place] [id number] PCP - GeneralFamily Medicine11/21/22 Delmis Lorenzo MD [address] [place], [place] [id number] PCP - Radha Hahn07/16/23documented as of this encounter
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
--- OUTSIDE RECORDS SUMMARY | 2025-03-16 09:58 | XMS_ITS | Encounter Summary ---
Author Organization [facility] Address [address] [place] [address] Care Team Providers Care Global Account Manager Name Role Phone Delmis Lorenzo MD Primary Care Provider [phone] Delmis Lorenzo MD Unavailable Encounter Details DateTypeDepartmentCare Team (Latest Contact Info)Pdfrjrxxfeo72/28/2025Travel Social History Tobacco UseTypesPacks/DayYears UsedDateSmoking Tobacco: NeverSmokeless [...] times a week12/24/2023How often do you attend restorationist or jehovah's witness services?More than 4 times per year12/24/2023o you belong to any clubs or organizations such as restorationist groups, unions, fraternal or athletic groups, or school groups?No12/24/2023How often do you attend meetings of the clubs or organizations you belong to?1 to 4 times per year12/24/2023re you , , , , never , or living with a partner?Bkmyfok7312/24/2023UDIT-CAnswerDate RecordedQ1: How often do you have a [...] heating?Not hard at all12/24/2023HQ-2AnswerDate RecordedPatient Health Questionnaire-2 Iwyee407[facility] [place] of [facility] - Occupational Stress QuestionnaireAnswerDate [...] now)?No 11/22/2022Edinburgh Depression ScaleAnswerDate RecordedEdinburgh Depression Scale Vxzta251The thought of harming myself has occurred to me.Never10/28/2023Housing Stability Vital SignAnswerDate RecordedIn the last 12 months, was there a time when you were not able to pay the mortgage or rent on time?No12/24/2023In the past 12 months, how many times have you moved where you were living?t any time in the past 12 months, were you homeless or living in a assisted (including now)?No12/24/2023CommentsNo Sex and Gender InformationValueDate RecordedSex Assigned at BirthNot on file Legal MhgQrjmbp27/15/2023 7:41 PM EDTGender IdentityNot on fileSexual OrientationNot on filedocumented as of this encounter Plan of Treatment Not on file documented as of this encounter Goals GoalPatient Goal TypeAssociated ProblemsRecent ProgressPatient-Stated?Author Help patient manage antidepressant medication Care PlanPatient on antidepressant monitoring planDelmis Nieves MD Baseline PHQ-9 Care PlanBaseline PHQ-9Delmis Nieves, MDdocumented as of this encounter Visit Diagnoses Not on filedocumented in this encounter Additional Health Concerns Active ProblemsNoted DateDiagnosed DatePatient on antidepressant monitoring plan 4Baseline PHQ-904documented as of this encounter Care Teams Team MemberRelationshipSpecialtyStart DateEnd Date Delmis Lorenzo MD [address] [place], [place] [id number] [facility] - [facility]22 Delmis Lorenzo MD [address] [facility] [place], [place] [address] PCP - [place]07/16/23documented as of this encounter
--- OUTSIDE RECORDS SUMMARY | 2025-03-16 09:58 | XMS_ITS | Encounter Summary ---
Author Organization [facility] Address [address] [facility] [place] [address] Care Team Providers Care Media Associate Name Role Phone Delmis Lorenzo MD Primary Care Provider [phone] Delmis Lorenzo MD Unavailable Encounter Details DateTypeDepartmentCare Team (Latest Contact Info)Aiovvpdgsjz30/30/2025Orders Only SALINA Frank OBGYJovon [address] [place] [address] Kimberly [place], [place] [address] [place] [address] Social History Tobacco UseTypesPacks/DayYears UsedDateSmoking Tobacco: NeverSmokeless [...] times a week12/24/2023How often do you attend jehovah's witness or church services?More than 4 times per year12/24/2023o you belong to any clubs or organizations such as jehovah's witness groups, unions, fraternal or athletic groups, or school groups?No12/24/2023How often do you attend meetings of the clubs or organizations you belong to?1 to 4 times per year12/24/2023re you , , , , never , or living with a partner?Qzclgdy8712/24/2023UDIT-CAnswerDate RecordedQ1: How often do you have a [...] heating?Not hard at all12/24/2023HQ-2AnswerDate RecordedPatient Health Questionnaire-2 Helcu617Fin[facility] [place] of Occupational Health - Occupational Stress QuestionnaireAnswerDate [...] now)?No 11/22/2022Edinburgh Depression ScaleAnswerDate RecordedEdinburgh Depression Scale Twans542The thought of harming myself has occurred to me.Never10/28/2023Housing Stability Vital SignAnswerDate RecordedIn the last 12 months, was there a time when you were not able to pay the mortgage or rent on time?No12/24/2023In the past 12 months, how many times have you moved where you were living?t any time in the past 12 months, were you homeless or living in a chcf (including now)?No12/24/2023CommentsNo Sex and Gender InformationValueDate RecordedSex Assigned at BirthNot on file Legal KubPldpyg83/15/2023 7:41 PM EDTGender IdentityNot on fileSexual OrientationNot on filedocumented as of this encounter Plan of Treatment Not on file documented as of this encounter Goals GoalPatient Goal TypeAssociated ProblemsRecent ProgressPatient-Stated?Author Help patient manage antidepressant medication Care PlanPatient on antidepressant monitoring Delmis Ramirez MD Baseline PHQ-9 Care PlanBaseline PHQ-9Delmis Nieves, MDdocumented as of this encounter Procedures Procedure NamePriorityDate/TimeAssociated DiagnosisCommentsENDOMETRIAL BIOPSY, WMSCORZNFgaxumd09/14/2025 12:00 AM EDTdocumented in this encounter Results * ENDOMETRIAL BIOPSY, EXTERNAL (02/27/2025 12:00 AM EDT) Narrative Authorizing ProviderResult TypeResult StatusCorey Arthur DOLAB CYTOLOGY ORDERABLESFinal ResultPerforming OrganizationAddressCity/State/ZIP CodePhone Number EXTERNAL LAB documented in this encounter Visit Diagnoses Not on filedocumented in this encounter Additional Health Concerns Active ProblemsNoted DateDiagnosed DatePatient on antidepressant monitoring plan 4Baseline PHQ-904documented as of this encounter Care Teams Team MemberRelationshipSpecialtyStart DateEnd Date Delmis Lorenzo MD [address] [place] [address] PCP - GeneralFamily Medicine11/21/22 Delmis Lorenzo MD [address] [place] [address] PCP - Radha Hahn07/16/23documented as of this encounter
--- OUTSIDE RECORDS SUMMARY | 2025-03-16 09:58 | XMS_ITS | Clinical Summary ---
Author Organization [facility] Address [address], [address] [place] [address] Care Team Providers Care Test Pilot Name Role Phone Unavailable Primary Care Provider Unavailabl e Social History Tobacco UseTypesPacks/DayYears UsedDateSmoking Tobacco: Never Assessed CommentsUnknownSex and Gender InformationValueDate RecordedSex Assigned at Not on fileLegal WapBimbfg40/08/2018 10:27 PM EDTGender IdentityNot on file Sexual OrientationNot on file Plan of Treatment Not on file Insurance
--- OUTSIDE RECORDS SUMMARY | 2025-03-16 09:58 | XMS_ITS | Clinical Summary ---
Author Organization [facility] Address [id number] [place] [address] Care Team Providers Care Airflight Attendants Supervisor Name Role Phone Marge Alfaro DO Primary Care Provider Unavaila ble Allergies Active AllergyReactionsCriticalityNoted QwssHadwmtmhIvvoqcsgfmk39/09/2018 Unknown as child Medications MedicationSigDispense QuantityRefillsLast FilledStart DateEnd DateStatus vit,calc76/iron/folic (PNV 29-1 ORAL) Take 1 tablet by mouth daily.Active Active Problems ProblemNoted DateDiagnosed DateHistory of low-risk cowyldog56/20/2023 Heterozygous factor V Leiden affecting in first trimester, antepartum 03/05/2023Hx of preeclampsia, prior , currently , first /20/2023 Family History Medical HistoryRelationNameCommentsBreast cancerMaternal GrandmotherAsthmaMother Miscarriages / StillbirthsMotherStrokeMotherRelationNameStatusCommentsMaternal GrandmotherMother Social History Tobacco UseTypesPacks/DayYears UsedDateSmoking Tobacco: NeverSmokeless Tobacco: Never Tobacco Cessation:Counseling Given: Not Answered Alcohol UseStandard Drinks/WeekCommentsNot Currently0 (1 standard drink = 0.6 oz pure alcohol)AUDIT-CAnswerDate RecordedFrequency of Alcohol ConsumptionNever 03/25/2018Average Number of DrinksNot on file03/25/2018Frequency of Binge DrinkingNot on file03/25/2018ChildcareAnswerDate RecordedChildcareUnknown 10/27/2018EmploymentAnswerDate ImrmbvgtUnbtyptxjnKggxozg64/13/2019Hunger ScreeningAnswerDate RecordedWithin the past 12 months we worried whether our food would run out before we got money to buy more.Never True03/05/2023Food Insecurity - InabilityNot on file03/05/2023urpose - LifeAnswerDate Recorded Purpose and direction in ymluHhvttya37/11/2021CommentsNoSex and Gender InformationValueDate RecordedSex Assigned at BirthNot on fileLegal SexFemale 03/10/2018 12:03 PM EDTGender IdentityNot on fileSexual OrientationNot on file Last Filed Vital Signs Vital SignReadingTime TakenCommentsBlood Kowhxqlv054/7403/05/2023 8:01 AM EDT Pawjg286003/05/2023 8:01 AM EDTTemperature--Respiratory Rate--Oxygen Saturation-- Inhaled Oxygen Concentration--Zdwign46 kg (136 lb 9.6 oz)03/05/2023 8:01 AM EDT Gydzxw692.6 cm (5' 4 )03/05/2023 8:01 AM EDTBody Mass Index23.451 8:01 AM EDT Plan of Treatment Health MaintenanceDue DateLast DoneCommentsDTaP,Tdap and Td Vaccines (5 - Tdap) , 07/17/1991, 1990, Additional history exists Depression Esmndnhmb93/26/2002Pap Smear2011dult BMI Pabviqlsd39/20/2024 03/05/2023Tobacco Yzqqomjit03OVID-19 Vaccine ( - season)502/06/2021, 01/08/2021, 12/18/2020Influenza Jspsonl1301/15/2025 05/14/2023, 04/03/2021, 02/21/2020 Medical Devices [place] [address] Care Teams Team MemberRelationshipSpecialtyStart DateEnd Date Marge Alfaro DO PCP - GeneralFamily Feshoiua06/12/23
--- OUTSIDE RECORDS SUMMARY | 2025-03-16 09:58 | XMS_ITS | Encounter Summary ---
Author Organization [facility] Address [address] [place] [address] Care Team Providers Care Oil Well Services Dispatcher Name Role Phone Delmis Lorenzo MD Primary Care Provider [phone] Delmis Lorenzo MD Unavailable Encounter Details DateTypeDepartmentCare Team (Latest Contact Info)Bmmfdbfrwur39/20/2025Bamboo flowsheet [facility] [address] [id number] Akhil Gibson DO [address] [place] [address] Social History Tobacco UseTypesPacks/DayYears UsedDateSmoking Tobacco: NeverSmokeless [...] times a week12/24/2023How often do you attend yazidism or holiness services?More than 4 times per year12/24/2023o you belong to any clubs or organizations such as yazidism groups, unions, frafarmbuy or athletic groups, or school groups?No12/24/2023How often do you attend meetings of the clubs or organizations you belong to?1 to 4 times per year12/24/2023re you , , , , never , or living with a partner?Ylldikr4212/24/2023UDIT-CAnswerDate RecordedQ1: How often do you have a [...] heating?Not hard at all12/24/2023HQ-2AnswerDate RecordedPatient Health Questionnaire-2 Wqudo138Fin[facility] [place] of Occupational Health - Occupational Stress QuestionnaireAnswerDate [...] steady place to sleep or slept in lone treeelter (including now)?No 11/22/2022Edinburgh Depression ScaleAnswerDate RecordedEdinburgh Depression Scale Esvhi760The thought of harming myself has occurred to me.Never10/28/2023Housing Stability Vital SignAnswerDate RecordedIn the last 12 months, was there a time when you were not able to pay the mortgage or rent on time?No12/24/2023In the past 12 months, how many times have you moved where you were living?t any time in the past 12 months, were you homeless or living in a long term (including now)?No12/24/2023CommentsNo Sex and Gender InformationValueDate RecordedSex Assigned at BirthNot on file Legal MfyCiuixi78/15/2023 7:41 PM EDTGender IdentityNot on fileSexual OrientationNot [...] DateEnd Date Delmis Lorenzo MD [address] [place], [place] [phone] [facility] Delmis Lorenzo MD [address] [facility] [address] [place], [place] [phone] PCP - Radha Hahn07/16/23documented as of this encounter
--- OUTSIDE RECORDS SUMMARY | 2025-03-16 09:58 | XMS_ITS | Encounter Summary ---
Author Organization [facility] Address [address] [facility] [place] [address] Care Team Providers Care Block Machine Operator Name Role Phone Delmis Lorenzo MD Primary Care Provider [phone] Delmis Lorenzo MD Unavailable Encounter Details DateTypeDepartmentCare Team (Latest Contact Info)Vsjmsrekoxo39/20/2025Clinisync Result Encounter [facility] Unsolicited Akhil Gibson, DO [address] [place] [place], [place] [id number] Social History Tobacco UseTypesPacks/DayYears UsedDateSmoking Tobacco: NeverSmokeless [...] times a week12/24/2023How often do you attend confucianist or episcopalian services?More than 4 times per year12/24/2023o you belong to any clubs or organizations such as confucianist groups, unions, fraTypesafe or athletic groups, or school groups?No12/24/2023How often do you attend meetings of the clubs or organizations you belong to?1 to 4 times per year12/24/2023re you , , , , never , or living with a partner?Bkehznp2012/24/2023UDIT-CAnswerDate RecordedQ1: How often do you have a [...] heating?Not hard at all12/24/2023HQ-2AnswerDate RecordedPatient Health Questionnaire-2 Xhbum525Finuint[facility] [place] of Occupational Health - Occupational Stress QuestionnaireAnswerDate [...] now)?No 11/22/2022Edinburgh Depression ScaleAnswerDate RecordedEdinburgh Depression Scale Plnau742The thought of harming myself has occurred to me.Never10/28/2023Housing Stability Vital SignAnswerDate RecordedIn the last 12 months, was there a time when you were not able to pay the mortgage or rent on time?No12/24/2023In the past 12 months, how many times have you moved where you were living?t any time in the past 12 months, were you homeless or living in a fpc (including now)?No12/24/2023CommentsNo Sex and Gender InformationValueDate RecordedSex Assigned at BirthNot on file Legal EulLzwzhl72/15/2023 7:41 PM EDTGender IdentityNot on fileSexual OrientationNot on filedocumented as of this encounter Plan of Treatment Not on file documented as of this encounter Goals GoalPatient Goal TypeAssociated ProblemsRecent ProgressPatient-Stated?Author Help patient manage antidepressant medication Care PlanPatient on antidepressant monitoring Delmis Ramirez MD Baseline PHQ-9 Care PlanBaseline PHQ-9Delmis Nieves, MDdocumented as of this encounter Procedures Procedure NamePriorityDate/TimeAssociated DiagnosisCommentsIGP,APTIMA HPV,AGE JGIDLrzdngh56/20/2025 1:53 PM EDT documented in this encounter Results * IGP,APTIMA HPV,AGE GDLN (03/05/2025 1:53 [...] at: 01 =G ?[facility] [place] ?? [address] [place] ??[phone] ?? Parisa Jane MD, IGP, APTIMA HPV, RFX 16/18,45Note.TBHComment: ?? TESTS ? RESULT ??FLAG ??UNITS ?REF RANGE ??LAB DIAGNOSIS: ?02 ?? NEGATIVE FOR INTRAEPITHELIAL LESION OR MALIGNANCY. Specimen adequacy: ?02 ?? Satisfactory for evaluation. ??Endocervical and/or squamous metaplastic ?? cells (endocervical component) are present. Performed by: ? 02 ?? Jose David Townsend Accounts Payable Assistant (ASCP) . ? 02 Note: ? Note [...] pap test was interpreted ?? using the [employer] Genius(TM) Cervical Algorithm whole ?? slide imaging system. HPV Genotype Reflex ?? Note ?02 ?? Criteria not met, HPV Genotype not performed. ?FLAG LEGEND: ?L-Low Normal,H-High Normal,LL-Alert Low,HH-Alert High <-Panic Low,>-Panic High,A-Abnormal,AA-Critical Abnormal Performed at: 02 WB ?[facility] ?? [address] [place], [place] ??[phone] ?? Parisa Jane MD, HPV APTIMANegativeNegativeTBHComment: This nucleic acid amplification test detects fourteen high- risk HPV types (16,18,31,33,35,39,45,51,52,56,58,59,66,68) without differentiation. Performed at: ??=G - [facility] [address] ??[id number] Color Adviser: Parisa Jane MD, Phone: ??[phone] Performed at: ??WB - [facility] ??[id number] Color Adviser: Parisa Jane MD, Phone: ??[phone] Specimen (Source)Anatomical Location / LateralityCollection Method / Volume Collection TimeReceived Time03/05/2025 1:53 PM EDT1 8:45 PM EDT Narrative [facility] - 03/09/2025 4:09 PM EDT BRUSH-SPATULA CERVIX ENDOCERVIX Authorizing ProviderResult TypeResult StatusCorey Arthur DOLAB BLOOD ORDERABLES Final ResultPerforming OrganizationAddressCity/State/ZIP CodePhone Number [facility] TB documented in this encounter Visit Diagnoses Not on filedocumented in this encounter Additional Health Concerns Active ProblemsNoted DateDiagnosed DatePatient on antidepressant monitoring plan 4Baseline PHQ-904documented as of this encounter Care Teams Team MemberRelationshipSpecialtyStart DateEnd Date Delmis Lorenzo MD [address] [place], [place] [phone] PCP - GeneralFamily Medicine11/21/22 Delmis Lorenzo MD [address] [place], [place] [phone] PCP - Radha Hahn07/16/23documented as of this encounter
--- OUTSIDE RECORDS SUMMARY | 2025-03-16 09:59 | XMS_ITS | CCD ---
Author Organization [facility] ion [facility] Care Team Providers Care Capacitor Repairer Name Role Phone DARRYL DE LA ROSA Unavailable Unavailable RENZO SHIN Attending Unavailable RENZO SHIN Admitting Unavailable LOVE QUINTERO Consulting Unavailable RENZO SHIN Consulting Unavailable RENZO SHIN Consulting Unavailable RENZO SHIN Attending Unavailable RENZO SHIN Admitting Unavailable [facility]Br[facility] Unavailable RENZO SHIN Consulting Unavailable RENZO SHIN Attending Unavailable RENZO SHIN Admitting Unavailable RENZO SHIN Admitting Unavailable RENZO SHIN Attending Unavailable FELICITAS MARTINES V Consulting Unavailable RENZO SHIN Consulting Unavailable [facility]RONBr[facility] Unavailable RENZO SHIN Admitting Unavailable RENZO SHIN Consulting Unavailable RENZO SHIN Attending Unavailable RENZO SHIN Admitting Unavailable RENZO SHIN Attending Unavailable RENZO SHIN Consulting Unavailable CAMRONBr[facility] Unavailable RENZO SHIN Attending Unavailable RENZO SHIN Consulting Unavailable RENZO SHIN Admitting Un[facility] RENZO SHIN Admitting Unavailable RENZO SHIN Attending Unavailable RENZO SHIN Consulting Un[facility] Unavailable RENZO SHNI Consulting Unavailable RENZO SHIN Attending Unavailable RENZO SHIN Admitting Unavailable [facility] Care Unavailable SHIN DAVISON Referring Unavailable DEMI DANIELS Primary Care Unavailable Delmis Lorenzo MD Primary Care Provider Delmis Lorenzo MD Unavailable Akhil Gibson DO Attending Provider NON STAFF Primary Care Unavailable Akhil Gibson Attending Unavailable Akhil Gibson Admitting Unavailable DELMIS LORENZO Attending Unavailable SHIN DAVISON Attending Unavailable SHIN DAVISON Referring Unavailable SHIN DAVISON Referring Unavailable OLEG OROPEZA Attending Unavailable AKHIL GIBSON Attending Unavailable DELMIS LORENZO Attending Unavailable AKHIL GIBSON Attending Unavailable AKHIL GIBSON Attending Unavailable DELMIS LORENZO Attending Unavailable Allergies Allergy ClassificationReported Allergen(s)Allergy TypeDate of OnsetReaction(s) Facility (1 source)PenicillinDrug AllergyThe [facility]ository (20 sources)Penicillins; Translations: [PENICILLINS]Propensity to adverse reactions to drug (disorder)49-93-3423RrbnDqmWolauj Repository Medications Current Medications MedicationDrug Class(es)DatesSig (Normalized)Sig (Original)acetaminophen 325 mg / HYDROcodone bitartrate 5 mg oral tablet (1 source)Opioid AgonistStart: 56-67-1633smpa 2 tablets by mouth every four to six hours as needed for painonabotulinumtoxina 100 unt injection (12 sources)Acetylcholine Release InhibitorStart: 17-93-7961mxsmyvtskkklikxlqQ (Botox) injection 34 UnitsStart: 21-04-0870mdsiqrzrgvqdrizqfV (Botox) injection 34 UnitsStart: 08-17-2024 End: 07-12-1735ltiisvmhmrfresosiH (Botox) injection 34 UnitsStart: 08-17-2024 End: 34-04-486376 Units, Intradermal, Once, On Norah 08/17/24 at 1715, For 1 dose, Charging context for this clinic-administered medication: Fee-Editable/Self Pay escitalopram 10 mg oral tablet (20 sources)Serotonin Reuptake InhibitorStart: 05-31-2024 End: 42-96-7408vfij 1 tablet by mouth once dailyescitalopram (Lexapro) 10 MG tablet Indications: Mood changes TAKE 1 TABLET (10 MG) BY MOUTH DAILY.90 tablet 1 11/27/2024 ActiveStart: 01-31-2024 End: 27-83-5488llxc 1 tablet by mouth once dailyescitalopram (Lexapro) 10 MG tablet Indications: Mood changes Take 1 tablet (10 mg) by mouth Daily 30 tablet 5 01/31/2024 04/30/2024 Active Completed/Discontinued Medications MedicationDrug Class(es)DatesSig (Normalized)Sig (Original)levonorgestrel 0.443023 mg/hr intrauterine system (12 sources)Progestin, Progestin-containing Intrauterine Device End: 89-45-4664Vwqxejaodaqywc (Liletta, 52 MG,) 20.1 MCG/DAY intrauterine device by Intrauterine route 09/11/2024 Discontinued Problems Active Problems Problem ClassificationProblemDateDocumented DateEpisodic/ChronicContraceptive and procreative management (2 sources)Intrauterine contraceptive device in situ; Translations: [Encounter for routine checking of intrauterine contraceptive device]61-76-3038Uizaktzv Diabetes mellitus without complication (4 sources)Other abnormal glucose; Translations: [OTHER ABNORMAL GLUCOSE]Onset: 00-59-0494CongfeycWboinosmvdztk and screening for infectious disease (4 sources)Contact with and (suspected) exposure to other viral communicable diseases; Translations: [Encounter for screening for infections with a predominantly sexual mode of transmission]Onset: 20-47-5653IjbplrgeSuzhjfiix disorders (9 sources)Secondary amenorrhea; Translations: [Menorrhagia]Onset: 01-15-2020 22-16-7877BpheuncCoid disorders (2 sources)Disturbance in mood; Translations: [Emotional lability]01-31-2024 EpisodicOther aftercare (2 sources)Surgical follow-up; Translations: [Encounter for follow-up examination after completed treatment for conditions other than malignant neoplasm]13-09-8438BghnqsmpIjppj complications of (1 source)Supervision of high risk , unspecified, unspecified trimester; Translations: [Supervision of high risk , unspecified, unspecified trimester]Onset: 74-27-2956UhijfpffGfslt endocrine disorders (2 sources)Polycystic ovary syndrome; Translations: [Polycystic ovarian syndrome]83-60-6492NlelfgcNpzqo female genital disorders (2 sources)Abnormal uterine bleeding; Translations: [Abnormal uterine and vaginal bleeding, unspecified]30-11-2233TjvizmwIdpxl female genital disorders (2 sources)Pain in female pelvis; Translations: [Pelvic pain in female] 47-99-9774DkajqesqSqnys and delivery including normal (8 sources)Encounter for supervision of normal , unspecified, second trimester; Translations: [Encounter for supervision of normal , unspecified, third trimester]Onset: 31-45-4339UmhhnutjGndxu screening for suspected conditions (not mental disorders or infectious disease) (5 sources)Encounter for screening for malignant neoplasm of cervix; Translations: [Encounter for other screening follow-up]Onset: 68-95-7390ZquvtirlDlovr screening for suspected conditions (not mental disorders or infectious disease) (1 source)Encounter for screening for Streptococcus B; Translations: [ENC SCR STREPTOCOCCUS B]Onset: 74-48-8345Qkzji skin disorders (2 sources)Rhytide of forehead; Translations: [Other specified disorders of the skin and subcutaneous tissue]53-66-9386CsmoishmFrtfv skin disorders (1 source)Wrinkled skin; Translations: [Other specified disorders of the skin and subcutaneous tissue]42-40-1787QhrjsqzwKauczlaa codes; unclassified (4 sources)23 weeks gestation of ; Translations: [23 WEEKS GESTATION OF ]Onset: 19-33-3633Gtayjrfo codes; unclassified (1 source)20 weeks gestation of ; Translations: [20 WEEKS GESTATION OF ]Onset: 26-94-8990Qdtdrmbgksbr (1 source)BX / BX()Onset: 48-16-9883Sjwkyqbeqkfb (1 source)COVID-19; Translations: [COVID-19]Onset: 85-08-7701Uayazxqkpbuq (20 sources)Patient on antidepressant monitoring planOnset: [id number] Unclassified (20 sources)Baseline PHQ-9Onset: 924302-30-1599 Past or Other Problems Problem ClassificationProblemDateDocumented DateEpisodic/ChronicOther ear and sense organ disorders (20 sources)Sudden idiopathic hearing loss; Translations: [Sudden idiopathic hearing loss, left ear]Onset: 359542-58-8452DfemzykrJtaovxhgmjnb (1 source)BX; Translations: [BX]Onset: 02-22-2018 Results Test NameValueInterpretationReference RangeFacilityIGP,APTIMA HPV,AGE GDLNon 92-43-9745LKK GDLN ACOG TESTINGNote.NOMS HealthcareComment on above:TESTS RESULT FLAG UNITS REF RANGE LAB Clinician Provided Cytology Information Source.............Cervix;Endocervix No. of containers..01 ThinPrep Vial Age Ovidio STATON [place]... 30 FLAG LEGEND: L-Low Normal,H-High Normal,LL-Alert Low,HH-Alert High <-Panic Low,>-Panic High,A-Abnormal,AA-Critical Abnormal Performed at: 01 =G [address] [place] [address] Parisa Jane MD, HPV APTIMANegativeNegativeNOMS HealthcareComment on above:This nucleic acid amplification test detects fourteen high- risk HPV types (16,18,31,33,35,39,45,51,52,56,58,59,66,68) without differentiation. Performed at: = - [facility] [id number] Assistant Center Manager: Parisa Jane MD, Phone: [phone] Performed at: - [address] [id number] Assistant Center Manager: Parisa Jane MD, Phone: [phone] IGP, APTIMA HPV, RFX 16/18,45Note.NOMS HealthcareComment on above:TESTS RESULT FLAG UNITS REF RANGE LAB DIAGNOSIS: 02 NEGATIVE FOR INTRAEPITHELIAL LESION OR MALIGNANCY. Specimen adequacy: 02 Satisfactory for evaluation. Endocervical and/or squamous metaplastic cells (endocervical component) are present. Performed by: 02 Jose David Townsend, Health Editor ([facility]) . 02 Note: Note 02 The Pap smear is a screening test designed to aid in the detection of premalignant and malignant conditions of the uterine cervix. It is not a diagnostic procedure and should not be used as the sole means of detecting cervical cancer. Both false-positive and false-negative reports do occur. Test Methodology: Note 02 This liquid based ThinPrep(R) pap test was interpreted using the FoxyP2R) [employer](TM) Cervical Algorithm whole slide imaging system. HPV Genotype Reflex Note 02 Criteria not met, HPV Genotype not performed. FLAG LEGEND: L-Low Normal,H-High Normal,LL-Alert Low,HH-Alert High <-Panic Low,>-Panic High,A-Abnormal,AA-Critical Abnormal Performed at: [address] [phone] Parisa Jane MD, BRUSH-SPATULA CERVIX ENDOCERVIX CLINISYNCNOUT HealthcareHCG ( test) Ql (U)on 20-19-1301Vhnunmtyliccvn and review of laboratory resultsAbnormalCoxHealthPreg Test, UrNegative NegativeNOAspirus Wausau HospitalLon 02-27-2025L Specimen: [id number] Received: 03/01/25 Status: MARY ALICE Ke Num: [id number] Spec Type: Surgical Subm Dr: Akhil Gibson Tissues: A Endometrium - Biopsy (EMBX) Procedures: Emani DELGADO/Derick L4 Age/ Patient Sex Location Account Attending Physician Tania Brothers 35/F SIMONE [id number] Akhil Gibson SPEC NUM: [id number] RECD: 03/01/25 STATUS: MARY ALICE CARMONAFatou NUM: [id number] KRISTA: 02/27/25- SUBM DR: Akhil Gibson ENTERED: 03/01/[address]: Rudy Frank SPEC TYPE: Surgical DEPT: JG MUIR ENTERED BY: [id number] RECV BY: [id number] ORDERED: HE/2, Gross/Micro L4 ORDERED: HE/2, Gross/Micro [...] entirely submitted in a single cassette. (1, ns, [id number]) Microscopic Description Microscopic examination is performed. CPT Codes 38637 Specimen: [id number] Received: 03/01/25 Status: MARY ALICE Dempsey Num: [id number] Spec Type: Surgical Subm Dr: Akhil Gibson Tissues: A Endometrium - Biopsy (EMBX) Procedures: 2, Gross/Micro L4 Patient: Tania Brothers [id number] (Continued) Signed (signature on file) Aristeo Mendez MD 03/02/25 1049Normal [facility] Physician GroupALL CBC WITH AUTO DIFFon 79-90-3266YLRZMSQJE ABSOLUTE NFVG0JTKO HealthcareBasophils/100 WBC (Bld)0.7 %0.2 - 2.0 %NOMS HealthcareEosinophils/100 WBC (Bld)1.2 %0.9 - 7.0 %NOMS HealthcareErythrocyte distribution width (RBC) [Ratio]12.2 %11.0 - 15.0 %NOMS HealthcareHematocrit (Bld) [Volume fraction]37.8 %36.0 - 48.0 %NOMS HealthcareHemoglobin (Bld) [Mass/Vol]12.9 g/dL12.0 - 16.0 g/dLNOUT HealthcareIMMATURE GRANULOCYTES ABS AUTO 0.01NOMS HealthcareImmature granulocytes/100 WBC (Bld)0.2 %0.0 - 0.5 %NOMS HealthcareInterpretation and review of laboratory resultsAbnormalNOUT Healthcare LYMPHOCYTES ABSOLUTE AUTO2.1NOMS HealthcareLymphocytes/100 WBC (Bld)36.7 %20.5 - 60.0 %NOMSaint Francis Medical CenterMCH (RBC) [Entitic mass]29.5 pg26.7 - 34.0 pgNOSaint Francis Medical CenterMCHC (RBC) [Mass/Vol]34.1 g/dL29.9 - 35.2 g/dLNOSaint Francis Medical CenterMCV (RBC) [Entitic vol]86.3 fL81.0 - 99.0 fLNOUT HealthcareMONOCYTES ABSOLUTE AUTO0.4NOMS HealthcareMonocytes/100 WBC (Bld)6.3 %1.7 - 12.0 %NOMS HealthcareNEUTROPHILS ABSOLUTE AUTO3.1NOMS HealthcareNeutrophils/100 WBC (Bld)54.9 %43.0 - 75.0 %NOMS HealthcarePlatelet mean volume (Bld) [Entitic vol]9.2 fLLow9.5 - 13.5 fLNOMS HealthcareTBH EO #0.1NOMS HealthcareTBH [id number] HealthcareTBH RBC4.38NOMS HealthcareTBH WBC5.7NOMS HealthcareCLINISYNCNOMS HealthcareUrinalysis macro (dipstick) panel (U)on 94-26-5776Zbysogrcr, UANegativeNegative - 4(70) +++ mg/dL NOMS HealthcareBlood, UANegativeNegative - 50 Rudy/mcLNOMS HealthcareClarity, UA ClearNOMS HealthcareColor, UAYellowNOMS HealthcareGlucose, UANegativeNegative - 2000(110) ++++ mg/dLNOUT HealthcareInterpretation and review of laboratory resultsNormalNOMS HealthcareKetones, UANegativeNegative - 160(16) ++++ mg/dLNOUT HealthcareLeukocytes, UANegativeNegative - 500+++ Juan/mcLNOMS HealthcareNitrite, UANegativeNegative - PositiveNOMS HealthcarepH, UA75 - 9NOMS HealthcareProtein, UANegativeNegative - 2000(20) ++++ mg/dLNOUT HealthcareSpec Grav, UA1.0151 - 1.03NOMS HealthcareUrobilinogen, UA0.20.2 - 12 mg/dLNOUT HealthcareNOMS HealthcareALL CBC WITH AUTO DIFFon 11-79-2303PUKRRMNHY ABSOLUTE AUTO0.1NOMS HealthcareBasophils/100 WBC (Bld)0.8 %0.2 - 2.0 %NOMS HealthcareEosinophils/100 WBC (Bld)0.7 %Low0.9 - 7.0 %NOMS HealthcareErythrocyte distribution width (RBC) [Ratio]13.8 %11.0 - 15.0 %NOMS HealthcareHematocrit (Bld) [Volume fraction]38.6 %36.0 - 48.0 %NOMS HealthcareHemoglobin (Bld) [Mass/Vol]13.2 g/dL12.0 - 16.0 g/dLNOUT HealthcareIMMATURE GRANULOCYTES ABS AUTO0.01NOMS HealthcareImmature granulocytes/100 WBC (Bld)0.2 %0.0 - 0.5 %CoxHealthInterpretation and review of laboratory resultsAbnormalNOSaint Francis Medical CenterLYMPHOCYTES ABSOLUTE AUTO3.6 CoxHealthLymphocytes/100 WBC (Bld)59.8 %20.5 - 60.0 %[facility] HospitalH (RBC) [Entitic mass]29.3 pg26.7 - 34.0 pgI-70 Community HospitalHC (RBC) [Mass/Vol] 34.2 g/dL29.9 - 35.2 g/dLI-70 Community HospitalV (RBC) [Entitic vol]85.6 fL81.0 - 99.0 fLCoxHealthMONOCYTES ABSOLUTE AUTO0.5[facility] HealthcareMonocytes/100 WBC (Bld)8.3 %1.7 - 12.0 %CoxHealthNEUTROPHILS ABSOLUTE AUTO1.8NOSaint Francis Medical Center Neutrophils/100 WBC (Bld)30.2 %Low43.0 - 75.0 %CoxHealthPlatelet mean volume (Bld) [Entitic vol]8.5 fLLow9.5 - 13.5 fLCoxHealthTBH EO #0NOMS HealthcareTBH [id number] [facility] RBC4.51NOMS [facility] HospitalTB XAP9IFYDSaint Francis Medical CenterCLINISYNCNOMS HealthcareUS PELVIS TRANSVAGINALon 40-86-7873YS PELVIS TRANSVAGINALTITLE OF EXAM: US PELVIS TRANSVAGINAL REASON FOR [...] solid lesion measures 2.8 x 2.8 x 1.7cm with solid components fairly hypoechoic. No appreciable [...] is not excluded. Recommend follow-up ultrasound in approximately3 months at a different phase of the patient's menstrual cycle. DICTATED ON: 08/30/2024 2:23 PM This report has been electronically signed and approved by the interpreting radiologist.NormalNot AvailableXR PELVIS 1-2 VIEWSon 42-63-2499PG PELVIS 1-2 VIEWSTITLE OF EXAM: XR PELVIS 1-2 VIEWS REASON FOR EXAM: IUD placement, [...] electronically signed and approved by the interpreting radiologist.NormalNot AvailableComment on above:Order Comment: Unable to visualize strings on IUD and US tech unable to determine if the image contains the IUD difficult scanCHLAMYDIA/GONOCOCCUS LING (SWAB/URINE/PAPon 07-06-2020 Chlamydia trachomatis, NAANegativeNormalNegativeThe [facility] Memorial HospitalComment on above:Performed By: #### VARCEL #### [facility] [address] [address] Rory Velascoisseria gonorrhoeae, NAANegativeNormalNegativeThe [facility] HospitalComment on above:Performed By: #### VARCEL #### [facility] [address] [place] [address] Rory KarenGROUP B STREP CULTUREon 07-04-2020. agalactiae Ag Ql (Unsp spec) Culture Observations: Negative for Group B StreptococcusNoOhioHealth Mansfield HospitalComment on above: Performed By: #### GBSCX #### [facility] [address] [place] [address] Rory KarenGTT 3 HR PREGon 61-38-4914Cjfnstp [Mass/Vol]138 mg/dLRiverview Health InstituteComment on above:Performed By: #### CBC #### [facility] [address] [place] [address] Rory KarenGlucose [Mass/Vol]102 mg/dLRiverview Health InstituteComment on above:Performed By: #### CBC #### [facility] [address] [place] [address] Rory KarenGlucose [Mass/Vol]80 mg/uMCbmjak47-328Sod [facility] HospitalComment on above:Performed By: #### CBC #### [facility] [address] [place] [address] Rory KarenGlucose [Mass/Vol]132 mg/dLRiverview Health InstituteCommymichigan medical center sag[place] on above:Performed By: #### CBC #### [facility] [address] [place] [address] Rory KarenCBC AUTO DIFFon 86-23-0282Nhetadlgb (Bld) [#/Vol]0.0 103/ulNormal 0.0-0.1The [facility] HospitalComment on above:Performed By: #### CBC #### [facility] [address] [place] [address] Rory KarenBasophils/100 WBC (Bld)0.4 %Normal0.2-2.0The [facility] Comment on above:Performed By: #### CBC #### [facility] [address] [place] [address] Rory KarenEosinophils (Bld) [#/Vol]0.1 103/ulNormal0.0-0.7The [facility] HospitalComment on above:Performed By: #### CBC #### [facility] [address] [place] [address] Rory KarenEosinophils/100 WBC (Bld)0.6 %Critically low0.9-7.0The [facility] HospitalComment on above:Performed By: #### CBC #### [facility] [address] [place] [address] Rory KarenErythrocyte distribution width (RBC) [Ratio]13.2 %Pdbkmb83.0-15.0The [facility] HospitalComment on above:Performed By: #### CBC #### [facility] [address] [place] [address] Rory KarenHematocrit (Bld) [Volume fraction]35.7 %Critically low36.0-48.0The [facility] HospitalComment on above:Performed By: #### CBC #### [facility] [address] [place] [address] Rory KarenHemoglobin (Bld) [Mass/Vol]12.2 g/sQAtkugi58.0-16.0The [facility] HospitalComment on above:Performed By: #### CBC #### [facility] [address] [place] [address] Rory KarenIG #0.06 10e3/ulCritically high0.00-0.03The [facility] HospitalComment on above:Performed By: #### CBC #### [facility] [address] [place] [address] Rory KarenIG %0.7 %Critically high0.0-0.5The [facility] HospitalComment on above:Performed By: #### CBC #### [facility] [address] [place] [address] Rory KarenLymphocytes (Bld) [#/Vol]1.6 103/ulNormal1.2-3.8The [facility] HospitalComment on above:Performed By: #### CBC #### [facility] [address] [place], [place] [address] Rory KarenLymphocytes/100 WBC (Bld)19.5 %Critically low20.5-60.0[facility] CampusComment on above:Performed By: #### CBC #### [facility] [address] [place] [address] Rory KarenMANUAL DIFF REQNONormalThe [facility] HospitalComment on above: Performed By: #### CBC #### [facility] [address] [place] [address] Rory KarenMCH (RBC) [Entitic mass]30.1 gwKkmzgi25.7-34.0[facility] Comment on above:Performed By: #### CBC #### [facility] [address] [place] [address] Rory KarenMCHC (RBC) [Mass/Vol]34.2 g/bIDqpxdw62.9-35.2[facility] Comment on above:Performed By: #### CBC #### [facility] [address] [place] [address] Rory KarenMCV (RBC) [Entitic vol]88.1 kUOsxvux16.0-99.0[facility] Comment on above:Performed By: #### CBC #### [facility] [address] [place] [address] Rory KarenMonocytes (Bld) [#/Vol]0.4 103/ulNormal0.3-0.8ThWooster Community Hospital Comment on above:Performed By: #### CBC #### [facility] [address] [place] [address] Rory KarenMonocytes/100 WBC (Bld)4.8 %Normal1.7-12.0[facility] Comment on above:Performed By: #### CBC #### [facility] [address] [place] [address] Rory KarenNeutrophils (Bld) [#/Vol]6.1 103/ulNormal1.4-6.5The [facility] HospitalComment on above:Performed By: #### CBC #### [facility] [address] [place], [place] [id number] Rory KarenNeutrophils/100 WBC (Bld)74.0 %Vlnvwz87.0-75.0[facility] Comment on above:Performed By: #### CBC #### [facility] [address] [place], [place] [id number] Rory KarenPlatelet mean volume (Bld) [Entitic vol]9.2 fLCritically low9.5-13.5 The [facility] HospitalComment on above:Performed By: #### CBC #### [facility] [address] [place], [place] [id number] Rory KarenPlatelets (Bld) [#/Vol]285 103/grSoqjsn585-282Jwb [facility] Comment on above:Performed By: #### CBC #### [facility] [address] [place] [address] Rory KarenRBC (Bld) [#/Vol]4.05 106/ulCritically low4.20-5.40The [facility] HospitalComment on above:Performed By: #### CBC #### [facility] [address] [place] [address] Rory KarenWBC (Bld) [#/Vol]8.2 103/ulNormal4.0-11.0The [facility] Comment on above:Performed By: #### CBC #### [facility] [address] [place] [address] Rory KarenGLUCOSE - 1HRon 59-96-6207Vdtfpyq [Mass/Vol]158 mg/dLCritically high 74-106The [facility] HospitalComment on above:Performed By: #### GLU1HR #### [facility] [address] [place], [place] [phone] Rory KarenCovid-19 PCR (CVDTBH)on 46-21-1283BncuaDETECTEDNOT DETECTEDThe [facility] HospitalComment on above:Result Comment: This test is not yet approved or cleared by the [place] FDA. When there are no FDA-approved or cleared tests available, and other criteria are met, FDA can make tests available under an emergency access mechanism called an Emergency Use Authorization (EUA). The EUA for this test is supported by the [place] of Health and Human Service's (HHS's) declaration [...] for this test is supported by the [employer] Worker of Health and Human Service's (HHS's) [...] as: NOT DETECTED On 04/16/2020 00:20 By LBSPerformed By: #### VARCEL #### [facility] [address] [place] [address] Rory ÁngelIshmaelCommunity Memorial Hospitalment on above: Result Comment: This test is not yet approved or cleared by the [place] FDA. When there are no FDA-approved or cleared tests available, and other criteria are met, FDA can make tests available under an emergency access mechanism called an Emergency Use Authorization (EUA). The EUA for this test is supported by the [employer] Worker of Health and Human Service?s (HHS?s) declaration [...] the context of a patients recent exposures andthe presence of clinical signs and symptoms consistent with SARS-CoV-2.Performed By: #### VARCEL #### [facility] [address], [place] [address] Rory Weaver PREG ANATOMY SINGLEon [id number] PREG ANATOMY SINGLE EXAMINATION: US PREG ANATOMY [...] Electronically authenticated by: LOVE QUINTERO Date: 2020-03-26 07:17Riverview Health InstituteAF TETRA PROFILE (MATERNAL)on [id number] MoM0.53NoOhioHealth Mansfield HospitalComment on above:Performed By: #### AFPTET #### [facility] [address] [place] [address] Rory KarenAFP Value18.7 ng/mLNormalSumma Health Akron CampusComment on above: Performed By: #### AFPTET #### [facility] [address] [address] Rory KarenCommentComAshtabula County Medical CenterComment on above:Result Comment: Susie Cornell, Ph.D., [facility] Director . References: Available Upon Request. . Multiples Of Median Cutoffs Abbreviation Definitions For AFP Elevations IDD- Insulin Dep Diabetes Gunn 2.5 Black 2.8 OSBR- Open Spina Bifida IDD 2.0 Twins 4.5 Risk DSR Cutoff 1:270 DSR- Down Syndrome Risk T18 Cutoff 1:100 T18- Trisomy 18 . Down Syndrome and Trisomy 18 screening are considered Investigational . For further inquiries contact [facility] at [phone].Performed By: #### AFPTET #### [facility] [address] [place] [address] Rory KarenDIA MoM0.72NoOhioHealth Mansfield HospitalComment on above:Performed By: #### AFPTET #### [facility] [address] [address] Rory KarenDIA Dezie157.56 pg/mLNormalSumma Health Akron CampusComment on above: Performed By: #### AFPTET #### [facility] [address] [place] [address] Rory KarenDSR (By Age) 1 [id number] Health InstituteCommymichigan medical center saginaw on above: Performed By: #### AFPTET #### [facility] [address] [place] [address] Rory KarenDSR (Second Trimester) 1 [id number] Health InstituteCommymichigan medical center [place] on above:Performed By: #### AFPTET #### [facility] [address] [place] [address] Rory KarenGest. Age on Collection Date15.7 WEEKSRiverview Health Institute Comment on above:Performed By: #### AFPTET #### [facility] [address] [place] [address] Rory NealenGestat. Age Based OnLMPNHolzer HospitalComment on above: Performed By: #### AFPTET #### [facility] [address] [place] [address] Rory PetersonCG MoM0.44NoOhioHealth Mansfield HospitalCommymichigan medical center [place] on above:Performed By: #### AFPTET #### [facility] [address] [place] [address] Rory PetersonCG Sz54288 m[IU]/mLNHolzer HospitalComment on above: Performed By: #### AFPTET #### [facility] [address] [place] [address] Rory KarenInsulin Dep DiabetesOhioHealth Berger HospitalComment on above: Performed By: #### AFPTET #### [facility] [address] [place] [address] Rory KarenInterpretationComAshtabula County Medical CenterComment on above: Result Comment: Interpretation: Screen Negative This result is screen negative [...] identifies 60% of Trisomy 18 pregnancies. The [employer] recommends amniocentesis be offered to women age 35 and older. Recalculations are not recommended when gestational dating by LMP and ultrasound are within 10 days.Performed By: #### AFPTET #### [facility] [address] [place] [address] Rory GivensMaternal Age At EDD30.5 yrRiverview Health InstituteComment on above:Performed By: #### AFPTET #### [facility] [address] [place] [address] Rory KarenMultiple GestationNoNormalThe Monika HospitalComment on above: Performed By: #### AFPTET #### [facility] [address] [address] Rory KarenOSBR Risk 1 [id number] Health InstituteCommymichigan medical center [place] on above: Performed By: #### AFPTET #### [facility] [address] [address] Rory KarenPDF.NormalKeenan Private Hospital HospitalComment on above:Performed By: #### AFPTET #### [facility] [address] [address] Rory KarenRaceCaucasianNHolzer HospitalCommymichigan medical center [place]in[place] on above:Performed By: #### AFPTET #### [facility] [address] [address] Rory KarenResultsReportRiverview Health InstituteComment on above:Performed By: #### AFPTET #### [facility] [address] [address] Rory BakoaZ49 (By Age)1:2556Riverview Health InstituteComment on above: Performed By: #### AFPTET #### [facility] [address] [address] Rory CyjvlX19 RiskNot increasedRiverview Health InstituteCommymichigan medical center [place]inaw on above: Performed By: #### AFPTET #### [facility] [address] [address] Rory Rodriguezst Results:NegativeRiverview Health InstituteComment on above: Performed By: #### AFPTET #### [facility] [address] [address] Rory KarenuE3 MoM0.86Riverview Health InstituteCommymichigan medical center [place] on above:Performed By: #### AFPTET #### [facility] [address] [address] Rory KarenuE3 Value0.81 ng/mLNHolzer HospitalCommymichigan medical center saginaw on above: Performed By: #### AFPTET #### [facility] [address] [place] [address]/NG,HR HPV RFX 16 AND 18on 36-16-1431Rxwlidfka, Nuc. Acid AmpNegativeNormalNegativeSumma Health Akron CampusComment on above:Result Comment: Performed at: =GPerformed By: #### PAPHR4 #### [facility] [address] [place], [place] [address]ken KarenDIAGNOSIS:CommentRiverview Health InstituteCommymichigan medical center saginaw on above:Result Comment: NEGATIVE FOR INTRAEPITHELIAL LESION OR MALIGNANCY. Performed at: WBPerformed By: #### PAPHR4 #### [facility] [address] [place] [address] KarenGonococcus, Nuc. Acid AmpNegativermalNegChildren's Hospital for Rehabilitation Comment on above:Result Comment: Performed at: =GPerformed By: #### PAPHR4 #### [facility] [address] [place] [address] KarenHPV, high-riskNegativeFulton Medical Center- FultonalNegativeSumma Health Akron CampusComment on above:Result Comment: This nucleic acid amplification high-risk HPV test detects thirteen high-risk types (16,18,31,33,35,39,45,51,52,56,58,59,68) without differentiation. Performed at: =GPerformed By: #### PAPHR4 #### [facility] [address] [place] [address] ÁngelenMethodology:CommentNormCherrington Hospital on above: Result Comment: This liquid based ThinPrep(R) pap test was screened with the use of an image guided system. Performed at: WBPerformed By: #### PAPHR4 #### [facility] [address] [place] [address] Rory KarenNote:CommentNoMemorial Health System [facility] on above:Result Comment: The Pap smear is a screening test designed to aid in the detection of premalignant and malignant conditions of the uterine cervix. It is not a diagnostic procedure and should not be used as the sole means of detecting cervical cancer. Both false-positive and false-negative reports do occur. . Performed at: WBPerformed By: #### PAPHR4 #### [facility] [address] [place] [address] Rory GivensPerformed by:CommentGerman Hospital on above: Result Comment: Melisa Currie, Accounts Payable Bookkeeper (ASCP) Performed at: WBPerformed By: #### PAPHR4 #### [facility] [address] [place] [address] Roryolivier NealenSpecimen adequacy:CommentGerman Hospital on above:Result Comment: Satisfactory for evaluation. No endocervical component is identified. Performed at: Performed By: #### PAPHR4 #### [facility] [address] [place] [address] Rory Givens..NormalThe [facility] HospitalComment on above:Result Comment: Performed at: Performed By: #### PAPHR4 #### [facility] [address] [place] [address] Rory ÁngelenUS PREG <14 WKSon [id number] PREG <14 WKSEXAMINATION: US PREG <14 WKS HISTORY: Secondary physiologic [...] Electronically authenticated by: FELICITAS MARTINES Date: 2020-01-15 10:05[facility] B SURFACE ANTIGEN SCREENon [id number] ScreenNegative NormalNegativeThe [facility] Hospital on above:Performed By: #### HBSANS #### [facility] [address] [place] [address] Rory PetersonEPATITIS C VIRUS AB W/ REFLEX QUANTon 65-19-1739KSE AB<0.1Normal 0.0-0.9The [facility] HospitalComment on above:Performed By: #### VARCEL #### [facility] [address] [place] [address] Rory KarenInterpretation:CommentNoOhioHealth Mansfield HospitalComment on above: Result Comment: Negative Not infected with HCV, unless recent infection is suspected or other evidence exists to indicate HCV infection.Performed By: #### VARCEL #### [facility] [address] [place] [address] Rory KarenHGB(ELECTP) FRACTION PROFILEon 16-14-7695Gijfwgoztj (Bld) [Mass/Vol] 97.8 %Dafoba35.4-98.8The [facility] HospitalComment on above:Performed By: #### HGBELE #### [facility] [address] [place] [address] Rory KarenHgb A22.2 %Normal1.8-3.2The [facility] HospitalComment on above: Performed By: #### HGBELE #### [facility] [address] [place] [address] Rory KarenHgb C0.0 %Normal0.0Summa Health Akron CampusComment on above:Performed By: #### HGBELE #### [facility] [address] [place] [address] Rory KarenHgb F0.0 %Normal0.0-2.0The [facility] HospitalComment on above: Performed By: #### HGBELE #### [facility] [address] [place] [address] Rory KarenHgb S0.0 %Normal0.0The [facility] HospitalComment on above:Performed By: #### HGBELE #### [facility] [address] [place] [address] Rory KarenHgb SolubilityNegativeNormalNegativeThe [facility] HospitalComment on above:Performed By: #### HGBELE #### [facility] [address] [place] [address] Rory KarenHgb VariantNormalThe [facility] HospitalComment on above:Performed By: #### HGBELE #### [facility] [address] [place] [address] Rory KarenInterpretationCommentNormalThe [facility] on above: Result Comment: Normal adult hemoglobin present.Performed By: #### HGBELE #### [facility] [address] [place] [address] Rory KarenHIV 1 AND 2 WITH REFLEXon 96-72-0836OFT Screen 4th Generation wRfx Non ReactiveNormalNon ReactiveThe [facility] on above:Performed By: #### HIV12 #### [place] [address] Rory KarenRPR QUANTon 75-95-9506Vyvtq Plasma Reagin, QuantNon ReactiveNormal NonRea<1:1The [facility] on above:Performed By: #### VARCEL #### [facility] [address] [place] [address] Rory KarenRUBELLA AB IGGon 31-73-2148Wyhytcb Antibodies, IgG1.49 indexNormal Immune >0.99The [facility] on above:Result Comment: Non-immune <0.90 Equivocal 0.90 - 0.99 Immune >0.99Performed By: #### VARCEL #### [facility] [address] [place] [address] Rory KarenVARICELLA IGG ABon 50-45-7154Rosbqigrm Zoster DyQ528 indexNormal Immune >165The [facility] on above:Result Comment: Negative <135 Equivocal 135 - 165 Positive >165 A positive result generally indicates exposure to the pathogen or administration of specific immunoglobulins, but it is not indication of active infection or stage of disease.Performed By: #### VARCEL #### [facility] [address] [place] [address] Rory KarenCBC AUTO DIFFon 57-30-9485Zbaimkzak (Bld) [#/Vol]0.1 103/ulNormal 0.0-0.1The [facility] on above:Performed By: #### CBC #### [facility] [address] [id number] Rory KarenBasophils/100 WBC (Bld)0.5 %Normal0.2-2.0The [facility] Comment on above:Performed By: #### CBC #### [facility] [address] [place], [place] [id number] Rory KarenEosinophils (Bld) [#/Vol]0.1 103/ulNormal0.0-0.7The [facility] HospitalComment on above:Performed By: #### CBC #### [facility] [address] [place], [place] [id number] Rory KarenEosinophils/100 WBC (Bld)0.7 %Critically low0.9-7.0The [facility] HospitalComment on above:Performed By: #### CBC #### [facility] [address] [place] [address] Rory KarenErythrocyte distribution width (RBC) [Ratio]12.1 %Fwekqg64.0-15.0The [facility] HospitalComment on above:Performed By: #### CBC #### [facility] [address] [place] [address] Rory KarenHematocrit (Bld) [Volume fraction]36.2 %Nygknh20.0-48.0The [facility] HospitalComment on above:Performed By: #### CBC #### [facility] [address] [place] [address] Rory KarenHemoglobin (Bld) [Mass/Vol]12.9 g/vZNejwix10.0-16.0The [facility] HospitalComment on above:Performed By: #### CBC #### [facility] [address] [place] [address] Rory KarenIG #0.03 10e3/ulNormal0.00-0.03The [facility] HospitalComment on above:Performed By: #### CBC #### [facility] [address] [place] [address] Rory KarenIG %0.3 %Normal0.0-0.5The [facility] HospitalComment on above: Performed By: #### CBC #### [facility] [address] [address] Rory KarenLymphocytes (Bld) [#/Vol]2.4 103/ulNormal1.2-3.8The [facility] HospitalComment on above:Performed By: #### CBC #### [facility] [address] [place], [place] [id number] Rory KarenLymphocytes/100 WBC (Bld)23.1 %Hfkqbf27.5-60.0[facility] Comment on above:Performed By: #### CBC #### [facility] [address] [place] [address] Rory KarenMANUAL DIFF REQNONormalThe [facility] HospitalComment on above: Performed By: #### CBC #### [facility] [address] [place] [address] Rory KarenMCH (RBC) [Entitic mass]30.0 xrXhevja65.7-34.0[facility] Comment on above:Performed By: #### CBC #### [facility] [address] [place] [address] Rory KarenMCHC (RBC) [Mass/Vol]35.6 g/dLCritically high29.9-35.2[facility] CampusComment on above:Performed By: #### CBC #### [facility] [address] [place] [address] Rory KarenMCV (RBC) [Entitic vol]84.2 hBXehzwq69.0-99.0[facility] Comment on above:Performed By: #### CBC #### [facility] [address] [place] [address] Rory KarenMonocytes (Bld) [#/Vol]0.5 103/ulNormal0.3-0.8ThWooster Community Hospital Comment on above:Performed By: #### CBC #### [facility] [address] [place] [address] Rory KarenMonocytes/100 WBC (Bld)4.9 %Normal1.7-12.0The [facility] Comment on above:Performed By: #### CBC #### [facility] [address] [place] [address] Rory KarenNeutrophils (Bld) [#/Vol]7.4 103/ulCritically high1.4-6.5The [facility] HospitalComment on above:Performed By: #### CBC #### [facility] [address] [place] [address] Rory KarenNeutrophils/100 WBC (Bld)70.5 %Kjkmrr11.0-75.0The [facility] Comment on above:Performed By: #### CBC #### [facility] [address] [place] [address] Rory KarenPlatelet mean volume (Bld) [Entitic vol]9.3 fLCritically low9.5-13.5 [facility] CampusComment on above:Performed By: #### CBC #### [facility] [address] [place] [address] Rory KarenPlatelets (Bld) [#/Vol]367 103/ruKipcvl755-591IetSumma Health Akron Campus Comment on above:Performed By: #### CBC #### [facility] [address] [place] [address] Rory KarenRBC (Bld) [#/Vol]4.30 106/ulNormal4.20-5.40[facility] Comment on above:Performed By: #### CBC #### [facility] [address] [place] [address] Rory KarenWBC (Bld) [#/Vol]10.4 103/ulNormal4.0-11.0[facility] Comment on above:Performed By: #### CBC #### [facility] [address] [place] [address] Rory KarenCULTURE URINEon 35-56-3225YXQKHPG URINECulture Observations: NO GROWTHNormalThe [facility] HospitalComment on above:Performed By: #### VARCEL #### [facility] [address] [place] [address] Rory KarenDRUG SCREEN RAPID (URINE)on [id number]ZTud Bellevue HospitalComment on above:Performed By: #### CBC #### [facility] [address] [place] [address] Rory KarenBARNegativeNormalNEGATIVESumma Health Akron CampusCommymichigan medical center sag[place] on above: Performed By: #### CBC #### [facility] [address] [place] [address] Rory KarenBUPNegativeNormalNEGATIVESumma Health Akron CampusCommymichigan medical center [place] on above: Performed By: #### CBC #### [facility] [address] [place] [address] Rory KarenBZONegativeNormdeNEGATIVEThe [facility] on above: Performed By: #### CBC #### [facility] [address] [place] [address] Rory KarenCOCNegativeNormalNEGATIVESumma Health Akron CampusCommymichigan medical center [place] on above: Performed By: #### CBC #### [facility] [address] [place] [address] Rory KarenCUT-OFFSSEE BELOWFulton Medical Center- FultonalThWooster Community HospitalComment on above:Result Comment: AMP (Amphetamine): 500ng/mL, BAR (Barbituates): 200 ng/mL, BZO (Benzodiazepines): 150 ng/mL, BUP (Buprenorphine): 10 ng/mL, SIM (Cocaine): 150 ng/mL, mAMP (Methamphetamine): 500 ng/mL, MTD (Methadone): 200 ng/mL, OPI (Opiates): 100 ng/mL or 2000 ng/mL, OXY (Oxycodone): 100 ng/mL, PCP (Phencyclidine): 25 ng/mL, PPX (Propoxyphene): 300 ng/mL, THC (Cannabinoids): 50 ng/mL, TCA (Trycyclic Antidepressants): 300 ng/mLPerformed By: #### CBC #### [facility] [address] [place] [address] Rory KarenDRUG CUT HEADERDRUG CLASS TEST SYSTEM CUT-OFF CONCENTRATIONS ARE FOLLOWS:NormalThe [facility]son Park HospitalComment on above:Performed By: #### CBC #### [facility] [address] [address] Rory KarenmAMPNegativeNormalNEGATIVEKeenan Private Hospital HospitalComment on above: Performed By: #### CBC #### [facility] [address] [address] Rory KarenMTDNegativeNormalNEGATIVEKeenan Private Hospital HospitalComment on above: Performed By: #### CBC #### [facility] [address] [address] Rory KarenOPINegativeNormalNEGATIVESumma Health Akron CampusComment on above: Performed By: #### CBC #### [facility] [address] [address] Rory KarenOXYNegativeNormalNEGATIVESumma Health Akron CampusComment on above: Performed By: #### CBC #### [facility] [address] [address] Rory KarenPCPNegativeNormalNEGATIVEMary Rutan Hospitalment on above: Performed By: #### CBC #### [facility] [address] [address] Rory KarenPPXNegativeNormalNEGATIVEThe [facility] on above: Performed By: #### CBC #### [facility] [address] [place] [address] Rory KarenTCANegativeNormalNEGATIVESumma Health Akron CampusComment on above: Performed By: #### CBC #### [facility] [address] [place] [address] Rory KarenTHCNegativeNormalNEGMercy Health St. Vincent Medical CenterComment on above: Performed By: #### CBC #### [facility] [address] [address] Rory KarenGLYCOHEMOGLOBIN A1Con 56-85-2848Ngobuyc [Mass/Vol]94 mg/dLNormGlenbeigh Hospitalment on above:Performed By: #### VARCEL #### [facility] [address] [address] Rory LeqamSuF4e (Bld) [Mass fraction]4.9 %Normal<=6.0The [facility] Comment on above:Performed By: #### VARCEL #### [facility] [address] [place] [address] Rory KarenPREG QUANT HCGon 33-85-7377SEE QETRG37653.00 mIU/mLNormalSumma Health Akron CampusComment on above:Performed By: #### CBC #### [facility] [address] [place] [address] Rory KarenHCG RANGESEE BELOWNoOhioHealth Mansfield HospitalComment on above:Result Comment: 5-50 0-1 WEEK 40-300 1-2 WEEKS 100-1,000 2-3 WEEKS 500-6,000 3-4 WEEKS 5,000-200,000 1-2 MONTHS 10,000-100,000 2-3 MONTHS 3,000-50,000 2ND TRIMESTER 1,000-50,000 3RD TRIMESTERPerformed By: #### CBC #### [facility] [address] [place] [address] Rory KarenTYPE AND SCREENon 10-09-0565VQWF AND SCREENNegativeRiverview Health InstituteComment on above:Performed By: #### VARCEL #### [facility] [address] [place] [address] Rory KarenUA RANDOM W/MICROSCOPICon 15-99-7360Klplmgmc LM.HPF (Urine sed) [#/Area]TRACENormalNONE SEENSumma Health Akron CampusComment on above:Performed By: #### CBC #### [facility] [address] [place] [address] Rory KarenBilirubin [Mass/Vol]NegativeNormalNEGATIVESumma Health Akron Campus Comment on above:Performed By: #### CBC #### [facility] [address] [place] [address] Orry KarenBLOODNegativeNormalNEGATIVESumma Health Akron CampusComment on above: Performed By: #### CBC #### [facility] [address] [place], [place] [address] Rory KarenCASTNONE SEENNormalNONE SEENSumma Health Akron CampusComment on above: Performed By: #### CBC #### [facility] [address] [place] [address] Rory KarenClarity (U)CLEARNormGalion Community HospitalComment on above: Performed By: #### CBC #### [facility] [address] [place] [address] Rory KarenColor (U)LT. YELLOWNormalYELLOWSumma Health Akron CampusComment on above:Performed By: #### CBC #### [facility] [address] [place] [address] Rory KarenCrystals LM Nom (Urine sed)NONE SEENNormalNONE SEENSumma Health Akron CampusCommymichigan medical center sagin[place] on above:Performed By: #### CBC #### [facility] [address] [place] [address] Rory KarenEpithelial cells LM.HPF (Urine sed) [#/Area]RARENoOhioHealth Mansfield HospitalComment on above:Performed By: #### CBC #### [facility] [address] [place] [address] Rory KarenGlucose [Mass/Vol]100 mg/dlNormalNEGMercy Health St. Rita's [facility] on above:Performed By: #### CBC #### [facility] [address] [place] [address] Rory KarenKetones Ql (U)NegativeNormalNEGATIVESumma Health Akron CampusComment on above:Performed By: #### CBC #### [facility] [address] [place] [address] Rory KarenMUCOUSNONE SEENNormalNONE [facility] Medical CenterComment on above: Performed By: #### CBC #### [facility] [address] [place] [address] Rory KarenNitrite Ql (U)NegativeNormalNEGATIVESumma Health Akron CampusComment on above:Performed By: #### CBC #### [facility] [address] [place] [address] Rory KarenpH (Bld)6.9Ruslmh0-5CoeSumma Health Akron CampusComment on above:Performed By: #### CBC #### [facility] [address] [place] [address] Rory KarenProtein [Mass/Vol]NegativeNormGalion Community HospitalComment on above:Performed By: #### CBC #### [facility] [address] [place], [place] [id number] Rory KarenRBC (Bld) [#/Vol]8-1Xxztxa4-7Dhq [facility] HospitalComment on above: Performed By: #### CBC #### [facility] [address] [place] [address] Rory KarenSPEC GRAVITY1.870Bpjvqt9.005-<=1.025The [facility] HospitalComment on above:Performed By: #### CBC #### [facility] [address] [place] [address] Rory KarenUrobilinogen Qn (U)0.2 EU/dlNormGalion Community HospitalComment on above:Performed By: #### CBC #### [facility] [address] [place] [address] Rory KarenWBC (Bld) [#/Vol]0-2NormalNONE SEENSumma Health Akron CampusComment on above:Performed By: #### CBC #### [facility] [address] [place] [address] Rory KarenWBC (Bld) [#/Vol]NegativeNormalNEGATIVESumma Health Akron CampusComment on above:Performed By: #### CBC #### [facility] [address] [place] [address] Rory KarenSurgical Pathologyon 48-66-5719Fygofswz Pathology(NOTE)VDP18- 3247[facility] LABORATORIESCONSULTING PATHOLOGISTS [facility] SM[facility]RNAANATOM[facility] [address] [place] [phone] Fax: SURGICAL PATHOLOGY CONSULTATIONPatient Name: Daryl BROTHERS Rec: [id number] Number: [id number]: 02/21/2018Received: 02/22/2018Reported: 02/23/2018 15:49-- Diagnosis --SKIN, RIGHT SUPERIOR UPPER BACK, EXCISION: - 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 - MARGINS APPEAR NEGATIVE FOR INVOLVEMENT.Timbo Acosta M.D.Electronically Signed Out02/23/2018Clinical InformationPre-op Diagnosis: COMPOUND NEVUS WITH SPITZ AND CAROL ANN, HX MELANOMAJUNE 2018, [facility], [id number], DX: COMPOUND NEVUSWITH FEATURES OF SPITZ AND [...] as a shoulder, but peripheral and deep marginsappear freeof involvement.[facility] Comment on above:Performed By: #### PPPVDP ####[facility] [address] [id number] Vital Signs Date TimeVital SignValuePerforming PmklnurnzMmkbohvp30-97-2554 14:02-0400Body mass index (BMI) [Ratio]23.19 kg/m9Akwmb Arthur DO Work Phone: [phone]-2545 14:02-0400Body .29 kgCorey Arthur DO Work Phone: [phone] [place], [place] [address]Plpiktmpce68-80-7157 14:02-0400Diastolic blood ydazpvaw94 mm[Hg]Akhil Arthur DO Work Phone: [phone] [place], [place] [address]Sbdgsttpeu83-59-4782 14:02-0400Systolic blood aeukdwvg319 mm[Hg]Akhil Arthur DO Work Phone: [phone] [place], [place] [address]Iqcpqvccyw36-58-4397 10:53-0400Body mass index (BMI) [Ratio]23.17 kg/y6Fyxqu Arthur DO Work Phone: [phone] [place], [place] [address]Vvqcvltszx42-93-0802 10:53-0400Body lmiutl99.24 kgCorey Arthur DO Work Phone: [phone] [place], [place] [address]Lnzkkspelq13-41-9414 10:53-0400Diastolic blood mm[Hg]Akhil Arthur DO Work Phone: [phone] [place], [place] [address]Tcpxribbyu83-50-5337 10:53-0400Systolic blood oesyycuq061 mm[Hg]Akhil Arthur DO Work Phone: [phone] [place], [place] [address]Bcxlvjxvhh23-48-7811 09:14-0400Body mass index (BMI) [Ratio]23.34 kg/b5Ahcgo Arthur DO Work Phone: [phone] [place], [place] [address]Aqrdgduplc68-58-0724 09:14-0400Body ibkgtv19.69 kgCorey Arthur DO Work Phone: [phone] [place], [place] [address]Eemnqhilcr50-91-1271 09:14-0400Diastolic blood jgyldaby83 mm[Hg]Akhil Arthur DO Work Phone: [phone] [place], [place] [address]Mveeiuctfo08-06-3117 09:14-0400Systolic blood aieyauwm638 mm[Hg]Akhil Gibson DO Work Phone: CoxHealthBdwfrisbcc34-16-5519 14:04-0400Body mass index (BMI) [Ratio]22.9 kg/i7Jugyxoai Johnna SAP BW DEVELOPER Work Phone: CoxHealthFkoadpwjrs04-90-2030 14:04-0400Body nututq65.51 kgOleg Oropeza SAP BW DEVELOPER Work Phone: CoxHealthDwmcvqsjky40-88-0742 14:04-0400Diastolic blood tguwhnij10 mm[Hg]Olegtegan Oropeza [employer] BW DEVELOPER Work Phone: [place] [phone] 14:04-0400Systolic blood vxgjxjto945 mm[Hg]Oleg Johnna SAP BW DEVELOPER Work Phone: [place] [phone] 14:05-0400Body mass index (BMI) [Ratio]23.17 kg/m3HbxurrbShin Davison CNM Work Phone: [place] [phone] 14:05-0400Body narfvu35.24 kgShin Davison CNM Work Phone: [place] [phone] 14:05-0400Diastolic blood jwrpjhwe73 mm[Hg]Shin Davison CNM Work Phone: [place] [phone] 14:05-0400Systolic blood mm[Hg]Shin Davison CNM Work Phone: [place] [phone] 13:22-0400Body .6 cmDelmis Lorenzo MD Work Phone: [place] [address]Hqrlodokxr59-13-1328 13:22-0400Body mass index (BMI) [Ratio]23.72 kg/m2Delmis Lorenzo MD Work Phone: [place] [address]Ognmzzjtgl15-47-2565 13:22-0400Body vszkam95.69 kgDelmis Lorenzo MD Work Phone: [phone] Le StreetItjcdjrkai27-95-0461 13:-0400Diastolic blood lnvnreou64 mm[Hg]Delmis Lorenzo MD Work Phone: noSaint [facility] Medical CenterDdlzgphnks20-87-0018 13:-0400Heart rate87 /min Delmis Lorenzo MD Work Phone: noSaint Francis Medical CenterJxeheastol85-82-6238 13:-0400Respiratory rate18 /minDelmis Lorenzo MD Work Phone: CoxHealthSnvilqrbjo63-36-4334 13:-0724AgM8% (BldA) [Mass fraction]100 %Delmis Lorenzo MD Work Phone: noSaint Francis Medical CenterThucgzgpbk05-85-7093 13:040Systolic blood wfolykzi122 mm[Hg]Delmis Lorenzo MD Work Phone: noSaint Francis Medical CenterYiczjtkrxr28-90-1565 03:06-0400Body yfkgrk31.[address] Mary HospitalComment on above:Performed By: #### AFPTET #### [facility] [address] [place] [address] Rory Givens Encounters Encounter DateEncounter TypeCare ProviderFacilityStart: 03-13-2025 End: 55-26-4555Ifhxqto encounter procedureDelmis Lorenzo MD Work Phone: noms [facility] CenterComment on above:Wrinkles (Primary Dx)Start: 03-13-2025 End: 33-55-9656hsvdsgffwfJFCB F BOWERNot AvailableStart: 03-05-2025 End: 90-64-2480Mwoxob flowsheetCorey Arthur DO Work Phone: noms [place] OBGYNStart: 03-05-2025 End: 18-39-2119Qaowph flowsheetCorey Arthur DO Work Phone: noms [place] OBGYNStart: 03-05-2025 End: 59-78-8498Zzvlpgybe Result EncounterCorey Arthur DO Work Phone: NOLE External Department UnsolicitedStart: 03-05-2025 End: 09-11-3024Cxcdohv encounter procedureCorey Arthur DO Work Phone: [facility] Work Phone: Start: 03-05-2025 End: 92-04-8989Refogzza preventive med est patient 18-39 yrsCorey Arthur DO Work Phone: no [place] OBGYNComment on above:Well woman exam with routine gynecological exam; Menorrhagia with regular cycle; Abnormal uterine bleeding (AUB); Pelvic pain in femaleStart: 03-05-2025 End: 34-20-2109opmzswoyuaCSXGN FAZIONot AvailableStart: 02-27-2025 End: 43-64-0016Pwhchaln ReferredCorey Arthur-Lab [facility] Work Phone: Start: 02-27-2025 End: 14-18-1860Ipvwojx encounter procedureCorey Arthur DO Work Phone: noMS [place] OBGYNComment on above:Pre-op examination; Menorrhagia with regular cycle; Abnormal uterine bleeding (AUB); Pelvic pain in femaleStart: 02-27-2025 End: 50-69-0544Ynfveardhjsgo examination doneCorey Arthur DO Work Phone: no HealthcareStart: 02-27-2025 End: 55-30-9556kerontbgxxWBTLancaster Municipal Hospital Work Phone: Start: 01-30-2025 End: 68-63-3524Sgzsul flowsheetCorey Arthur DO Work Phone: noMS [place] OBGYNStart: 01-30-2025 End: 02-36-8606Bgvyeh flowsheetCorey Arthur DO Work Phone: noMS [place] OBGYNStart: 01-30-2025 End: 60-82-1767Teqnbxqjz Result EncounterGeneric External Data ProviderNOUT External Department UnsolicitedStart: 01-30-2025 End: 66-67-0076Dnssps outpatient visit 15 minutesCorey Arthur DO Work Phone: NOHP [place] OBGYNComment on above:Menorrhagia with regular cycle; PCOS (polycystic ovarian syndrome)Start: 01-30-2025 End: 91-33-0073dnrqmlbnquSBYMW FAZIONot AvailableStart: 09-11-2024 End: 95-98-5964Qrmcea Denver Barreraerly SAP BW DEVELOPER Work Phone: NOMS BCP OBStart: 09-11-2024 End: 41-92-8969Qbmexs flowsheetOleg Johnna SAP BW DEVELOPER Work Phone: NONX BCP OBStart: 09-11-2024 End: 17-94-6803Fmcooe follow up visit related to original Attila Barreraerly SAP BW DEVELOPER Work Phone: noms BCP OBComment on above:Postoperative examination Start: 09-11-2024 End: 84-78-3885aumyykwbzvUPUWALNP EBERLYNot AvailableStart: 09-01-2024 End: 94-89-1828Oolfxmbqo Result EncounterGeneric External Data ProviderNOMS External Department UnsolicitedStart: 09-01-2024 End: 64-49-8659Uppcrrhiv Result EncounterGeneric External Data ProviderNOMS External Department UnsolicitedStart: 08-30-2024 End: 78-50-8994ikffmocffoQMRACFM L FLORONot AvailableStart: 08-30-2024 End: 01-70-3712Xdniya flowsheetValerie L Floro CNM Work Phone: NOLU FNR OBStart: 08-30-2024 End: 04-15-3326Hiullx flowsheetValerie L Floro CNM Work Phone: noms FNR OBStart: 08-30-2024 End: 01-08-3463Dnaczy outpatient visit 15 minutesValerie L Floro CNM Work Phone: noms FNR OBComment on above:IUD check upStart: 08-30-2024 End: 80-36-6445dftqawrmewEEDSAMS L FLORONot AvailableStart: 08-17-2024 End: 38-71-5123zkwqdlgetvSKZT F BOWERNot AvailableStart: 08-17-2024 End: 48-83-2538Ybmfusb encounter procedureDelmis Lorenzo MD Work Phone: noms FNR FMComment on above:Forehead wrinkles (Primary Dx)Start: 04-06-2024 End: 87-67-7014Nnmnqt follow up visit related to original Kati Lorenzo MD Work Phone: NOMS FNR FMComment on above:Forehead wrinkles (Primary Dx)Start: 04-06-2024 End: 98-75-6377xihauexgctFTHG F BOWERNot AvailableStart: 01-31-2024 End: 75-37-4065Sywhuz Loly Lorenzo MD Work Phone: NOMS FNR FMStart: 01-31-2024 End: 94-15-8745Unxlse Loly Lorenzo MD Work Phone: NOWG FNR FMStart: 01-31-2024 End: 15-93-5029Wwnjkys preventive medicine new pt age 18-39yrGenet Lorenzo MD Work Phone: NOMS FNR FMComment on above:Routine general medical examination at a health care facility (Primary Dx); Mood changesStart: 01-31-2024 End: 33-83-9785Tcioitb encounter statusDelmis Lorenzo MD Work Phone: [facility] Work Phone: Start: 06-08-2023 End: 67-79-8881sgqytidgptOIQTZZE [facility] HospitalStart: 07-04-2020 End: 13-88-0093Xtfjqjm encounter procedureANDREA KIPFacility:G5Vjveq: 05-07-2020 End: 95-62-9666Lsvzapk encounter procedureANDREA KIPFacility:C4Hsovr: 05-01-2020 End: 91-56-0481Tfuisak encounter procedureANDREA KIPFacility:L4Wteoc: 04-15-2020 End: 33-97-8730Acphbvu encounter procedureANDDALE Jadecility:Q1Nfngz: 03-25-2020 End: 85-34-9628Dvyotqk encounter procedureANDDALE Jadecility:Q3Hckka: 02-19-2020 End: 96-28-1948Rllvhvc encounter procedureANDDALE Jadecility:K8Ovala: 02-12-2020 End: 95-65-1681Obwfush encounter procedureANDDALE Jadecility:T2Rmhyu: 01-15-2020 End: 97-87-1579Jadggna encounter procedureANDDALE Jadecility:K1Mbbuk: 2020 End: 73-10-0378Wghbuxr encounter procedureJOCARL Marinocility:F7Mxqmb: 02-22-2018 End: 32-19-1159Zvgjatp encounterDARRYL Cuellar [facility] Procedures DateProcedureProcedure DetailPerforming ClinicianStart: 45-37-7200ZIE,APTIMA HPV,AGE GDLNCorey Arthur DO Work Phone: Start: 72-93-0780Bueso test visual color cmprsn methsCorey Arthur DO Work Phone: Start: 13-65-4514YQI CBC WITH AUTO DIFFCorey Arthur DO Work Phone: Start: 57-24-1668Myjws dip stick/tablet rgnt non-auto w/o micrscpKristina Johnna SAP BW DEVELOPER Work Phone: Start: 56-14-3683NLR CBC WITH AUTO DIFFCorey Arthur DO Work Phone: Start: 65-46-9253Lqimxqmfykc observation [Identifier] in Cervix by Cyto stainCorey Arthur DO Work Phone: Plan of Treatment DateCare ActivityDetailAuthorStart: 31-65-1535Hyvlgjgrd for malignant neoplasm of cervixNOMS HealthcareStart: 03-13-2025 End: 82-22-9852Ltdivzf encounter mgimzxefh73/28/2025 8:40 AM EDT Procedure Visit NOM[facility] [address] [place] [address] Delmis Lorenzo MD [address] [facility] [place] [address] NOMRa [facility] MedicineStart: 03-05-2025 End: 76-46-8455Yzaklyi encounter procedureNOMS [place]ika OBGYNComment on above: ArrivedStart: 02-27-2025 End: 54-12-4446Yzsxadz encounter /14/2025 10:30 AM EDT Procedure Visit SALINA WHITMANN [address] [place], [id number] Akhil Gibson, DO [address] [place] [address] NOMRa [place] OBGYNStart: 01-30-2025 End: 85-86-1342QCLKHLOX Lab Routine Menorrhagia with regular cycle PCOS (polycystic ovarian syndrome) Expected: 01/30/2025 (Approximate), Expires: 01/30/2026NOMS HealthcareComment on above:Expected: 01/30/2025 (Approximate), Expires: 01/30/2026Start: 01-30-2025 End: 50-59-6008Qyagyse encounter xwawhzcwa04/16/2025 9:10 AM EDT Office Visit SALINA HERNANDEZ [address] [place] [id number] Akhil Gibson, DO [address] [facility] [place] [address] ArrivedNOMS Frank OBGYNComment on above:ArrivedStart: 45-87-8422IIJDI-19 Vaccine ( season)COVID-19 Vaccine ( season)NOMS HealthcareStart: 62-37-1573Dcdxjytpf vaccinationNOMS HealthcareStart: 09-11-2024 End: 38-44-8219Liwvgzi encounter cwneqcygy45/28/2025 1:50 PM EDT Office Visit [facility] [address] [place] [address] Oleg Oropeza, SAP BW DEVELOPER [address] [facility] [place] [address] ArrivedNOMS BCP OBComment on above: ArrivedStart: 08-30-2024 End: 56-61-4777Gluqubiebdbx / ancillary services fcdlysjnic46/16/2025 3:30 PM EDT Ancillary Procedure [facility] [address] [place] [address] [facility] [address] IUD check upNOMS FNR ULTRASOUNDComment on above:IUD check upStart: 08-30-2024 End: 05-82-6108Ygxrwel encounter procedureNOMS FNR OBComment on above:Arrived Start: 08-30-2024 End: 72-18-7135IV Pelvis transvaginalUS pelvis transvaginal Imaging Routine IUD check up Expected: 08/30/2024, Expires: 08/30/2025[facility] Work Phone: Comment on above:Expected: 08/30/2024, Expires: 08/30/2025Start: 23-13-8141Edczipeft vaccinationInfluenza Vaccine (#1)NOMS HealthcareComment on above:Postponed from 01/16/2024 (Patient Refused)Start: 01-31-2024 End: 94-53-5054FQX W Auto Differential panel - BloodCBC and differential Lab Routine Mood changes Expected: 01/31/2024 (Approximate), Expires: 01/30/2025NOMS HealthcareComment on above:Expected: 01/31/2024 (Approximate), Expires: 01/30/2025Start: 01-31-2024 End: 74-09-6209Lctyvsznplawo metabolic 2000 panel - Serum or PlasmaComprehensive metabolic panel Lab Routine Mood changes Expected: 01/31/2024, Expires: 01/30/2025NOMS HealthcareComment on above:Expected: 01/31/2024, Expires: 01/30/2025Start: 01-31-2024 End: 57-67-8271FVK W/REFLEX TO FT4TSH W/REFLEX TO FT4 Lab Routine Mood changes Expected: 01/31/2024 (Approximate), Expires: 01/30/2025N[facility] Work Phone: Comment on above:Expected: 01/31/2024 (Approximate), Expires: 01/30/2025Start: 01-31-2024 End: 97-35-4165Zyawctx encounter usibwpssv86/16/2024 1:20 PM EDT Office Visit NOM FNR [address] [place] [address] Delmis Lorenzo MD [address] [place] [address] ArrivedNOUT FNR FMComment on above:ArrivedStart: 68-68-6084Zejzzjoow vaccination Influenza Vaccine (#1)NOM HealthcareStart: 71-22-7797FTtH/Tdap/Td Vaccines (2 - Td or Tdap)DTaP/Tdap/Td Vaccines (2 - Td or Tdap)NOM HealthcareStart: 24-22-2311Qpvoxexdc for malignant neoplasm of cervixNOMS HealthcareStart: 47-65-8664SXF Vaccines (1 - 3-dose SCDM series)HPV Vaccines (1 - 3-dose SCDM series)NOM HealthcareStart: 30-37-7296Yictuvhqt for malignant neoplasm of cervixPap SmearNOMS HealthcareStart: 57-38-1115Mbugwiasn B Vaccines (1 of 3 - 19+ 3-dose series)Hepatitis B Vaccines (1 of 3 - 19+ 3-dose series)NOMS HealthcareStart: 22-61-7044Uyfkmtx of varicella vaccinationVaricella Vaccines (1 of 2 - 13+ 2-dose series)NOM HealthcareStart: 28-33-3617VGZ Vaccines (1 of 1 - Standard series)MMR Vaccines (1 of 1 - Standard series)NOMS HealthcareStart: 98-97-3624Vggr Cancer ScreeningSkin Cancer ScreeningNOUT HealthcareCBC W Auto Differential panel - BloodCBC and differential Lab Routine Menorrhagia with regular cycle PCOS (polycystic ovarian syndrome) Ordered: 01/30/2025[facility] HealthcareComment on above:Ordered: 01/30/2025ytology Cervical or vaginal smear or scraping studyPap Smear Pathology and Cytology Routine Well woman exam with routine gynecological exam Ordered: 03/05/2025[facility] Work Phone: comment on above:Ordered: 03/05/2025DHEA-sulfateDHEA- sulfate Lab Routine Menorrhagia with regular cycle PCOS (polycystic ovarian syndrome) Ordered:01/30/2025[facility] HealthcareComment on above:Ordered: 01/30/2025 Endometrial biopsyEndometrial biopsy Procedures Routine Menorrhagia with regular cycle Ordered: 02/27/2025[facility] Work Phone: comment on above:Ordered: 02/27/2025Follicle stimulating hormoneFollicle stimulating hormone Lab Routine Menorrhagia with regular cycle PCOS (polycystic ovarian syndrome) Ordered: 01/30/2025[facility] HealthcareComment on above:Ordered: 01/30/2025hCG, quantitative, pregnancyhCG, quantitative, Lab Routine Menorrhagia with regular cycle PCOS (polycystic ovarian syndrome) Ordered: 01/30/2025[facility] Healthcare Work Phone: comment on above:Ordered: 01/30/2025Hemoglobin A1c/Hemoglobin.total in BloodHemoglobin A1c Lab Routine Menorrhagia with regular cycle Ordered: 01/30/2025[facility] HealthcareComment on above:Ordered: 01/30/2025 Human papilloma virus DNA [Presence] in Unspecified specimen by Probe with amplificationHPV DNA probe, amplified Microbiology Routine Well woman exam with routine gynecological exam Ordered: 03/05/2025[facility] HealthcareComment on above: Ordered: 03/05/2025Luteinizing hormoneLuteinizing hormone Lab Routine Menorrhagia with regular cycle PCOS (polycystic ovarian syndrome) Ordered: 01/30/2025[facility] HealthcareComment on above:Ordered: 01/30/2025Thyrotropin [Units/volume] in Serum or PlasmaTSH Lab Routine Menorrhagia with regular cycle PCOS (polycystic ovarian syndrome) Ordered: 01/30/2025[facility] HealthcareComment on above:Ordered: 01/30/2025Thyroxine (T4) free [Mass/volume] in Serum or PlasmaT4, free Lab Routine Menorrhagia with regular cycle PCOS (polycystic ovarian syndrome) Ordered: 01/30/2025[facility]Comment on above:Ordered: 01/30/2025 Immunizations Immunization DateImmunizationNotesCare SnvloawfPtbwkwjt95-44-3446mdpnkts toxoid, reduced diphtheria toxoid, and acellular pertussis vaccine, adsorbedDelmis Lorenzo MD Work Phone: [facility]HealthDoxmevlept16-56-1671mjrvlrwjq, injectable, quadrivalent, preservative freeDelmis Lorenzo MD Work Phone: noSaint [facility] Medical CenterIxqarzkaxz17-58-6234hsdyzajiq virus vaccine, unspecified formulationDelmis Lorenzo MD Work Phone: [facility] Payers DatePayer CategoryPayerPolicy [id number]-[id number] [place] Blue [id number] BCBS [id number] [facility] [phone] [address] [place] [address] 1..[id number] Private Health [id number] 2..1.059151.3.57[id number] 2..1.113434.3.579.2.76106-04-2549Buizdjb2800611 2..1.765470.3.579.[id number] 2..1.077104.3.579.2.84999-67-7029Mydhgmf1479927 2.16.840.1.885320.3.579.2.10719-89-5045Uiyrleu7794018 2.160.1.099425.3.579.2.81666-69-5781Jeqcsrx0875065 2.16840.1.965699.3.579.2.59995-95-1134Toyotkb0205945 2.16840.1.869169.3.579.2.72338-79-4592Xcnsapi5125896 2.16840.1.023724.3.579.2.22627-18-7461Svqimab9583921 2..1.176548.3.579.2.40992-05-5699Pctnwef53238650 2.0.1.345259.3.579.2.[id number] 2.0.1.948571.3.579.2.009186-20-9486Zxcepel67478344 2..1.076977.3.579.2.10[id number] 2.0.1.365488.3.579.2.[id number] 2..1.268504.3.579.2.755804-11-3119Nduoyda5597213 2.0.1.808489.3.579.2.787842-51-3086Hrrulfy4516255 2.0.1.384707.3.579.2.614333-10-2859Oyclvlz9269744 2.840.1.188920.3.579.2.094590-04-6861Eizedzt2836091 2.840.1.628587.3.579.2.579676-00-9226Vbzsaex7485389 2.16.840.1.381642.3.57[id number] 2.16.840.1.626045.3.57[id number] Health InsuranceNov[facility] Insurance [id number] [id number] 2..840.1.788672.3.579.2.531 Social History DateTypeDetailFacilityStart: 17-32-2724Esijdnv smoking status NHISNever smoked tobaccoNOMS HealthcareStart: 02-54-1566Meawsqm use and exposureSmokeless tobacco non-userNOMS HealthcareStart: 04-06-2024 End: 92-41-8150Estubnyph beverage intakeEx-drinker (finding)[facility] Start: 11-22-2022 End: 71-35-4765Szdgsrc of Social functionNOMS HealthcareStart: 11-22-2022 End: [id number], Afraid, Rape, and Kick questionnaire [HARK][facility] HealthcareWithin the last year, have you been afraid of your partner or ex-partner?NoNOMS HealthcareAre you now , , , , never or living with a partner?MarriedNOMS HealthcareHow often to you have a drink containing alcohol?2-3 time sa weekNOMS HealthcareHow many standard drinks containing alcohol do you have on a typical day?3 or 4NOMS HealthcareHow often do you have 6 or more drinks on 1 occasion?MonthlyNOMS HealthcareStart: 31-14-3056Rgu hard is it for you to pay for the very basics like food, housing, medical care, and heatingNot hard at allNOMS HealthcareDo you feel stress - tense, restless, nervous, or anxious, or unable to sleep at night because your mind is troubled all the time - these days [OSQ]Rather muchNOMS Healthcare(I/We) worried whether (my/our) food would run out before (I/we) got money to buy more.Never trueNOUT HealthcareThe thought of harming myself has occurred to me NeverNOUT HealthcareStart: 33-33-8713Hkonblc CommentAlcohol: 3 or 4 drinks on a typical day / 2 to 4 times a month. Caffeine: 1-2 cups/dayHIGHLAND RIDGE HOSPITAL HealthcareStart: 20-02-8868Ngn assigned at birthNot on fileNOUT HealthcareTobacco smoking status NHISUnknown if ever smokedUniversity Hospitals Cleveland Medical Center Work Phone: SexFemale (finding)[facility] Start: 20-80-6510Ytm Assigned At [facility] Goals DatePatient GoalDesired Activity/StatePersonal health goal Clinical Notes 01-31-2024 to 03-13-2025 Note Date & [id number] History of Present illness Narrative* Delmis Lorenzo MD - 03/13/2025 8:40 AM EDT Subjective ?Quick Links Last Note in Specialty Snapshot Edit RFV/CC Edit Screenings Current Meds Patient ID: Tania Brothers is a 35 [...] Oral contraceptive pill surveillance Preeclampsia in period ([facility]) Objective ?Quick Links Add Vitals Timeline (Adult) [...] PROCEDURE Procedure: Botox injection in forehead and kasaan's feet - Procedural Discussion: Discussed the Botox injection for forehead and kasaan's feet, including benefits such as reducing wrinkles and improving appearance. Risks include potential bruising, swelling,and temporary discomfort. Alternative options were not discussed. Consent was implied. - Medication: Botox - Technique: Injection of Botox into the forehead and kasaan's feet areas. Assessment & Plan [1] escitalopram (Lexapro) 10 MG tablet onabotulinumtoxinA (Botox) injection 34 Units documented in this en[id number] History of Present illness Narrative* Oleg Oropeza NP - 03/05/2025 1:50 PM EDT Reason for Appointment: Patient ID: Tania Brothers is a 35 y.o. female who presents for Well Women Visit and Pre-op Visit Patient presents today for Annual Exam. and Pre Op appointment. Patient is scheduled to undergo Endometrial Ablation with Mallory on 03/30/[address] Gibson at [facility]. 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 Exam conducted with a word processing operator present. Vitals: Estimated body mass index [...] reviewed, and patient is to proceed to [facility] OR. Follow Up: Patient is to follow up between 1-2 weeks post operative to assess proper healing and recovery fromprocedure. Orders Placed This Encounter Procedures HPV DNA probe, amplified Documented by Shanelle Márquez LPN on behalf of: Oleg Oropeza, MSN, FIELD TALENT QUALIFICATION SPECIALIST-BC [1] Allergies Allergen Reactions Penicillins Rash Unknown as child [2] Past Medical History: Diagnosis Date Congenital nevus COVID-19 Factor V deficiency (HCC) Fracture 1994 st wrist/hand level-left Fracture of parietal bone ([facility]) 1990 GERD (gastroesophageal reflux disease) History of depression HL (hearing loss) 05/24/2023 Malignant melanoma of leg (HCC) Oral contraceptive pill surveillance Preeclampsia in period ([facility]) 08/19/2020 [3] Family History Problem Relation Name Age of Onset Asthma Mother Shanelle Wen Depression Mother Shanelle Wen Stroke Mother Shanelle Wen Hyperlipidemia Father Star Wen Hypertension Father Star Wen No Known Problems Sister 2 sisters, healthy No Known Problems Brother Cancer Maternal Grandfather Blood and bone cancer Asthma Paternal Grandfather Faisal Laurenkins Prostate cancer Paternal Grandfather Faisal Laurenkins Hearing loss Paternal Grandfather Faisal Laurenkins No Known Problems Daughter Cancer Maternal Grandmother Avril Orta Melanoma Neg Hx [4] Past Surgical History: Procedure Laterality Date DILATION AND CURETTAGE OF UTERUS 09/01/2024 HYSTEROSCOPY 09/01/2024 LAPAROSCOPY DIAGNOSTIC / BIOPSY / ASPIRATION / LYSIS 09/01/2024 with IUD removal PAP SMEAR 2020 SKIN CANCER EXCISION 10/2017 melanoma excision, leg, [place] documented in this [id number] History of Present illness Narrative* Tosha Mcdonough LPN - 02/27/2025 10:30 AM EDT Reason for Appointment: Patient ID: Tania Brothers is a 35 y.o. female who presents for Menorrhagia (Pt present today for an Embx visit. ) Patient presents today for Pre Op/Endometrial Biopsy appointment. Patient is scheduled to undergo Endometrial Ablation with Mallory on 03/30/[address] Gibson at [facility]. 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 06/04/2023 Resolved Ambulatory Problems Diagnosis Date Noted No Resolved Ambulatory Problems Past Medical History: Diagnosis Date Congenital nevus COVID-19 Factor V deficiency (HCC) Fracture 1995 Fracture of parietal bone ([facility]) 1990 GERD (gastroesophageal reflux disease) History of depression HL (hearing loss) 05/24/2023 Malignant melanoma of leg ([facility]) Oral contraceptive pill surveillance Preeclampsia in period ([facility]) 08/19/2020 HISTORY PAST MEDICAL HISTORY SOCIAL HISTORY [...] SKIN CANCER EXCISION 10/2017 melanoma excision, leg, [facility] REVIEW OF SYSTEMS Review of Systems: [...] nursing note reviewed. Exam conducted with a word processing operator present. Vitals: Estimated body mass index [...] in detail and patient desires surgical management atthis time. Patient will undergo Endometrial Ablation with Mallory on 03/30/25. Surgical consents were signed, mmc was reviewed, and patient is to proceed to [facility] OR. Follow Up: Patient is to follow up between 1-2 weeks post operative to assess proper healing and recovery fromprocedure. Documented by Tosha Mcdonough LPN on behalf [...] Oral contraceptive pill surveillance Preeclampsia in period ([facility]) 08/19/2020 documented in this [id number] History of Present illness Narrative* Tosha Mcdonough, CONTENT CREATION MANAGER - 01/30/2025 9:10 AM EDT Reason for Appointment: Patient ID: Tania Brothers [...] (HCC) Fracture 1994 Fracture of parietal bone ([facility] 1990 GERD (gastroesophageal reflux disease) History of depression HL (hearing loss) 05/24/2023 Malignant melanoma of leg (HCC) Oral contraceptive pill surveillance Preeclampsia in period ([facility]) 08/19/2020 HISTORY PAST MEDICAL HISTORY SOCIAL HISTORY Past Medical History: Diagnosis Date Congenital nevus COVID-19 Factor V deficiency (HCC) Fracture 1994 st wrist/hand level-left Fracture of parietal bone ([facility]) 1990 GERD (gastroesophageal reflux disease) History of depression HL (hearing loss) 05/24/2023 Malignant melanoma of leg (HCC) Oral contraceptive pill surveillance Preeclampsia in period ([facility]) 08/19/2020 Social History Tobacco Use Smoking status: Never Smokeless tobacco: Never Vaping Use Vaping status: Never Used Substance Use Topics Alcohol use: Not Currently Comment: Alcohol: 3 or 4 drinks on a typical day / 2 to 4 times a month. Caffeine: 1-2 cups/day Drug use: Never FAMILY HISTORY Family History Problem Relation Name Age of Onset Asthma Mother Shanelle Laurenkins Depression Mother Shanelle Wen Stroke Mother Shanelle [...] nursing note reviewed. Exam conducted with a word processing operator present. Vitals: Estimated body mass index is 23.34 kg/m as calculated from the following: Height as of 01/31/24: 5' 4 . Weight as of this encounter: 136 lb. BP: 110/70 Patient's last menstrual period was 01/20/2025. ASSESSMENT & PLAN ICD-10-CM 1. Menorrhagia with regular cycle N92.0 Pt presents to discuss endometrial ablation. Pt having 5-7 day heavy periods. Pt given labs to haveobtinaed., Pt partner having vasectomy. Pt to be scheduled for endometrial ablation. Pt to return for preop/embx and another appt for annual. Documented by Tosha Mcdonough LPN on behalf of: Akhil Arthur, DO documented in this e[id number] History of Present illness Narrative* Oleg Oropeza NP - 09/11/2024 1:50 PM EDT Reason for Appointment: Patient ID: Tania Brothers [...] Stroke Mother Shanelle Laurenkins Hyperlipidemia Father Star Laurenkins Hypertension Father Star Wen No Known Problems [...] nursing note reviewed. Exam conducted with a word processing operator present. Vitals: Estimated body mass index [...] the near future and is going to discussthis with her further. Incisional site has healed with mild ecchymosis no drainage or discharge and no surrounding erythema. She will schedule when ready to move forward with endometrial ablation Documented by Oleg Oropeza NP on behalf of: Oleg Oropeza NP documented in this en[id number] History of Present illness Narrative* Shin Edmondson Glendashelbie, ARJUN - 08/30/2024 2:00 PM EDT PROBLEM VISIT Tania Brothers is 34 y.o. a patient of [facility] Here for to make sure IUD is [...] SKIN CANCER EXCISION 10/2017 melanoma excision, leg, [facility] Family History Problem Relation Name Age of Onset Asthma Mother Shanelle Wen Depression Mother Shanelle Wen Stroke Mother Shanelle Wen Hyperlipidemia Father Star Wen Hypertension Father Star Wen No Known Problems Sister 2 sisters, healthy No Known Problems Brother Cancer Maternal Grandfather Blood and bone cancer Asthma Paternal Grandfather Faisal Laurenkins Prostate cancer Paternal Grandfather Faisal Behzad Hearing [...] that she changes her pad/tampon about every 2-3hours. She would like to make sure her IUD is in the correct position. ROS: Review of Systems Physical exam: Physical Exam Genitourinary: Comments: Speculum exam performed, large amount of thick, cervical mucous noted. IUD strings not visualized Assessment and Plan: There are no diagnoses linked to this encounter. IUD strings not visualized, US ordered to assess for placement. Patient states her periods are veryheavy like normal. When she first got the IUD it was a little welder plasma arc and then after a couple of months her period returned to the normal every periods that she had always had. No follow-ups on file. There are no Patient Instructions on file for this visit. Talia Morton MA,08/30/2024 2:10 PM documented in this e[id number] History of Present illness Narrative* Delmis Lorenzo MD - 08/17/2024 11:40 AM EDT Images from the original note were not [...] 34 units as above documented in this [facility]11-21-2024 History of Present illness Narrative* Delmis Lorenzo MD - 04/06/2024 1:20 PM EST Images from the original note were not [...] 34 units as above documented in this [id number] History of Present illness Narrative* Delmis Lorenzo MD - 01/31/2024 1:20 PM EDT Tania Brothers is a 34 y.o. female [...] Known Problems Daughter Cancer Maternal Grandmother Avril Abeberosmeyr Melanoma Neg Hx SOCIAL HISTORY: Social History [...] Discussed consideration of counseling documented in this encounterNOUT HealthcareEvaluation note* Diagnosis Forehead wrinkles- Primary Other [...] Polycystic ovaries documented in this encounter [facility] HealthcareEvaluation note* Diagnosis Pre-op examination Menorrhagia with regular cycle Abnormal uterine bleeding (AUB) Pelvic pain in female Unspecified symptom associated with female genital organs documented in this encounter [facility] HealthcareEvaluation noteNo assessment information availableUniversity Hospitals Cleveland Medical Center Work Phone: Evaluation note* Diagnosis Well woman exam with routine gynecological exam Routine gynecological examination Menorrhagia with regular cycle Abnormal uterine bleeding (AUB) Pelvic pain in female Unspecified symptom associated with female genital organs documented in this encounter [facility] HealthcareEvaluation note* Diagnosis Wrinkles- Primary documented in this encounter CoxHealthReason for referral (narrative)No reason for referral information availableUniversity Hospitals Cleveland Medical Center Work Phone: Summary Purpose Family History No Family History Records FoundNo Family History Records FoundNo Family History Records FoundNo Family History Records FoundNo Family History Records Found Advance Directives No Advanced Directives Records Found Advance Directive Response Recorded Date/ Time Advance Directives No October 29 1:45pm Additional Source Comments INFORMATION SOURCE (unrecogn ized section and content) DATE CREATED AUTHOR 03/22/2018 [facility] DATE CREATED AUTHOR AUTHOR'S ORGANIZ ATION 07/08/2020 [facility] DATE CREATED AUTHOR AUTHOR'S ORGANIZ ATION 06/11/2023 [facility] DATE CREATED AUTHOR AUTHOR'S ORGANIZ ATION 03/07/2025 [facility] DATE CREATED AUTHOR AUTHOR'S ORGANIZ ATION 03/14/2025 [facility] EPIC Care Teams (unrecognized sec tion and content) Team MemberRelationshipSpecialtyStart DateEnd Date Delmis Lorenzo MD [address] [place] [address] PCP - GeneralFamily Medicine11/21/22 Delmis Lorenzo MD [address] [place] [address] PCP - [facility]07/16/23Team MemberRelationshipSpecialtyStart DateEnd Date Delmis Lorenzo MD [address] [place] [address] PCP - GeneralFamily Medicine11/21/22 Delmis Lorenzo MD [address] [place] [address] PCP - [facility] [employer]07/16/23Team MemberRelationshipSpecialtyStart DateEnd Date Delmis Lorenzo MD [address] [place] [address] PCP - Generalmily Medicine11/21/22 Delmis Lorenzo MD [address] [place] [address] PCP - [facility] [facility] [employer]07/16/23Team MemberRelationshipSpecialtyStart End Delmis Lorenzo MD [address] [facility] [place] [address] PCP - Generalmily Medicine11/21/22 Delmis Lorenzo MD [address] [place] [address] PCP - [facility] [employer]07/16/23Team MemberRelationshipSpecialtyStart End Delmis Lorenzo MD [address] [place] [address] PCP - Generalmily Medicine11/21/22 Delmis Lorenzo MD [address] [place] [address] PCP - [facility] [employer]07/16/23Team MemberRelationshipSpecialtyStart DateEnd Date Delmis Lorenzo MD [address] [place] [address] PCP - GeneralFamily Medicine11/21/22 Delmis Lorenzo MD [address] [place] [address] PCP - [facility] [employer]07/16/23Team MemberRelationshipSpecialtyStart DateEnd Delmis Lorenzo MD [address] [place] [address] PCP - GeneralFamily Medicine11/21/22 Delmis Lorenzo MD [address] [place] [address] PCP - [facility] [employer]07/16/23Team MemberRelationshipSpecialtyStart End Delmis Lorenzo MD [address] [place] [address] PCP - GeneralFamily Medicine11/21/22 Delmis Lorenzo MD [address] [place] [address] PCP - [facility] [employer]07/16/23Team MemberRelationshipSpecialtyStart End Delmis Lorenzo MD [address] [place] [address] PCP - GeneralFamily Medicine11/21/22 Delmis Lorenzo MD [address] [place] [address] PCP - [facility] [employer]07/16/23 Team Status: Inactive Member Role Status Dates Akhil Gibson DO Attending Provider Active Start : February 27, 2025 End: February 27, 2025Team MemberRelationshipSpecialtyStart DateEnd Date Delmis Lorenzo MD [address] [place] [address] [facility] - [facility]11/21/22 Delmis Lorenzo MD [address] [facility] [place] [address] PCP - [employer] [employer]07/16/23Team MemberRelationshipSpecialtyStart DateEnd Date Delmis Lorenzo MD [address] [facility] [place] [address] PCP - [facility] Medicine11/21/22 Delmis Lorenzo MD [address] [facility] [place] [address] PCP - [place] [employer]07/16/23 Reason for Visit (unrecogniz ed section and content) ReasonCommentsAnnual ExamReasonCommentsMenstrual ProblemReasonCommentsPost-op VisitReasonCommentsMenorrhagiaReasonCommentsMenorrhagiaPt present today for an Embx visit.ReasonCommentsWell Women VisitPre-op Visit Goals (unrecognized section and content) Goals [...] BE BASED ON THE PRIMARY CLINICAL RECORDS. [employer] [facility]. provides no warranty or guarantee of the accuracy or completeness of information in this document.
== END 2025-03-16 09:55 | disposition home or self-care (01) ==
LOC: PST 09:55
PROVIDERS: PCP Family Medicine; Visit Provider Obstetrics & Gynecology
DX: Z01.818 Encounter for other preprocedural examination (principal); N92.0 Excessive and frequent menstruation with regular cycle; N93.9 Abnormal uterine and vaginal bleeding, unspecified; R10.2 Pelvic and perineal pain

== ENCOUNTER 2025-03-30 06:26 | Day surgery (SDC) | payer BC, SELFPAY ==
[2025-03-16 10:13] VITALS: BP 125/83; PULSE 67; TEMP 36.3; O2SAT 100; BMI 23.0
--- OUTSIDE RECORDS SUMMARY | 2025-03-30 06:30 | XMS_ITS | Encounter Summary ---
Author Organization [facility] Address [address] [place] [address] Care Team Providers Care Beam Dyer Operator Name Role Phone Delmis Lorenzo MD Primary Care Provider [phone] Delmis Lorenzo MD Unavailable Encounter Details DateTypeDepartmentCare Team (Latest Contact Info)Zikzgzyqrxz71/03/2025Orders Only [facility] [address] [place] [id number] Ciera Mendez LPN [address] [place] [address] [place] [address] Social History Tobacco UseTypesPacks/DayYears UsedDateSmoking [...] times a week12/24/2023How often do you attend christian or cheondoism services?More than 4 times per year12/24/2023o you belong to any clubs or organizations such as christian groups, unions, fraKey Ring or athletic groups, or school groups?No12/24/2023How often do you attend meetings of the clubs or organizations you belong to?1 to 4 times per year12/24/2023re you , , , , never , or living with a partner?Oujhnkv5612/24/2023UDIT-CAnswerDate RecordedQ1: How often do you have a [...] heating?Not hard at all12/24/2023HQ-2AnswerDate RecordedPatient Health Questionnaire-2 [id number] [place] [facility] Occupational [facility] - Occupational Stress QuestionnaireAnswerDate [...] now)?No 11/22/2022Edinburgh Depression ScaleAnswerDate RecordedEdinburgh Depression Scale [id number] thought of harming myself has occurred to me.Never10/28/2023Housing Stability Vital SignAnswerDate RecordedIn the last 12 months, was there a time when you were not able to pay the mortgage or rent on time?No12/24/2023In the past 12 months, how many times have you moved where you were living?t any time in the past 12 months, were you homeless or living in a mcc (including now)?No12/24/2023CommentsNo Sex and Gender InformationValueDate RecordedSex Assigned at BirthNot on file Legal DgqSuykmm62/15/2023 7:41 PM EDTGender IdentityNot on fileSexual OrientationNot on filedocumented as of this encounter Plan of Treatment Not on file documented as of this encounter Goals GoalPatient Goal TypeAssociated ProblemsRecent ProgressPatient-Stated?Author Help patient manage antidepressant medication Care PlanPatient on antidepressant monitoring Delmis Ramirez MD Baseline PHQ-9 Care PlanBaseline PHQ-9Delmis Nieves, MDdocumented as of this encounter Procedures Procedure NamePriorityDate/TimeAssociated DiagnosisCommentsPAP TEST, EXTERNAL Pgwibbk5403/05/2025 12:00 AM EDTdocumented in this encounter Results * PAP TEST, EXTERNAL (03/05/2025 12:00 AM EDT) Narrative Authorizing ProviderResult TypeResult StatusFazio Nurse [facility] Ob[facility] CYTOLOGY ORDERABLESFinal ResultPerforming OrganizationAddressCity/State/ZIP CodePhone Number EXTERNAL LAB documented in this encounter Visit Diagnoses Not on filedocumented in this encounter Additional Health Concerns Active ProblemsNoted DateDiagnosed DatePatient on antidepressant monitoring plan 4Baseline PHQ-904documented as of this encounter Care Teams Team MemberRelationshipSpecialtyStart DateEnd Date Delmis Lorenzo MD [address] [facility] [address] [place], [place] [id number] PCP - Generalmily Medicine11/21/22 Delmis Lorenzo MD [address] [place] [address] PCP - Radha Hahn07/16/23documented as of this encounter
--- OUTSIDE RECORDS SUMMARY | 2025-03-30 06:30 | XMS_ITS | Clinical Summary ---
Author Organization [facility] Address [address], [address] [place] [address] Care Team Providers Care Talent Development Consultant Name Role Phone Unavailable Primary Care Provider Unavailabl e Social History Tobacco UseTypesPacks/DayYears UsedDateSmoking Tobacco: Never Assessed CommentsUnknownSex and Gender InformationValueDate RecordedSex Assigned at Not on fileLegal JgpRdvcht31/08/2018 10:27 PM EDTGender IdentityNot on file Sexual OrientationNot on file Plan of Treatment Not on file Insurance
--- OUTSIDE RECORDS SUMMARY | 2025-03-30 06:30 | XMS_ITS | Clinical Summary ---
Author Organization [facility] Address [address] [place] [address] Care Team Providers Care [place] Supervisor Name Role Phone Delmis Lorenzo MD Primary Care Provider [phone] Delmis Lorenzo MD Unavailable Allergies Active AllergyReactionsCriticalityNoted IlxhVynvnjrnVholhwefzazLahaLov69/09/2018 Unknown as child Medications MedicationSigDispense QuantityRefillsLast FilledStart DateEnd DateStatus escitalopram (Lexapro) 10 MG tablet Indications:Mood changesTAKE 1 TABLET (10 MG) BY MOUTH DAILY. 90 tablet 5Active Additional Information Patient not taking.Reported on 03/05/2025 Hospital, Clinic, or Other Facility Administered MedicationOrdered DoseRoute FrequencyStart DateEnd DateStatus onabotulinumtoxinA (Botox) injection 34 Units Indications:Forehead dhfvwivy66 MznejKVGhlp95/06/2025Active onabotulinumtoxinA (Botox) injection 34 Units Indications:Afwcwzrk47 HsyywVDSmnl29/28/542179Ended Active Problems ProblemNoted DateDiagnosed DateSudden idiopathic hearing loss of left ear with unrestricted hearing of right ear06/04/2023 Encounters DateTypeDepartmentCare VppbOzbvnoddrqj03/03/2025Orders Only [facility] HERNANDE[facility] [address] [address] Ciera Mendez LPN 03/15/2025Orders Only [facility] HERNAN[facility] [address] [place] [id number] Ana Falcon MA 03/13/2025 8:40 AM EDTProcedure Visit [facility] [address] [facility] [place] [address] Delmis Lorenzo MD Wrinkles (Primary Dx)03/13/20251955Ryxbky11/20/2025 1:50 PM EDTProcedure Visit [facility] OBGYJovon [address] [place] [address] Akhil Gibson, DO Well woman exam with routine gynecological exam; Menorrhagia with regular cycle; Abnormal uterine bleeding (AUB); Pelvic pain in awlvog8103/05/2025linisync Result Encounter [facility] External Department Unsolicited Akhil Gibson DO 03/05/2025bstract [facility] [address] [place] [address] Risa Amezcua MA 03/05/2025amboo flowsheet [facility] [address] [place] [address] Akhil Gibson DO 02/27/2025 10:30 AM EDTProcedure Visit [facility] [address] [place] [address] Akhil Gibson, Pre-op examination; Menorrhagia with regular cycle; Abnormal uterine bleeding (AUB); Pelvic pain in jfqjpz9701/30/2025 9:10 AM EDTOffice Visit [facility] [address] [place] [address] Akhil Gibson, Menorrhagia with regular cycle; PCOS (polycystic ovarian syndrome)01/30/2025linisync Result Encounter [facility] External Department Unsolicited Provider, Generic External Data 01/30/2025amboo flowsheet [facility] [address] [place] [address] Akhil Gibson DO from Last 3 Months Immunizations ImmunizationAdministration DatesNext DueInfluenza, injectable, quadrivalent, preservative free05/14/2023Tdap07/19/2023 Family History Medical HistoryRelationNameCommentsNo Known ProblemsBrotherNo Known Problems DaughterHyperlipidemiaFatherRichard JenkinsHypertensionFatherRichard Wen CancerMaternal GrandfatherBlood and bone cancerCancerMaternal GrandmotherRosalyn FreehAsthmaMotherSusan JenkinsDepressionMotherSusan JenkinsStrokeMotherSusan JenkinsAsthmaPaternal GrandfatherDaniel JenkinsHearing lossPaternal Grandfather Faisal JenkinsProstate cancerPaternal GrandfatherDaniel JenkinsNo Known Problems Sister2 sisters, healthyMelanomaNeg HxRelationNameStatusCommentsBrotherDaughter AliveFatherRichard JenkinsAliveMaternal GrandfatherMaternal GrandmotherRosalyn FreehMotherSusan JenkinsAlivePaternal GrandfatherDaniel West Penn HospitalkinsSister Social History Tobacco UseTypesPacks/DayYears UsedDateSmoking Tobacco: NeverSmokeless Tobacco: Never Tobacco Cessation:Counseling Given: Not Answered Alcohol UseStandard Drinks/WeekCommentsNot Currently0 (1 standard drink = 0.6 oz pure alcohol)Alcohol: 3 or 4 drinks on a typical day / 2 to 4 times a month. Caffeine: 1-2 cups/dayHumiliation, Afraid, Rape, and Kick questionnaireAnswer Date RecordedWithin the last year, have you been afraid of your partner or ex-partner?11/22/2022Within the last year, have you been humiliated or emotionally abused in other ways by your partner or ex-partner?11/22/2022 Within the last year, have you been [...] times a week12/24/2023How often do you attend adventist or confucianist services?More than 4 times per year12/24/2023o you belong to any clubs or organizations such as adventist groups, unions, fraternal or athletic groups, or school groups?No12/24/2023How often do you attend meetings of the clubs or organizations you belong to?1 to 4 times per year12/24/2023re you , , , , never , or living with a partner?Ybgazqs8312/24/2023UDIT-CAnswerDate RecordedQ1: How often do you have a [...] heating?Not hard at all12/24/2023HQ-2AnswerDate RecordedPatient Health Questionnaire-2 Gnjfp269Finjordan [facility] [place] of Occupational Health - Occupational Stress QuestionnaireAnswerDate [...] now)?No 11/22/2022Edinburgh Depression ScaleAnswerDate RecordedEdinburgh Depression Scale Aqepy523The thought of harming myself has occurred to [...] RecordedSex Assigned at BirthNot on file Legal IxaDsysmb03/15/2023 7:41 PM EDTGender IdentityNot on fileSexual OrientationNot on file Last Filed Vital Signs Vital SignReadingTime TakenCommentsBlood Cbsltgdg999/6010 2:02 PM EDT Uocnb949801/31/2024 1:22 PM JCUVuoenvltlnf54 ??C (98.6 ??F)06/01/2023 9:04 AM EST Respiratory Ydbs740001/31/2024 1:22 PM EDTOxygen Hzfiqyzbrj429%01/31/2024 1:22 PM EDTInhaled Oxygen Concentration--Wtvlie47.3 kg (135 lb 1.9 oz)03/05/2025 2:02 PM NPGOvvarn457.6 cm (5' 4 )01/31/2024 1:22 PM EDTBody Mass Index23.19001/31/2024 1:22 PM EDT Plan of Treatment Health MaintenanceDue DateLast DoneCommentsSkin Cancer Rrchwmzwz60/26/1991 HPV/Afzyoe5801/10/2020COVID-19 Vaccine ( season)/06/2021, 01/08/2021, 12/18/2020Influenza Vaccine (#1)/, 04/03/2021, 02/21/2020Cervical Cancer Fmtwvxdrk98/20/2028Pap Smear, 12/27/2023neumococcal Vaccine: Pediatrics (0 to 5 Years) and At-Risk Patients (6 to 64 Years)Aged OutNo longer eligible based on patient's age to complete this topic Goals GoalPatient Goal TypeAssociated ProblemsRecent ProgressPatient-Stated?Author Help patient manage antidepressant medication Care PlanPatient on antidepressant monitoring Delmis Ramirez MD Baseline PHQ-9 Care PlanBaseline PHQ-9Delmis Nieves MD Procedures Procedure NamePriorityDate/TimeAssociated DiagnosisCommentsIGP,APTIMA HPV,AGE JGRNQusgkjz14/20/2025 1:53 PM EDT PAP TEST, OJSOPALUWohybic32/20/2025 12:00 AM EDTPOCT , URINERoutine 02/27/2025 11:25 AM EDT Menorrhagia with regular cycle ENDOMETRIAL BIOPSY, KCKFQPDHUpmcrnc97/14/2025 12:00 AM EDTALL VEVLIEBRAMOKNTUJJAMFSFPacowol89/16/2025 10:38 AM EDT ALL FOLLICLE STIMULATING BMZLPJIVnjadjm18/16/2025 10:38 AM EDT ALL LUTEINIZING OWHBBWHDnsaroj98/16/2025 10:38 AM EDT ALL DHEA QWUCPRYQpwfiyt74/16/2025 10:38 AM EDT [facility] PREG QUANT TAPXxlqpxs88/16/2025 10:38 AM EDT ALL THYROID STIM NOTPVCADgppboy84/16/2025 10:38 AM EDT ALL THYROXINE (T4) SLTKRhjjaor57/16/2025 10:38 AM EDT MLR HEMOGLOBIN B4HUofwuro86/16/2025 10:38 AM EDT ALL CBC WITH AUTO ONIWCemyjgc30/16/2025 10:38 AM EDT from Last 3 Months Results * IGP,APTIMA HPV,AGE GDLN (03/05/2025 1:53 [...] at: 01 =G ?[facility] ?? [address] [place] ??[phone] ?? Parisa Jane MD, IGP, APTIMA HPV, RFX 16/18,45Note.TBHComment: ?? TESTS ? RESULT ??FLAG ??UNITS ?REF RANGE ??LAB DIAGNOSIS: ?02 ?? NEGATIVE FOR INTRAEPITHELIAL LESION OR MALIGNANCY. Specimen adequacy: ?02 ?? Satisfactory for evaluation. ??Endocervical and/or squamous metaplastic ?? cells (endocervical component) are present. Performed by: ? 02 ?? Jose David Townsend Lease Purchase Truck Driver (ASCP) . ? 02 Note: ? Note [...] pap test was interpreted ?? using the Jongla(R) Genius(TM) Cervical Algorithm whole ?? slide imaging system. HPV Genotype Reflex ?? Note ?02 ?? Criteria not met, HPV Genotype not performed. ?FLAG LEGEND: ?L-Low Normal,H-High Normal,LL-Alert Low,HH-Alert High <-Panic Low,>-Panic High,A-Abnormal,AA-Critical Abnormal Performed at: 02 WB ?[facility] ?? [address] [place] [place] ??[phone] ?? Parisa Jane MD, HPV APTIMANegativeNegativeTBHComment: This nucleic acid amplification test detects fourteen high- risk HPV types (16,18,31,33,35,39,45,51,52,56,58,59,66,68) without differentiation. Performed at: ??= - [facility] ??[id number] Physical Geographer: Parisa Jane MD, Phone: ??[phone] Performed at: ?? - [facility] ??[id number] Physical Geographer: Parisa Jane MD, Phone: ??[phone] Specimen (Source)Anatomical Location / LateralityCollection Method / Volume Collection TimeReceived Time03/05/2025 1:53 PM EDT1 8:45 PM EDT Narrative [facility] - 03/09/2025 4:09 PM EDT BRUSH-SPATULA CERVIX ENDOCERVIX Authorizing ProviderResult TypeResult StatusCorey Arthur DOLAB BLOOD ORDERABLES Final ResultPerforming OrganizationAddressCity/State/ZIP CodePhone Number [facility] * PAP TEST, EXTERNAL (03/05/2025 12:00 AM EDT) Narrative Authorizing ProviderResult TypeResult StatusFazio Nurse [facility] ObLAB CYTOLOGY ORDERABLESFinal ResultPerforming OrganizationAddressCity/State/ZIP CodePhone Number EXTERNAL LAB * (ABNORMAL) POCT , urine manually resulted [...] 10:38 AM EDT01/30/2025 10:44 AM EDT Narrative [facility] - 01/30/2025 11:37 AM EDT Authorizing ProviderResult TypeResult StatusGeneric External Data Provider CLINISYNCFinal ResultPerforming OrganizationAddressty/State/ZIP CodePhone Number [facility] * MLR HEMOGLOBIN A1C (01/30/2025 10:38 AM EDT)ComponentValueRef RangeTest Method Analysis TimePerformed AtPathologist SignatureGLYCOHEMOGLOBIN A1C4.94.5 - 6.2 %TBHComment: ADA RECOMMENDED LIMIT 4.0 - 6.0 ADA THERAPEUTIC TARGET < 7.0 ACTION SUGGESTED > 7.0 ESTIMATED AVERAGE YYZEFQJ07bu/dLTBHSpecimen (Source)Anatomical Location / LateralityCollection Method / VolumeCollection TimeReceived Time01/30/2025 10:38 AM EDT01/30/2025 10:44 AM EDT [facility]ative [facility] 01/30[facility] 11:04 AM EDT Authorizing ProviderResult TypeResult StatusGeneric External Data Provider CLINISYNCFinal ResultPerforming OrganizationAddressCity/State/ZIP CodePhone Number [facility] * ALL THYROXINE (T4) FREE (01/30/2025 10:38 AM EDT)ComponentValueRef RangeTest MethodAnalysis TimePerformed AtPathologist SignatureFREE T41.080.76 - 1.46 ng/dLTBHSpecimen (Source)Anatomical Location / LateralityCollection Method / VolumeCollection TimeReceived Time01/30/2025 10:38 AM EDT01/30/2025 10:44 AM EDT Narrative [facility] - 01/30/2025 11:34 AM EDT Authorizing ProviderResult TypeResult StatusGeneric External Data Provider CLINISYNCFinal ResultPerforming OrganizationAddSt. Mary Medical Center/[facility] CodePhone Number [facility] * ALL THYROID STIM HORMONE (01/30/2025 10:38 AM EDT)ComponentValueRef RangeTest MethodAnalysis TimePerformed AtPathologist SignatureTHYROID STIMULATING HORMONE1.6720.358 - 3.740 uIU/mLTBHSpecimen (Source)Anatomical Location / LateralityCollection Method / VolumeCollection TimeReceived Time01/30/2025 10:38 AM EDT01/30/2025 10:44 AM EDT [facility] - 01/30/2025 11:37 AM EDT Authorizing ProviderResult TypeResult StatusGeneric External Data Provider CL[facility]ISYNCCentral [facility] Centeral ResultPerforming OrganizationAddSt. Mary Medical Center/[facility] CodePhone Number [facility] * ALL LUTEINIZING HORMONE (01/30/2025 10:38 AM [...] ?Postmenopausal ? 25.8 - 134.8 Performed at: ?? - [facility] [address] ??[id number] Physical Geographer: Raheel Vann PhD, Phone: ??[phone] Specimen (Source)Anatomical Location / LateralityCollection Method / Volume Collection TimeReceived Time01/30/2025 10:38 AM EDT01/30/2025 10:44 AM EDT Narrative [facility] - 01/31/2025 4:07 AM EDT Authorizing ProviderResult TypeResult StatusCorey Arthur DOCLINISYNCFinal Result Performing OrganizationAddressty/[facility]/ZIP CodePhone Number [facility] * ALL DHEA SULFATE (01/30/2025 10:38 AM EDT)ComponentValueRef RangeTest Method Analysis TimePerformed AtPathologist SignatureDHEA-EQGXNBO656.057.3 - 279.2 ug/dLTBHSpecimen (Source)Anatomical Location / LateralityCollection Method / VolumeCollection TimeReceived Time01/30/2025 10:38 AM EDT01/30/2025 10:44 AM EDT Narrative [facility] - 01/31/2025 4:07 AM EDT Authorizing ProviderResult TypeResult StatusCorey Arthur DOCLINISYNCFinal Result Performing OrganizationAddressCity/State/ZIP CodePhone Number [facility] * ALL DEHYDROEPIANDROSTERONE (01/30/2025 10:38 AM EDT)ComponentValueRef Range Test MethodAnalysis TimePerformed AtPathologist SignatureDHEA, [id number] - 701 ng/dLTBHComment: This test was developed and its performance characteristics determined by [facility]. It has not been cleared or approved by the Food and Drug Administration. Performed at: ?? - [facility] ??[id number] Physical Geographer: Kasi Brannon MD, Phone: ??[phone] Specimen (Source)Anatomical Location / LateralityCollection Method / Volume Collection TimeReceived Time01/30/2025 10:38 AM EDT01/30/2025 10:44 AM EDT Narrative [facility] - 02/04/2025 1:07 PM EDT Authorizing ProviderResult TypeResult StatusCorey Arthur DOCLINISYNCFinal Result Performing OrganizationAddHoly Redeemer Health Systemty/[facility]/ZIP CodePhone Number [facility] * (ABNORMAL) ALL CBC WITH AUTO DIFF (01/30/2025 10:38 AM EDT)ComponentValueRef RangeTest MethodAnalysis TimePerformed AtPathologist SignatureTBH WBC5.74.0 - 11.0 10 3/uLTBHTBH RBC4.384.20 - 5.40 10 6/uLTBHTBH HGB12.912.0 - 16.0 g/dLTBH TBH HCT37.836.0 - 48.0 %TBHTBH MCV86.381.0 - 99.0 fLTBHTBH MCH29.526.7 - 34.0 pgTBHTBH MCHC34.129.9 - 35.2 g/dLTBHTBH RDW12.211.0 - 15.0 %TBHTBH VLB086940 - 450 10 3/uLTBHTBH MPV9.2(L)9.5 - 13.5 [...] Result Performing OrganizationAddressCity/State/ZIP CodePhone Number [facility] from Last 3 Months Additional Health Concerns Active ProblemsNoted DateDiagnosed DatePatient on antidepressant monitoring plan 4Baseline PHQ-9001/31/2024 Insurance * Guarantor: Carolina [employer] TypeRelation to PatientDate of BirthPhone Billing AddressPersonal/DhmnfqMyni[address] [facility] [place] [address] Care Teams Team MemberRelationshipSpecialtyStart DateEnd Date Delmis Lorenzo MD [address] [place], [place] [id number] [facility] Delmis Lorenzo MD [address] [place] [address] PCP - [facility]07/16/23
[2025-03-30 06:38] LABS: Hematocrit 39.9 % (36.0-48.0); Hemoglobin 13.8 g/dL (12.0-16.0); Immature Granulocytes Abs Auto 0.01 10^3/uL (0.00-0.03); Immature Granulocytes Pct Auto 0.2 % (0.0-0.5); Lymphocytes Absolute Auto 2.6 10^3/uL (1.2-3.8); Mean Corpuscular HGB Conc 34.6 g/dL (29.9-35.2); Mean Corpuscular Hemoglobin 29.8 pg (26.7-34.0); Mean Corpuscular Volume 86.2 fL (81.0-99.0); Platelet Count 324 10^3/uL (150-450); Red Blood Count 4.63 10^6/uL (4.20-5.40); White Blood Count 5.5 10^3/uL (4.0-11.0)
[2025-03-30 06:55] VITALS: BMI 23.2
[2025-03-30 07:06] VITALS: PULSE 81; TEMP 36.1
--- NOTE | 2025-03-30 07:56 | PM.ONB ---
Brief Operative Note Date of procedure: 03/30/25 Pre-op diagnosis general: menorrhagia Post-op diagnosis: same as pre-op Procedure: NAME OF PROCEDURE: [ ] Mallory endometrial ablation with hysteroscopy. PROCEDURE: The patient was taken back to the OR where she was prepped and draped in the normal sterile fashion after being placed in the dorsal lithotomy position, after being placed under general anesthesia without difficulty.? A weighted speculum was placed into the vagina. The anterior lip was grasped with a single tooth tenaculum. The patient was then sounded to approximated 8cm. The patient?s cervix was gently dilated using hegardilators. The hysteroscope was passed through the cervix into the uterus where both ostia were seen. No gross evidence of polyps, fibroids or malignancy. The cervical length was noted to be 4 cm. The total cavity length is 4cm.? The Mallory ablation apparatus was set to approximately 4cm in length. This was placed through the cervix and into the uterus. After the seal was tested, at that time the total ablation of 120 seconds was performed with the Mallory withoutdifficulty. All instruments were removed from the vagina. Excellent hemostasis noted.? Sponge and lap count correct times 2.? Patient taken to recovery in stable condition. Anesthesia: MAC Surgeon: Akhil Gibson Estimated blood loss (mL): 5 Pathology: none sent Condition: stable Disposition: PACU Urinary Catheter Management Urinary Catheter Management Urethral: Cath placed during this visit: no
[2025-03-30 08:01] VITALS: BP 121/80; PULSE 80; TEMP 36.5; O2SAT 96
[2025-03-30 08:16] VITALS: BP 110/76; PULSE 70; O2SAT 97
[2025-03-30 08:31] VITALS: BP 111/78; PULSE 64; O2SAT 100
[2025-03-30 08:46] VITALS: BP 113/82; PULSE 90; O2SAT 100
== END 2025-03-30 09:00 | disposition home or self-care (01) ==
LOC: SURGOUT 06:27
PROVIDERS: PCP Family Medicine; Visit Provider Obstetrics & Gynecology
PROC: (CPT 952; principal; 2025-03-30 07:30)
DX: N92.0 Excessive and frequent menstruation with regular cycle (principal); N93.9 Abnormal uterine and vaginal bleeding, unspecified; D68.2 Hereditary deficiency of other clotting factors
CPT/HCPCS: 58563; 36415; 84702; 85025; J1100; J2003; J2250; J2405; J2704; J3010